=== PATIENT | male | born 1950 | race Caucasian/White ===

== ENCOUNTER 2022-01-03 12:30 | Outpatient (RCR) | payer MEDICARE, OTHER, SELFPAY ==
[2022-01-03 13:03] VITALS: BP 126/72; PULSE 108; RESP 20; TEMP 36.1; BMI 34.3
--- NOTE | 2022-01-03 14:25 | PCM.WC.HP ---
History of Present Illness Date of Service: 01/03/22 Chief Complaint: Ulcer left ischium and ulcer right lateral leg History of Wound: Patient is 71 year male who is a poor historian. He presents for evaluation of his left ischia ulcer that he obtained while hospital for a month this summer at [facility] in [place]. He was admitted on October 20, 2021 with a virus of unknown origin. He required dialysis for GURMEET due to the infection. He had his left ischial ulcer debrided at the bedside. It goes down to muscle with tunneling. He was recently readmitted for another week to [facility]. He has home health and is receiving PT at home. His has been packing it with saline moistened gauze daily. His right lateral leg ulcer is superficial. He has severe +4 pitting edema to bilateral lower legs and feet. He has not been wearing compression. He is a poor historian, but states he has a history of cardiac stents years ago, Left knee replacement 2010, right knee replacement 2017, appe 1969. Today he denies fever, chills, nausea, vomiting. He is very fatigued due to having PT this morning. Progress of Wound: Left ischial ulcer is beefy pink, into the muscle. There is undermining with a tunnel at 12 noon. Right lateral leg ulcer is superficial. Severe bilateral lower leg edema. [facility] Medical History (Reviewed 01/04/22 @ 09:23 by Ronel Cannon [employer], [employer]-C) Peripheral neuropathy Home Medications albuterol sulfate 90 mcg/actuation aerosol inhaler (Ventolin HFA) 2 puff inhalation Q4H PRN PRN Sob &/Or Wheezing 10/08/15 [History Last Taken Unknown] fluticasone 500 mcg-salmeterol 50 mcg/dose blistr powdr for inhalation (Advair Diskus) 1 puff inhalation BID 10/08/15 [History Last Taken 10/07/15 18:00] gabapentin 100 mg capsule 200 mg PO BIDCM 10/08/15 [History Last Taken 10/07/15 22:00] lansoprazole 30 mg capsule,delayed release (Prevacid) 30 mg PO BID 10/08/15 [History Last Taken 10/07/15 19:00] nystatin 100,000 unit/mL oral suspension 5 ml PO 4X/DAY 10/08/15 [History Last Taken 10/07/15 22:00] oxycodone-acetaminophen 5 mg-325 mg tablet 1 tab PO Q6H PRN PRN Pain 10/08/15 [History Last Taken Unknown] apixaban 5 mg tablet (Eliquis) 5 mg PO BID ##1 10/18/15 [Rx Last Taken Unknown] Allergy/AdvReac Type Severity Reaction Status Date / Time No Known Drug Allergies Allergy Other Verified 10/08/15 13:58 Family History (Reviewed 01/04/22 @ 09:23 by Ronel Cannon [employer], [employer]-C) Father CAD (coronary artery disease) Mother CAD (coronary artery disease) Surgical History (Reviewed 01/04/22 @ 09:23 by Ronel Cannon [employer], [employer]-C) History of appendectomy History of heart artery stent History of total left knee replacement History of total right knee replacement (TKR) Social History (Reviewed 01/04/22 @ 09:23 by Ronel Cannon [employer], [employer]-C) Smoking Status: Never smoker ROS Constitutional Constitutional: Reports fatigue; Denies chills or fever(s) Eyes Eyes: Reports none ENT HEENT: Reports none Cardiovascular Cardiovascular: Reports leg edema and leg ulcers; Denies chest pain or dyspnea Respiratory/Chest Respiratory/Chest: Denies cough or dyspnea Gastrointestinal Gastrointestinal: Denies abdominal pain, nausea or vomiting Musculoskeletal Musculoskeletal: Reports abnormal gait, difficulty walking and numbness Integumentary Integumentary: Reports skin ulcer and skin swelling Neurologic Neurologic: Reports burning sensations and numbness Psychiatric Psychiatric: Denies anxiety Endocrine Endocrinology: Reports none Vital Signs Vital Signs Vital Signs: 01/03/22 13:03 Temperature 97 F L Temperature Source Oral Pulse Rate 108 H Respiratory Rate 20 H Blood Pressure 126/72 H Blood Pressure Mean 90 Blood Pressure Source Monitor Blood Pressure Position Semi-Fowlers Blood Pressure Location Right Arm Oxygen Delivery Method Room Air Weight Weight: 226 lb Body Mass Index (BMI) 34.3 Physical Exam Const alert and oriented x3 General Appearance: cooperative HEENT normocephalic Resp normal respiratory effort, normal air movement and clear to auscultation bilaterally Effort and Inspection: able to speak in complete sentences Cardio regular rate and regular rhythm Peripheral Pulses: dorsalis pedis pulses present bilateral GI normal to inspection, nondistended, normoactive bowel sounds, soft to palpation and non-tender Extremity normal capillary refill Extremity Narrative: +4 pitting edema bilateral lower extremities. Bilateral pedal pulses palpable. Peripheral Pulses: Yes dorsalis pedis pulses present bilateral Skin Wound Narrative: Stage IV left ischial/buttock ulcer into the muscle. It is beefy pink in color. He has some non viable tissue around the opening of the ulcer. There is a tunnel present. Right lateral leg ulcer is beefy pink in color. Neuro oriented x3 Psych mental status grossly normal Appearance: grossly normal Debridement Note Debridement Note Wound debrided: Ischial/buttock ulcer Laterality: Left Wound Grade/Stage: Stage IV Type of Debridement: Excisional debridement Anesthesia Used: 4% Lidocaine Solution and 5% Lidocaine Gel Depth: Down to and including healthy tissue, in the subcutaneous layer and to muscle Percentage of wound debrided: 100 Instrument Used: 7mm curette Tissue Removed: Devitalized tissue and slough Severity: Fat Layer Exposed Amount of bleeding with debridement: Mild Bleeding Controlled with: Pressure, Compression and gauze and Silver Nitrate (along the edges of the ulcer) Patient tolerated procedure: Patient tolerated procedure well Post-Debridement Measurements and Additional Note: Post-Debridement Measurements/Treatment - Nurse 1 - General Ulcer Assessment Start: 01/03/22 13:03 Freq: Status: Active Protocol: JANET Activity Type Activity Date Activity User E-sign Co-sign Detail Recorded Client Recorded Date Recorded By Document 01/03/22 13:03 WY [id number] 01/03/22 13:29 W[place] 01/03/22 13:03 - Today's Visit Information Type of service Initial Visit Arrival Mode Wheelchair Accompanied by carol Patient Identification Verified (Name & Yes ) Height and Weight Height 5 ft 8 in Weight 226 lb Weight in Pounds 226.0 lbs Body Mass Index (BMI) 34.3 BMI Classification Obese BSA - Jaye 2.15 Vital Signs Temperature (97.8 F-99.1 F) 97 F L Temperature Source Oral Pulse Rate (60-100) 108 H Pulse Location Monitor Respiratory Rate (12-18) 20 H Oxygen Delivery Method Room Air Blood Pressure (90/60-120/80) 126/72 H Blood Pressure Mean 90 Source Monitor Position Semi-Fowlers Blood Pressure Location Right Arm History Since Last Visit- (Skip if this is Patient's initial visit) Left Footwear Regular Shoe Right Footwear Regular Shoe Pain Scale: 0-10 Numeric Is Patient Pain Free? Yes - Nurse 1 - General Ulcer Measurement Start: 01/03/22 13:03 Freq: Status: Active Protocol: Activity Type Activity Date Activity User E-sign Co-sign Detail Recorded Client Recorded Date Recorded By Document 01/03/22 13:03 WY [id number] 01/03/22 13:29 W[place] 01/03/22 13:03 Wound Center Nurse 1 #2 Right Lateral Leg -Current Size (cm) - Length 3.9 -Current Size (cm) - Width 2.0 -Current Size (cm) - Depth 0.1 -Total Square Cm 7.80 -Exudate Amt Medium -Exudate Type Serosanguineous -Wound Margin Flat & Intact -Granulation Amt Large (67-100%) -Granulation Quality Pale,[place] -Slough/Fibrin No -Texture (Merline-wound Skin Appearance) Assessed, Localized Edema -Moisture (Merline-wound Skin Appearance) Assessed -Color (Merline-wound Skin Appearance) Assessed -Temperature (Merline-wound Skin No Abnormality Appearance) (Pt Warm) -Tenderness on Palpation (Merline-wound No Skin Appearance) -Ulcer Cleansing Rinsed/ Irrigated with Saline -Foul Odor after Cleansing No -Anesthetic Used 4% Lidocaine Solution #1 L Buttock -Current Size (cm) - Length 6.0 -Current Size (cm) - Width 4.0 -Current Size (cm) - Depth 5.1 -Total Square Cm 24.00 -Undermining/Tunneling Yes -Undermining/Tunneling Starts (O'clock 10 ) -Undermining/Tunneling Ends (O'clock) 3 -Maximum Distance (cm) 4.4 -Exudate Amt Small -Exudate Type Serosanguineous -Wound Margin Thickened & Rolled Under -Granulation Amt Large (67-100%) -Granulation Quality Pale,[place] -Necrosis Amt Small (1-33%) -Necrotic Tissue Type Adherent Slough -Texture (Merline-wound Skin Appearance) Assessed -Moisture (Merline-wound Skin Appearance) Assessed -Color (Merline-wound Skin Appearance) Assessed -Temperature (Merline-wound Skin No Abnormality Appearance) (Pt Warm) -Tenderness on Palpation (Merline-wound No Skin Appearance) -Ulcer Cleansing Rinsed/ Irrigated with Saline -Anesthetic Used 4% Lidocaine Solution WC - Nurse 2 - General Ulcer CM Notes Start: 01/03/22 13:03 Freq: Status: Active Protocol: Activity Type Activity Date Activity User E-sign Co-sign Detail Recorded Client Recorded Date Recorded By Document 01/03/22 13:41 MW [id number] 01/03/22 13:52 MW Edit Result 01/03/22 13:41 MW (1) [id number] 01/03/22 13:58 MW (1) #2 Right Lateral Leg - Debridement - Subq, 1st 20sq cm No => Yes 01/03/22 13:41 Wound Center Nurse 2 #2 Right Lateral Leg -Time 13:42 -Correct Patient Yes -Correct Side, Site, Position Yes -Correct Procedure Yes -Procedure Performed Yes -Type of Procedure Debridement -Clinical Debridement Subcutaneous -Tissue Removed Subcutaneous -Post Debridement (cm) - Length 3.8 -Post Debridement (cm) - Width 2.2 -Post Debridement (cm) - Depth 0.2 -Total Square (Post) (cm) 8.36 -Area of Debridement (cm) - Length 3.8 -Area of Debridement (cm) - Width 2.2 -Total Square (Area) (cm) 8.36 -Tunneling No -Undermining/Tunneling No -Circular Undermining No -Wound/Ulcer Outcome Not Healed -Ulcer Cleansing Rinsed/ Irrigated with Saline -Foul Odor after Cleansing No -Bioengineered Tissue No -Bleeding Controlled with Pressure -Treatment Response Procedure Tolerated Well -Offloading No -Debridement - Subq, 1st 20sq cm Yes #1 L Buttock -Time 13:42 -Correct Patient Yes -Correct Side, Site, Position Yes -Correct Procedure Yes -Procedure Performed Yes -Type of Procedure Debridement -Clinical Debridement Muscle / Fascia -Tissue Removed Muscle,Fascia -Post Debridement (cm) - Length 5.8 -Post Debridement (cm) - Width 3.5 -Post Debridement (cm) - Depth 5.0 -Total Square (Post) (cm) 20.30 -Area of Debridement (cm) - Length 5.8 -Area of Debridement (cm) - Width 3.5 -Total Square (Area) (cm) 20.30 -Tunneling No -Undermining/Tunneling No -Circular Undermining No -Wound/Ulcer Outcome Not Healed -Ulcer Cleansing Rinsed/ Irrigated with Saline -Foul Odor after Cleansing No -Bioengineered Tissue No -Bleeding Controlled with Pressure -Treatment Response Procedure Tolerated Well -Offloading No -Debridement - Muscle / Fascia, 1st Yes 20sq cm -Debridement, Muscle/Fascia, ea addt'l 1 20sq cm or part thereof Pain Scale: 0-10 Numeric Is Patient Pain Free? Yes Additional Wound Wound debrided: Lateral leg ulcer Laterality: Right Type of Debridement: Excisional debridement Anesthesia Used: 5% Lidocaine Gel Depth: Down to and including healthy tissue and in the subcutaneous layer Percentage of wound debrided: 100 Instrument Used: 3mm curette Tissue Removed: Devitalized tissue and slough Severity: Fat Layer Exposed Bleeding Controlled with: Compression and gauze Patient tolerated procedure: Patient tolerated procedure well Charges/Coding Visit Charges Office Visits / Consults: [id number] OV L4 Est (25 modifier) Procedures Integumentary [id number]: [id number] Ashley subq tissue 20 sq cm/< Assessment/Plan Assessment/Plan (1) 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 A debridement was performed as documented. Patient has significant decrease in mobility and is receiving home physical therapy. He requires much assistance with standing, transferring and moving due to his weakness. Hopefully with continued PT and time, this will improve. Wound care - Left ischial/buttock ulcer will pack with Dakins 0.25% moistened gauze and top with super absorber daily. Will apply for a wound VAC. Once the VAC is approved by the insurance, home health will be able to apply the vac, packing black foam into the tunnels, and placing the vac at 150 mmHg. Wound VAC dressings will be 3 times per week. Ulcer and merline wound will be washed with soap and water at the time of the VAC changes. For right lateral leg ulcer place collagen hydrogel covered with gauze daily after washing with soap and water. Will place ANA wraps on bilateral lower extremities for compression and hopefully decrease edema. Will order MAVERICK to be done next week, so we will be able to determine the type of compression that is appropriate for him. Will order vascular studies to be done. Due to the difficulty he has ambulating and with him having home health, will have him return in 2 weeks. He is to call or come in sooner if he develops any concerns.
== END 2022-01-24 23:59 | disposition home or self-care (01) ==
LOC: WC 12:30
PROVIDERS: PCP Internal Medicine; Visit Provider Nurse Practitioner Family
DX: L89.324 Pressure ulcer of left buttock, stage 4 (principal); L97.912 Non-pressure chronic ulcer of unspecified part of right lower leg with fat layer exposed; G62.9 Polyneuropathy, unspecified; R60.0 Localized edema; R53.81 Other malaise; Z79.899 Other long term (current) drug therapy
CPT/HCPCS: 11042; 11043; 11046; 99203; G0463

== ENCOUNTER 2022-02-21 14:30 | Outpatient (RCR) | payer MEDICARE, OTHER, SELFPAY ==
[2022-01-25 00:08] VITALS: BP 126/72; PULSE 108; RESP 20; TEMP 36.1; BMI 34.3
[2022-01-25 15:22] VITALS: BP 104/49; PULSE 62; TEMP 35.9; BMI 34.3
--- NOTE | 2022-01-25 16:50 | PN.PCM_ITS ---
History of Present Illness Date of Service: 01/25/22 Chief Complaint: Ulcer left ischium and ulcer right lateral leg History of Wound: Patient is 71 year male who is a poor historian. He presents for evaluation of his left ischia ulcer that he obtained while hospital for a month this summer at [facility] in [place]. He was admitted on October 20, 2021 with a virus of unknown origin. He required dialysis for GURMEET due to the infection. He had his left ischial ulcer debrided at the bedside. It goes down to muscle with tunneling. He was recently readmitted twice, for a week each time, to [facility]. He has home health and is receiving PT at home. His has been packing it with saline moistened gauze daily. His right lateral leg ulcer is superficial. He has severe +4 pitting edema to bilateral lower legs and feet. He has not been wearing compression. He is a poor historian, but states he has a history of cardiac stents years ago, Left knee replacement 2010, right knee replacement 2017, appe 1969. Wound care - The left buttock ulcer is a wound VAC at 150 mmHg, to be change 3 times per week. Today he denies fever, chills, nausea, vomiting. He states his appetite is ok. Progress of Wound: Left buttock ulcer with tunnel at 7 o'clock with a small hole in the base of the tunnel where the entire cotton swab applicator can go into that area. He has not used the wound VAC for the past week due to his most recent hospitalization. His right lateral leg ulcer is healed but has very fragile tissue covering it. Objective Data Objective Data Vital Signs: Vital Signs Temp Pulse Resp BP 96.6 F L 62 20 H 104/49 L 01/25/22 15:22 01/25/22 15:22 01/25/22 00:08 01/25/22 15:22 Weight: 226 lb Body Mass Index (BMI) 34.3 Charges/Coding Procedures Integumentary 111xxx-113xx: [id number] Ashley musc/fascia 20 sq cm/< Physical Exam Const alert and oriented x3 General Appearance: cooperative HEENT normocephalic Resp normal respiratory effort and normal air movement Effort and Inspection: able to speak in complete sentences Cardio regular rate Peripheral Pulses: dorsalis pedis pulses present bilateral GI normal to inspection, nondistended, normoactive bowel sounds, soft to palpation and non-tender Extremity normal capillary refill Extremity Narrative: +3 edema bilateral lower extremities. Bilateral pedal pulses palpable. Peripheral Pulses: Yes dorsalis pedis pulses present bilateral Skin Wound Narrative: Left buttock ulcer with tunnel at 7 o'clock with a small hole in the base of the tunnel where the entire cotton swab applicator can go into that area. Over all this ulcer looks much better. His right lateral leg ulcer is healed but has very fragile tissue covering it. Neuro oriented x3 Psych mental status grossly normal Appearance: grossly normal Debridement Note Debridement Note Wound debrided: Ischial/buttock ulcer Laterality: Left Wound Grade/Stage: Stage IV Type of Debridement: Excisional debridement Anesthesia Used: 4% Lidocaine Solution and 5% Lidocaine Gel Depth: Down to and including healthy tissue, in the subcutaneous layer and to muscle Percentage of wound debrided: 100 Instrument Used: 7mm curette Tissue Removed: Devitalized tissue and slough Severity: Fat Layer Exposed Amount of bleeding with debridement: Mild Bleeding Controlled with: Pressure and Compression and gauze Patient tolerated procedure: Patient tolerated procedure well Post-Debridement Measurements and Additional Note: Post-Debridement Measurements/Treatment - Nurse 1 - General Ulcer Assessment Start: 01/25/22 15:22 Freq: Status: Active Protocol: VALENTÍN.J CARLOS Activity Type Activity Date Activity User E-sign Co-sign Detail Recorded Client Recorded Date Recorded By Document 01/25/22 15:22 YUMIKO [id number] 01/25/22 15:27 [place] 01/25/22 15:22 - Today's Visit Information Type of service Follow-up Visit (Physician/FINAL [employer]PENSE AGENT ) Arrival Mode Ambulatory, Walker Patient Identification Verified (Name & Yes ) Patient Requires Transmission-Based No Precautions Height and Weight Body Mass Index (BMI) 34.3 BMI Classification Obese Vital Signs Temperature (97.8 F-99.1 F) 96.6 F L Temperature Source Temporal Pulse Rate (60-100) 62 Pulse Location Monitor Blood Pressure (90/60-120/80) 104/49 L Blood Pressure Mean (mm Hg) 67 Source Monitor History Since Last Visit- (Skip if this is Patient's initial visit) Have you changed medications since your No last visit? Any new allergies or adverse reactions No Had a fall/change in ADL's that may No increase risk of falls Signs or symptoms of abuse and/or No neglect since last visit Have you been in the hospital since your No last visit? Has dressing in place as prescribed Yes Has compression in place as prescribed No Has offloadiing in place as prescribed N/A Experienced any changes in pain level or No management Left Footwear Regular Shoe Right Footwear Regular Shoe Pain Scale: 0-10 Numeric Is Patient Pain Free? Yes WC - Nurse 1 - General Ulcer Measurement Start: 01/25/22 15:22 Freq: Status: Active Protocol: Activity Type Activity Date Activity User E-sign Co-sign Detail Recorded Client Recorded Date Recorded By Document 01/25/22 15:22 [place] [id number] 01/25/22 15:27 [place] 01/25/22 15:22 Wound Center Nurse 1 #2 Right Lateral Leg -Combined with other wound No -Current Size (cm) - Length 3 -Current Size (cm) - Width 0.4 -Current Size (cm) - Depth 0.1 -Total Square Cm 1.2 -Photo Taken No -Tunneling No -Undermining/Tunneling No -Circular Undermining No -Change in Wound Grade/Stage No -Exudate Amt Medium -Exudate Type Serosanguineous -Wound Margin Distinct, Outline Attached -Granulation Amt Medium (34-66%) -Granulation Quality Trufant -Slough/Fibrin Yes -Necrosis Amt Small (1-33%) -Structure Exposed N/A -Texture (Merline-wound Skin Appearance) No Abnormality, Assessed -Moisture (Merline-wound Skin Appearance) No Abnormality, Assessed -Color (Merline-wound Skin Appearance) No Abnormality, Assessed -Temperature (Merline-wound Skin No Abnormality Appearance) (Pt Warm) -Tenderness on Palpation (Merline-wound No Skin Appearance) -Ulcer Cleansing Rinsed/ Irrigated with Saline -Foul Odor after Cleansing No -Anesthetic Used 5% Lidocaine Gel #1 L Buttock -Combined with other wound No -Current Size (cm) - Length 4.5 -Current Size (cm) - Width 4 -Current Size (cm) - Depth 3.7 -Total Square Cm 18.0 -Photo Taken No -Tunneling No -Tunneling Position (O'clock) 12 -Tunneling Distance (cm) 4.5 -Tunneling Position #2 (O'clock) 7 -Tunneling Distance #2 (cm) 5.3 -Undermining/Tunneling No -Circular Undermining No -Change in Wound Grade/Stage No -Exudate Amt Large -Exudate Type Serosanguineous -Wound Margin Distinct, Outline Attached -Granulation Amt Large (67-100%) -Granulation Quality Trufant,Red -Slough/Fibrin Yes -Necrosis Amt Medium (34-66%) -Necrotic Tissue Type Adherent Slough -Structure Exposed Muscle,Bone -Texture (Merline-wound Skin Appearance) No Abnormality, Assessed -Moisture (Merline-wound Skin Appearance) No Abnormality, Assessed -Color (Merline-wound Skin Appearance) No Abnormality, Assessed -Temperature (Merline-wound Skin No Abnormality Appearance) (Pt Warm) -Tenderness on Palpation (Merline-wound No Skin Appearance) -Ulcer Cleansing Soap and Water -Foul Odor after Cleansing No -Anesthetic Used 4% Lidocaine Solution -Wound Comment(s) 7oclock- 5.3 WC - Nurse 2 - General Ulcer CM Notes Start: 01/25/22 15:22 Freq: Status: Active Protocol: Activity Type Activity Date Activity User E-sign Co-sign Detail Recorded Client Recorded Date Recorded By Document 01/25/22 15:45 MW [id number] 01/25/22 15:58 MW Edit Result 01/25/22 15:45 MW (1) [id number] 01/25/22 16:00 MW (1) #1 L Buttock - Clinical Debridement Subcutaneous => Muscle / Fascia - Tissue Removed Subcutaneous => Muscle,Fascia - Debridement - Subq, 1st 20sq cm Yes => - Debridement - Muscle / Fascia, 1st => Yes 20sq cm 01/25/22 15:45 Wound Center Nurse 2 #2 Right Lateral Leg -Time 15:48 -Correct Patient Yes -Correct Side, Site, Position Yes -Correct Procedure Yes -Procedure Performed No -Post Debridement (cm) - Length 0.1 -Post Debridement (cm) - Width 0.1 -Post Debridement (cm) - Depth 0.1 -Total Square (Post) (cm) 0.01 -Wound/Ulcer Outcome Not Healed #1 L Buttock -Time 15:48 -Correct Patient Yes -Correct Side, Site, Position Yes -Correct Procedure Yes -Procedure Performed Yes -Type of Procedure Debridement -Clinical Debridement Muscle / Fascia -Tissue Removed Muscle,Fascia -Post Debridement (cm) - Length 5.2 -Post Debridement (cm) - Width 2.2 -Post Debridement (cm) - Depth 4.8 -Total Square (Post) (cm) 11.44 -Area of Debridement (cm) - Length 5.2 -Area of Debridement (cm) - Width 2.2 -Total Square (Area) (cm) 11.44 -Tunneling Yes -Tunneling Position (O'clock) 7 -Tunneling Distance (cm) 10.0 -Undermining/Tunneling Yes -Undermining/Tunneling Starts (O'clock 10 ) -Undermining/Tunneling Ends (O'clock) 12 -Maximum Distance (cm) 5.2 -Circular Undermining No -Wound/Ulcer Outcome Not Healed -Ulcer Cleansing Rinsed/ Irrigated with Saline -Foul Odor after Cleansing No -Bioengineered Tissue No -Bleeding Controlled with Pressure -Treatment Response Procedure Tolerated Well -Offloading No -Debridement - Muscle / Fascia, 1st Yes 20sq cm Pain Scale: 0-10 Numeric Is Patient Pain Free? Yes - Nurse 3 - General Ulcer D/C NN Start: 01/25/22 15:22 Freq: Status: Active Protocol: Activity Type Activity Date Activity User E-sign Co-sign Detail Recorded Client Recorded Date Recorded By Document 01/25/22 16:10 [facility] [id number] 01/25/22 16:11 [facility] 01/25/22 16:10 Wound Care Nurse 3 #2 Right Lateral Leg -Ulcer Cleansing Rinsed/ Irrigated with Saline -Foul Odor after Cleansing No -Primary Dressing Applied Mepilex Border -Other Dressing DRSG PER [place] RECEIVING TEAM MEMBER -Mepilex Border 1 #1 L Buttock -Ulcer Cleansing Rinsed/ Irrigated with Saline -Foul Odor after Cleansing No -Negative Pressure Wound Therapy Continue -Setting (mmHg) 150 -Negative Pressure is Continuous -Other Dressing VAC PER [place] RECEIVING TEAM MEMBER -NPWT Application Charge NPWT & Debridement (nc ) Treatment Response Procedure Tolerated Well Pain Scale: 0-10 Numeric Is Patient Pain Free? 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 A debridement was performed as documented. Patient has significant decrease in mobility and is receiving home physical therapy. He requires much assistance with standing, transferring and moving due to his weakness. Hopefully with continued PT and time, this will improve. Wound care - Left ischial/buttock is a wound VAC at 150 mmHg. Wound VAC dressings will be 3 times per week, he has home health to help with the VAC changes. Ulcer and merline wound will be washed with soap and water at the time of the VAC changes. For right lateral leg ulcer, it is healed but fragile. Place a foam border dressing over it and change 3 times a week. Will place ANA wraps on bilateral lower extremities for compression and hopefully decrease edema. Will order MAVERICK to be done next week, so we will be able to determine the type of compression that is appropriate for him. Will order vascular studies to be done. He is on home IV Vancomycin for a month. If the tunnel of the left buttock ulcer doesn't show improvement, will need to refer him to general surgery for a possible operative debridement. THere is a concern that the base of the tunnel has a hole in in and it is at least as long as a cotton tip applicator and stick. Follow up one week. He is to call or come in sooner if he develops any concerns.
[2022-01-31 15:12] VITALS: TEMP 35.5; BMI 34.3
--- NOTE | 2022-01-31 16:28 | PCM.WC.PN ---
History of Present Illness Date of Service: 01/31/22 Chief Complaint: Ulcer left ischium and ulcer right lateral leg History of Wound: Patient is 71 year male who is a poor historian. He presents for evaluation of his left ischia ulcer that he obtained while hospital for a month this summer at [facility] in [place]. He was admitted on October 20, 2021 with a virus of unknown origin. He required dialysis for GURMEET due to the infection. He had his left ischial ulcer debrided at the bedside. It goes down to muscle with tunneling. He was recently readmitted twice, for a week each time, to [facility]. He has home health and is receiving PT at home. His has been packing it with saline moistened gauze daily. His right lateral leg ulcer is superficial. He has severe +4 pitting edema to bilateral lower legs and feet. He has not been wearing compression. He is a poor historian, but states he has a history of cardiac stents years ago, Left knee replacement 2010, right knee replacement 2017, appe 1969. Wound care - The left buttock ulcer is a wound VAC at 150 mmHg, to be change 3 times per week. Today he denies fever, chills, nausea, vomiting. He states his appetite is ok. Progress of Wound: Left buttock ulcer with tunnel at 7 o'clock is smaller this week. Overall the ulcer has improved over the past week. Objective Data Objective Data Vital Signs: Vital Signs Temp Pulse Resp BP 95.9 F L 62 20 H 104/49 L 01/31/22 15:12 01/25/22 15:22 01/25/22 00:08 01/25/22 15:22 Weight: 226 lb Body Mass Index (BMI) 34.3 Charges/Coding Procedures Integumentary 111xxx-113xx: [id number] Ashley musc/fascia 20 sq cm/< Physical Exam Const alert and oriented x3 General Appearance: cooperative HEENT normocephalic Resp normal respiratory effort Effort and Inspection: able to speak in complete sentences Cardio regular rate Peripheral Pulses: dorsalis pedis pulses present bilateral GI normal to inspection, nondistended, normoactive bowel sounds, soft to palpation and non-tender Extremity normal capillary refill Extremity Narrative: Bilateral lower extremity edema. Bilateral pedal pulses palpable. Peripheral Pulses: Yes dorsalis pedis pulses present bilateral Skin Wound Narrative: Left buttock ulcer with tunnel at 7 o'clock and undermining around 12 o'clock which is improved. His right lateral leg ulcer remains healed. Neuro oriented x3 Psych mental status grossly normal Appearance: grossly normal Debridement Note Debridement Note Wound debrided: Ischial/buttock ulcer Laterality: Left Wound Grade/Stage: Stage IV Type of Debridement: Excisional debridement Anesthesia Used: 4% Lidocaine Solution and 5% Lidocaine Gel Depth: Down to and including healthy tissue, in the subcutaneous layer and to muscle Percentage of wound debrided: 100 Instrument Used: 7mm curette Tissue Removed: Devitalized tissue and slough Severity: Fat Layer Exposed Amount of bleeding with debridement: Mild Bleeding Controlled with: Pressure and Compression and gauze Patient tolerated procedure: Patient tolerated procedure well Post-Debridement Measurements and Additional Note: Post-Debridement Measurements/Treatment - Nurse 1 - General Ulcer Assessment Start: 01/25/22 15:22 Freq: Status: Active Protocol: VALENTÍN.J CARLOS Activity Type Activity Date Activity User E-sign Co-sign Detail Recorded Client Recorded Date Recorded By Document 01/25/22 15:22 PA [id number] 01/25/22 15:27 PA Document 01/31/22 15:12 PA [id number] 01/31/22 15:23 PA 01/25/22 01/31/22 15:22 15:12 - Today's Visit Information Type of service Follow-up Visit Follow-up Visit (Physician/AUTO MECHANIC APPRENTICE (Physician/AUTO MECHANIC APPRENTICE ) ) Arrival Mode Ambulatory, Ambulatory, Walker Walker Patient Identification Verified (Name & Yes Yes ) Patient Requires Transmission-Based No No Precautions Safety Precautions NA Height and Weight Body Mass Index (BMI) 34.3 34.3 BMI Classification Obese Obese Vital Signs Temperature (97.8 F-99.1 F) 96.6 F L 95.9 F L Temperature Source Temporal Temporal Pulse Rate (60-100) 62 Pulse Location Monitor Blood Pressure (90/60-120/80) 104/49 L Blood Pressure Mean (mm Hg) 67 Source Monitor History Since Last Visit- (Skip if this is Patient's initial visit) Have you changed medications since your No No last visit? Any new allergies or adverse reactions No No Had a fall/change in ADL's that may No No increase risk of falls Signs or symptoms of abuse and/or No No neglect since last visit Have you been in the hospital since your No No last visit? Has dressing in place as prescribed Yes Yes Has compression in place as prescribed No N/A Has offloadiing in place as prescribed N/A N/A Experienced any changes in pain level or No No management Left Footwear Regular Shoe Regular Shoe Right Footwear Regular Shoe Regular Shoe Pain Scale: 0-10 Numeric Is Patient Pain Free? Yes Yes WC - Nurse 1 - General Ulcer Measurement Start: 01/25/22 15:22 Freq: Status: Active Protocol: Activity Type Activity Date Activity User E-sign Co-sign Detail Recorded Client Recorded Date Recorded By Document 01/25/22 15:22 AK [id number] 01/25/22 15:27 AK Document 01/31/22 15:12 AK [id number] 01/31/22 15:23 AK 01/25/22 01/31/22 15:22 15:12 Wound Center Nurse 1 #2 Right Lateral Leg -Combined with other wound No No -Current Size (cm) - Length 3 0.1 -Current Size (cm) - Width 0.4 0.1 -Current Size (cm) - Depth 0.1 0.1 -Total Square Cm 1.2 0.01 -Photo Taken No No -Tunneling No No -Undermining/Tunneling No No -Circular Undermining No No -Change in Wound Grade/Stage No No -Exudate Amt Medium None Present -Exudate Type Serosanguineous -Wound Margin Distinct, Outline Attached -Granulation Amt Medium (34-66%) -Granulation Quality [place] -Slough/Fibrin Yes No -Necrosis Amt Small (1-33%) None Present (0 %) -Structure Exposed N/A N/A -Texture (Merline-wound Skin Appearance) No Abnormality, No Abnormality, Assessed Assessed -Moisture ([place]-wound Skin Appearance) No Abnormality, No Abnormality, Assessed Assessed -Color ([place]-wound Skin Appearance) No Abnormality, No Abnormality, Assessed Assessed -Temperature (Mer[place]-wound Skin No Abnormality No Abnormality Appearance) (Pt Warm) (Pt Warm) -Tenderness on Palpation (Merline-wound No No Skin Appearance) -Ulcer Cleansing Rinsed/ Rinsed/ Irrigated with Irrigated with Saline Saline -Foul Odor after Cleansing No No -Anesthetic Used 5% Lidocaine 5% Lidocaine Gel Gel #1 L Buttock -Combined with other wound No No -Current Size (cm) - Length 4.5 3.4 -Current Size (cm) - Width 4 3 -Current Size (cm) - Depth 3.7 0.5 -Total Square Cm 18.0 10.2 -Photo Taken No No -Tunneling No No -Tunneling Position (O'clock) 12 -Tunneling Distance (cm) 4.5 -Tunneling Position #2 (O'clock) 7 -Tunneling Distance #2 (cm) 5.3 -Undermining/Tunneling No No -Circular Undermining No No -Change in Wound Grade/Stage No No -Exudate Amt Large Large -Exudate Type Serosanguineous Serosanguineous -Wound Margin Distinct, Outline Attached -Granulation Amt Large (67-100%) Large (67-100%) -Granulation Quality [place],Red [place],Red -Slough/Fibrin Yes Yes -Necrosis Amt Medium (34-66%) Small (1-33%) -Necrotic Tissue Type Adherent Slough Adherent Slough -Structure Exposed Muscle,Bone -Texture ([place]-wound Skin Appearance) No Abnormality, No Abnormality, Assessed Assessed -Moisture ([place]-wound Skin Appearance) No Abnormality, No Abnormality, Assessed Assessed -Color ([place]-wound Skin Appearance) No Abnormality, No Abnormality, Assessed Assessed -Temperature ([place]-wound Skin No Abnormality No Abnormality Appearance) (Pt Warm) (Pt Warm) -Tenderness on Palpation (Merline-wound No No Skin Appearance) -Ulcer Cleansing Soap and Water Rinsed/ Irrigated with Saline -Foul Odor after Cleansing No No -Anesthetic Used 4% Lidocaine 5% Lidocaine Solution Gel -Wound Comment(s) 7oclock- 5.3 WC - Nurse 2 - General Ulcer CM Notes Start: 01/25/22 15:22 Freq: Status: Active Protocol: Activity Type Activity Date Activity User E-sign Co-sign Detail Recorded Client Recorded Date Recorded By Document 01/25/22 15:45 MW [id number] 01/25/22 15:58 MW Edit Result 01/25/22 15:45 MW (1) [id number] 01/25/22 16:00 MW Document 01/31/22 15:36 MW [id number] 01/31/22 15:44 MW (1) #1 L Buttock - Clinical Debridement Subcutaneous => Muscle / Fascia - Tissue Removed Subcutaneous => Muscle,Fascia - Debridement - Subq, 1st 20sq cm Yes => - Debridement - Muscle / Fascia, 1st => Yes 20sq cm 01/25/22 01/31/22 15:45 15:36 Wound Center Nurse 2 #2 Right Lateral Leg -Time 15:48 15:38 -Correct Patient Yes Yes -Correct Side, Site, Position Yes Yes -Correct Procedure Yes Yes -Procedure Performed No No -Post Debridement (cm) - Length 0.1 0 -Post Debridement (cm) - Width 0.1 0 -Post Debridement (cm) - Depth 0.1 0 -Total Square (Post) (cm) 0.01 0 -Wound/Ulcer Outcome Not Healed Healed- Epithelialized #1 L Buttock -Time 15:48 15:37 -Correct Patient Yes Yes -Correct Side, Site, Position Yes Yes -Correct Procedure Yes Yes -Procedure Performed Yes Yes -Type of Procedure Debridement Debridement -Clinical Debridement Muscle / Fascia Muscle / Fascia -Tissue Removed Muscle,Fascia Muscle,Fascia -Post Debridement (cm) - Length 5.2 3.4 -Post Debridement (cm) - Width 2.2 3.5 -Post Debridement (cm) - Depth 4.8 5.0 -Total Square (Post) (cm) 11.44 11.90 -Area of Debridement (cm) - Length 5.2 3.4 -Area of Debridement (cm) - Width 2.2 3.5 -Total Square (Area) (cm) 11.44 11.90 -Tunneling Yes Yes -Tunneling Position (O'clock) 7 7 -Tunneling Distance (cm) 10.0 10.5 -Undermining/Tunneling Yes Yes -Undermining/Tunneling Starts (O'clock 10 10 ) -Undermining/Tunneling Ends (O'clock) 12 12 -Maximum Distance (cm) 5.2 4.0 -Circular Undermining No No -Wound/Ulcer Outcome Not Healed Not Healed -Ulcer Cleansing Rinsed/ Rinsed/ Irrigated with Irrigated with Saline Saline -Foul Odor after Cleansing No No -Bioengineered Tissue No No -Bleeding Controlled with Pressure Pressure -Treatment Response Procedure Procedure Tolerated Well Tolerated Well -Offloading No No -Debridement - Muscle / Fascia, 1st Yes Yes 20sq cm Pain Scale: 0-10 Numeric Is Patient Pain Free? Yes Yes - Nurse 3 - General Ulcer D/C NN Start: 01/25/22 15:22 Freq: Status: Active Protocol: Activity Type Activity Date Activity User E-sign Co-sign Detail Recorded Client Recorded Date Recorded By Document 01/25/22 16:10 [facility] [id number] 01/25/22 16:11 [facility] Document 01/31/22 16:10 [id number] 01/31/22 16:11 RB 01/25/22 01/31/22 16:10 16:10 Wound Care Nurse 3 #2 Right Lateral Leg -Ulcer Cleansing Rinsed/ Irrigated with Saline -Foul Odor after Cleansing No -Primary Dressing Applied Mepilex Border -Other Dressing DRSG PER [employer] C[employer] -Mepilex Border 1 #1 L Buttock -Ulcer Cleansing Rinsed/ Rinsed/ Irrigated with Irrigated with Saline Saline -Foul Odor after Cleansing No -Negative Pressure Wound Therapy Continue Continue -Setting (mmHg) 150 150 -Negative Pressure is Continuous Continuous -Other Dressing VAC PER [employer] -NPWT Application Charge NPWT & NPWT & Debridement (nc Debridement (nc ) ) Treatment Response Procedure Procedure Tolerated Well Tolerated Well Pain Scale: 0-10 Numeric Is Patient Pain Free? 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 A debridement was performed as documented. Patient has significant decrease in mobility and is receiving home physical therapy. He requires much assistance with standing, transferring and moving due to his weakness. Hopefully with continued PT and time, this will improve. Wound care - Left ischial/buttock is a wound VAC at 150 mmHg. Wound VAC dressings will be 3 times per week, he has home health to help with the VAC changes. Ulcer and merline wound will be washed with soap and water at the time of the VAC changes. For right lateral leg ulcer is healed. Massage with lotion daily to help soften scarring. Vascular studies have been ordered. He is on home IV Vancomycin for a month. If the tunnel of the left buttock ulcer doesn't show improvement, will need to refer him to general surgery for a possible operative debridement. There is a concern that the base of the tunnel has a hole in in and it is at least as long as a cotton tip applicator and stick last week, but not able to find it this week. Ulcer has improved. Home health is helping with vac dressing changes. Follow up one week. He is to call or come in sooner if he develops any concerns.
[2022-02-21 14:12] VITALS: BP 117/64; PULSE 67; RESP 18; TEMP 36.9; BMI 34.3
--- NOTE | 2022-02-21 16:32 | PN.PCM_ITS ---
History of Present Illness Date of Service: 02/21/22 Chief Complaint: Ulcer left ischium and ulcer right lateral leg History of Wound: Patient is 71 year male who is a poor historian. He presents for evaluation of his left ischia ulcer that he obtained while hospital for a month this summer at [facility] in [place]. He was admitted on October 20, 2021 with a virus of unknown origin. He required dialysis for GURMEET due to the infection. He had his left ischial ulcer debrided at the bedside. It goes down to muscle with tunneling. He was recently readmitted twice, for a week each time, to [facility]. He has home health and is receiving PT at home. His has been packing it with saline moistened gauze daily. His right lateral leg ulcer is superficial. He has severe +4 pitting edema to bilateral lower legs and feet. He has not been wearing compression. He is a poor historian, but states he has a history of cardiac stents years ago, Left knee replacement 2010, right knee replacement 2017, appe 1969. Wound care - The left buttock ulcer is a wound VAC at 150 mmHg, to be change 3 times per week. Today he denies fever, chills, nausea, vomiting. He states his appetite is ok. Progress of Wound: Left buttock ulcer base is beefy pink. He continues to have a tunnel at 7 o'clock. He has been having issues with his wound VAC keeping its seal. Objective Data Objective Data Vital Signs: Vital Signs Temp Pulse Resp BP 98.5 F 67 18 117/64 02/21/22 14:12 02/21/22 14:12 02/21/22 14:12 02/21/22 14:12 Weight: 226 lb Body Mass Index (BMI) 34.3 Charges/Coding Procedures Integumentary 111xxx-113xx: 11432 Ashley musc/fascia 20 sq cm/< Physical Exam Const alert and oriented x3 General Appearance: cooperative HEENT normocephalic Resp normal respiratory effort Effort and Inspection: able to speak in complete sentences Cardio regular rate Peripheral Pulses: dorsalis pedis pulses present bilateral Extremity normal capillary refill Extremity Narrative: Bilateral lower extremity edema. Bilateral pedal pulses palpable. Peripheral Pulses: Yes dorsalis pedis pulses present bilateral Skin Wound Narrative: Left buttock ulcer with tunnel at 7 o'clock is beefy pink and has improved. His right lateral leg ulcer remains healed. Neuro oriented x3 Psych mental status grossly normal Appearance: grossly normal Debridement Note Debridement Note Wound debrided: Ischial/buttock ulcer Laterality: Left Wound Grade/Stage: Stage IV Type of Debridement: Excisional debridement Anesthesia Used: 4% Lidocaine Solution and 5% Lidocaine Gel Depth: Down to and including healthy tissue, in the subcutaneous layer and to muscle Percentage of wound debrided: 100 Instrument Used: 7mm curette Tissue Removed: Devitalized tissue and slough Severity: Fat Layer Exposed Amount of bleeding with debridement: Mild Bleeding Controlled with: Pressure and Compression and gauze Patient tolerated procedure: Patient tolerated procedure well Post-Debridement Measurements and Additional Note: Post-Debridement Measurements/Treatment - Nurse 1 - General Ulcer Assessment Start: 01/25/22 15:22 Freq: Status: Active Protocol: JANET Activity Type Activity Date Activity User E-sign Co-sign Detail Recorded Client Recorded Date Recorded By Document 01/25/22 15:22 AK [id number] 01/25/22 15:27 AK Document 01/31/22 15:12 AK [id number] 01/31/22 15:23 AK Document 02/21/22 14:12 DL [id number] 02/21/22 14:18 DL 01/25/22 01/31/22 02/21/22 15:22 15:12 14:12 - Today's Visit Information Type of service Follow-up Visit Follow-up Visit Follow-up Visit (Physician/BIOMETRIC SCREENER (Physician/BIOMETRIC SCREENER (Physician/BIOMETRIC SCREENER ) ) ) Arrival Mode Ambulatory, Ambulatory, Ambulatory Walker Walker Transfer Assistance None Patient Identification Verified (Name & Yes Yes Yes ) Patient Requires Transmission-Based No No No Precautions Safety Precautions NA Height and Weight Body Mass Index (BMI) 34.3 34.3 34.3 BMI Classification Obese Obese Obese Vital Signs Temperature (97.8 F-99.1 F) 96.6 F L 95.9 F L 98.5 F Temperature Source Temporal Temporal Temporal Pulse Rate (60-100) 62 67 Pulse Location Monitor Monitor Respiratory Rate (12-18) 18 Respiratory rate source Observation Blood Pressure (90/60-120/80) 104/49 L 117/64 Blood Pressure Mean (mm Hg) 67 81 Source Monitor Monitor History Since Last Visit- (Skip if this is Patient's initial visit) Have you changed medications since your No No No last visit? Any new allergies or adverse reactions No No No Had a fall/change in ADL's that may No No No increase risk of falls Signs or symptoms of abuse and/or No No No neglect since last visit Have you been in the hospital since your No No No last visit? Has dressing in place as prescribed Yes Yes Yes Has compression in place as prescribed No N/A N/A Has offloadiing in place as prescribed N/A N/A Yes Experienced any changes in pain level or No No No management Left Footwear Regular Shoe Regular Shoe Regular Shoe Right Footwear Regular Shoe Regular Shoe Regular Shoe Pain Scale: 0-10 Numeric Is Patient Pain Free? Yes Yes Yes WC - Nurse 1 - General Ulcer Measurement Start: 01/25/22 15:22 Freq: Status: Active Protocol: Activity Type Activity Date Activity User E-sign Co-sign Detail Recorded Client Recorded Date Recorded By Document 01/25/22 15:22 DE [id number] 01/25/22 15:27 AK Document 01/31/22 15:12 AK [id number] 01/31/22 15:23 AK Document 02/21/22 14:12 DL [id number] 02/21/22 14:18 DL 01/25/22 01/31/22 02/21/22 15:22 15:12 14:12 Wound Center Nurse 1 #2 Right Lateral Leg -Combined with other wound No No -Current Size (cm) - Length 3 0.1 -Current Size (cm) - Width 0.4 0.1 -Current Size (cm) - Depth 0.1 0.1 -Total Square Cm 1.2 0.01 -Photo Taken No No -Tunneling No No -Undermining/Tunneling No No -Circular Undermining No No -Change in Wound Grade/Stage No No -Exudate Amt Medium None Present -Exudate Type Serosanguineous -Wound Margin Distinct, Outline Attached -Granulation Amt Medium (34-66%) -Granulation Quality [place] -Slough/Fibrin Yes No -Necrosis Amt Small (1-33%) None Present (0 %) -Structure Exposed N/A N/A -Texture (Merline-wound Skin Appearance) No Abnormality, No Abnormality, Assessed Assessed -Moisture ([place]-wound Skin Appearance) No Abnormality, No Abnormality, Assessed Assessed -Color ([place]-wound Skin Appearance) No Abnormality, No Abnormality, Assessed Assessed -Temperature ([place]-wound Skin No Abnormality No Abnormality Appearance) (Pt Warm) (Pt Warm) -Tenderness on Palpation (Merline-wound No No Skin Appearance) -Ulcer Cleansing Rinsed/ Rinsed/ Irrigated with Irrigated with Saline Saline -Foul Odor after Cleansing No No -Anesthetic Used 5% Lidocaine 5% Lidocaine Gel Gel #1 L Buttock -Combined with other wound No No -Current Size (cm) - Length 4.5 3.4 4.3 -Current Size (cm) - Width 4 3 1.8 -Current Size (cm) - Depth 3.7 0.5 5.3 -Total Square Cm 18.0 10.2 7.74 -Photo Taken No No -Tunneling No No -Tunneling Position (O'clock) 12 7 -Tunneling Distance (cm) 4.5 5.5 -Tunneling Position #2 (O'clock) 7 -Tunneling Distance #2 (cm) 5.3 -Undermining/Tunneling No No -Undermining/Tunneling Starts (O'clock 10 ) -Undermining/Tunneling Ends (O'clock) 12 -Maximum Distance (cm) 4.7 -Circular Undermining No No -Change in Wound Grade/Stage No No -Exudate Amt Large Large Large -Exudate Type Serosanguineous Serosanguineous Yellow/Green -Wound Margin Distinct, Distinct, Outline Outline Attached Attached -Granulation Amt Large (67-100%) Large (67-100%) Medium (34-66%) -Granulation Quality [place],Red [place],Red Red -Slough/Fibrin Yes Yes -Necrosis Amt Medium (34-66%) Small (1-33%) Medium (34-66%) -Necrotic Tissue Type Adherent Slough Adherent Slough Adherent Slough -Structure Exposed Muscle,Bone -Texture ([place]-wound Skin Appearance) No Abnormality, No Abnormality, Assessed, Assessed Assessed Scarring -Moisture ([place]-wound Skin Appearance) No Abnormality, No Abnormality, No Abnormality, Assessed Assessed Assessed -Color (Merline-wound Skin Appearance) No Abnormality, No Abnormality, No Abnormality, Assessed Assessed Assessed -Temperature (Mer[place]-wound Skin No Abnormality No Abnormality No Abnormality Appearance) (Pt Warm) (Pt Warm) (Pt Warm) -Tenderness on Palpation (Merline-wound No No No Skin Appearance) -Ulcer Cleansing Soap and Water Rinsed/ Rinsed/ Irrigated with Irrigated with Saline Saline -Foul Odor after Cleansing No No No -Anesthetic Used 4% Lidocaine 5% Lidocaine 5% Lidocaine Solution Gel Gel -Wound Comment(s) 7oclock- 5.3 WC - Nurse 2 - General Ulcer CM Notes Start: 01/25/22 15:22 Freq: Status: Active Protocol: Activity Type Activity Date Activity User E-sign Co-sign Detail Recorded Client Recorded Date Recorded By Document 01/25/22 15:45 MW [id number] 01/25/22 15:58 MW Edit Result 01/25/22 15:45 MW (1) [id number] 01/25/22 16:00 MW Document 01/31/22 15:36 MW [id number] 01/31/22 15:44 MW Document 02/21/22 14:48 JF [id number] 02/21/22 14:55 JF Edit Result 02/21/22 14:48 JF (2) [id number] 02/21/22 14:57 JF (1) #1 L Buttock - Clinical Debridement Subcutaneous => Muscle / Fascia - Tissue Removed Subcutaneous => Muscle,Fascia - Debridement - Subq, 1st 20sq cm Yes => - Debridement - Muscle / Fascia, 1st => Yes 20sq cm (2) #1 L Buttock - Clinical Debridement Subcutaneous => Muscle / Fascia - Tissue Removed Subcutaneous => Subcutaneous, => Muscle,Fascia - Debridement - Subq, 1st 20sq cm Yes => No - Debridement - Muscle / Fascia, 1st => Yes 20sq cm 01/25/22 01/31/22 02/21/22 15:45 15:36 14:48 Wound Center Nurse 2 #2 Right Lateral Leg -Time 15:48 15:38 -Correct Patient Yes Yes -Correct Side, Site, Position Yes Yes -Correct Procedure Yes Yes -Procedure Performed No No -Post Debridement (cm) - Length 0.1 0 -Post Debridement (cm) - Width 0.1 0 -Post Debridement (cm) - Depth 0.1 0 -Total Square (Post) (cm) 0.01 0 -Wound/Ulcer Outcome Not Healed Healed- Epithelialized #1 L Buttock -Time 15:48 15:37 14:48 -Correct Patient Yes Yes Yes -Correct Side, Site, Position Yes Yes Yes -Correct Procedure Yes Yes Yes -Procedure Performed Yes Yes Yes -Type of Procedure Debridement Debridement Debridement -Clinical Debridement Muscle / Fascia Muscle / Fascia Muscle / Fascia -Tissue Removed Muscle,Fascia Muscle,Fascia Subcutaneous, Muscle,Fascia -Post Debridement (cm) - Length 5.2 3.4 4.6 -Post Debridement (cm) - Width 2.2 3.5 2.0 -Post Debridement (cm) - Depth 4.8 5.0 7.3 -Total Square (Post) (cm) 11.44 11.90 9.20 -Area of Debridement (cm) - Length 5.2 3.4 4.6 -Area of Debridement (cm) - Width 2.2 3.5 2.0 -Total Square (Area) (cm) 11.44 11.90 9.20 -Tunneling Yes Yes No -Tunneling Position (O'clock) 7 7 -Tunneling Distance (cm) 10.0 10.5 -Undermining/Tunneling Yes Yes No -Undermining/Tunneling Starts (O'clock 10 10 ) -Undermining/Tunneling Ends (O'clock) 12 12 -Maximum Distance (cm) 5.2 4.0 -Circular Undermining No No No -Wound/Ulcer Outcome Not Healed Not Healed Not Healed -Ulcer Cleansing Rinsed/ Rinsed/ Rinsed/ Irrigated with Irrigated with Irrigated with Saline Saline Saline -Foul Odor after Cleansing No No No -Bioengineered Tissue No No No -Bleeding Controlled with Pressure Pressure Pressure -Treatment Response Procedure Procedure Procedure Tolerated Well Tolerated Well Tolerated Well -Offloading No No No -Debridement - Subq, 1st 20sq cm No -Debridement - Muscle / Fascia, 1st Yes Yes Yes 20sq cm Pain Scale: 0-10 Numeric Is Patient Pain Free? Yes Yes Yes WC - Nurse 3 - General Ulcer D/C NN Start: 01/25/22 15:22 Freq: Status: Active Protocol: Activity Type Activity Date Activity User E-sign Co-sign Detail Recorded Client Recorded Date Recorded By Document 01/25/22 16:10 [facility] [id number] 01/25/22 16:11 BMF Document 01/31/22 16:10 RB [id number] 01/31/22 16:11 RB 01/25/22 01/31/22 16:10 16:10 Wound Care Nurse 3 #2 Right Lateral Leg -Ulcer Cleansing Rinsed/ Irrigated with Saline -Foul Odor after Cleansing No -Primary Dressing Applied Mepilex Border -Other Dressing DRSG PER [facility]/PRE VOCATIONAL COUNSELOR -Mepilex Border 1 #1 L Buttock -Ulcer Cleansing Rinsed/ Rinsed/ Irrigated with Irrigated with Saline Saline -Foul Odor after Cleansing No -Negative Pressure Wound Therapy Continue Continue -Setting (mmHg) 150 150 -Negative Pressure is Continuous Continuous -Other Dressing VAC PER [facility]/PRE VOCATIONAL COUNSELOR -NPWT Application Charge NPWT & NPWT & Debridement (nc Debridement (nc ) ) Treatment Response Procedure Procedure Tolerated Well Tolerated Well Pain Scale: 0-10 Numeric Is Patient Pain Free? 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 A debridement was performed as documented. Patient has significant decrease in mobility and is receiving home physical therapy. He requires much assistance with standing, transferring and moving due to his weakness. Hopefully with continued PT and time, this will improve. Wound care - Left ischial/buttock is a wound VAC at 150 mmHg. Wound VAC dressings will be 3 times per week, he has home health to help with the VAC changes. Ulcer and merline wound will be washed with soap and water at the time of the VAC changes. *Will take a VAC holiday this week and pack the ulcer daily with Dakin's moistened gauze covered with Super absorber/ABD. He is having a lot of issues with the VAC keeping it's seal and we will take a break this week and re- evaluate again next week. For right lateral leg ulcer is healed. Massage with lotion daily to help soften scarring. Vascular studies have been ordered. He is on home IV Vancomycin for a month. If the tunnel of the left buttock ulcer doesn't show improvement, will need to refer him to general surgery for a possible operative debridement. There is a concern that the base of the tunnel has a hole in in and it is at least as long as a cotton tip applicator and stick last week, but not able to find it this week. Follow up one week. He is to call or come in sooner if he develops any concerns.
== END 2022-02-23 23:59 | disposition home or self-care (01) ==
LOC: WC 14:30
PROVIDERS: PCP Internal Medicine; Visit Provider Nurse Practitioner Family
DX: L89.224 Pressure ulcer of left hip, stage 4 (principal); L89.324 Pressure ulcer of left buttock, stage 4; R53.81 Other malaise; G62.9 Polyneuropathy, unspecified; R60.0 Localized edema
CPT/HCPCS: 11042; 11043

== ENCOUNTER 2022-03-21 10:00 | Outpatient (RCR) | payer MEDICARE, OTHER, SELFPAY ==
[2022-02-24 00:35] VITALS: BP 117/64; PULSE 67; RESP 18; TEMP 36.9; BMI 34.3
[2022-02-28 13:11] VITALS: BP 123/63; PULSE 79; RESP 18; TEMP 37.1; BMI 34.3
--- NOTE | 2022-02-28 14:38 | PCM.WC.PN ---
History of Present Illness Date of Service: 02/28/22 Chief Complaint: Ulcer left ischium and ulcer right lateral leg History of Wound: Patient is 71 year male who is a poor historian. He presents for evaluation of his left ischia ulcer that he obtained while hospital for a month this summer at [facility] in [place]. He was admitted on October 20, 2021 with a virus of unknown origin. He required dialysis for GURMEET due to the infection. He had his left ischial ulcer debrided at the bedside. It goes down to muscle with tunneling. He was recently readmitted twice, for a week each time, to [facility]. He has home health and is receiving PT at home. His has been packing it with saline moistened gauze daily. His right lateral leg ulcer is superficial. He has severe +4 pitting edema to bilateral lower legs and feet. He has not been wearing compression. He is a poor historian, but states he has a history of cardiac stents years ago, Left knee replacement 2010, right knee replacement 2017, appe 1969. Wound care - The left buttock ulcer is a wound VAC at 150 mmHg, to be change 3 times per week. Today he denies fever, chills, nausea, vomiting. He states his appetite is ok. Progress of Wound: He is starting to have some finger like projections in his ulcer bed. Will restart the wound VAC this week to see how the seal stays. Objective Data Objective Data Vital Signs: Vital Signs Temp Pulse Resp BP O2 Del Method 98.7 F 79 18 123/63 H Room Air 02/28/22 13:11 02/28/22 13:11 02/28/22 13:11 02/28/22 13:11 02/28/22 13:11 Oxygen Delivery Method Room Air Weight: 226 lb Body Mass Index (BMI) 34.3 Charges/Coding Procedures Integumentary 111xxx-113xx: 87997 Ashley musc/fascia 20 sq cm/< Physical Exam Const alert and oriented x3 General Appearance: cooperative HEENT normocephalic Resp normal respiratory effort Effort and Inspection: able to speak in complete sentences Cardio regular rate Peripheral Pulses: dorsalis pedis pulses present bilateral Extremity normal capillary refill Extremity Narrative: Bilateral lower extremity edema. Bilateral pedal pulses palpable. Peripheral Pulses: Yes dorsalis pedis pulses present bilateral Skin Wound Narrative: Left buttock ulcer with tunnel at 7 o'clock has a pink wound bed. The wound bed is starting to have finger like projections in the base of the ulcer. Neuro oriented x3 Psych mental status grossly normal Appearance: grossly normal Debridement Note Debridement Note Wound debrided: Ischial/buttock ulcer Laterality: Left Wound Grade/Stage: Stage IV Type of Debridement: Excisional debridement Anesthesia Used: 4% Lidocaine Solution and 5% Lidocaine Gel Depth: Down to and including healthy tissue, in the subcutaneous layer and to muscle Percentage of wound debrided: 100 Instrument Used: 7mm curette Tissue Removed: Devitalized tissue and slough Severity: Fat Layer Exposed Amount of bleeding with debridement: Mild Bleeding Controlled with: Pressure and Compression and gauze Patient tolerated procedure: Patient tolerated procedure well Post-Debridement Measurements and Additional Note: Post-Debridement Measurements/Treatment - Nurse 1 - General Ulcer Assessment Start: 02/28/22 13:11 Freq: Status: Active Protocol: MILLICENTT Activity Type Activity Date Activity User E-sign Co-sign Detail Recorded Client Recorded Date Recorded By Document 02/28/22 13:11 [id number] 02/28/22 13:22 02/28/22 13:11 - Today's Visit Information Type of service Follow-up Visit (Physician/SCHOOL CUSTODIAN ) Arrival Mode Ambulatory, Walker Transfer Assistance None Accompanied by Patient Identification Verified (Name & Yes ) Patient Requires Transmission-Based No Precautions Height and Weight Body Mass Index (BMI) 34.3 BMI Classification Obese Vital Signs Temperature (97.8 F-99.1 F) 98.7 F Temperature Source Temporal Pulse Rate (60-100) 79 Pulse Location Monitor Respiratory Rate (12-18) 18 Respiratory rate source Observation Oxygen Delivery Method Room Air Blood Pressure (90/60-120/80) 123/63 H Blood Pressure Mean (mm Hg) 83 Source Monitor Position Sitting Blood Pressure Location Left Arm History Since Last Visit- (Skip if this is Patient's initial visit) Have you changed medications since your No last visit? Any new allergies or adverse reactions No Had a fall/change in ADL's that may No increase risk of falls Signs or symptoms of abuse and/or No neglect since last visit Have you been in the hospital since your No last visit? Has dressing in place as prescribed Yes Has compression in place as prescribed N/A Has offloadiing in place as prescribed N/A Experienced any changes in pain level or No management Left Footwear Regular Shoe Right Footwear Regular Shoe Pain Scale: 0-10 Numeric Is Patient Pain Free? Yes WC - Nurse 1 - General Ulcer Measurement Start: 02/28/22 13:11 Freq: Status: Active Protocol: Activity Type Activity Date Activity User E-sign Co-sign Detail Recorded Client Recorded Date Recorded By Document 02/28/22 13:11 [id number] 02/28/22 13:22 MW 02/28/22 13:11 Wound Center Nurse 1 #1 L Buttock -Combined with other wound No -Current Size (cm) - Length 3.8 -Current Size (cm) - Width 3.5 -Current Size (cm) - Depth 3.5 -Total Square Cm 13.30 -Date of Last Picture (Recall this 02/28/22 field) -Photo Taken Yes -Epithelialization Small 1-33% -Tunneling No -Undermining/Tunneling Yes -Undermining/Tunneling Starts (O'clock 8 ) -Undermining/Tunneling Ends (O'clock) 1 -Maximum Distance (cm) 5.0 -Circular Undermining No -Exudate Amt Large -Exudate Type Serosanguineous -Wound Margin Distinct, Outline Attached -Granulation Amt Large (67-100%) -Granulation Quality [place] -Slough/Fibrin Yes -Necrosis Amt Small (1-33%) -Necrotic Tissue Type Adherent Slough -Structure Exposed N/A -Texture (Merline-wound Skin Appearance) Assessed, Scarring -Moisture (Merline-wound Skin Appearance) No Abnormality, Assessed -Color (Merline-wound Skin Appearance) No Abnormality, Assessed -Temperature (Merline-wound Skin No Abnormality Appearance) (Pt Warm) -Tenderness on Palpation (Merline-wound No Skin Appearance) -Ulcer Cleansing Soap and Water -Foul Odor after Cleansing No -Anesthetic Used 5% Lidocaine Gel Lower Limb Edema Present No WC - Nurse 2 - General Ulcer CM Notes Start: 02/28/22 13:11 Freq: Status: Active Protocol: Activity Type Activity Date Activity User E-sign Co-sign Detail Recorded Client Recorded Date Recorded By Document 02/28/22 14:04 KARLEE [id number] 02/28/22 14:09 KARLEE Edit Result 02/28/22 14:04 JF (1) [id number] 02/28/22 14:12 JF (1) #1 L Buttock - Clinical Debridement Subcutaneous => Muscle / Fascia - Tissue Removed Subcutaneous => Muscle,Fascia - Debridement - Subq, 1st 20sq cm Yes => No - Debridement - Muscle / Fascia, 1st => Yes 20sq cm 02/28/22 14:04 Wound Center Nurse 2 #1 L Buttock -Time 14:04 -Correct Patient Yes -Correct Side, Site, Position Yes -Correct Procedure Yes -Procedure Performed Yes -Type of Procedure Debridement -Clinical Debridement Muscle / Fascia -Tissue Removed Muscle,Fascia -Post Debridement (cm) - Length 4.2 -Post Debridement (cm) - Width 3.5 -Post Debridement (cm) - Depth 3.5 -Total Square (Post) (cm) 14.70 -Area of Debridement (cm) - Length 4.2 -Area of Debridement (cm) - Width 3.5 -Total Square (Area) (cm) 14.70 -Tunneling No -Undermining/Tunneling Yes -Undermining/Tunneling Starts (O'clock 9 ) -Undermining/Tunneling Ends (O'clock) 2 -Maximum Distance (cm) 3.4 -Circular Undermining No -Wound/Ulcer Outcome Not Healed -Ulcer Cleansing Rinsed/ Irrigated with Saline -Foul Odor after Cleansing No -Bioengineered Tissue No -Bleeding Controlled with Pressure -Treatment Response Procedure Tolerated Well -Offloading No -Debridement - Subq, 1st 20sq cm No -Debridement - Muscle / Fascia, 1st Yes 20sq cm Pain Scale: 0-10 Numeric Is Patient Pain Free? Yes - Nurse 3 - General Ulcer D/C NN Start: 02/28/22 13:11 Freq: Status: Active Protocol: Activity Type Activity Date Activity User E-sign Co-sign Detail Recorded Client Recorded Date Recorded By Document 02/28/22 14:19 MIRZA [id number] 02/28/22 14:19 MIRZA 02/28/22 14:19 Wound Care Nurse 3 #1 L Buttock -Ulcer Cleansing Rinsed/ Irrigated with Saline -Negative Pressure Wound Therapy Continue -Setting (mmHg) 150 -Negative Pressure is Continuous -Regranex (If Applicable) Continue -NPWT Application Charge NPWT & Debridement (nc ) Pain Scale: 0-10 Numeric Is Patient Pain Free? 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 A debridement was performed as documented. His mobility is improving with his PT he has received. He is much more active. Wound care - Left ischial/buttock is a wound VAC at 150 mmHg. Wound VAC dressings will be 3 times per week, he has home health to help with the VAC changes. Ulcer and merline wound will be washed with soap and water at the time of the VAC changes. If he continues to have issues keeping a good seal on the wound VAC, we may consider discontinuing the wound VAC. If he continues to have the fingerlike projections in the wound bed that do not improve, he may need to have a consult for possible operative debridement. For right lateral leg ulcer is healed. Massage with lotion daily to help soften scarring. Vascular studies have been ordered. He is on home IV Vancomycin for a month. If the tunnel of the left buttock ulcer doesn't show improvement, will need to refer him to general surgery for a possible operative debridement. There is a concern that the base of the tunnel has a hole in in and it is at least as long as a cotton tip applicator and stick last week, but not able to find it this week. Follow up one week. He is to call or come in sooner if he develops any concerns.
[2022-03-07 09:39] VITALS: BP 109/52; PULSE 79; RESP 18; TEMP 36.1; BMI 34.3
--- NOTE | 2022-03-07 10:27 | PCM.WC.PN ---
History of Present Illness Date of Service: 03/07/22 Chief Complaint: Ulcer left ischium and ulcer right lateral leg History of Wound: Patient is 71 year male who is a poor historian. He presents for evaluation of his left ischia ulcer that he obtained while hospital for a month this summer at [facility] in [place]. He was admitted on October 20, 2021 with a virus of unknown origin. He required dialysis for GURMEET due to the infection. He had his left ischial ulcer debrided at the bedside. It goes down to muscle with tunneling. He was recently readmitted twice, for a week each time, to [facility]. He has home health and is receiving PT at home. His has been packing it with saline moistened gauze daily. His right lateral leg ulcer is superficial. He has severe +4 pitting edema to bilateral lower legs and feet. He has not been wearing compression. He is a poor historian, but states he has a history of cardiac stents years ago, Left knee replacement 2010, right knee replacement 2017, appe 1969. Wound care - Moistened Dakin's gauze/kerlix covered with ABD/super absorber daily and as needed. Today he denies fever, chills, nausea, vomiting. He states his appetite is ok. Progress of Wound: He is having issues with the wound VAC keeping a seal now that he is more active. He has some finger like projections in his ulcer bed. Wound bed is pink. Merline wound is stable. Objective Data Objective Data Vital Signs: Vital Signs Temp Pulse Resp BP O2 Del Method 97 F L 79 18 109/52 L Room Air 03/07/22 09:39 03/07/22 09:39 03/07/22 09:39 03/07/22 09:39 02/28/22 13:11 Oxygen Delivery Method Room Air Weight: 226 lb Body Mass Index (BMI) 34.3 Charges/Coding Procedures Integumentary 111xxx-113xx: 64649 Ashley subq tissue 20 sq cm/< Debridement Note Debridement Note Wound debrided: Ischial/buttock ulcer Laterality: Left Wound Grade/Stage: Stage IV Type of Debridement: Excisional debridement Anesthesia Used: 4% Lidocaine Solution and 5% Lidocaine Gel Depth: Down to and including healthy tissue, in the subcutaneous layer and to muscle Percentage of wound debrided: 100 Instrument Used: 7mm curette Tissue Removed: Devitalized tissue and slough Severity: Fat Layer Exposed Amount of bleeding with debridement: Mild Bleeding Controlled with: Pressure and Compression and gauze Patient tolerated procedure: Patient tolerated procedure well Post-Debridement Measurements and Additional Note: Post-Debridement Measurements/Treatment - Nurse 1 - General Ulcer Assessment Start: 02/28/22 13:11 Freq: Status: Active Protocol: JANET Activity Type Activity Date Activity User E-sign Co-sign Detail Recorded Client Recorded Date Recorded By Document 02/28/22 13:11 MW [id number] 02/28/22 13:22 MW Document 03/07/22 09:39 DL [id number] 03/07/22 09:43 DL 02/28/22 03/07/22 13:11 09:39 WC - Today's Visit Information Type of service Follow-up Visit Follow-up Visit (Physician/MINERAL TECHNOLOGIST (Physician/MINERAL TECHNOLOGIST ) ) Arrival Mode Ambulatory, Ambulatory Walker Transfer Assistance None None Accompanied by Patient Identification Verified (Name & Yes Yes ) Patient Requires Transmission-Based No No Precautions Height and Weight Body Mass Index (BMI) 34.3 34.3 BMI Classification Obese Obese Vital Signs Temperature (97.8 F-99.1 F) 98.7 F 97 F L Temperature Source Temporal Temporal Pulse Rate (60-100) 79 79 Pulse Location Monitor Monitor Respiratory Rate (12-18) 18 18 Respiratory rate source Observation Observation Oxygen Delivery Method Room Air Blood Pressure (90/60-120/80) 123/63 H 109/52 L Blood Pressure Mean (mm Hg) 83 71 Source Monitor Monitor Position Sitting Sitting Blood Pressure Location Left Arm Left Arm History Since Last Visit- (Skip if this is Patient's initial visit) Have you changed medications since your No No last visit? Any new allergies or adverse reactions No No Had a fall/change in ADL's that may No No increase risk of falls Signs or symptoms of abuse and/or No No neglect since last visit Have you been in the hospital since your No No last visit? Has dressing in place as prescribed Yes Yes Has compression in place as prescribed N/A No Has offloadiing in place as prescribed N/A No Experienced any changes in pain level or No No management Left Footwear Regular Shoe Right Footwear Regular Shoe Pain Scale: 0-10 Numeric Is Patient Pain Free? Yes Yes - Nurse 1 - General Ulcer Measurement Start: 02/28/22 13:11 Freq: Status: Active Protocol: Activity Type Activity Date Activity User E-sign Co-sign Detail Recorded Client Recorded Date Recorded By Document 02/28/22 13:11 MW [id number] 02/28/22 13:22 MW Document 03/07/22 09:39 DL [id number] 03/07/22 09:43 DL 02/28/22 03/07/22 13:11 09:39 Wound Center Nurse 1 #1 L Buttock -Combined with other wound No No -Current Size (cm) - Length 3.8 3.8 -Current Size (cm) - Width 3.5 3 -Current Size (cm) - Depth 3.5 4.4 -Total Square Cm 13.30 11.4 -Date of Last Picture (Recall this 02/28/22 field) -Photo Taken Yes Yes -Epithelialization Small 1-33% -Tunneling No No -Undermining/Tunneling Yes Yes -Undermining/Tunneling Starts (O'clock 8 12 ) -Undermining/Tunneling Ends (O'clock) 1 2 -Maximum Distance (cm) 5.0 4.5 -Circular Undermining No -Classification - Thickness Partial Thickness -Exudate Amt Large Large -Exudate Type Serosanguineous Serosanguineous -Wound Margin Distinct, Thickened & Outline Rolled Under Attached -Granulation Amt Large (67-100%) Medium (34-66%) -Granulation Quality [place] -Slough/Fibrin Yes Yes -Necrosis Amt Small (1-33%) Medium (34-66%) -Necrotic Tissue Type Adherent Slough Adherent Slough -Structure Exposed N/A N/A -Texture (Merline-wound Skin Appearance) Assessed, Assessed Scarring -Moisture (Merline-wound Skin Appearance) No Abnormality, Assessed Assessed -Color (Merline-wound Skin Appearance) No Abnormality, Assessed Assessed -Temperature (Merline-wound Skin No Abnormality No Abnormality Appearance) (Pt Warm) (Pt Warm) -Tenderness on Palpation (Merline-wound No No Skin Appearance) -Ulcer Cleansing Soap and Water Wound Cleanser -Foul Odor after Cleansing No No -Anesthetic Used 5% Lidocaine 4% Lidocaine Gel Solution Lower Limb Edema Present No WC - Nurse 2 - General Ulcer CM Notes Start: 02/28/22 13:11 Freq: Status: Active Protocol: Activity Type Activity Date Activity User E-sign Co-sign Detail Recorded Client Recorded Date Recorded By Document 02/28/22 14:04 [id number] 02/28/22 14:09 Edit Result 02/28/22 14:04 JF (1) [id number] 02/28/22 14:12 JF Document 03/07/22 10:05 [id number] 03/07/22 10:08 JF (1) #1 L Buttock - Clinical Debridement Subcutaneous => Muscle / Fascia - Tissue Removed Subcutaneous => Muscle,Fascia - Debridement - Subq, 1st 20sq cm Yes => No - Debridement - Muscle / Fascia, 1st => Yes 20sq cm 02/28/22 03/07/22 14:04 10:05 Wound Center Nurse 2 #1 L Buttock -Time 14:04 10:05 -Correct Patient Yes Yes -Correct Side, Site, Position Yes Yes -Correct Procedure Yes Yes -Procedure Performed Yes Yes -Type of Procedure Debridement Debridement -Clinical Debridement Muscle / Fascia Subcutaneous -Tissue Removed Muscle,Fascia Subcutaneous -Post Debridement (cm) - Length 4.2 4 -Post Debridement (cm) - Width 3.5 3 -Post Debridement (cm) - Depth 3.5 3.9 -Total Square (Post) (cm) 14.70 12 -Area of Debridement (cm) - Length 4.2 4.3 -Area of Debridement (cm) - Width 3.5 3.0 -Total Square (Area) (cm) 14.70 12.90 -Tunneling No No -Undermining/Tunneling Yes Yes -Undermining/Tunneling Starts (O'clock 9 11 ) -Undermining/Tunneling Ends (O'clock) 2 3 -Maximum Distance (cm) 3.4 4.6 -Circular Undermining No No -Wound/Ulcer Outcome Not Healed Not Healed -Ulcer Cleansing Rinsed/ Rinsed/ Irrigated with Irrigated with Saline Saline -Foul Odor after Cleansing No No -Bioengineered Tissue No No -Bleeding Controlled with Pressure Pressure -Treatment Response Procedure Procedure Tolerated Well Tolerated Well -Offloading No No -Debridement - Subq, 1st 20sq cm No Yes -Debridement - Muscle / Fascia, 1st Yes 20sq cm Pain Scale: 0-10 Numeric Is Patient Pain Free? Yes Yes - Nurse 3 - General Ulcer D/C NN Start: 02/28/22 13:11 Freq: Status: Active Protocol: Activity Type Activity Date Activity User E-sign Co-sign Detail Recorded Client Recorded Date Recorded By Document 02/28/22 14:19 KR [id number] 02/28/22 14:19 KR Document 03/07/22 10:15 JF [id number] 03/07/22 10:15 JF 02/28/22 03/07/22 14:19 10:15 Wound Care Nurse 3 #1 L Buttock -Ulcer Cleansing Rinsed/ Rinsed/ Irrigated with Irrigated with Saline Saline -Foul Odor after Cleansing No -Negative Pressure Wound Therapy Continue -Setting (mmHg) 150 -Negative Pressure is Continuous -Regranex (If Applicable) Continue -Other Dressing dakin gauze -Primary Dressing Covered/Secured with Dry Gauze, Secured with Tape -NPWT Application Charge NPWT & Debridement (nc ) Pain Scale: 0-10 Numeric Is Patient Pain Free? 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 A debridement was performed as documented. His mobility is improving with his PT he has received. He is much more active. Wound care - Wash ulcer with soap and water with dressing changes. Moistened Dakin's 0.25% gauze/kerlix packed into the wound/tunnel and cover with ABD/super absorber daily. If the fingerlike projections in the wound do not improve, he may need to have a surgical consult for possible operative debridement. The right lateral leg ulcer is healed. Massage with lotion daily to help soften scarring. Vascular studies have been ordered. He completed home IV Vancomycin. Follow up one week. He is to call or come in sooner if he develops any concerns.
[2022-03-21 10:22] VITALS: BP 91/46; PULSE 84; RESP 18; TEMP 36.1; BMI 34.3
--- NOTE | 2022-03-21 12:35 | PN.PCM_ITS ---
History of Present Illness Date of Service: 03/21/22 Chief Complaint: Ulcer left ischium and ulcer right lateral leg History of Wound: Patient is 71 year male who is a poor historian. He presents for evaluation of his left ischia ulcer that he obtained while hospital for a month this summer at [facility] in [place]. He was admitted on October 20, 2021 with a virus of unknown origin. He required dialysis for GURMEET due to the infection. He had his left ischial ulcer debrided at the bedside. It goes down to muscle with tunneling. He was recently readmitted twice, for a week each time, to [facility]. He has home health and is receiving PT at home. His has been packing it with saline moistened gauze daily. His right lateral leg ulcer is superficial. He has severe +4 pitting edema to bilateral lower legs and feet. He has not been wearing compression. He is a poor historian, but states he has a history of cardiac stents years ago, Left knee replacement 2010, right knee replacement 2017, appe 1969. Wound care - Moistened Dakin's gauze/kerlix covered with ABD/super absorber daily and as needed. Today he denies fever, chills, nausea, vomiting. He states his appetite is ok. Progress of Wound: His wound bed has improved with less hypergranulation and the finger like projections have smoothed out using the Dakin's moistened gauze. Objective Data Objective Data Vital Signs: Vital Signs Temp Pulse Resp BP O2 Del Method 97 F L 84 18 91/46 L Room Air 03/21/22 10:22 03/21/22 10:22 03/21/22 10:22 03/21/22 10:02/28/22 13:11 Oxygen Delivery Method Room Air Weight: 226 lb Body Mass Index (BMI) 34.3 Charges/Coding Procedures Integumentary 111xxx-113xx: 73414 Ashley musc/fascia 20 sq cm/< Debridement Note Debridement Note Wound debrided: Ischial/buttock ulcer Laterality: Left Wound Grade/Stage: Stage IV Type of Debridement: Excisional debridement Anesthesia Used: 4% Lidocaine Solution and 5% Lidocaine Gel Depth: Down to and including healthy tissue, in the subcutaneous layer and to muscle Percentage of wound debrided: 100 Instrument Used: 7mm curette Tissue Removed: Devitalized tissue and slough Severity: Fat Layer Exposed Amount of bleeding with debridement: Mild Bleeding Controlled with: Pressure and Compression and gauze Patient tolerated procedure: Patient tolerated procedure well Post-Debridement Measurements and Additional Note: Post-Debridement Measurements/Treatment WC - Nurse 1 - General Ulcer Assessment Start: 02/28/22 13:11 Freq: Status: Active Protocol: JANET Activity Type Activity Date Activity User E-sign Co-sign Detail Recorded Client Recorded Date Recorded By Document 02/28/22 13:11 MW [id number] 02/28/22 13:22 MW Document 03/07/22 09:39 DL [id number] 03/07/22 09:43 DL Document 03/21/22 10:22 RB [id number] 03/21/22 10:25 RB 02/28/22 03/07/22 03/21/22 13:11 09:39 10:22 - Today's Visit Information Type of service Follow-up Visit Follow-up Visit Follow-up Visit (Physician/NATUROPATHIC ONCOLOGY PROVIDER (Physician/NATUROPATHIC ONCOLOGY PROVIDER (Physician/NATUROPATHIC ONCOLOGY PROVIDER ) ) ) Arrival Mode Ambulatory, Ambulatory Ambulatory, Walker Walker Transfer Assistance None None None Accompanied by Patient Identification Verified (Name & Yes Yes Yes ) Patient Requires Transmission-Based No No Precautions Height and Weight Body Mass Index (BMI) 34.3 34.3 34.3 BMI Classification Obese Obese Obese Vital Signs Temperature (97.8 F-99.1 F) 98.7 F 97 F L 97 F L Temperature Source Temporal Temporal Temporal Pulse Rate (60-100) 79 79 84 Pulse Location Monitor Monitor Monitor Respiratory Rate (12-18) 18 18 18 Respiratory rate source Observation Observation Observation Oxygen Delivery Method Room Air Blood Pressure (90/60-120/80) 123/63 H 109/52 L 91/46 L Blood Pressure Mean (mm Hg) 83 71 61 Source Monitor Monitor Monitor Position Sitting Sitting Semi-Fowlers Blood Pressure Location Left Arm Left Arm Left Arm History Since Last Visit- (Skip if this is Patient's initial visit) Have you changed medications since your No No No last visit? Any new allergies or adverse reactions No No No Had a fall/change in ADL's that may No No No increase risk of falls Signs or symptoms of abuse and/or No No No neglect since last visit Have you been in the hospital since your No No No last visit? Has dressing in place as prescribed Yes Yes Yes Has compression in place as prescribed N/A No No Has offloadiing in place as prescribed N/A No No Experienced any changes in pain level or No No No management Left Footwear Regular Shoe Right Footwear Regular Shoe Pain Scale: 0-10 Numeric Is Patient Pain Free? Yes Yes Yes WC - Nurse 1 - General Ulcer Measurement Start: 02/28/22 13:11 Freq: Status: Active Protocol: Activity Type Activity Date Activity User E-sign Co-sign Detail Recorded Client Recorded Date Recorded By Document 02/28/22 13:11 MW [id number] 02/28/22 13:22 MW Document 03/07/22 09:39 DL [id number] 03/07/22 09:43 DL Document 03/21/22 10:22 RB [id number] 03/21/22 10:25 RB 02/28/22 03/07/22 03/21/22 13:11 09:39 10:22 Wound Center Nurse 1 #1 L Buttock -Combined with other wound No No No -Current Size (cm) - Length 3.8 3.8 3 -Current Size (cm) - Width 3.5 3 3.2 -Current Size (cm) - Depth 3.5 4.4 4.5 -Total Square Cm 13.30 11.4 9.6 -Date of Last Picture (Recall this 02/28/22 field) -Photo Taken Yes Yes Yes -Epithelialization Small 1-33% -Tunneling No No No -Undermining/Tunneling Yes Yes Yes -Undermining/Tunneling Starts (O'clock 8 12 12 ) -Undermining/Tunneling Ends (O'clock) 1 2 1 -Maximum Distance (cm) 5.0 4.5 4.5 -Circular Undermining No No -Classification - Thickness Partial Thickness -Exudate Amt Large Large Medium -Exudate Type Serosanguineous Serosanguineous Serosanguineous -Wound Margin Distinct, Thickened & Thickened & Outline Rolled Under Rolled Under Attached -Granulation Amt Large (67-100%) Medium (34-66%) Medium (34-66%) -Granulation Quality Angier Angier Angier -Slough/Fibrin Yes Yes Yes -Necrosis Amt Small (1-33%) Medium (34-66%) Medium (34-66%) -Necrotic Tissue Type Adherent Slough Adherent Slough Adherent Slough -Structure Exposed N/A N/A N/A -Texture (Merline-wound Skin Appearance) Assessed, Assessed Assessed, Scarring Scarring -Moisture (Merline-wound Skin Appearance) No Abnormality, Assessed Assessed Assessed -Color (Merline-wound Skin Appearance) No Abnormality, Assessed Assessed Assessed -Temperature (Merline-wound Skin No Abnormality No Abnormality No Abnormality Appearance) (Pt Warm) (Pt Warm) (Pt Warm) -Tenderness on Palpation (Merline-wound No No No Skin Appearance) -Ulcer Cleansing Soap and Water Wound Cleanser Wound Cleanser -Foul Odor after Cleansing No No No -Anesthetic Used 5% Lidocaine 4% Lidocaine 4% Lidocaine Gel Solution Solution Lower Limb Edema Present No WC - Nurse 2 - General Ulcer CM Notes Start: 02/28/22 13:11 Freq: Status: Active Protocol: Activity Type Activity Date Activity User E-sign Co-sign Detail Recorded Client Recorded Date Recorded By Document 02/28/22 14:04 [id number] 02/28/22 14:09 Edit Result 02/28/22 14:04 JF (1) [id number] 02/28/22 14:12 Document 03/07/22 10:05 [id number] 03/07/22 10:08 Document 03/21/22 10:34 Laptop 03/21/22 10:38 JF (1) #1 L Buttock - Clinical Debridement Subcutaneous => Muscle / Fascia - Tissue Removed Subcutaneous => Muscle,Fascia - Debridement - Subq, 1st 20sq cm Yes => No - Debridement - Muscle / Fascia, 1st => Yes 20sq cm 02/28/22 03/07/22 03/21/22 14:04 10:05 10:34 Wound Center Nurse 2 #1 L Buttock -Time 14:04 10:05 10:37 -Correct Patient Yes Yes Yes -Correct Side, Site, Position Yes Yes Yes -Correct Procedure Yes Yes Yes -Procedure Performed Yes Yes Yes -Type of Procedure Debridement Debridement Debridement -Clinical Debridement Muscle / Fascia Subcutaneous Subcutaneous -Tissue Removed Muscle,Fascia Subcutaneous Subcutaneous -Post Debridement (cm) - Length 4.2 4 4.0 -Post Debridement (cm) - Width 3.5 3 3.4 -Post Debridement (cm) - Depth 3.5 3.9 3.0 -Total Square (Post) (cm) 14.70 12 13.60 -Area of Debridement (cm) - Length 4.2 4.3 4.0 -Area of Debridement (cm) - Width 3.5 3.0 3.4 -Total Square (Area) (cm) 14.70 12.90 13.60 -Tunneling No No No -Undermining/Tunneling Yes Yes Yes -Undermining/Tunneling Starts (O'clock 9 11 11 ) -Undermining/Tunneling Ends (O'clock) 2 3 3 -Maximum Distance (cm) 3.4 4.6 3.5 -Circular Undermining No No No -Wound/Ulcer Outcome Not Healed Not Healed Not Healed -Ulcer Cleansing Rinsed/ Rinsed/ Rinsed/ Irrigated with Irrigated with Irrigated with Saline Saline Saline -Foul Odor after Cleansing No No No -Bioengineered Tissue No No No -Bleeding Controlled with Pressure Pressure Pressure -Treatment Response Procedure Procedure Procedure Tolerated Well Tolerated Well Tolerated Well -Offloading No No No -Debridement - Subq, 1st 20sq cm No Yes Yes -Debridement - Muscle / Fascia, 1st Yes 20sq cm Pain Scale: 0-10 Numeric Is Patient Pain Free? Yes Yes Yes - Nurse 3 - General Ulcer D/C NN Start: 02/28/22 13:11 Freq: Status: Active Protocol: Activity Type Activity Date Activity User E-sign Co-sign Detail Recorded Client Recorded Date Recorded By Document 02/28/22 14:19 KR [id number] 02/28/22 14:19 KR Document 03/07/22 10:15 [id number] 03/07/22 10:15 Document 03/21/22 10:47 MT [id number] 03/21/22 10:48 MT 02/28/22 03/07/22 03/21/22 14:19 10:15 10:47 Wound Care Nurse 3 #1 L Buttock -Ulcer Cleansing Rinsed/ Rinsed/ Irrigated with Irrigated with Saline Saline -Foul Odor after Cleansing No -Negative Pressure Wound Therapy Continue -Setting (mmHg) 150 -Negative Pressure is Continuous -Regranex (If Applicable) Continue -Primary Dressing Applied Mepilex Border -Other Dressing dakin gauze .25% dakins solution moistened gauze -Primary Dressing Covered/Secured with Dry Gauze, Secured with Tape -NPWT Application Charge NPWT & Debridement (nc ) -Mepilex Border 1 Treatment Response Procedure Tolerated Well Pain Scale: 0-10 Numeric Is Patient Pain Free? 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 A debridement was performed as documented. His mobility is improving with his PT he has received. He is much more active. Wound care - Wash ulcer with soap and water with dressing changes. Moistened Dakin's 0.25% gauze/kerlix packed into the wound/tunnel and cover with ABD/super absorber daily. If the fingerlike projections in the wound do not improve, he may need to have a surgical consult for possible operative debridement. The right lateral leg ulcer is healed. Massage with lotion daily to help soften scarring. Vascular studies have been ordered. He completed home IV Vancomycin. Follow up one week. He is to call or come in sooner if he develops any concerns.
== END 2022-03-26 23:59 | disposition home or self-care (01) ==
LOC: WC 10:00
PROVIDERS: PCP Internal Medicine; Visit Provider Nurse Practitioner Family
DX: L89.324 Pressure ulcer of left buttock, stage 4 (principal); G62.9 Polyneuropathy, unspecified; R53.81 Other malaise; R60.0 Localized edema
CPT/HCPCS: 11042; 11043

== ENCOUNTER 2022-05-15 13:00 | Outpatient (RCR) | payer MEDICARE, OTHER, SELFPAY ==
[2022-03-27 00:16] VITALS: BP 91/46; PULSE 84; RESP 18; TEMP 36.1; BMI 34.3
[2022-05-08 13:34] VITALS: BP 122/73; PULSE 63; TEMP 36.2; BMI 34.3
--- NOTE | 2022-05-08 16:08 | PCM.WC.PN ---
History of Present Illness Date of Service: 05/08/22 Chief Complaint: Ulcer left ischium and ulcer right lateral leg History of Wound: Patient is 71 year male who is a poor historian. He presents for evaluation of his left ischia ulcer that he obtained while hospital for a month this summer at [facility] in [place]. He was admitted on October 20, 2021 with a virus of unknown origin. He required dialysis for GURMEET due to the infection. He had his left ischial ulcer debrided at the bedside. It goes down to muscle with tunneling. He was recently readmitted twice, for a week each time, to [facility]. He has home health and is receiving PT at home. His has been packing it with saline moistened gauze daily. His right lateral leg ulcer is superficial. He has severe +4 pitting edema to bilateral lower legs and feet. He has not been wearing compression. He is a poor historian, but states he has a history of cardiac stents years ago, Left knee replacement 2010, right knee replacement 2017, appe 1969. Wound care - Moistened Dakin's gauze/kerlix covered with ABD/super absorber daily and as needed. Today he denies fever, chills, nausea, vomiting. He states his appetite is ok. Progress of Wound: Patient has been hospitalized and was placed at [facility] for rehab. He is now home. The wound bed of his left buttock ulcer is pink and the merline wound is stable. He has a new ulcer on his coccyx (formally labeled sacral) area that is a stage II with yellow wound bed. Objective Data Objective Data Vital Signs: Vital Signs Temp Pulse Resp BP 97.2 F L 63 18 122/73 H 05/08/22 13:34 05/08/22 13:34 03/27/22 00:16 05/08/22 13:34 Weight: 226 lb Body Mass Index (BMI) 34.3 Charges/Coding Procedures Integumentary 111xxx-113xx: 01843 Ashley subq tissue 20 sq cm/< Debridement Note Debridement Note Wound debrided: #1 Ischial/buttock ulcer Laterality: Left Wound Grade/Stage: Stage IV Type of Debridement: Excisional debridement Anesthesia Used: 4% Lidocaine Solution and 5% Lidocaine Gel Depth: Down to and including healthy tissue and in the subcutaneous layer Percentage of wound debrided: 100 Instrument Used: 7mm curette Tissue Removed: Devitalized tissue and slough Severity: Fat Layer Exposed Amount of bleeding with debridement: Mild Bleeding Controlled with: Pressure and Compression and gauze Patient tolerated procedure: Patient tolerated procedure well Post-Debridement Measurements and Additional Note: Post-Debridement Measurements/Treatment - Nurse 1 - General Ulcer Assessment Start: 05/08/22 13:34 Freq: Status: Active Protocol: JANET Activity Type Activity Date Activity User E-sign Co-sign Detail Recorded Client Recorded Date Recorded By Document 05/08/22 13:34 CO [id number] 05/08/22 13:38 CO 05/08/22 13:34 - Today's Visit Information Type of service Follow-up Visit (Physician/PHYSICAL CHEMISTRY TEACHER ) Arrival Mode Ambulatory Patient Identification Verified (Name & Yes ) Patient Requires Transmission-Based No Precautions Safety Precautions NA Height and Weight Body Mass Index (BMI) 34.3 BMI Classification Obese Vital Signs Temperature (97.8 F-99.1 F) 97.2 F L Temperature Source Temporal Pulse Rate (60-100) 63 Pulse Location Monitor Blood Pressure (90/60-120/80) 122/73 H Blood Pressure Mean (mm Hg) 89 Source Monitor History Since Last Visit- (Skip if this is Patient's initial visit) Have you changed medications since your No last visit? Any new allergies or adverse reactions No Had a fall/change in ADL's that may No increase risk of falls Signs or symptoms of abuse and/or No neglect since last visit Have you been in the hospital since your No last visit? Has dressing in place as prescribed Yes Has compression in place as prescribed N/A Has offloadiing in place as prescribed N/A Experienced any changes in pain level or No management Left Footwear Regular Shoe Right Footwear Regular Shoe Pain Scale: 0-10 Numeric Is Patient Pain Free? Yes - Nurse 1 - General Ulcer Measurement Start: 05/08/22 13:34 Freq: Status: Active Protocol: Activity Type Activity Date Activity User E-sign Co-sign Detail Recorded Client Recorded Date Recorded By Document 05/08/22 13:34 YUMIKO [id number] 05/08/22 13:38 CO 05/08/22 13:34 Wound Center Nurse 1 #3 coccyx (formerly sacral) -Combined with other wound No -Current Size (cm) - Length 2.2 -Current Size (cm) - Width 0.6 -Current Size (cm) - Depth 0.1 -Total Square Cm 1.32 -Date of Last Picture (Recall this 05/08/22 field) -Photo Taken Yes -Tunneling No -Undermining/Tunneling No -Circular Undermining No -Change in Wound Grade/Stage No -Exudate Amt Medium -Exudate Type Serosanguineous -Wound Margin Distinct, Outline Attached -Granulation Amt None Present (0 %) -Granulation Quality N/A -Slough/Fibrin Yes -Necrosis Amt Large (67-100%) -Necrotic Tissue Type Adherent Slough -Structure Exposed N/A -Texture (Merline-wound Skin Appearance) No Abnormality, Assessed -Moisture (Merline-wound Skin Appearance) No Abnormality, Assessed -Color (Merline-wound Skin Appearance) No Abnormality, Assessed -Temperature (Merline-wound Skin No Abnormality Appearance) (Pt Warm) -Tenderness on Palpation (Merline-wound No Skin Appearance) -Ulcer Cleansing Rinsed/ Irrigated with Saline -Foul Odor after Cleansing No -Anesthetic Used 5% Lidocaine Gel #1 L Buttock -Combined with other wound No -Current Size (cm) - Length 2 -Current Size (cm) - Width 1.5 -Current Size (cm) - Depth 1.6 -Total Square Cm 3.0 -Photo Taken Yes -Tunneling No -Undermining/Tunneling No -Circular Undermining No -Change in Wound Grade/Stage No -Exudate Amt Medium -Exudate Type Serosanguineous -Wound Margin Distinct, Outline Attached -Granulation Amt Large (67-100%) -Granulation Quality Cypress,Red -Slough/Fibrin No -Necrosis Amt None Present (0 %) -Structure Exposed N/A -Texture (Merline-wound Skin Appearance) No Abnormality, Assessed -Moisture (Merline-wound Skin Appearance) No Abnormality, Assessed -Color (Merline-wound Skin Appearance) No Abnormality, Assessed -Temperature (Merline-wound Skin No Abnormality Appearance) (Pt Warm) -Tenderness on Palpation (Merline-wound No Skin Appearance) -Ulcer Cleansing Soap and Water -Foul Odor after Cleansing No -Anesthetic Used 5% Lidocaine Gel WC - Nurse 2 - General Ulcer CM Notes Start: 05/08/22 13:34 Freq: Status: Active Protocol: Activity Type Activity Date Activity User E-sign Co-sign Detail Recorded Client Recorded Date Recorded By Document 05/08/22 14:33 KARLEE [id number] 05/08/22 14:40 KARLEE 05/08/22 14:33 Wound Center Nurse 2 #3 coccyx (formerly sacral) -Time 14:34 -Correct Patient Yes -Correct Side, Site, Position Yes -Correct Procedure Yes -Procedure Performed Yes -Type of Procedure Debridement -Clinical Debridement Subcutaneous -Tissue Removed Subcutaneous -Post Debridement (cm) - Length 2.5 -Post Debridement (cm) - Width 1 -Post Debridement (cm) - Depth 0.4 -Total Square (Post) (cm) 2.5 -Area of Debridement (cm) - Length 2.5 -Area of Debridement (cm) - Width 1.0 -Total Square (Area) (cm) 2.50 -Tunneling No -Undermining/Tunneling No -Circular Undermining No -Wound/Ulcer Outcome Not Healed -Ulcer Cleansing Rinsed/ Irrigated with Saline -Foul Odor after Cleansing No -Bioengineered Tissue No -Bleeding Controlled with Pressure -Treatment Response Procedure Tolerated Well -Offloading No -Debridement - Subq, 1st 20sq cm No #1 L Buttock -Time 14:34 -Correct Patient Yes -Correct Side, Site, Position Yes -Correct Procedure Yes -Procedure Performed Yes -Type of Procedure Debridement -Clinical Debridement Subcutaneous -Tissue Removed Subcutaneous -Post Debridement (cm) - Length 2.0 -Post Debridement (cm) - Width 1.8 -Post Debridement (cm) - Depth 1.1 -Total Square (Post) (cm) 3.60 -Area of Debridement (cm) - Length 2.0 -Area of Debridement (cm) - Width 1.8 -Total Square (Area) (cm) 3.60 -Tunneling Yes -Tunneling Position (O'clock) 1 -Tunneling Distance (cm) 2.4 -Undermining/Tunneling No -Circular Undermining No -Wound/Ulcer Outcome Not Healed -Ulcer Cleansing Rinsed/ Irrigated with Saline -Foul Odor after Cleansing No -Bioengineered Tissue No -Bleeding Controlled with Pressure -Treatment Response Procedure Tolerated Well -Offloading No -Assistive Device(s) Wheelchair -Debridement - Subq, 1st 20sq cm Yes Pain Scale: 0-10 Numeric Is Patient Pain Free? Yes WC - Nurse 3 - General Ulcer D/C NN Start: 05/08/22 13:34 Freq: Status: Active Protocol: Activity Type Activity Date Activity User E-sign Co-sign Detail Recorded Client Recorded Date Recorded By Document 05/08/22 14:57 [facility] [id number] 05/08/22 14:58 [facility] 05/08/22 14:57 Wound Care Nurse 3 #3 coccyx (formerly sacral) -Ulcer Cleansing Not Cleansed -Primary Dressing Applied Mepilex Border -Other Dressing HYDROGEL -Mepilex Border 1 #1 L Buttock -Ulcer Cleansing Rinsed/ Irrigated with Saline -Foul Odor after Cleansing No -Primary Dressing Applied Mepilex Border -Other Dressing DAKINS MOIST GAUZE -Mepilex Border 0 Treatment Response Procedure Tolerated Well Pain Scale: 0-10 Numeric Is Patient Pain Free? Yes WC - Visit Discharge Discharge Condition Stable Ambulatory Status Ambulatory, Walker Transportation Private Auto Accompanied by Additional Wound Wound debrided: #3 coccyx ulcer (formerly labeled sacral) Laterality: Not Applicable Wound Grade/Stage: Stage II Type of Debridement: Excisional debridement Anesthesia Used: 5% Lidocaine Gel Depth: Down to and including healthy tissue and in the subcutaneous layer Percentage of wound debrided: 100 Instrument Used: 3mm curette Tissue Removed: Devitalized tissue and slough Severity: Fat Layer Exposed Amount of bleeding with debridement: Mild Bleeding Controlled with: Compression and gauze Patient tolerated procedure: Patient tolerated procedure well Assessment/Plan Assessment/Plan (1) 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 He went into the hospital in March and was placed at [facility] for rehab. He is now home. While he was at the [facility], he developed a new ulcer in his coccyx which his has been covering with gauze. Wound care - Wash ulcers with soap and water with dressing changes. To left buttock ulcer place moistened Dakin's 0.25% gauze/kerlix packed into the wound/tunnel and cover with ABD/super absorber daily. To the new ulcer on coccyx (formerly labeled sacral ) place Santyl nickel thickness He completed home IV Vancomycin. Follow up one week. He is to call or come in sooner if he develops any concerns.
[2022-05-15 13:08] VITALS: BP 148/78; PULSE 68; TEMP 36.2; BMI 34.3
--- NOTE | 2022-05-15 17:18 | PN.PCM_ITS ---
History of Present Illness Date of Service: 05/15/22 Chief Complaint: Ulcer left ischium and ulcer right lateral leg History of Wound: Patient is 71 year male who is a poor historian. He presents for evaluation of his left ischia ulcer that he obtained while hospital for a month this summer at [facility] in [place]. He was admitted on October 20, 2021 with a virus of unknown origin. He required dialysis for GURMEET due to the infection. He had his left ischial ulcer debrided at the bedside. It goes down to muscle with tunneling. He was recently readmitted twice, for a week each time, to [facility]. He has home health and is receiving PT at home. His has been packing it with saline moistened gauze daily. His right lateral leg ulcer is superficial. He has severe +4 pitting edema to bilateral lower legs and feet. He has not been wearing compression. He is a poor historian, but states he has a history of cardiac stents years ago, Left knee replacement 2010, right knee replacement 2017, appe 1969. Wound care - Moistened Dakin's gauze/kerlix covered with ABD/super absorber daily and as needed. Today he denies fever, chills, nausea, vomiting. He states his appetite is ok. Progress of Wound: Patient has been hospitalized and was placed at the [facility] for rehab. He is now home. The wound bed of his left buttock ulcer is pink and the merline wound is stable. The new ulcer on his coccyx (formally labeled sacral) area that is a stage II with yellow wound bed. They did not start the Santyl as prescribed. He states he is doing much better this week. Objective Data Objective Data Vital Signs: Vital Signs Temp Pulse Resp BP 97.2 F L 68 18 148/78 H 05/15/22 13:08 05/15/22 13:08 03/27/22 00:16 05/15/22 13:08 Weight: 226 lb Body Mass Index (BMI) 34.3 Charges/Coding Procedures Integumentary 111xxx-113xx: 02168 Ashley subq tissue 20 sq cm/< Debridement Note Debridement Note Wound debrided: #1 Ischial/buttock ulcer Laterality: Left Wound Grade/Stage: Stage IV Type of Debridement: Excisional debridement Anesthesia Used: 4% Lidocaine Solution and 5% Lidocaine Gel Depth: Down to and including healthy tissue and in the subcutaneous layer Percentage of wound debrided: 100 Instrument Used: 7mm curette Tissue Removed: Devitalized tissue and slough Severity: Fat Layer Exposed Amount of bleeding with debridement: Mild Bleeding Controlled with: Pressure and Compression and gauze Patient tolerated procedure: Patient tolerated procedure well Post-Debridement Measurements and Additional Note: Post-Debridement Measurements/Treatment VALENTÍN - Nurse 1 - General Ulcer Assessment Start: 05/08/22 13:34 Freq: Status: Active Protocol: JANET Activity Type Activity Date Activity User E-sign Co-sign Detail Recorded Client Recorded Date Recorded By Document 05/08/22 13:34 PA [id number] 05/08/22 13:38 AK Document 05/15/22 13:08 PA [id number] 05/15/22 13:18 AK 05/08/22 05/15/22 13:34 13:08 VALENTÍN - Today's Visit Information Type of service Follow-up Visit Follow-up Visit (Physician/ASSISTANT PROFESSOR OF MUSIC (Physician/ASSISTANT PROFESSOR OF MUSIC ) ) Arrival Mode Ambulatory Ambulatory Patient Identification Verified (Name & Yes Yes ) Patient Requires Transmission-Based No No Precautions Safety Precautions NA NA Height and Weight Body Mass Index (BMI) 34.3 34.3 BMI Classification Obese Obese Vital Signs Temperature (97.8 F-99.1 F) 97.2 F L 97.2 F L Temperature Source Temporal Temporal Pulse Rate (60-100) 63 68 Pulse Location Monitor Monitor Blood Pressure (90/60-120/80) 122/73 H 148/78 H Blood Pressure Mean (mm Hg) 89 101 Source Monitor Monitor History Since Last Visit- (Skip if this is Patient's initial visit) Have you changed medications since your No No last visit? Any new allergies or adverse reactions No No Had a fall/change in ADL's that may No No increase risk of falls Signs or symptoms of abuse and/or No No neglect since last visit Have you been in the hospital since your No No last visit? Has dressing in place as prescribed Yes Yes Has compression in place as prescribed N/A No Has offloadiing in place as prescribed N/A N/A Experienced any changes in pain level or No No management Left Footwear Regular Shoe Regular Shoe Right Footwear Regular Shoe Regular Shoe Pain Scale: 0-10 Numeric Is Patient Pain Free? Yes Yes - Nurse 1 - General Ulcer Measurement Start: 05/08/22 13:34 Freq: Status: Active Protocol: Activity Type Activity Date Activity User E-sign Co-sign Detail Recorded Client Recorded Date Recorded By Document 05/08/22 13:34 PA [id number] 05/08/22 13:38 AK Document 05/15/22 13:08 PA [id number] 05/15/22 13:18 AK 05/08/22 05/15/22 13:34 13:08 Wound Center Nurse 1 #3 coccyx -Combined with other wound No No -Current Size (cm) - Length 2.2 2.5 -Current Size (cm) - Width 0.6 0.5 -Current Size (cm) - Depth 0.1 0.1 -Total Square Cm 1.32 1.25 -Date of Last Picture (Recall this 05/08/22 05/15/22 field) -Photo Taken Yes Yes -Tunneling No No -Undermining/Tunneling No No -Circular Undermining No No -Change in Wound Grade/Stage No No -Exudate Amt Medium Medium -Exudate Type Serosanguineous Serosanguineous -Wound Margin Distinct, Distinct, Outline Outline Attached Attached -Granulation Amt None Present (0 Large (67-100%) %) -Granulation Quality N/A [place] -Slough/Fibrin Yes Yes -Necrosis Amt Large (67-100%) Small (1-33%) -Necrotic Tissue Type Adherent Slough Adherent Slough -Structure Exposed N/A N/A -Texture (Merline-wound Skin Appearance) No Abnormality, No Abnormality, Assessed Assessed -Moisture (Merline-wound Skin Appearance) No Abnormality, No Abnormality, Assessed Assessed -Color (Merline-wound Skin Appearance) No Abnormality, No Abnormality, Assessed Assessed,Not Assessed -Temperature ([place]-wound Skin No Abnormality No Abnormality Appearance) (Pt Warm) (Pt Warm) -Tenderness on Palpation (Merline-wound No No Skin Appearance) -Ulcer Cleansing Rinsed/ Rinsed/ Irrigated with Irrigated with Saline Saline -Foul Odor after Cleansing No No -Anesthetic Used 5% Lidocaine 5% Lidocaine Gel Gel #1 L Buttock -Combined with other wound No No -Current Size (cm) - Length 2 1.8 -Current Size (cm) - Width 1.5 1.9 -Current Size (cm) - Depth 1.6 1.7 -Total Square Cm 3.0 3.42 -Date of Last Picture (Recall this 05/15/22 field) -Photo Taken Yes Yes -Epithelialization Small 1-33% -Tunneling No No -Undermining/Tunneling No Yes -Undermining/Tunneling Starts (O'clock 12 ) -Undermining/Tunneling Ends (O'clock) 11 -Maximum Distance (cm) 2.1 -Circular Undermining No Yes -Change in Wound Grade/Stage No No -Exudate Amt Medium Medium -Exudate Type Serosanguineous Serosanguineous -Wound Margin Distinct, Distinct, Outline Outline Attached Attached -Granulation Amt Large (67-100%) Large (67-100%) -Granulation Quality [place],Red N/A,[place] -Slough/Fibrin No Yes -Necrosis Amt None Present (0 Small (1-33%) %) -Necrotic Tissue Type Adherent Slough -Structure Exposed N/A N/A -Texture ([place]-wound Skin Appearance) No Abnormality, No Abnormality, Assessed Assessed -Moisture ([place]-wound Skin Appearance) No Abnormality, No Abnormality, Assessed Assessed -Color (Merline-wound Skin Appearance) No Abnormality, No Abnormality, Assessed Assessed -Temperature (Merline-wound Skin No Abnormality No Abnormality Appearance) (Pt Warm) (Pt Warm) -Tenderness on Palpation (Merline-wound No No Skin Appearance) -Ulcer Cleansing Soap and Water Rinsed/ Irrigated with Saline -Foul Odor after Cleansing No No -Anesthetic Used 5% Lidocaine 5% Lidocaine Gel Gel WC - Nurse 2 - General Ulcer CM Notes Start: 05/08/22 13:34 Freq: Status: Active Protocol: Activity Type Activity Date Activity User E-sign Co-sign Detail Recorded Client Recorded Date Recorded By Document 05/08/22 14:33 [id number] 05/08/22 14:40 Document 05/15/22 13:39 [id number] 05/15/22 13:42 05/08/22 05/15/22 14:33 13:39 Wound Center Nurse 2 #3 coccyx (formally labeled sacral) -Time 14:34 13:40 -Correct Patient Yes Yes -Correct Side, Site, Position Yes Yes -Correct Procedure Yes Yes -Procedure Performed Yes Yes -Type of Procedure Debridement Debridement -Clinical Debridement Subcutaneous Subcutaneous -Tissue Removed Subcutaneous Subcutaneous -Post Debridement (cm) - Length 2.5 2.3 -Post Debridement (cm) - Width 1 1.0 -Post Debridement (cm) - Depth 0.4 0.4 -Total Square (Post) (cm) 2.5 2.30 -Area of Debridement (cm) - Length 2.5 2.3 -Area of Debridement (cm) - Width 1.0 1.0 -Total Square (Area) (cm) 2.50 2.30 -Tunneling No No -Undermining/Tunneling No No -Circular Undermining No No -Wound/Ulcer Outcome Not Healed Not Healed -Ulcer Cleansing Rinsed/ Rinsed/ Irrigated with Irrigated with Saline Saline -Foul Odor after Cleansing No No -Bioengineered Tissue No No -Bleeding Controlled with Pressure Pressure -Treatment Response Procedure Procedure Tolerated Well Tolerated Well -Offloading No No -Debridement - Subq, 1st 20sq cm No No #1 L Buttock -Time 14:34 13:40 -Correct Patient Yes Yes -Correct Side, Site, Position Yes Yes -Correct Procedure Yes Yes -Procedure Performed Yes Yes -Type of Procedure Debridement Debridement -Clinical Debridement Subcutaneous Subcutaneous -Tissue Removed Subcutaneous Subcutaneous -Post Debridement (cm) - Length 2.0 2.0 -Post Debridement (cm) - Width 1.8 1.9 -Post Debridement (cm) - Depth 1.1 1.5 -Total Square (Post) (cm) 3.60 3.80 -Area of Debridement (cm) - Length 2.0 2.0 -Area of Debridement (cm) - Width 1.8 1.9 -Total Square (Area) (cm) 3.60 3.80 -Tunneling Yes Yes -Tunneling Position (O'clock) 1 1 -Tunneling Distance (cm) 2.4 2.5 -Undermining/Tunneling No No -Circular Undermining No No -Wound/Ulcer Outcome Not Healed Not Healed -Ulcer Cleansing Rinsed/ Rinsed/ Irrigated with Irrigated with Saline Saline -Foul Odor after Cleansing No No -Bioengineered Tissue No No -Bleeding Controlled with Pressure Pressure -Treatment Response Procedure Procedure Tolerated Well Tolerated Well -Offloading No No -Assistive Device(s) Wheelchair -Debridement - Subq, 1st 20sq cm Yes Yes Pain Scale: 0-10 Numeric Is Patient Pain Free? Yes Yes - Nurse 3 - General Ulcer D/C NN Start: 05/08/22 13:34 Freq: Status: Active Protocol: Activity Type Activity Date Activity User E-sign Co-sign Detail Recorded Client Recorded Date Recorded By Document 05/08/22 14:57 [facility] [id number] 05/08/22 14:58 [facility] 05/08/22 14:57 Wound Care Nurse 3 #3 coccyx -Ulcer Cleansing Not Cleansed -Primary Dressing Applied Mepilex Border -Other Dressing HYDROGEL -Mepilex Border 1 #1 L Buttock -Ulcer Cleansing Rinsed/ Irrigated with Saline -Foul Odor after Cleansing No -Primary Dressing Applied Mepilex Border -Other Dressing DAKINS MOIST GAUZE -Mepilex Border 0 Treatment Response Procedure Tolerated Well Pain Scale: 0-10 Numeric Is Patient Pain Free? Yes WC - Visit Discharge Discharge Condition Stable Ambulatory Status Ambulatory, Walker Transportation Private Auto Accompanied by Additional Wound Wound debrided: #3 coccyx ulcer (formerly labeled sacral) Laterality: Not Applicable Wound Grade/Stage: Stage II Type of Debridement: Excisional debridement Anesthesia Used: 5% Lidocaine Gel Depth: Down to and including healthy tissue and in the subcutaneous layer Percentage of wound debrided: 100 Instrument Used: 3mm curette Tissue Removed: Devitalized tissue and slough Severity: Fat Layer Exposed Amount of bleeding with debridement: Mild Bleeding Controlled with: Compression and gauze Patient tolerated procedure: Patient tolerated procedure well Assessment/Plan Assessment/Plan (1) 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 He went into the hospital in March and was placed at [facility] for rehab. He is now home and states he is doing well. While he was at the [facility], he developed a new ulcer in his coccyx which his has been covering with gauze. Wound care - Wash ulcers with soap and water with dressing changes. To left buttock ulcer place moistened Dakin's 0.25% gauze/kerlix packed into the wound/tunnel and cover with ABD/super absorber or Mepilex dressing daily. To the new ulcer on coccyx (formerly labeled sacral ) place Santyl nickel thickness and cover with gauze daily. He completed home IV Vancomycin. Follow up two weeks. He is to call or come in sooner if he develops any concerns.
== END 2022-05-26 23:59 | disposition home or self-care (01) ==
LOC: WC 13:00
PROVIDERS: PCP Internal Medicine; Visit Provider Nurse Practitioner Family
DX: L89.324 Pressure ulcer of left buttock, stage 4 (principal); L89.152 Pressure ulcer of sacral region, stage 2; R53.81 Other malaise; G62.9 Polyneuropathy, unspecified; R60.0 Localized edema
CPT/HCPCS: 11042

== ENCOUNTER 2022-06-12 13:00 | Outpatient (RCR) | payer MEDICARE, OTHER, SELFPAY ==
[2022-05-27 00:06] VITALS: BP 148/78; PULSE 68; RESP 18; TEMP 36.2; BMI 34.3
[2022-05-29 14:25] VITALS: BP 151/76; PULSE 74; RESP 16; TEMP 36.2; BMI 34.3
--- NOTE | 2022-05-29 15:00 | PCM.WC.PN ---
History of Present Illness Date of Service: 05/29/22 Chief Complaint: Ulcer left ischium and coccyx ulcer History of Wound: Patient is 71 year male who is a poor historian. He presents for evaluation of his left ischia ulcer that he obtained while hospital for a month this summer at [facility] in [place]. He was admitted on October 20, 2021 with a virus of unknown origin. He required dialysis for GURMEET due to the infection. He had his left ischial ulcer debrided at the bedside. It goes down to muscle with tunneling. He was recently readmitted twice, for a week each time, to [facility]. He has home health and is receiving PT at home. His has been packing it with saline moistened gauze daily. His right lateral leg ulcer is superficial. He has severe +4 pitting edema to bilateral lower legs and feet. He has not been wearing compression. He is a poor historian, but states he has a history of cardiac stents years ago, Left knee replacement 2010, right knee replacement 2017, appe 1969. Wound care - Moistened Dakin's gauze/kerlix covered with ABD/super absorber daily and as needed to left ischial ulcer and Santyl to coccyx ulcer. Today he denies fever, chills, nausea, vomiting. He states his appetite is ok. Progress of Wound: Patient is doing much better now that he is home from the [facility]. The wound bed of his left buttock ulcer is pink and the merline wound is stable. The ulcer on his coccyx (formally labeled sacral) area that is a stage II and the Santyl is starting to improve this ulcer and the there is pink visible in the wound bed. Objective Data Objective Data Vital Signs: Vital Signs Temp Pulse Resp BP O2 Del Method 97.2 F L 74 16 151/76 H Room Air 05/29/22 14:25 05/29/22 14:25 05/29/22 14:25 05/29/22 14:25 05/29/22 14:25 Oxygen Delivery Method Room Air Weight: 226 lb Body Mass Index (BMI) 34.3 Charges/Coding Procedures Integumentary 111xxx-113xx: 17284 Ashley subq tissue 20 sq cm/< Debridement Note Debridement Note Wound debrided: #1 Ischial/buttock ulcer Laterality: Left Wound Grade/Stage: Stage IV Type of Debridement: Excisional debridement Anesthesia Used: 4% Lidocaine Solution and 5% Lidocaine Gel Depth: Down to and including healthy tissue and in the subcutaneous layer Percentage of wound debrided: 100 Instrument Used: 7mm curette Tissue Removed: Devitalized tissue and slough Severity: Fat Layer Exposed Amount of bleeding with debridement: Mild Bleeding Controlled with: Pressure and Compression and gauze Patient tolerated procedure: Patient tolerated procedure well Post-Debridement Measurements and Additional Note: Post-Debridement Measurements/Treatment - Nurse 1 - General Ulcer Assessment Start: 05/29/22 14:25 Freq: Status: Active Protocol: JANET Activity Type Activity Date Activity User E-sign Co-sign Detail Recorded Client Recorded Date Recorded By Document 05/29/22 14:25 [facility] [id number] 05/29/22 14:30 [facility] 05/29/22 14:25 WC - Today's Visit Information Type of service Follow-up Visit (Physician/ANIMAL SCIENCE INSTRUCTOR ) Arrival Mode Ambulatory Transfer Assistance None Accompanied by Patient Identification Verified (Name & Yes ) Patient Requires Transmission-Based No Precautions Height and Weight Body Mass Index (BMI) 34.3 BMI Classification Obese Vital Signs Temperature (97.8 F-99.1 F) 97.2 F L Temperature Source Temporal Pulse Rate (60-100) 74 Pulse Location Monitor Respiratory Rate (12-18) 16 Respiratory rate source Observation Oxygen Delivery Method Room Air Blood Pressure (90/60-120/80) 151/76 H Blood Pressure Mean (mm Hg) 101 Source Monitor Position Sitting Blood Pressure Location Left Arm History Since Last Visit- (Skip if this is Patient's initial visit) Have you changed medications since your No last visit? Any new allergies or adverse reactions No Had a fall/change in ADL's that may No increase risk of falls Signs or symptoms of abuse and/or No neglect since last visit Have you been in the hospital since your No last visit? Has dressing in place as prescribed Yes Has compression in place as prescribed N/A Has offloadiing in place as prescribed N/A Experienced any changes in pain level or No management Left Footwear Regular Shoe Right Footwear Regular Shoe Pain Scale: 0-10 Numeric Is Patient Pain Free? Yes - Nurse 1 - General Ulcer Measurement Start: 05/29/22 14:25 Freq: Status: Active Protocol: Activity Type Activity Date Activity User E-sign Co-sign Detail Recorded Client Recorded Date Recorded By Document 05/29/22 14:25 [facility] [id number] 05/29/22 14:30 [facility] 05/29/22 14:25 Wound Center Nurse 1 #3 coccyx -Combined with other wound No -Current Size (cm) - Length 2 -Current Size (cm) - Width 0.5 -Current Size (cm) - Depth 0.2 -Total Square Cm 1.0 -Date of Last Picture (Recall this 05/29/22 field) -Photo Taken Yes -Epithelialization None Present -Tunneling No -Undermining/Tunneling No -Circular Undermining No -Exudate Amt Small -Exudate Type Serosanguineous -Wound Margin Distinct, Outline Attached -Granulation Amt None Present (0 %) -Slough/Fibrin Yes -Necrosis Amt Large (67-100%) -Necrotic Tissue Type Adherent Slough -Texture (Merline-wound Skin Appearance) Assessed, Scarring -Moisture (Merline-wound Skin Appearance) Assessed -Color ([place]-wound Skin Appearance) Assessed -Temperature (Merline-wound Skin No Abnormality Appearance) (Pt Warm) -Tenderness on Palpation (Merline-wound No Skin Appearance) -Ulcer Cleansing Rinsed/ Irrigated with Saline -Foul Odor after Cleansing No -Anesthetic Used 5% Lidocaine Gel #1 L Buttock -Combined with other wound No -Current Size (cm) - Length 1.8 -Current Size (cm) - Width 1.6 -Current Size (cm) - Depth 1.5 -Total Square Cm 2.88 -Date of Last Picture (Recall this 05/29/22 field) -Photo Taken Yes -Epithelialization None Present -Tunneling Yes -Tunneling Position (O'clock) 12 -Tunneling Distance (cm) 2.8 -Undermining/Tunneling No -Circular Undermining No -Exudate Amt Large -Exudate Type Serosanguineous -Wound Margin Distinct, Outline Attached -Granulation Amt Large (67-100%) -Granulation Quality [place] -Slough/Fibrin No -Necrosis Amt None Present (0 %) -Texture (Merline-wound Skin Appearance) Assessed, Scarring -Moisture (Merline-wound Skin Appearance) Assessed -Color (Merline-wound Skin Appearance) Assessed -Temperature (Merline-wound Skin No Abnormality Appearance) (Pt Warm) -Tenderness on Palpation (Merline-wound No Skin Appearance) -Ulcer Cleansing Rinsed/ Irrigated with Saline -Foul Odor after Cleansing No -Anesthetic Used 5% Lidocaine Gel WC - Nurse 2 - General Ulcer CM Notes Start: 05/29/22 14:25 Freq: Status: Active Protocol: Activity Type Activity Date Activity User E-sign Co-sign Detail Recorded Client Recorded Date Recorded By Document 05/29/22 14:42 [id number] 05/29/22 14:47 KARLE[facility] 05/29/22 14:42 Wound Center Nurse 2 #3 coccyx -Time 14:42 -Correct Patient Yes -Correct Side, Site, Position Yes -Correct Procedure Yes -Procedure Performed Yes -Type of Procedure Debridement -Clinical Debridement Subcutaneous -Tissue Removed Subcutaneous -Post Debridement (cm) - Length 2.3 -Post Debridement (cm) - Width 0.6 -Post Debridement (cm) - Depth 0.3 -Total Square (Post) (cm) 1.38 -Area of Debridement (cm) - Length 2.3 -Area of Debridement (cm) - Width 0.6 -Total Square (Area) (cm) 1.38 -Tunneling No -Undermining/Tunneling No -Circular Undermining No -Wound/Ulcer Outcome Not Healed -Ulcer Cleansing Rinsed/ Irrigated with Saline -Foul Odor after Cleansing No -Bioengineered Tissue No -Bleeding Controlled with Pressure -Treatment Response Procedure Tolerated Well -Offloading No -Debridement - Subq, 1st 20sq cm No #1 L Buttock -Time 14:44 -Correct Patient Yes -Correct Side, Site, Position Yes -Correct Procedure Yes -Procedure Performed Yes -Type of Procedure Debridement -Clinical Debridement Subcutaneous -Tissue Removed Subcutaneous -Post Debridement (cm) - Length 1.8 -Post Debridement (cm) - Width 1.8 -Post Debridement (cm) - Depth 1.7 -Total Square (Post) (cm) 3.24 -Area of Debridement (cm) - Length 1.8 -Area of Debridement (cm) - Width 1.8 -Total Square (Area) (cm) 3.24 -Tunneling Yes -Tunneling Position (O'clock) 1 -Tunneling Distance (cm) 2.5 -Undermining/Tunneling No -Circular Undermining No -Wound/Ulcer Outcome Not Healed -Ulcer Cleansing Rinsed/ Irrigated with Saline -Foul Odor after Cleansing No -Bioengineered Tissue No -Bleeding Controlled with Pressure -Treatment Response Procedure Tolerated Well -Offloading No -Debridement - Subq, 1st 20sq cm Yes Pain Scale: 0-10 Numeric Is Patient Pain Free? Yes - Nurse 3 - General Ulcer D/C NN Start: 05/29/22 14:25 Freq: Status: Active Protocol: Activity Type Activity Date Activity User E-sign Co-sign Detail Recorded Client Recorded Date Recorded By Document 05/29/22 14:56 [facility] [id number] 05/29/22 14:58 [facility] 05/29/22 14:56 Wound Care Nurse 3 #3 coccyx -Ulcer Cleansing Rinsed/ Irrigated with Saline -Foul Odor after Cleansing No -Primary Dressing Applied Mepilex Border -Other Dressing santyl -Other Covering drsg per ak news reel cameraman -Mepilex Border 1 #1 L Buttock -Ulcer Cleansing Rinsed/ Irrigated with Saline -Foul Odor after Cleansing No -Primary Dressing Applied Mepilex Border -Other Dressing dakins moist gauze -Other Covering per ak news reel cameraman -Mepilex Border 0 Treatment Response Procedure Tolerated Well Pain Scale: 0-10 Numeric Is Patient Pain Free? Yes WC - Visit Discharge Discharge Condition Stable Ambulatory Status Ambulatory,Cane Transportation Private Auto Accompanied by Additional Wound Wound debrided: #3 coccyx ulcer (formerly labeled sacral) Laterality: Not Applicable Wound Grade/Stage: Stage II Type of Debridement: Excisional debridement Anesthesia Used: 5% Lidocaine Gel Depth: Down to and including healthy tissue and in the subcutaneous layer Percentage of wound debrided: 100 Instrument Used: 3mm curette Tissue Removed: Devitalized tissue and slough Severity: Fat Layer Exposed Amount of bleeding with debridement: Mild Bleeding Controlled with: Compression and gauze Patient tolerated procedure: Patient tolerated procedure well Assessment/Plan Assessment/Plan (1) 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 He went into the hospital in March and was placed at [facility] for rehab. He is now home and states he is doing well. While he was at the [facility], he developed a new ulcer in his coccyx which his has been covering with gauze. Wound care - Wash ulcers with soap and water with dressing changes. To left ishial/buttock ulcer place moistened Dakin's 0.25% gauze/kerlix packed into the wound/tunnel and cover with ABD/super absorber or Mepilex dressing daily. To the new ulcer on coccyx (formerly labeled sacral ) place Santyl nickel thickness and cover with gauze daily. He completed home IV Vancomycin. Follow up two weeks. He is to call or come in sooner if he develops any concerns.
[2022-06-12 13:03] VITALS: BP 150/71; PULSE 68; RESP 16; TEMP 35.7; BMI 34.3
--- NOTE | 2022-06-12 16:31 | PCM.WC.PN ---
History of Present Illness Date of Service: 06/12/22 Chief Complaint: Ulcer left ischium and coccyx ulcer History of Wound: Patient is 71 year male who is a poor historian. He presents for evaluation of his left ischia ulcer that he obtained while hospital for a month this summer at [facility] in [place]. He was admitted on October 20, 2021 with a virus of unknown origin. He required dialysis for GURMEET due to the infection. He had his left ischial ulcer debrided at the bedside. It goes down to muscle with tunneling. He was recently readmitted twice, for a week each time, to [facility]. He has home health and is receiving PT at home. His has been packing it with saline moistened gauze daily. His right lateral leg ulcer is superficial. He has severe +4 pitting edema to bilateral lower legs and feet. He has not been wearing compression. He is a poor historian, but states he has a history of cardiac stents years ago, Left knee replacement 2010, right knee replacement 2017, appe 1969. Wound care - Moistened Dakin's gauze/kerlix covered with ABD/super absorber daily and as needed to left ischial ulcer and Santyl to coccyx ulcer. Today he denies fever, chills, nausea, vomiting. He states his appetite is ok. Progress of Wound: The wound bed of his left buttock ulcer is pink and the merline wound is stable. The ulcer on his coccyx (formally labeled sacral) area that is a stage II and the Santyl is starting to improve this ulcer, there is less slough and the there is pink visible in the wound bed. Objective Data Objective Data Vital Signs: Vital Signs Temp Pulse Resp BP O2 Del Method 96.2 F L 68 16 150/71 H Room Air 06/12/22 13:03 06/12/22 13:03 06/12/22 13:03 06/12/22 13:03 06/12/22 13:03 Oxygen Delivery Method Room Air Weight: 226 lb Body Mass Index (BMI) 34.3 Charges/Coding Procedures Integumentary 111xxx-113xx: 02865 Ashley subq tissue 20 sq cm/< Debridement Note Debridement Note Wound debrided: #1 Ischial/buttock ulcer Laterality: Left Wound Grade/Stage: Stage IV Type of Debridement: Excisional debridement Anesthesia Used: 4% Lidocaine Solution and 5% Lidocaine Gel Depth: Down to and including healthy tissue and in the subcutaneous layer Percentage of wound debrided: 100 Instrument Used: 7mm curette Tissue Removed: Devitalized tissue and slough Severity: Fat Layer Exposed Amount of bleeding with debridement: Mild Bleeding Controlled with: Pressure and Compression and gauze Patient tolerated procedure: Patient tolerated procedure well Post-Debridement Measurements and Additional Note: Post-Debridement Measurements/Treatment - Nurse 1 - General Ulcer Assessment Start: 05/29/22 14:25 Freq: Status: Active Protocol: JANET Activity Type Activity Date Activity User E-sign Co-sign Detail Recorded Client Recorded Date Recorded By Document 05/29/22 14:25 [facility] [id number] 05/29/22 14:30 BM Document 06/12/22 13:03 [facility] [id number] 06/12/22 13:07 BM 05/29/22 06/12/22 14:25 13:03 - Today's Visit Information Type of service Follow-up Visit Follow-up Visit (Physician/CARPET WINDER (Physician/CARPET WINDER ) ) Arrival Mode Ambulatory Ambulatory Transfer Assistance None None Accompanied by Patient Identification Verified (Name & Yes Yes ) Patient Requires Transmission-Based No No Precautions Height and Weight Body Mass Index (BMI) 34.3 34.3 BMI Classification Obese Obese Vital Signs Temperature (97.8 F-99.1 F) 97.2 F L 96.2 F L Temperature Source Temporal Temporal Pulse Rate (60-100) 74 68 Pulse Location Monitor Monitor Respiratory Rate (12-18) 16 16 Respiratory rate source Observation Observation Oxygen Delivery Method Room Air Room Air Blood Pressure (90/60-120/80) 151/76 H 150/71 H Blood Pressure Mean (mm Hg) 101 97 Source Monitor Monitor Position Sitting Sitting Blood Pressure Location Left Arm Right Arm History Since Last Visit- (Skip if this is Patient's initial visit) Have you changed medications since your No No last visit? Any new allergies or adverse reactions No No Had a fall/change in ADL's that may No No increase risk of falls Signs or symptoms of abuse and/or No No neglect since last visit Have you been in the hospital since your No No last visit? Has dressing in place as prescribed Yes Yes Has compression in place as prescribed N/A N/A Has offloadiing in place as prescribed N/A N/A Experienced any changes in pain level or No No management Left Footwear Regular Shoe Regular Shoe Right Footwear Regular Shoe Regular Shoe Pain Scale: 0-10 Numeric Is Patient Pain Free? Yes Yes WC - Nurse 1 - General Ulcer Measurement Start: 05/29/22 14:25 Freq: Status: Active Protocol: Activity Type Activity Date Activity User E-sign Co-sign Detail Recorded Client Recorded Date Recorded By Document 05/29/22 14:25 [facility] [id number] 05/29/22 14:30 BMF Document 06/12/22 13:03 [facility] [id number] 06/12/22 13:07 BMF 05/29/22 06/12/22 14:25 13:03 Wound Center Nurse 1 #3 coccyx -Combined with other wound No No -Current Size (cm) - Length 2 1.1 -Current Size (cm) - Width 0.5 0.2 -Current Size (cm) - Depth 0.2 0.1 -Total Square Cm 1.0 0.22 -Date of Last Picture (Recall this 05/29/22 06/12/22 field) -Photo Taken Yes Yes -Epithelialization None Present Small 1-33% -Tunneling No No -Undermining/Tunneling No No -Circular Undermining No No -Exudate Amt Small Small -Exudate Type Serosanguineous Serous -Wound Margin Distinct, Distinct, Outline Outline Attached Attached -Granulation Amt None Present (0 None Present (0 %) %) -Slough/Fibrin Yes Yes -Necrosis Amt Large (67-100%) Large (67-100%) -Necrotic Tissue Type Adherent Slough Adherent Slough -Texture (Merline-wound Skin Appearance) Assessed, Assessed Scarring -Moisture (Merline-wound Skin Appearance) Assessed Assessed -Color ([place]line-wound Skin Appearance) Assessed Assessed -Temperature ([place]-wound Skin No Abnormality No Abnormality Appearance) (Pt Warm) (Pt Warm) -Tenderness on Palpation (Merline-wound No No Skin Appearance) -Ulcer Cleansing Rinsed/ Rinsed/ Irrigated with Irrigated with Saline Saline -Foul Odor after Cleansing No No -Anesthetic Used 5% Lidocaine 4% Lidocaine Gel Solution #1 L Buttock -Combined with other wound No No -Current Size (cm) - Length 1.8 1.6 -Current Size (cm) - Width 1.6 1.1 -Current Size (cm) - Depth 1.5 1.7 -Total Square Cm 2.88 1.76 -Date of Last Picture (Recall this 05/29/22 06/12/22 field) -Photo Taken Yes Yes -Epithelialization None Present None Present -Tunneling Yes No -Tunneling Position (O'clock) 12 -Tunneling Distance (cm) 2.8 -Undermining/Tunneling No Yes -Undermining/Tunneling Starts (O'clock 12 ) -Undermining/Tunneling Ends (O'clock) 1 -Maximum Distance (cm) 2.9 -Circular Undermining No No -Exudate Amt Large Medium -Exudate Type Serosanguineous Serosanguineous -Wound Margin Distinct, Distinct, Outline Outline Attached Attached -Granulation Amt Large (67-100%) Large (67-100%) -Granulation Quality [place] -Slough/Fibrin No Yes -Necrosis Amt None Present (0 Small (1-33%) %) -Necrotic Tissue Type Adherent Slough -Structure Exposed Bone -Texture ([place]line-wound Skin Appearance) Assessed, Assessed, Scarring Scarring -Moisture (Merline-wound Skin Appearance) Assessed Assessed -Color (Merline-wound Skin Appearance) Assessed Assessed -Temperature (Merline-wound Skin No Abnormality No Abnormality Appearance) (Pt Warm) (Pt Warm) -Tenderness on Palpation (Merline-wound No No Skin Appearance) -Ulcer Cleansing Rinsed/ Rinsed/ Irrigated with Irrigated with Saline Saline -Foul Odor after Cleansing No No -Anesthetic Used 5% Lidocaine 4% Lidocaine Gel Solution WC - Nurse 2 - General Ulcer CM Notes Start: 05/29/22 14:25 Freq: Status: Active Protocol: Activity Type Activity Date Activity User E-sign Co-sign Detail Recorded Client Recorded Date Recorded By Document 05/29/22 14:42 [id number] 05/29/22 14:47 Document 06/12/22 13:31 [id number] 06/12/22 13:34 05/29/22 06/12/22 14:42 13:31 Wound Center Nurse 2 #3 coccyx -Time 14:42 13:31 -Correct Patient Yes Yes -Correct Side, Site, Position Yes Yes -Correct Procedure Yes Yes -Procedure Performed Yes Yes -Type of Procedure Debridement Debridement -Clinical Debridement Subcutaneous Subcutaneous -Tissue Removed Subcutaneous Subcutaneous -Post Debridement (cm) - Length 2.3 1.8 -Post Debridement (cm) - Width 0.6 0.3 -Post Debridement (cm) - Depth 0.3 0.1 -Total Square (Post) (cm) 1.38 0.54 -Area of Debridement (cm) - Length 2.3 1.8 -Area of Debridement (cm) - Width 0.6 0.3 -Total Square (Area) (cm) 1.38 0.54 -Tunneling No No -Undermining/Tunneling No No -Circular Undermining No No -Wound/Ulcer Outcome Not Healed Not Healed -Ulcer Cleansing Rinsed/ Rinsed/ Irrigated with Irrigated with Saline Saline -Foul Odor after Cleansing No No -Bioengineered Tissue No No -Bleeding Controlled with Pressure Pressure -Treatment Response Procedure Procedure Tolerated Well Tolerated Well -Offloading No No -Debridement - Subq, 1st 20sq cm No Yes #1 L Buttock -Time 14:44 13:32 -Correct Patient Yes Yes -Correct Side, Site, Position Yes Yes -Correct Procedure Yes Yes -Procedure Performed Yes Yes -Type of Procedure Debridement Debridement -Clinical Debridement Subcutaneous Subcutaneous -Tissue Removed Subcutaneous Subcutaneous -Post Debridement (cm) - Length 1.8 1.9 -Post Debridement (cm) - Width 1.8 2.0 -Post Debridement (cm) - Depth 1.7 1.5 -Total Square (Post) (cm) 3.24 3.80 -Area of Debridement (cm) - Length 1.8 1.9 -Area of Debridement (cm) - Width 1.8 2.0 -Total Square (Area) (cm) 3.24 3.80 -Tunneling Yes Yes -Tunneling Position (O'clock) 1 1 -Tunneling Distance (cm) 2.5 2.5 -Undermining/Tunneling No No -Circular Undermining No No -Wound/Ulcer Outcome Not Healed Not Healed -Ulcer Cleansing Rinsed/ Rinsed/ Irrigated with Irrigated with Saline Saline -Foul Odor after Cleansing No No -Bioengineered Tissue No No -Bleeding Controlled with Pressure Pressure -Treatment Response Procedure Procedure Tolerated Well Tolerated Well -Offloading No No -Debridement - Subq, 1st 20sq cm Yes No Pain Scale: 0-10 Numeric Is Patient Pain Free? Yes Yes WC - Nurse 3 - General Ulcer D/C NN Start: 05/29/22 14:25 Freq: Status: Active Protocol: Activity Type Activity Date Activity User E-sign Co-sign Detail Recorded Client Recorded Date Recorded By Document 05/29/22 14:56 [facility] [id number] 05/29/22 14:58 [facility] Document 06/12/22 13:39 PA [id number] 06/12/22 13:41 PA 05/29/22 06/12/22 14:56 13:39 Wound Care Nurse 3 #3 coccyx -Ulcer Cleansing Rinsed/ Rinsed/ Irrigated with Irrigated with Saline Saline -Foul Odor after Cleansing No No -Negative Pressure Wound Therapy N/A -Primary Dressing Applied Mepilex Border Optilok 8x12 -Other Dressing santyl dakins -Other Covering drsg per ma director industrial -Mepilex Border 1 -Optilok 8x12 1 #1 L Buttock -Ulcer Cleansing Rinsed/ Rinsed/ Irrigated with Irrigated with Saline Saline -Foul Odor after Cleansing No -Primary Dressing Applied Mepilex Border -Other Dressing dakins moist dakins gauze -Other Covering per ma director industrial -Mepilex Border 0 Treatment Response Procedure Tolerated Well Pain Scale: 0-10 Numeric Is Patient Pain Free? Yes Yes - Visit Discharge Discharge Condition Stable Stable Ambulatory Status Ambulatory,Cane Transportation Private Auto Private Auto Accompanied by Medication Reconcilliation completed & Yes provided to patient/care provider Clinical Summary of Care Provided Yes Additional Wound Wound debrided: #3 coccyx ulcer (formerly labeled sacral) Laterality: Not Applicable Wound Grade/Stage: Stage II Type of Debridement: Excisional debridement Anesthesia Used: 5% Lidocaine Gel Depth: Down to and including healthy tissue and in the subcutaneous layer Percentage of wound debrided: 100 Instrument Used: 3mm curette Tissue Removed: Devitalized tissue and slough Severity: Fat Layer Exposed Amount of bleeding with debridement: Mild Bleeding Controlled with: Compression and gauze Patient tolerated procedure: Patient tolerated procedure well Assessment/Plan Assessment/Plan (1) 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 He went into the hospital in March and was placed at [facility] for rehab. He is now home and states he is doing well. While he was at the [facility], he developed a new ulcer in his coccyx. Wound care - Wash ulcers with soap and water with dressing changes. To left ishial/buttock ulcer place moistened Dakin's 0.25% gauze/kerlix packed into the wound/tunnel and cover with ABD/super absorber or Mepilex dressing daily. To the new ulcer on coccyx (formerly labeled sacral ) place Santyl nickel thickness and cover with gauze daily. He completed home IV Vancomycin. Follow up two weeks. He is to call or come in sooner if he develops any concerns.
== END 2022-06-26 23:59 | disposition home or self-care (01) ==
LOC: WC 13:00
PROVIDERS: PCP Internal Medicine; Visit Provider Nurse Practitioner Family
DX: L89.324 Pressure ulcer of left buttock, stage 4 (principal); L89.152 Pressure ulcer of sacral region, stage 2; R53.81 Other malaise; G62.9 Polyneuropathy, unspecified; R60.0 Localized edema
CPT/HCPCS: 11042

== ENCOUNTER 2022-07-11 09:45 | Outpatient (RCR) | payer MEDICARE, OTHER, SELFPAY ==
[2022-06-27 00:18] VITALS: BP 150/71; PULSE 68; RESP 16; TEMP 35.7; BMI 34.3
[2022-06-27 09:00] VITALS: BP 159/83; PULSE 73; RESP 20; TEMP 36.2; BMI 34.3
--- NOTE | 2022-06-27 13:38 | PCM.WC.PN ---
History of Present Illness Date of Service: 06/27/22 Chief Complaint: Ulcer left ischium and coccyx ulcer History of Wound: Patient is 71 year male who is a poor historian. He presents for evaluation of his left ischia ulcer that he obtained while hospital for a month this summer at [facility] in [place]. He was admitted on October 20, 2021 with a virus of unknown origin. He required dialysis for GURMEET due to the infection. He had his left ischial ulcer debrided at the bedside. It goes down to muscle with tunneling. He was recently readmitted twice, for a week each time, to [facility]. He has home health and is receiving PT at home. His has been packing it with saline moistened gauze daily. His right lateral leg ulcer is superficial. He has severe +4 pitting edema to bilateral lower legs and feet. He has not been wearing compression. He is a poor historian, but states he has a history of cardiac stents years ago, Left knee replacement 2010, right knee replacement 2017, appe 1969. Wound care - Moistened Dakin's gauze/kerlix covered with ABD/super absorber daily and as needed to left ischial ulcer and Santyl to coccyx ulcer. Today he denies fever, chills, nausea, vomiting. He states his appetite is ok. Progress of Wound: The wound bed of his left buttock ulcer is pink and the merline wound is stable. The ulcer on his coccyx (formally labeled sacral) area that is a stage II appears healed today. Objective Data Objective Data Vital Signs: Vital Signs Temp Pulse Resp BP 97.1 F L 73 20 H 159/83 H 06/27/22 09:00 06/27/22 09:00 06/27/22 09:00 06/27/22 09:00 Weight: 226 lb Body Mass Index (BMI) 34.3 Charges/Coding Procedures Integumentary 111xxx-113xx: 67114 Ashley subq tissue 20 sq cm/< Debridement Note Debridement Note Wound debrided: #1 Ischial/buttock ulcer Laterality: Left Wound Grade/Stage: Stage IV Type of Debridement: Excisional debridement Anesthesia Used: 4% Lidocaine Solution and 5% Lidocaine Gel Depth: Down to and including healthy tissue and in the subcutaneous layer Percentage of wound debrided: 100 Instrument Used: 7mm curette Tissue Removed: Devitalized tissue and slough Severity: Fat Layer Exposed Amount of bleeding with debridement: Mild Bleeding Controlled with: Pressure and Compression and gauze Patient tolerated procedure: Patient tolerated procedure well Post-Debridement Measurements and Additional Note: Post-Debridement Measurements/Treatment VALENTÍN - Nurse 1 - General Ulcer Assessment Start: 06/27/22 09:00 Freq: Status: Active Protocol: JANET Activity Type Activity Date Activity User E-sign Co-sign Detail Recorded Client Recorded Date Recorded By Document 06/27/22 09:00 SUE [id number] 06/27/22 09:06 DL 06/27/22 09:00 WC - Today's Visit Information Type of service Follow-up Visit (Physician/USED CAR MANAGER ) Arrival Mode Ambulatory Transfer Assistance None Patient Identification Verified (Name & Yes ) Patient Requires Transmission-Based No Precautions Height and Weight Body Mass Index (BMI) 34.3 BMI Classification Obese Vital Signs Temperature (97.8 F-99.1 F) 97.1 F L Temperature Source Temporal Pulse Rate (60-100) 73 Pulse Location Monitor Respiratory Rate (12-18) 20 H Respiratory rate source Observation Blood Pressure (90/60-120/80) 159/83 H Blood Pressure Mean (mm Hg) 108 Source Monitor History Since Last Visit- (Skip if this is Patient's initial visit) Have you changed medications since your No last visit? Any new allergies or adverse reactions No Had a fall/change in ADL's that may No increase risk of falls Signs or symptoms of abuse and/or No neglect since last visit Have you been in the hospital since your No last visit? Has dressing in place as prescribed Yes Has compression in place as prescribed No Has offloadiing in place as prescribed Yes Experienced any changes in pain level or No management Pain Scale: 0-10 Numeric Is Patient Pain Free? Yes VALENTÍN - Nurse 1 - General Ulcer Measurement Start: 06/27/22 09:00 Freq: Status: Active Protocol: Activity Type Activity Date Activity User E-sign Co-sign Detail Recorded Client Recorded Date Recorded By Document 06/27/22 09:00 SUE [id number] 06/27/22 09:06 DL 06/27/22 09:00 Wound Center Nurse 1 #3 coccyx -Current Size (cm) - Length 0.1 -Current Size (cm) - Width 0.1 -Current Size (cm) - Depth 0.1 -Total Square Cm 0.01 -Photo Taken Yes -Exudate Amt None Present -Wound Margin Indistinct, Non -Visible -Granulation Amt Large (67-100%) -Granulation Quality [place] -Necrosis Amt None Present (0 %) -Structure Exposed N/A -Texture (Merline-wound Skin Appearance) No Abnormality -Moisture (Merline-wound Skin Appearance) No Abnormality -Color (Merline-wound Skin Appearance) No Abnormality -Temperature (Merline-wound Skin No Abnormality Appearance) (Pt Warm) -Tenderness on Palpation (Merline-wound No Skin Appearance) -Ulcer Cleansing Soap and Water -Foul Odor after Cleansing No -Anesthetic Used 5% Lidocaine Gel #1 L Buttock -Current Size (cm) - Length 1.7 -Current Size (cm) - Width 1.4 -Current Size (cm) - Depth 1.8 -Total Square Cm 2.38 -Photo Taken Yes -Exudate Amt Medium -Exudate Type Serosanguineous -Wound Margin Thickened & Rolled Under -Granulation Amt Large (67-100%) -Granulation Quality [place] -Necrosis Amt Small (1-33%) -Necrotic Tissue Type Adherent Slough -Structure Exposed N/A -Texture (Merline-wound Skin Appearance) Scarring -Moisture (Merline-wound Skin Appearance) No Abnormality -Color (Merline-wound Skin Appearance) No Abnormality -Temperature (Merline-wound Skin No Abnormality Appearance) (Pt Warm) -Tenderness on Palpation (Merline-wound No Skin Appearance) -Ulcer Cleansing Soap and Water -Foul Odor after Cleansing No -Anesthetic Used 5% Lidocaine Gel WC - Nurse 2 - General Ulcer CM Notes Start: 06/27/22 09:00 Freq: Status: Active Protocol: Activity Type Activity Date Activity User E-sign Co-sign Detail Recorded Client Recorded Date Recorded By Document 06/27/22 09:36 [id number] 06/27/22 09:41 KARLEE 06/27/22 09:36 Wound Center Nurse 2 #3 coccyx -Correct Patient No -Correct Side, Site, Position No -Correct Procedure No -Procedure Performed No -Post Debridement (cm) - Length 0 -Post Debridement (cm) - Width 0 -Post Debridement (cm) - Depth 0 -Total Square (Post) (cm) 0 -Area of Debridement (cm) - Length 0 -Area of Debridement (cm) - Width 0 -Total Square (Area) (cm) 0 -Wound/Ulcer Outcome Healed- Epithelialized #1 L Buttock -Time 09:39 -Correct Patient Yes -Correct Side, Site, Position Yes -Correct Procedure Yes -Procedure Performed Yes -Type of Procedure Debridement -Clinical Debridement Subcutaneous -Tissue Removed Subcutaneous -Post Debridement (cm) - Length 2.0 -Post Debridement (cm) - Width 1.5 -Post Debridement (cm) - Depth 1.3 -Total Square (Post) (cm) 3.00 -Area of Debridement (cm) - Length 2.0 -Area of Debridement (cm) - Width 1.5 -Total Square (Area) (cm) 3.00 -Tunneling Yes -Tunneling Position (O'clock) 1 -Tunneling Distance (cm) 2.5 -Undermining/Tunneling No -Circular Undermining No -Wound/Ulcer Outcome Not Healed -Ulcer Cleansing Rinsed/ Irrigated with Saline -Foul Odor after Cleansing No -Type of Bioengineered Tissue Apligraf -Bleeding Controlled with Pressure -Treatment Response Procedure Tolerated Well -Offloading No -Debridement - Subq, 1st 20sq cm Yes Pain Scale: 0-10 Numeric Is Patient Pain Free? Yes - Nurse 3 - General Ulcer D/C NN Start: 06/27/22 09:00 Freq: Status: Active Protocol: Activity Type Activity Date Activity User E-sign Co-sign Detail Recorded Client Recorded Date Recorded By Document 06/27/22 09:44 KARLEE [id number] 06/27/22 09:45 KARLEE 06/27/22 09:44 Wound Care Center Nurse 3 #1 L Buttock -Ulcer Cleansing Rinsed/ Irrigated with Saline -Foul Odor after Cleansing No -Other Dressing dakins gauze -Primary Dressing Covered/Secured with Dry Gauze, Secured with Tape Pain Scale: 0-10 Numeric Is Patient Pain Free? 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 He went into the hospital in March and was placed at [facility] for rehab. He is now home and states he is doing well. While he was at the [facility], he developed a new ulcer in his coccyx, it appears healed today. Wound care - Wash ulcer with soap and water with dressing changes. To left ishial/buttock ulcer place moistened Dakin's 0.25% gauze/kerlix packed into the wound/tunnel and cover with ABD/super absorber or Mepilex dressing daily. The coccyx (formerly labeled sacral) appears healed. Place dry gauze to prevent the area from becoming macerated and reopening. He completed home IV Vancomycin. Follow up two weeks. He is to call or come in sooner if he develops any concerns.
[2022-07-11 08:58] VITALS: BP 161/80; PULSE 73; RESP 22; TEMP 36.7; BMI 34.3
--- NOTE | 2022-07-11 12:44 | PCM.WC.PN ---
History of Present Illness Date of Service: 07/11/22 Chief Complaint: Ulcer left ischium and coccyx ulcer History of Wound: Patient is 71 year male who is a poor historian. He presents for evaluation of his left ischia ulcer that he obtained while hospital for a month this summer at [facility] in [place]. He was admitted on October 20, 2021 with a virus of unknown origin. He required dialysis for GUMREET due to the infection. He had his left ischial ulcer debrided at the bedside. It goes down to muscle with tunneling. He was recently readmitted twice, for a week each time, to [facility]. He has home health and is receiving PT at home. His has been packing it with saline moistened gauze daily. His right lateral leg ulcer is superficial. He has severe +4 pitting edema to bilateral lower legs and feet. He has not been wearing compression. He is a poor historian, but states he has a history of cardiac stents years ago, Left knee replacement 2010, right knee replacement 2017, appe 1969. Wound care - Moistened Dakin's gauze/kerlix covered with ABD/super absorber daily and as needed to left ischial ulcer and Santyl to coccyx ulcer. Today he denies fever, chills, nausea, vomiting. He states his appetite is ok. Progress of Wound: The wound bed of his left buttock ulcer is pink. He has a skin tear on the merline wound from using a dressing with adhesive, Objective Data Objective Data Vital Signs: Vital Signs Temp Pulse Resp BP 98.1 F 73 22 H 161/80 H 07/11/22 08:58 07/11/22 08:58 07/11/22 08:58 07/11/22 08:58 Weight: 226 lb Body Mass Index (BMI) 34.3 Charges/Coding Procedures Integumentary 111xxx-113xx: 03619 Ashley musc/fascia 20 sq cm/< Debridement Note Debridement Note Wound debrided: #1 Ischial/buttock ulcer Laterality: Left Wound Grade/Stage: Stage IV Type of Debridement: Excisional debridement Anesthesia Used: 4% Lidocaine Solution and 5% Lidocaine Gel Depth: Down to and including healthy tissue, in the subcutaneous layer and to muscle Percentage of wound debrided: 100 Instrument Used: 5mm curette Tissue Removed: Devitalized tissue and slough into the muscle. Severity: Fat Layer Exposed Amount of bleeding with debridement: Mild Bleeding Controlled with: Pressure and Compression and gauze Patient tolerated procedure: Patient tolerated procedure well Post-Debridement Measurements and Additional Note: Post-Debridement Measurements/Treatment WC - Nurse 1 - General Ulcer Assessment Start: 06/27/22 09:00 Freq: Status: Active Protocol: JANET Activity Type Activity Date Activity User E-sign Co-sign Detail Recorded Client Recorded Date Recorded By Document 06/27/22 09:00 DL [id number] 06/27/22 09:06 DL Document 07/11/22 08:58 DL [id number] 07/11/22 09:07 DL 06/27/22 07/11/22 09:00 08:58 WC - Today's Visit Information Type of service Follow-up Visit Follow-up Visit (Physician/SHOP REPAIRER (Physician/SHOP REPAIRER ) ) Arrival Mode Ambulatory Ambulatory Transfer Assistance None None Patient Identification Verified (Name & Yes Yes ) Patient Requires Transmission-Based No No Precautions Height and Weight Body Mass Index (BMI) 34.3 34.3 BMI Classification Obese Obese Vital Signs Temperature (97.8 F-99.1 F) 97.1 F L 98.1 F Temperature Source Temporal Temporal Pulse Rate (60-100) 73 73 Pulse Location Monitor Monitor Respiratory Rate (12-18) 20 H 22 H Respiratory rate source Observation Observation Blood Pressure (90/60-120/80) 159/83 H 161/80 H Blood Pressure Mean (mm Hg) 108 107 Source Monitor Monitor Position Sitting Blood Pressure Location Left Arm History Since Last Visit- (Skip if this is Patient's initial visit) Have you changed medications since your No No last visit? Any new allergies or adverse reactions No No Had a fall/change in ADL's that may No No increase risk of falls Signs or symptoms of abuse and/or No No neglect since last visit Have you been in the hospital since your No No last visit? Has dressing in place as prescribed Yes Yes Has compression in place as prescribed No No Has offloadiing in place as prescribed Yes No Experienced any changes in pain level or No No management Pain Scale: 0-10 Numeric Is Patient Pain Free? Yes Yes VALENTÍN Luis Nurse 1 - General Ulcer Measurement Start: 06/27/22 09:00 Freq: Status: Active Protocol: Activity Type Activity Date Activity User E-sign Co-sign Detail Recorded Client Recorded Date Recorded By Document 06/27/22 09:00 [id number] 06/27/22 09:06 DL Document 07/11/22 08:58 [id number] 07/11/22 09:07 DL 06/27/22 07/11/22 09:00 08:58 Wound Center Nurse 1 #3 coccyx -Current Size (cm) - Length 0.1 -Current Size (cm) - Width 0.1 -Current Size (cm) - Depth 0.1 -Total Square Cm 0.01 -Photo Taken Yes -Exudate Amt None Present -Wound Margin Indistinct, Non -Visible -Granulation Amt Large (67-100%) -Granulation Quality [place] -Necrosis Amt None Present (0 %) -Structure Exposed N/A -Texture (Merline-wound Skin Appearance) No Abnormality -Moisture (Merline-wound Skin Appearance) No Abnormality -Color (Merline-wound Skin Appearance) No Abnormality -Temperature (Merline-wound Skin No Abnormality Appearance) (Pt Warm) -Tenderness on Palpation (Merline-wound No Skin Appearance) -Ulcer Cleansing Soap and Water -Foul Odor after Cleansing No -Anesthetic Used 5% Lidocaine Gel #1 L Buttock -Combined with other wound No -Current Size (cm) - Length 1.7 1.7 -Current Size (cm) - Width 1.4 1.5 -Current Size (cm) - Depth 1.8 2.2 -Total Square Cm 2.38 2.55 -Photo Taken Yes Yes -Tunneling No -Undermining/Tunneling No -Circular Undermining No -Exudate Amt Medium Medium -Exudate Type Serosanguineous Serosanguineous -Wound Margin Thickened & Thickened & Rolled Under Rolled Under -Granulation Amt Large (67-100%) Large (67-100%) -Granulation Quality [place] -Slough/Fibrin Yes -Necrosis Amt Small (1-33%) Small (1-33%) -Necrotic Tissue Type Adherent Slough Adherent Slough -Structure Exposed N/A N/A -Texture (Merline-wound Skin Appearance) Scarring Assessed -Moisture (Merline-wound Skin Appearance) No Abnormality Assessed -Color (Merline-wound Skin Appearance) No Abnormality Assessed -Temperature (Merline-wound Skin No Abnormality No Abnormality Appearance) (Pt Warm) (Pt Warm) -Tenderness on Palpation (Merline-wound No Skin Appearance) -Ulcer Cleansing Soap and Water Wound Cleanser -Foul Odor after Cleansing No No -Anesthetic Used 5% Lidocaine 5% Lidocaine Gel Gel WC - Nurse 2 - General Ulcer CM Notes Start: 06/27/22 09:00 Freq: Status: Active Protocol: Activity Type Activity Date Activity User E-sign Co-sign Detail Recorded Client Recorded Date Recorded By Document 06/27/22 09:36 [id number] 06/27/22 09:41 Document 07/11/22 09:38 [id number] 07/11/22 09:42 06/27/22 07/11/22 09:36 09:38 Wound Center Nurse 2 #3 coccyx -Correct Patient No -Correct Side, Site, Position No -Correct Procedure No -Procedure Performed No -Post Debridement (cm) - Length 0 -Post Debridement (cm) - Width 0 -Post Debridement (cm) - Depth 0 -Total Square (Post) (cm) 0 -Area of Debridement (cm) - Length 0 -Area of Debridement (cm) - Width 0 -Total Square (Area) (cm) 0 -Wound/Ulcer Outcome Healed- Epithelialized #1 L Buttock -Time 09:39 09:39 -Correct Patient Yes Yes -Correct Side, Site, Position Yes Yes -Correct Procedure Yes Yes -Procedure Performed Yes Yes -Type of Procedure Debridement Debridement -Clinical Debridement Subcutaneous Muscle / Fascia -Tissue Removed Subcutaneous Muscle -Post Debridement (cm) - Length 2.0 2.0 -Post Debridement (cm) - Width 1.5 1.6 -Post Debridement (cm) - Depth 1.3 1.6 -Total Square (Post) (cm) 3.00 3.20 -Area of Debridement (cm) - Length 2.0 2.0 -Area of Debridement (cm) - Width 1.5 1.6 -Total Square (Area) (cm) 3.00 3.20 -Tunneling Yes Yes -Tunneling Position (O'clock) 1 12 -Tunneling Distance (cm) 2.5 2.1 -Undermining/Tunneling No No -Circular Undermining No No -Wound/Ulcer Outcome Not Healed Not Healed -Ulcer Cleansing Rinsed/ Rinsed/ Irrigated with Irrigated with Saline Saline -Foul Odor after Cleansing No No -Bioengineered Tissue No -Type of Bioengineered Tissue Apligraf -Bleeding Controlled with Pressure Pressure -Treatment Response Procedure Procedure Tolerated Well Tolerated Well -Offloading No No -Debridement - Subq, 1st 20sq cm Yes -Debridement - Muscle / Fascia, 1st Yes 20sq cm Pain Scale: 0-10 Numeric Is Patient Pain Free? Yes Yes - Nurse 3 - General Ulcer D/C NN Start: 06/27/22 09:00 Freq: Status: Active Protocol: Activity Type Activity Date Activity User E-sign Co-sign Detail Recorded Client Recorded Date Recorded By Document 06/27/22 09:44 [id number] 06/27/22 09:45 JF Document 07/11/22 10:17 RB [id number] 07/11/22 10:18 RB 06/27/22 07/11/22 09:44 10:17 Wound Care Center Nurse 3 #1 L Buttock -Ulcer Cleansing Rinsed/ Rinsed/ Irrigated with Irrigated with Saline Saline -Foul Odor after Cleansing No -Primary Dressing Applied Fibracol Plus 4x4,Mepilex Border -Other Dressing dakins gauze -Primary Dressing Covered/Secured with Dry Gauze, Dry Gauze Secured with Tape -Fibracol Plus 4x4 1 -Mepilex Border 1 Treatment Response Procedure Tolerated Well Pain Scale: 0-10 Numeric Is Patient Pain Free? 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 Wound care - Wash ulcer with soap and water with dressing changes. To left ishial/buttock ulcer stop moistened Dakin's 0.25% and start Fibracol + packed int the base of the tunnel, topped with fluffed gauze and covered with Mepilex dressing daily. The mepilex should help with the skin tear area since it's border is silicone. The coccyx (formerly labeled sacral) remains healed. Massage lotion daily into this area to help soften scarring. He completed home IV Vancomycin. Follow up two weeks. He is to call or come in sooner if he develops any concerns.
== END 2022-07-24 23:59 | disposition home or self-care (01) ==
LOC: WC 09:45
PROVIDERS: PCP Internal Medicine; Visit Provider Nurse Practitioner Family
DX: L89.324 Pressure ulcer of left buttock, stage 4 (principal); L89.152 Pressure ulcer of sacral region, stage 2; R60.0 Localized edema; G62.9 Polyneuropathy, unspecified
CPT/HCPCS: 11042; 11043

== ENCOUNTER 2022-08-08 09:45 | Outpatient (RCR) | payer MEDICARE, OTHER, SELFPAY ==
[2022-07-25 00:14] VITALS: BP 161/80; PULSE 73; RESP 22; TEMP 36.7; BMI 34.3
[2022-07-25 09:08] VITALS: BP 155/78; PULSE 73; RESP 18; TEMP 36.2; BMI 34.3
--- NOTE | 2022-07-25 10:15 | PCM.WC.PN ---
History of Present Illness Date of Service: 07/25/22 Chief Complaint: Ulcer left ischium and coccyx ulcer History of Wound: Patient is 71 year male who is a poor historian. He presents for evaluation of his left ischia ulcer that he obtained while hospital for a month this summer at [facility] in [place]. He was admitted on October 20, 2021 with a virus of unknown origin. He required dialysis for GURMEET due to the infection. He had his left ischial ulcer debrided at the bedside. It goes down to muscle with tunneling. He was recently readmitted twice, for a week each time, to [facility]. He has home health and is receiving PT at home. His has been packing it with saline moistened gauze daily. His right lateral leg ulcer is superficial. He has severe +4 pitting edema to bilateral lower legs and feet. He has not been wearing compression. He is a poor historian, but states he has a history of cardiac stents years ago, Left knee replacement 2010, right knee replacement 2017, appe 1969. Wound care - Fibracol + reinforced with gauze topped with [place] SAP daily. Today he denies fever, chills, nausea, vomiting. He states his appetite is ok. Progress of Wound: The wound bed of his left buttock ulcer is pink. The tunnel/undermining at 12 o'clock is smaller. Merline wound is clear. Objective Data Objective Data Vital Signs: Vital Signs Temp Pulse Resp BP 97.1 F L 73 18 155/78 H 07/25/22 09:08 07/25/22 09:08 07/25/22 09:08 07/25/22 09:08 Weight: 226 lb Body Mass Index (BMI) 34.3 Charges/Coding Procedures Integumentary 111xxx-113xx: 24359 Ashley musc/fascia 20 sq cm/< Debridement Note Debridement Note Wound debrided: #1 Ischial/buttock ulcer Laterality: Left Wound Grade/Stage: Stage IV Type of Debridement: Excisional debridement Anesthesia Used: 4% Lidocaine Solution and 5% Lidocaine Gel Depth: Down to and including healthy tissue, in the subcutaneous layer and to muscle Percentage of wound debrided: 100 Instrument Used: 5mm curette Tissue Removed: Devitalized tissue and slough into the muscle. Severity: Fat Layer Exposed Amount of bleeding with debridement: Mild Bleeding Controlled with: Pressure and Compression and gauze Patient tolerated procedure: Patient tolerated procedure well Post-Debridement Measurements and Additional Note: Post-Debridement Measurements/Treatment - Nurse 1 - General Ulcer Assessment Start: 07/25/22 09:08 Freq: Status: Active Protocol: JANET Activity Type Activity Date Activity User E-sign Co-sign Detail Recorded Client Recorded Date Recorded By Document 07/25/22 09:08 JIMI [id number] 07/25/22 09:11 RB 07/25/22 09:08 WC - Today's Visit Information Type of service Follow-up Visit (Physician/RADIO DISPATCHER ) Arrival Mode Ambulatory Transfer Assistance None Patient Identification Verified (Name & Yes ) Patient Requires Transmission-Based No Precautions Height and Weight Body Mass Index (BMI) 34.3 BMI Classification Obese Vital Signs Temperature (97.8 F-99.1 F) 97.1 F L Temperature Source Temporal Pulse Rate (60-100) 73 Pulse Location Apical Respiratory Rate (12-18) 18 Respiratory rate source Observation Blood Pressure (90/60-120/80) 155/78 H Blood Pressure Mean (mm Hg) 103 Source Monitor Position Semi-Fowlers Blood Pressure Location Left Arm History Since Last Visit- (Skip if this is Patient's initial visit) Have you changed medications since your No last visit? Any new allergies or adverse reactions No Had a fall/change in ADL's that may No increase risk of falls Signs or symptoms of abuse and/or No neglect since last visit Have you been in the hospital since your No last visit? Has dressing in place as prescribed Yes Has compression in place as prescribed No Has offloadiing in place as prescribed No Experienced any changes in pain level or No management Pain Scale: 0-10 Numeric Is Patient Pain Free? Yes - Nurse 1 - General Ulcer Measurement Start: 07/25/22 09:08 Freq: Status: Active Protocol: Activity Type Activity Date Activity User E-sign Co-sign Detail Recorded Client Recorded Date Recorded By Document 07/25/22 09:08 JIMI [id number] 07/25/22 09:11 RB 07/25/22 09:08 Wound Center Nurse 1 #1 L Buttock -Combined with other wound No -Current Size (cm) - Length 1.3 -Current Size (cm) - Width 1.3 -Current Size (cm) - Depth 1.5 -Total Square Cm 1.69 -Epithelialization Small 1-33% -Tunneling No -Undermining/Tunneling Yes -Undermining/Tunneling Starts (O'clock 11 ) -Undermining/Tunneling Ends (O'clock) 12 -Maximum Distance (cm) 1.9 -Circular Undermining No -Exudate Amt Large -Exudate Type Serosanguineous -Wound Margin Thickened & Rolled Under -Granulation Amt Medium (34-66%) -Granulation Quality [place] -Slough/Fibrin Yes -Necrosis Amt Medium (34-66%) -Necrotic Tissue Type Adherent Slough -Structure Exposed N/A -Texture (Merline-wound Skin Appearance) Assessed, Scarring -Moisture (Merline-wound Skin Appearance) Assessed -Color (Merline-wound Skin Appearance) Assessed -Temperature (Merline-wound Skin No Abnormality Appearance) (Pt Warm) -Tenderness on Palpation (Merline-wound No Skin Appearance) -Ulcer Cleansing Wound Cleanser -Foul Odor after Cleansing No -Anesthetic Used 5% Lidocaine Gel WC - Nurse 2 - General Ulcer CM Notes Start: 07/25/22 09:08 Freq: Status: Active Protocol: Activity Type Activity Date Activity User E-sign Co-sign Detail Recorded Client Recorded Date Recorded By Document 07/25/22 09:59 [id number] 07/25/22 10:03 07/25/22 09:59 Wound Center Nurse 2 -Time 10:00 -Correct Patient Yes -Correct Side, Site, Position Yes -Correct Procedure Yes -Procedure Performed Yes -Type of Procedure Debridement -Clinical Debridement Muscle / Fascia -Tissue Removed Muscle,Fascia -Post Debridement (cm) - Length 2 -Post Debridement (cm) - Width 1.5 -Post Debridement (cm) - Depth 1.7 -Total Square (Post) (cm) 3.0 -Area of Debridement (cm) - Length 2.0 -Area of Debridement (cm) - Width 1.5 -Total Square (Area) (cm) 3.00 -Tunneling Yes -Tunneling Position (O'clock) 12 -Tunneling Distance (cm) 1.4 -Undermining/Tunneling No -Circular Undermining No -Wound/Ulcer Outcome Not Healed -Ulcer Cleansing Rinsed/ Irrigated with Saline -Bioengineered Tissue No -Bleeding Controlled with Pressure -Treatment Response Procedure Not Tolerated Well -Offloading No -Debridement - Muscle / Fascia, 1st Yes 20sq cm Pain Scale: 0-10 Numeric Is Patient Pain Free? Yes - Nurse 3 - General Ulcer D/C NN Start: 07/25/22 09:08 Freq: Status: Active Protocol: Activity Type Activity Date Activity User E-sign Co-sign Detail Recorded Client Recorded Date Recorded By Document 07/25/22 10:09 KARLEE [id number] 07/25/22 10:10 KARLEE 07/25/22 10:09 Wound Care Center Nurse 3 #1 L Buttock -Ulcer Cleansing Rinsed/ Irrigated with Saline -Foul Odor after Cleansing No -Primary Dressing Applied Fibracol Plus 4x4,Mepilex Border -Primary Dressing Covered/Secured with Dry Gauze -Fibracol Plus 4x4 1 -Mepilex Border 1 Pain Scale: 0-10 Numeric Is Patient Pain Free? 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 Wound care - Wash ulcer with soap and water with dressing changes. To left ishial/buttock ulcer Fibracol + packed int the base of the tunnel, topped with fluffed gauze and covered with Mepilex dressing daily. Encouraged to not sit/lay directly on this area. As he has built up more strength, he has become more active and is now driving independently. Follow up two weeks. He is to call or come in sooner if he develops any concerns.
[2022-08-08 09:37] VITALS: BP 148/70; PULSE 73; RESP 20; TEMP 36.1; BMI 34.3
--- NOTE | 2022-08-08 10:20 | PN.PCM_ITS ---
History of Present Illness Date of Service: 08/08/22 Chief Complaint: Ulcer left ischium and coccyx ulcer History of Wound: Patient is 71 year male who is a poor historian. He presents for evaluation of his left ischia ulcer that he obtained while hospital for a month this summer at [facility] in [place]. He was admitted on October 20, 2021 with a virus of unknown origin. He required dialysis for GURMEET due to the infection. He had his left ischial ulcer debrided at the bedside. It goes down to muscle with tunneling. He was recently readmitted twice, for a week each time, to [facility]. He has home health and is receiving PT at home. His has been packing it with saline moistened gauze daily. His right lateral leg ulcer is superficial. He has severe +4 pitting edema to bilateral lower legs and feet. He has not been wearing compression. He is a poor historian, but states he has a history of cardiac stents years ago, Left knee replacement 2010, right knee replacement 2017, appe 1969. Wound care - Fibracol + reinforced with gauze topped with [place] SAP daily. Today he denies fever, chills, nausea, vomiting. He states his appetite is ok. Progress of Wound: The wound bed of his left buttock ulcer is pink. The tunnel/undermining at 12 o'clock is smaller. Merline wound is clear. His edges are really starting to curve in. Objective Data Objective Data Vital Signs: Vital Signs Temp Pulse Resp BP 97 F L 73 20 H 148/70 H 08/08/22 09:37 08/08/22 09:37 08/08/22 09:37 08/08/22 09:37 Weight: 226 lb Body Mass Index (BMI) 34.3 Charges/Coding Procedures Integumentary 111xxx-113xx: 25392 Ashley musc/fascia 20 sq cm/< Debridement Note Debridement Note Wound debrided: #1 Ischial/buttock ulcer Laterality: Left Wound Grade/Stage: Stage IV Type of Debridement: Excisional debridement Anesthesia Used: 4% Lidocaine Solution and 5% Lidocaine Gel Depth: Down to and including healthy tissue, in the subcutaneous layer and to muscle Percentage of wound debrided: 100 Instrument Used: 5mm curette Tissue Removed: Devitalized tissue and slough into the muscle. Severity: Fat Layer Exposed Amount of bleeding with debridement: Mild Bleeding Controlled with: Pressure and Compression and gauze Patient tolerated procedure: Patient tolerated procedure well Debridement Free Text: Edges starting to curve in, roughened up around the edges to prevent slower wound healing. Post-Debridement Measurements and Additional Note: Post-Debridement Measurements/Treatment - Nurse 1 - General Ulcer Assessment Start: 07/25/22 09:08 Freq: Status: Active Protocol: JANET Activity Type Activity Date Activity User E-sign Co-sign Detail Recorded Client Recorded Date Recorded By Document 07/25/22 09:08 RB [id number] 07/25/22 09:11 RB Document 08/08/22 09:37 RB [id number] 08/08/22 09:39 RB 07/25/22 08/08/22 09:08 09:37 WC - Today's Visit Information Type of service Follow-up Visit Follow-up Visit (Physician/LEATHER SKINNER (Physician/LEATHER SKINNER ) ) Arrival Mode Ambulatory Cane Transfer Assistance None None Patient Identification Verified (Name & Yes Yes ) Patient Requires Transmission-Based No No Precautions Height and Weight Body Mass Index (BMI) 34.3 34.3 BMI Classification Obese Obese Vital Signs Temperature (97.8 F-99.1 F) 97.1 F L 97 F L Temperature Source Temporal Temporal Pulse Rate (60-100) 73 73 Pulse Location Apical Monitor Respiratory Rate (12-18) 18 20 H Respiratory rate source Observation Blood Pressure (90/60-120/80) 155/78 H 148/70 H Blood Pressure Mean (mm Hg) 103 96 Source Monitor Monitor Position Semi-Fowlers Blood Pressure Location Left Arm History Since Last Visit- (Skip if this is Patient's initial visit) Have you changed medications since your No No last visit? Any new allergies or adverse reactions No No Had a fall/change in ADL's that may No No increase risk of falls Signs or symptoms of abuse and/or No No neglect since last visit Have you been in the hospital since your No No last visit? Has dressing in place as prescribed Yes Yes Has compression in place as prescribed No N/A Has offloadiing in place as prescribed No Yes Experienced any changes in pain level or No No management Pain Scale: 0-10 Numeric Is Patient Pain Free? Yes Yes - Nurse 1 - General Ulcer Measurement Start: 07/25/22 09:08 Freq: Status: Active Protocol: Activity Type Activity Date Activity User E-sign Co-sign Detail Recorded Client Recorded Date Recorded By Document 07/25/22 09:08 RB [id number] 07/25/22 09:11 RB Document 08/08/22 09:37 RB [id number] 08/08/22 09:39 RB 07/25/22 08/08/22 09:08 09:37 Wound Center Nurse 1 #1 L Buttock -Combined with other wound No -Current Size (cm) - Length 1.3 1.5 -Current Size (cm) - Width 1.3 0.8 -Current Size (cm) - Depth 1.5 1.7 -Total Square Cm 1.69 1.20 -Photo Taken Yes -Epithelialization Small 1-33% -Tunneling No -Tunneling Position (O'clock) 12 -Tunneling Distance (cm) 1.4 -Undermining/Tunneling Yes -Undermining/Tunneling Starts (O'clock 11 ) -Undermining/Tunneling Ends (O'clock) 12 -Maximum Distance (cm) 1.9 -Circular Undermining No -Exudate Amt Large Medium -Exudate Type Serosanguineous Serosanguineous -Wound Margin Thickened & Thickened & Rolled Under Rolled Under -Granulation Amt Medium (34-66%) Medium (34-66%) -Granulation Quality [place],Red -Slough/Fibrin Yes -Necrosis Amt Medium (34-66%) Medium (34-66%) -Necrotic Tissue Type Adherent Slough Adherent Slough -Structure Exposed N/A N/A -Texture ([place]-wound Skin Appearance) Assessed, Scarring Scarring -Moisture ([place]-wound Skin Appearance) Assessed No Abnormality -Color ([place]-wound Skin Appearance) Assessed No Abnormality -Temperature ([place]-wound Skin No Abnormality No Abnormality Appearance) (Pt Warm) (Pt Warm) -Tenderness on Palpation (Merline-wound No No Skin Appearance) -Ulcer Cleansing Wound Cleanser Soap and Water -Foul Odor after Cleansing No No -Anesthetic Used 5% Lidocaine 5% Lidocaine Gel Gel WC - Nurse 2 - General Ulcer CM Notes Start: 07/25/22 09:08 Freq: Status: Active Protocol: Activity Type Activity Date Activity User E-sign Co-sign Detail Recorded Client Recorded Date Recorded By Document 07/25/22 09:59 [id number] 07/25/22 10:03 Document 08/08/22 10:10 [id number] 08/08/22 10:13 07/25/22 08/08/22 09:59 10:10 Wound Center Nurse 2 #1 L Buttock -Time 10:00 10:11 -Correct Patient Yes Yes -Correct Side, Site, Position Yes Yes -Correct Procedure Yes Yes -Procedure Performed Yes Yes -Type of Procedure Debridement Debridement -Clinical Debridement Muscle / Fascia Muscle / Fascia -Tissue Removed Muscle,Fascia Muscle,Fascia -Post Debridement (cm) - Length 2 2.0 -Post Debridement (cm) - Width 1.5 1.0 -Post Debridement (cm) - Depth 1.7 1.2 -Total Square (Post) (cm) 3.0 2.00 -Area of Debridement (cm) - Length 2.0 2.0 -Area of Debridement (cm) - Width 1.5 1.0 -Total Square (Area) (cm) 3.00 2.00 -Tunneling Yes Yes -Tunneling Position (O'clock) 12 12 -Tunneling Distance (cm) 1.4 1.0 -Undermining/Tunneling No No -Circular Undermining No No -Wound/Ulcer Outcome Not Healed Not Healed -Ulcer Cleansing Rinsed/ Rinsed/ Irrigated with Irrigated with Saline Saline -Foul Odor after Cleansing No -Bioengineered Tissue No No -Bleeding Controlled with Pressure Pressure -Treatment Response Procedure Not Procedure Tolerated Well Tolerated Well -Offloading No No -Debridement - Muscle / Fascia, 1st Yes Yes 20sq cm Pain Scale: 0-10 Numeric Is Patient Pain Free? Yes Yes - Nurse 3 - General Ulcer D/C NN Start: 07/25/22 09:08 Freq: Status: Active Protocol: Activity Type Activity Date Activity User E-sign Co-sign Detail Recorded Client Recorded Date Recorded By Document 07/25/22 10:09 [id number] 07/25/22 10:10 07/25/22 10:09 Wound Care Center Nurse 3 #1 L Buttock -Ulcer Cleansing Rinsed/ Irrigated with Saline -Foul Odor after Cleansing No -Primary Dressing Applied Fibracol Plus 4x4,Mepilex Border -Primary Dressing Covered/Secured with Dry Gauze -Fibracol Plus 4x4 1 -Mepilex Border 1 Pain Scale: 0-10 Numeric Is Patient Pain Free? 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 Wound care - Wash ulcer with soap and water with dressing changes. To left ishial/buttock ulcer Fibracol + packed int the base of the tunnel, topped with fluffed gauze and covered with Mepilex dressing daily. Encouraged to not sit/lay directly on this area. As he has built up more strength, he has become more active and is now driving independently. Follow up three weeks. He is to call or come in sooner if he develops any concerns.
== END 2022-08-24 23:59 | disposition home or self-care (01) ==
LOC: WC 09:45
PROVIDERS: PCP Internal Medicine; Visit Provider Nurse Practitioner Family
DX: L89.324 Pressure ulcer of left buttock, stage 4 (principal); L89.152 Pressure ulcer of sacral region, stage 2; R60.0 Localized edema; G62.9 Polyneuropathy, unspecified
CPT/HCPCS: 11043

== ENCOUNTER 2022-09-12 09:45 | Outpatient (RCR) | payer MEDICARE, OTHER, SELFPAY ==
[2022-08-25 01:15] VITALS: BP 148/70; PULSE 73; RESP 20; TEMP 36.1; BMI 34.3
[2022-08-29 09:22] VITALS: TEMP 35.8; BMI 34.3
--- NOTE | 2022-08-29 11:16 | PCM.WC.PN ---
History of Present Illness Date of Service: 08/29/22 Chief Complaint: Ulcer left ischium and coccyx ulcer History of Wound: Patient is 71 year male who is a poor historian. He presents for evaluation of his left ischia ulcer that he obtained while hospital for a month this summer at [facility] in [place]. He was admitted on October 20, 2021 with a virus of unknown origin. He required dialysis for GURMEET due to the infection. He had his left ischial ulcer debrided at the bedside. It goes down to muscle with tunneling. He was recently readmitted twice, for a week each time, to [facility]. He has home health and is receiving PT at home. His has been packing it with saline moistened gauze daily. His right lateral leg ulcer is superficial. He has severe +4 pitting edema to bilateral lower legs and feet. He has not been wearing compression. He is a poor historian, but states he has a history of cardiac stents years ago, Left knee replacement 2010, right knee replacement 2017, appe 1969. Wound care - Fibracol + reinforced with gauze topped with [place] SAP daily. Today he denies fever, chills, nausea, vomiting. He states his appetite is ok. Progress of Wound: The ulcer had an odor this week. A wound culture was obtained. He is denying any other symptoms of infection. The wound bed of his left buttock ulcer is pink. The tunnel/undermining at 12 o'clock is smaller. [place] wound is clear. His edges are really starting to curve in. Objective Data Objective Data Vital Signs: Vital Signs Temp Pulse Resp BP 96.4 F L 73 20 H 148/70 H 08/29/22 09:22 08/25/22 01:15 08/25/22 01:15 08/25/22 01:15 Weight: 226 lb Body Mass Index (BMI) 34.3 Charges/Coding Procedures Integumentary 111xxx-113xx: 15632 Ashley subq tissue 20 sq cm/< Debridement Note Debridement Note Wound debrided: #1 Ischial/buttock ulcer Laterality: Left Wound Grade/Stage: Stage IV Type of Debridement: Excisional debridement Anesthesia Used: 4% Lidocaine Solution and 5% Lidocaine Gel Depth: Down to and including healthy tissue and in the subcutaneous layer Percentage of wound debrided: 100 Instrument Used: 5mm curette Tissue Removed: Devitalized tissue and slough into the muscle. Severity: Fat Layer Exposed Amount of bleeding with debridement: Mild Bleeding Controlled with: Pressure and Compression and gauze Patient tolerated procedure: Patient tolerated procedure well Debridement Free Text: Edges starting to curve in, roughened up around the edges to prevent slower wound healing. Good bleeding obtained with the debridement. Post-Debridement Measurements and Additional Note: Post-Debridement Measurements/Treatment - Nurse 1 - General Ulcer Assessment Start: 08/29/22 09:22 Freq: Status: Active Protocol: JANET Activity Type Activity Date Activity User E-sign Co-sign Detail Recorded Client Recorded Date Recorded By Document 08/29/22 09:22 KARLEE [id number] 08/29/22 09:26 08/29/22 09:22 - Today's Visit Information Type of service Follow-up Visit (Physician/[employer] ) Arrival Mode Ambulatory Patient Identification Verified (Name & Yes ) Patient Requires Transmission-Based No Precautions Height and Weight Body Mass Index (BMI) 34.3 BMI Classification Obese Vital Signs Temperature (97.8 F-99.1 F) 96.4 F L Temperature Source Temporal History Since Last Visit- (Skip if this is Patient's initial visit) Have you changed medications since your No last visit? Any new allergies or adverse reactions No Had a fall/change in ADL's that may No increase risk of falls Signs or symptoms of abuse and/or No neglect since last visit Have you been in the hospital since your No last visit? Has dressing in place as prescribed Yes Has compression in place as prescribed N/A Has offloadiing in place as prescribed N/A Experienced any changes in pain level or No management Left Footwear Regular Shoe Right Footwear Regular Shoe Pain Scale: 0-10 Numeric Is Patient Pain Free? Yes - Nurse 1 - General Ulcer Measurement Start: 08/29/22 09:22 Freq: Status: Active Protocol: Activity Type Activity Date Activity User E-sign Co-sign Detail Recorded Client Recorded Date Recorded By Document 08/29/22 09:22 JF [id number] 08/29/22 09:26 08/29/22 09:22 Wound Center Nurse 1 #1 L Buttock -Combined with other wound No -Current Size (cm) - Length 1.3 -Current Size (cm) - Width 0.9 -Current Size (cm) - Depth 1.0 -Total Square Cm 1.17 -Photo Taken Yes -Epithelialization Large 67-100% -Tunneling No -Undermining/Tunneling No -Circular Undermining No -Exudate Amt Small -Exudate Type Serosanguineous -Wound Margin Flat & Intact -Granulation Amt Large (67-100%) -Granulation Quality Red -Slough/Fibrin Yes -Necrosis Amt Small (1-33%) -Necrotic Tissue Type Adherent Slough -Structure Exposed N/A -Texture ([place]-wound Skin Appearance) Not Assessed -Moisture ([place]-wound Skin Appearance) Assessed,Dry/ Scaly -Color ([place]-wound Skin Appearance) No Abnormality -Temperature ([place]-wound Skin No Abnormality Appearance) (Pt Warm) -Tenderness on Palpation ([place]-wound No Skin Appearance) -Ulcer Cleansing Rinsed/ Irrigated with Saline -Foul Odor after Cleansing No Lower Limb Edema Present NA VALENTÍN - Nurse 2 - General Ulcer CM Notes Start: 08/29/22 09:22 Freq: Status: Active Protocol: Activity Type Activity Date Activity User E-sign Co-sign Detail Recorded Client Recorded Date Recorded By Document 08/29/22 09:29 [id number] 08/29/22 09:37 KARLEE 08/29/22 09:29 Wound Center Nurse 2 #1 L Buttock -Time 09:30 -Correct Patient Yes -Correct Side, Site, Position Yes -Correct Procedure Yes -Procedure Performed Yes -Type of Procedure Debridement -Clinical Debridement Subcutaneous -Tissue Removed Subcutaneous -Post Debridement (cm) - Length 1.8 -Post Debridement (cm) - Width 1.4 -Post Debridement (cm) - Depth 1.8 -Total Square (Post) (cm) 2.52 -Area of Debridement (cm) - Length 1.8 -Area of Debridement (cm) - Width 1.4 -Total Square (Area) (cm) 2.52 -Tunneling No -Undermining/Tunneling No -Circular Undermining No -Wound/Ulcer Outcome Not Healed -Ulcer Cleansing Rinsed/ Irrigated with Saline -Foul Odor after Cleansing No -Bioengineered Tissue No -Bleeding Controlled with Pressure -Treatment Response Procedure Tolerated Well -Offloading No -Debridement - Subq, 1st 20sq cm Yes -Apply Skin Sub - 1st 25 sq cm - Legs 1 Pain Scale: 0-10 Numeric Is Patient Pain Free? Yes VALENTÍN - Nurse 3 - General Ulcer D/C NN Start: 08/29/22 09:22 Freq: Status: Active Protocol: Activity Type Activity Date Activity User E-sign Co-sign Detail Recorded Client Recorded Date Recorded By Document 08/29/22 09:42 DL [id number] 08/29/22 09:45 DL 08/29/22 09:42 Wound Care Center Nurse 3 #1 L Buttock -Ulcer Cleansing Rinsed/ Irrigated with Saline -Foul Odor after Cleansing No -Primary Dressing Applied Mepilex Border -Other Dressing dakins -Mepilex Border 1 Treatment Response Procedure Tolerated Well Pain Scale: 0-10 Numeric Is Patient Pain Free? 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 Wound care - Wash ulcer with soap and water with dressing changes. To left ishial/buttock ulcer hold Fibracol + at this time and start using Dakins 0.25% packed int the base of the ulcer, topped with fluffed gauze and covered with Mepilex dressing daily. A wound culture was obtained today.? A positive culture will necessitate antibiotic therapy. Encouraged to not sit/lay directly on this area. Follow up two weeks. He is to call or come in sooner if he develops any concerns.
--- NOTE | 2022-08-31 09:57 | WC ---
Received a message that Ronel reviewed patient's wound culture and ordered Augmentin and a probiotic called into [facility]. Called and left a voicemail message with patient regarding this and asked for him to call back letting us know he received the message.
[2022-09-12 09:32] VITALS: BP 155/71; PULSE 70; RESP 20; TEMP 36.5; BMI 34.3
--- NOTE | 2022-09-12 11:33 | PCM.WC.PN ---
History of Present Illness Date of Service: 09/12/22 Chief Complaint: Ulcer left ischium and coccyx ulcer History of Wound: Patient is 71 year male who is a poor historian. He presents for evaluation of his left ischia ulcer that he obtained while hospital for a month this summer at [facility] in [place]. He was admitted on October 20, 2021 with a virus of unknown origin. He required dialysis for GURMEET due to the infection. He had his left ischial ulcer debrided at the bedside. It goes down to muscle with tunneling. He was recently readmitted twice, for a week each time, to [facility]. He has home health and is receiving PT at home. His has been packing it with saline moistened gauze daily. His right lateral leg ulcer is superficial. He has severe +4 pitting edema to bilateral lower legs and feet. He has not been wearing compression. He is a poor historian, but states he has a history of cardiac stents years ago, Left knee replacement 2010, right knee replacement 2017, appe 1969. Wound culture 08/29/22 positive for Acinetobacter baumannii and Corynebacterium striatum. Treated with Augmentin. Wound care - Dakins moistened gauze topped with [place] SAP daily. Today he denies fever, chills, nausea, vomiting. He states his appetite is ok. Progress of Wound: The ulcer is pink, the edges are curling in. The overall size is much smaller. There is no odor or drainage now that he is on antibiotics. Objective Data Objective Data Vital Signs: Vital Signs Temp Pulse Resp BP 97.7 F L 70 20 H 155/71 H 09/12/22 09:32 09/12/22 09:32 09/12/22 09:32 09/12/22 09:32 Weight: 226 lb Body Mass Index (BMI) 34.3 Lab / Micro Data Micro: Microbiology 08/29/22 09:30 Wound Abcess - Buttock Gram Stain - Final 08/29/22 09:30 Wound Abcess - Buttock Wound Culture - Final Acinetobacter baumannii Corynebacterium striatum 08/29/22 09:30 Wound Abcess - Buttock Anaerobic Culture - Final No anaerobic bacteria isolated. Charges/Coding Procedures Integumentary 111xxx-113xx: [id number] Ashley subq tissue 20 sq cm/< Debridement Note Debridement Note Wound debrided: #1 Ischial/buttock ulcer Laterality: Left Wound Grade/Stage: Stage IV Type of Debridement: Excisional debridement Anesthesia Used: 4% Lidocaine Solution and 5% Lidocaine Gel Depth: Down to and including healthy tissue and in the subcutaneous layer Percentage of wound debrided: 100 Instrument Used: 3mm curette Tissue Removed: Devitalized tissue and slough. Severity: Fat Layer Exposed Amount of bleeding with debridement: Mild Bleeding Controlled with: Pressure and Compression and gauze Patient tolerated procedure: Patient tolerated procedure well Debridement Free Text: Edges starting to curve in, roughened up around the edges to prevent slower wound healing. Good bleeding obtained with the debridement. Post-Debridement Measurements and Additional Note: Post-Debridement Measurements/Treatment - Nurse 1 - General Ulcer Assessment Start: 08/29/22 09:22 Freq: Status: Active Protocol: JANET Activity Type Activity Date Activity User E-sign Co-sign Detail Recorded Client Recorded Date Recorded By Document 08/29/22 09:22 [id number] 08/29/22 09:26 Document 09/12/22 09:32 DL [id number] 09/12/22 09:37 DL 08/29/22 09/12/22 09:22 09:32 - Today's Visit Information Type of service Follow-up Visit Follow-up Visit (Physician/FAST BRIM POUNCER (Physician/FAST BRIM POUNCER ) ) Arrival Mode Ambulatory Ambulatory Transfer Assistance None Patient Identification Verified (Name & Yes Yes ) Patient Requires Transmission-Based No No Precautions Height and Weight Body Mass Index (BMI) 34.3 34.3 BMI Classification Obese Obese Vital Signs Temperature (97.8 F-99.1 F) 96.4 F L 97.7 F L Temperature Source Temporal Temporal Pulse Rate (60-100) 70 Pulse Location Monitor Respiratory Rate (12-18) 20 H Respiratory rate source Observation Blood Pressure (90/60-120/80) 155/71 H Blood Pressure Mean (mm Hg) 99 Source Monitor History Since Last Visit- (Skip if this is Patient's initial visit) Have you changed medications since your No No last visit? Any new allergies or adverse reactions No No Had a fall/change in ADL's that may No No increase risk of falls Signs or symptoms of abuse and/or No No neglect since last visit Have you been in the hospital since your No No last visit? Has dressing in place as prescribed Yes Yes Has compression in place as prescribed N/A N/A Has offloadiing in place as prescribed N/A Yes Experienced any changes in pain level or No No management Left Footwear Regular Shoe Right Footwear Regular Shoe Pain Scale: 0-10 Numeric Is Patient Pain Free? Yes Yes - Nurse 1 - General Ulcer Measurement Start: 08/29/22 09:22 Freq: Status: Active Protocol: Activity Type Activity Date Activity User E-sign Co-sign Detail Recorded Client Recorded Date Recorded By Document 08/29/22 09:22 [id number] 08/29/22 09:26 JF Document 09/12/22 09:32 DL [id number] 09/12/22 09:37 DL 08/29/22 09/12/22 09:22 09:32 Wound Center Nurse 1 #1 L Buttock -Combined with other wound No -Current Size (cm) - Length 1.3 1.4 -Current Size (cm) - Width 0.9 0.6 -Current Size (cm) - Depth 1.0 1.5 -Total Square Cm 1.17 0.84 -Photo Taken Yes No -Epithelialization Large 67-100% -Tunneling No -Undermining/Tunneling No -Circular Undermining No -Exudate Amt Small Medium -Exudate Type Serosanguineous Serosanguineous -Wound Margin Flat & Intact Thickened & Rolled Under -Granulation Amt Large (67-100%) Medium (34-66%) -Granulation Quality Red Pale -Slough/Fibrin Yes -Necrosis Amt Small (1-33%) Medium (34-66%) -Necrotic Tissue Type Adherent Slough Adherent Slough -Structure Exposed N/A N/A -Texture ([place]-wound Skin Appearance) Not Assessed Scarring -Moisture ([place]-wound Skin Appearance) Assessed,Dry/ No Abnormality Scaly -Color ([place]-wound Skin Appearance) No Abnormality No Abnormality -Temperature ([place]-wound Skin No Abnormality No Abnormality Appearance) (Pt Warm) (Pt Warm) -Tenderness on Palpation ([place]-wound No No Skin Appearance) -Ulcer Cleansing Rinsed/ Soap and Water Irrigated with Saline -Foul Odor after Cleansing No No -Anesthetic Used 5% Lidocaine Gel Lower Limb Edema Present NA WC - Nurse 2 - General Ulcer CM Notes Start: 08/29/22 09:22 Freq: Status: Active Protocol: Activity Type Activity Date Activity User E-sign Co-sign Detail Recorded Client Recorded Date Recorded By Document 08/29/22 09:29 JF [id number] 08/29/22 09:37 JF Edit Result 08/29/22 09:29 JF (1) [id number] 08/30/22 06:57 PL Document 09/12/22 10:18 [id number] 09/12/22 10:20 JF (1) #1 L Buttock - Apply Skin Sub - 1st 25 sq cm - Legs 1 => 08/29/22 09/12/22 09:29 10:18 Wound Center Nurse 2 #1 L Buttock -Time 09:30 10:19 -Correct Patient Yes Yes -Correct Side, Site, Position Yes Yes -Correct Procedure Yes Yes -Procedure Performed Yes Yes -Type of Procedure Debridement Debridement -Clinical Debridement Subcutaneous Subcutaneous -Tissue Removed Subcutaneous Subcutaneous -Post Debridement (cm) - Length 1.8 1.6 -Post Debridement (cm) - Width 1.4 0.7 -Post Debridement (cm) - Depth 1.8 1.3 -Total Square (Post) (cm) 2.52 1.12 -Area of Debridement (cm) - Length 1.8 1.6 -Area of Debridement (cm) - Width 1.4 0.7 -Total Square (Area) (cm) 2.52 1.12 -Tunneling No No -Undermining/Tunneling No No -Circular Undermining No No -Wound/Ulcer Outcome Not Healed Not Healed -Ulcer Cleansing Rinsed/ Rinsed/ Irrigated with Irrigated with Saline Saline -Foul Odor after Cleansing No No -Bioengineered Tissue No No -Bleeding Controlled with Pressure Pressure -Treatment Response Procedure Procedure Tolerated Well Tolerated Well -Offloading No No -Debridement - Subq, 1st 20sq cm Yes Yes Pain Scale: 0-10 Numeric Is Patient Pain Free? Yes Yes - Nurse 3 - General Ulcer D/C NN Start: 08/29/22 09:22 Freq: Status: Active Protocol: Activity Type Activity Date Activity User E-sign Co-sign Detail Recorded Client Recorded Date Recorded By Document 08/29/22 09:42 DL [id number] 08/29/22 09:45 DL Document 09/12/22 10:20 [id number] 09/12/22 10:21 08/29/22 09/12/22 09:42 10:20 Wound Care Center Nurse 3 #1 L Buttock -Ulcer Cleansing Rinsed/ Rinsed/ Irrigated with Irrigated with Saline Saline -Foul Odor after Cleansing No No -Primary Dressing Applied Mepilex Border -Other Dressing dakins dakin -Primary Dressing Covered/Secured with Dry Gauze, Secured with Tape -Mepilex Border 1 1 Treatment Response Procedure Tolerated Well Pain Scale: 0-10 Numeric Is Patient Pain Free? 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 Wound care - Wash ulcer with soap and water with dressing changes. To left ishial/buttock ulcer Dakins 0.25% packed int the base of the ulcer, topped with fluffed gauze and covered with Mepilex dressing daily. A wound culture from 08/29/22 was positive for Acinetobacter baumannii and Corynebacterium striatum and he is being treated with Augmentin. Encouraged to not sit/lay directly on this area. Follow up two weeks. He is to call or come in sooner if he develops any concerns.
== END 2022-09-23 23:59 | disposition home or self-care (01) ==
LOC: WC 09:45
PROVIDERS: PCP Internal Medicine; Visit Provider Nurse Practitioner Family
DX: L89.324 Pressure ulcer of left buttock, stage 4 (principal); L89.152 Pressure ulcer of sacral region, stage 2; R60.0 Localized edema; G62.9 Polyneuropathy, unspecified
CPT/HCPCS: 11042; 15271; 87070; 87075; 87077; 87186; 87205

== ENCOUNTER 2022-10-24 09:15 | Outpatient (RCR) | payer MEDICARE, OTHER, SELFPAY ==
[2022-09-24 00:25] VITALS: BP 155/71; PULSE 70; RESP 20; TEMP 36.5; BMI 34.3
[2022-09-26 08:50] VITALS: BP 163/66; PULSE 76; RESP 20; TEMP 36.3; BMI 34.3
--- NOTE | 2022-09-26 11:01 | PN.PCM_ITS ---
History of Present Illness Date of Service: 09/26/22 Chief Complaint: Ulcer left ischium and coccyx ulcer History of Wound: Patient is 71 year male who is a poor historian. He presents for evaluation of his left ischia ulcer that he obtained while hospital for a month this summer at [facility] in [place]. He was admitted on October 20, 2021 with a virus of unknown origin. He required dialysis for GURMEET due to the infection. He had his left ischial ulcer debrided at the bedside. It goes down to muscle with tunneling. He was recently readmitted twice, for a week each time, to [facility]. He has home health and is receiving PT at home. His has been packing it with saline moistened gauze daily. His right lateral leg ulcer is superficial. He has severe +4 pitting edema to bilateral lower legs and feet. He has not been wearing compression. He is a poor historian, but states he has a history of cardiac stents years ago, Left knee replacement 2010, right knee replacement 2017, appe 1969. Wound culture 08/29/22 positive for Acinetobacter baumannii and Corynebacterium striatum. Treated with Augmentin. Wound care - Fibracol + gauze topped with [place] SAP daily. Today he denies fever, chills, nausea, vomiting. He states his appetite is ok. Progress of Wound: The ulcer is pink, the edges are curling in. The overall size is much smaller. Objective Data Objective Data Vital Signs: Vital Signs Temp Pulse Resp BP 97.3 F L 76 20 H 163/66 H 09/26/22 08:50 09/26/22 08:50 09/26/22 08:50 09/26/22 08:50 Weight: 226 lb Body Mass Index (BMI) 34.3 Charges/Coding Procedures Integumentary 111xxx-113xx: [id number] Ashley subq tissue 20 sq cm/< Debridement Note Debridement Note Wound debrided: #1 Ischial/buttock ulcer Laterality: Left Wound Grade/Stage: Stage IV Type of Debridement: Excisional debridement Anesthesia Used: 4% Lidocaine Solution and 5% Lidocaine Gel Depth: Down to and including healthy tissue and in the subcutaneous layer Percentage of wound debrided: 100 Instrument Used: 5mm curette Tissue Removed: Devitalized tissue and slough. Severity: Fat Layer Exposed Amount of bleeding with debridement: Mild Bleeding Controlled with: Pressure and Compression and gauze Patient tolerated procedure: Patient tolerated procedure well Debridement Free Text: Edges starting to curl in, roughened up around the edges to prevent slower wound healing. Good bleeding obtained with the debridement. Post-Debridement Measurements and Additional Note: Post-Debridement Measurements/Treatment - Nurse 1 - General Ulcer Assessment Start: 09/26/22 08:49 Freq: Status: Active Protocol: JANET Activity Type Activity Date Activity User E-sign Co-sign Detail Recorded Client Recorded Date Recorded By Document 09/26/22 08:50 DL [id number] 09/26/22 08:55 DL 09/26/22 08:50 WC - Today's Visit Information Type of service Follow-up Visit (Physician/DIRECT SUPPORT PROFESSIONAL CAREGIVER ) Arrival Mode Ambulatory Transfer Assistance None Patient Identification Verified (Name & Yes ) Patient Requires Transmission-Based No Precautions Height and Weight Body Mass Index (BMI) 34.3 BMI Classification Obese Vital Signs Temperature (97.8 F-99.1 F) 97.3 F L Temperature Source Temporal Pulse Rate (60-100) 76 Pulse Location Monitor Respiratory Rate (12-18) 20 H Respiratory rate source Observation Blood Pressure (90/60-120/80) 163/66 H Blood Pressure Mean (mm Hg) 98 Source Monitor History Since Last Visit- (Skip if this is Patient's initial visit) Have you changed medications since your No last visit? Any new allergies or adverse reactions No Had a fall/change in ADL's that may No increase risk of falls Signs or symptoms of abuse and/or No neglect since last visit Have you been in the hospital since your No last visit? Has dressing in place as prescribed Yes Has compression in place as prescribed N/A Has offloadiing in place as prescribed Yes Experienced any changes in pain level or No management Pain Scale: 0-10 Numeric Is Patient Pain Free? Yes - Nurse 1 - General Ulcer Measurement Start: 09/26/22 08:49 Freq: Status: Active Protocol: Activity Type Activity Date Activity User E-sign Co-sign Detail Recorded Client Recorded Date Recorded By Document 09/26/22 08:50 DL [id number] 09/26/22 08:55 DL 09/26/22 08:50 Wound Center Nurse 1 #1 L Buttock -Current Size (cm) - Length 1 -Current Size (cm) - Width 0.8 -Current Size (cm) - Depth 1.3 -Total Square Cm 0.8 -Photo Taken No -Exudate Amt Medium -Exudate Type Yellow/Green -Wound Margin Thickened & Rolled Under -Granulation Amt Medium (34-66%) -Granulation Quality [place],Red -Necrosis Amt Medium (34-66%) -Necrotic Tissue Type Adherent Slough -Structure Exposed N/A -Texture ([place]-wound Skin Appearance) Scarring -Moisture ([place]-wound Skin Appearance) No Abnormality -Color ([place]-wound Skin Appearance) No Abnormality -Temperature ([place]-wound Skin No Abnormality Appearance) (Pt Warm) -Tenderness on Palpation ([place]-wound No Skin Appearance) -Ulcer Cleansing Soap and Water -Foul Odor after Cleansing No -Anesthetic Used 5% Lidocaine Gel WC - Nurse 2 - General Ulcer CM Notes Start: 09/26/22 08:49 Freq: Status: Active Protocol: Activity Type Activity Date Activity User E-sign Co-sign Detail Recorded Client Recorded Date Recorded By Document 09/26/22 09:18 KARLEE [id number] 09/26/22 09:21 KARLEE 09/26/22 09:18 Wound Center Nurse 2 -Time 09:19 -Correct Patient Yes -Correct Side, Site, Position Yes -Correct Procedure Yes -Procedure Performed Yes -Type of Procedure Debridement -Clinical Debridement Subcutaneous -Tissue Removed Subcutaneous -Post Debridement (cm) - Length 2.0 -Post Debridement (cm) - Width 1.0 -Post Debridement (cm) - Depth 1.0 -Total Square (Post) (cm) 2.00 -Area of Debridement (cm) - Length 2.0 -Area of Debridement (cm) - Width 1.0 -Total Square (Area) (cm) 2.00 -Tunneling No -Undermining/Tunneling No -Circular Undermining No -Wound/Ulcer Outcome Not Healed -Ulcer Cleansing Rinsed/ Irrigated with Saline -Foul Odor after Cleansing No -Bioengineered Tissue No -Bleeding Controlled with Pressure -Treatment Response Procedure Tolerated Well -Offloading No -Debridement - Subq, 1st 20sq cm Yes Pain Scale: 0-10 Numeric Is Patient Pain Free? Yes WC - Nurse 3 - General Ulcer D/C NN Start: 09/26/22 08:49 Freq: Status: Active Protocol: Activity Type Activity Date Activity User E-sign Co-sign Detail Recorded Client Recorded Date Recorded By Document 09/26/22 09:22 KARLEE [id number] 09/26/22 09:22 KARLEE 09/26/22 09:22 Wound Care Center Nurse 3 #1 L Buttock -Ulcer Cleansing Rinsed/ Irrigated with Saline -Foul Odor after Cleansing No -Primary Dressing Covered/Secured with Dry Gauze, Secured with Tape Pain Scale: 0-10 Numeric Is Patient Pain Free? 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 Wound care - Wash ulcer with soap and water with dressing changes. To left ischial/buttock ulcer Fibracol+ packed int the base of the ulcer and covered with Mepilex dressing daily. A wound culture from 08/29/22 was positive for Acinetobacter baumannii and Corynebacterium striatum and he is being treated with Augmentin. Encouraged to not sit/lay directly on this area. Follow up two weeks. He is to call or come in sooner if he develops any concerns.
[2022-10-10 08:53] VITALS: BP 158/86; PULSE 68; TEMP 36.1; BMI 34.3
--- NOTE | 2022-10-10 11:02 | PN.PCM_ITS ---
History of Present Illness Date of Service: 10/10/22 Chief Complaint: Ulcer left ischium and coccyx ulcer History of Wound: Patient is 71 year male who is a poor historian. He presents for evaluation of his left ischia ulcer that he obtained while hospital for a month this summer at [facility] in [place]. He was admitted on October 20, 2021 with a virus of unknown origin. He required dialysis for GURMEET due to the infection. He had his left ischial ulcer debrided at the bedside. It goes down to muscle with tunneling. He was recently readmitted twice, for a week each time, to [facility]. He has home health and is receiving PT at home. His has been packing it with saline moistened gauze daily. His right lateral leg ulcer is superficial. He has severe +4 pitting edema to bilateral lower legs and feet. He has not been wearing compression. He is a poor historian, but states he has a history of cardiac stents years ago, Left knee replacement 2010, right knee replacement 2017, appe 1969. Wound culture 08/29/22 positive for Acinetobacter baumannii and Corynebacterium striatum. Treated with Augmentin. Wound care - Fibracol + gauze topped with [place] SAP daily. Today he denies fever, chills, nausea, vomiting. He states his appetite is ok. Progress of Wound: The ulcer is beefy pink, the edges are curling in. The overall size is much smaller. Objective Data Objective Data Vital Signs: Vital Signs Temp Pulse Resp BP 96.9 F L 68 20 H 158/86 H 10/10/22 08:53 10/10/22 08:53 09/26/22 08:50 10/10/22 08:53 Weight: 226 lb Body Mass Index (BMI) 34.3 Charges/Coding Procedures Integumentary 111xxx-113xx: 47187 Ashley subq tissue 20 sq cm/< Debridement Note Debridement Note Wound debrided: #1 Ischial/buttock ulcer Laterality: Left Wound Grade/Stage: Stage IV Type of Debridement: Excisional debridement Anesthesia Used: 4% Lidocaine Solution and 5% Lidocaine Gel Depth: Down to and including healthy tissue and in the subcutaneous layer Percentage of wound debrided: 100 Instrument Used: 5mm curette Tissue Removed: Devitalized tissue and slough. Severity: Fat Layer Exposed Amount of bleeding with debridement: Mild Bleeding Controlled with: Pressure and Compression and gauze Patient tolerated procedure: Patient tolerated procedure well Debridement Free Text: Edges starting to curl in, roughened up around the edges to prevent slower wound healing. Good bleeding obtained with the debridement. Post-Debridement Measurements and Additional Note: Post-Debridement Measurements/Treatment WC - Nurse 1 - General Ulcer Assessment Start: 09/26/22 08:49 Freq: Status: Active Protocol: JANET Activity Type Activity Date Activity User E-sign Co-sign Detail Recorded Client Recorded Date Recorded By Document 09/26/22 08:50 DL [id number] 09/26/22 08:55 DL Document 10/10/22 08:53 AK [id number] 10/10/22 08:55 AK 09/26/22 10/10/22 08:50 08:53 WC - Today's Visit Information Type of service Follow-up Visit Follow-up Visit (Physician/QUALITY ASSURANCE LEAD (Physician/QUALITY ASSURANCE LEAD ) ) Arrival Mode Ambulatory Ambulatory Transfer Assistance None Patient Identification Verified (Name & Yes Yes ) Patient Requires Transmission-Based No No Precautions Safety Precautions NA Height and Weight Body Mass Index (BMI) 34.3 34.3 BMI Classification Obese Obese Vital Signs Temperature (97.8 F-99.1 F) 97.3 F L 96.9 F L Temperature Source Temporal Temporal Pulse Rate (60-100) 76 68 Pulse Location Monitor Monitor Respiratory Rate (12-18) 20 H Respiratory rate source Observation Blood Pressure (90/60-120/80) 163/66 H 158/86 H Blood Pressure Mean (mm Hg) 98 110 Source Monitor Monitor History Since Last Visit- (Skip if this is Patient's initial visit) Have you changed medications since your No No last visit? Any new allergies or adverse reactions No No Had a fall/change in ADL's that may No No increase risk of falls Signs or symptoms of abuse and/or No No neglect since last visit Have you been in the hospital since your No No last visit? Has dressing in place as prescribed Yes Yes Has compression in place as prescribed N/A N/A Has offloadiing in place as prescribed Yes N/A Experienced any changes in pain level or No No management Left Footwear Regular Shoe Right Footwear Regular Shoe Pain Scale: 0-10 Numeric Is Patient Pain Free? Yes No VALENTÍN - Nurse 1 - General Ulcer Measurement Start: 09/26/22 08:49 Freq: Status: Active Protocol: Activity Type Activity Date Activity User E-sign Co-sign Detail Recorded Client Recorded Date Recorded By Document 09/26/22 08:50 DL [id number] 09/26/22 08:55 DL Document 10/10/22 08:53 AK [id number] 10/10/22 08:55 AK 09/26/22 10/10/22 08:50 08:53 Wound Center Nurse 1 #1 L Buttock -Combined with other wound No -Current Size (cm) - Length 1 1.6 -Current Size (cm) - Width 0.8 1 -Current Size (cm) - Depth 1.3 1.5 -Total Square Cm 0.8 1.6 -Photo Taken No Yes -Tunneling No -Undermining/Tunneling No -Circular Undermining No -Change in Wound Grade/Stage No -Exudate Amt Medium Medium -Exudate Type Yellow/Green Serosanguineous -Wound Margin Thickened & Distinct, Rolled Under Outline Attached -Granulation Amt Medium (34-66%) None Present (0 %) -Granulation Quality Taylor,Red Taylor -Slough/Fibrin Yes -Necrosis Amt Medium (34-66%) Large (67-100%) -Necrotic Tissue Type Adherent Slough Adherent Slough -Structure Exposed N/A N/A -Texture (Merline-wound Skin Appearance) Scarring No Abnormality, Assessed -Moisture (Merline-wound Skin Appearance) No Abnormality No Abnormality, Assessed -Color (Merline-wound Skin Appearance) No Abnormality No Abnormality, Assessed -Temperature (Merline-wound Skin No Abnormality No Abnormality Appearance) (Pt Warm) (Pt Warm) -Tenderness on Palpation (Merline-wound No No Skin Appearance) -Ulcer Cleansing Soap and Water Soap and Water -Foul Odor after Cleansing No No -Anesthetic Used 5% Lidocaine 4% Lidocaine Gel Solution,5% Lidocaine Gel WC - Nurse 2 - General Ulcer CM Notes Start: 09/26/22 08:49 Freq: Status: Active Protocol: Activity Type Activity Date Activity User E-sign Co-sign Detail Recorded Client Recorded Date Recorded By Document 09/26/22 09:18 [id number] 09/26/22 09:21 JF Document 10/10/22 09:35 [id number] 10/10/22 09:36 09/26/22 10/10/22 09:18 09:35 Wound Center Nurse 2 #1 L Buttock -Time 09:19 09:35 -Correct Patient Yes Yes -Correct Side, Site, Position Yes Yes -Correct Procedure Yes Yes -Procedure Performed Yes Yes -Type of Procedure Debridement Debridement -Clinical Debridement Subcutaneous Subcutaneous -Tissue Removed Subcutaneous Subcutaneous -Post Debridement (cm) - Length 2.0 2.0 -Post Debridement (cm) - Width 1.0 1.0 -Post Debridement (cm) - Depth 1.0 1.0 -Total Square (Post) (cm) 2.00 2.00 -Area of Debridement (cm) - Length 2.0 2.0 -Area of Debridement (cm) - Width 1.0 1.0 -Total Square (Area) (cm) 2.00 2.00 -Tunneling No No -Undermining/Tunneling No No -Circular Undermining No No -Wound/Ulcer Outcome Not Healed Not Healed -Ulcer Cleansing Rinsed/ Rinsed/ Irrigated with Irrigated with Saline Saline -Foul Odor after Cleansing No No -Bioengineered Tissue No No -Bleeding Controlled with Pressure Pressure -Treatment Response Procedure Procedure Tolerated Well Tolerated Well -Offloading No No -Debridement - Subq, 1st 20sq cm Yes Yes Pain Scale: 0-10 Numeric Is Patient Pain Free? Yes Yes - Nurse 3 - General Ulcer D/C NN Start: 09/26/22 08:49 Freq: Status: Active Protocol: Activity Type Activity Date Activity User E-sign Co-sign Detail Recorded Client Recorded Date Recorded By Document 09/26/22 09:22 [id number] 09/26/22 09:22 Document 10/10/22 09:36 [id number] 10/10/22 09:36 09/26/22 10/10/22 09:22 09:36 Wound Care Center Nurse 3 #1 L Buttock -Ulcer Cleansing Rinsed/ Rinsed/ Irrigated with Irrigated with Saline Saline -Foul Odor after Cleansing No No -Primary Dressing Applied Fibracol Plus 4x4,Mepilex Border -Primary Dressing Covered/Secured with Dry Gauze, Secured with Tape -Fibracol Plus 4x4 1 -Mepilex Border 1 Pain Scale: 0-10 Numeric Is Patient Pain Free? 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 Wound care - Wash ulcer with soap and water with dressing changes. To left ischial/buttock ulcer Fibracol+ packed int the base of the ulcer and covered with [place] SAP dressing daily. A wound culture from 08/29/22 was positive for Acinetobacter baumannii and Corynebacterium striatum and he is being treated with Augmentin. Encouraged to not sit/lay directly on this area. Follow up two weeks. He is to call or come in sooner if he develops any concerns.
[2022-10-24 08:56] VITALS: BP 140/82; PULSE 67; TEMP 36.3; BMI 34.3
--- NOTE | 2022-10-24 10:26 | PCM.WC.PN ---
History of Present Illness Date of Service: 10/24/22 Chief Complaint: Ulcer left ischium and coccyx ulcer History of Wound: Patient is 71 year male who is a poor historian. He presents for evaluation of his left ischia ulcer that he obtained while hospital for a month this summer at [facility] in [place]. He was admitted on October 20, 2021 with a virus of unknown origin. He required dialysis for GURMEET due to the infection. He had his left ischial ulcer debrided at the bedside. It goes down to muscle with tunneling. He was recently readmitted twice, for a week each time, to [facility]. He has home health and is receiving PT at home. His has been packing it with saline moistened gauze daily. His right lateral leg ulcer is superficial. He has severe +4 pitting edema to bilateral lower legs and feet. He has not been wearing compression. He is a poor historian, but states he has a history of cardiac stents years ago, Left knee replacement 2010, right knee replacement 2017, appe 1969. Wound culture 08/29/22 positive for Acinetobacter baumannii and Corynebacterium striatum. Treated with Augmentin. Wound care - Fibracol + gauze topped with [place] SAP daily. Today he denies fever, chills, nausea, vomiting. He states his appetite is ok. Progress of Wound: The ulcer is beefy pink, the edges are curling in. The overall size is smaller but the edges are really starting to curl in. Objective Data Objective Data Vital Signs: Vital Signs Temp Pulse Resp BP 97.3 F L 67 20 H 140/82 H 10/24/22 08:56 10/24/22 08:56 09/26/22 08:50 10/24/22 08:56 Weight: 226 lb Body Mass Index (BMI) 34.3 Charges/Coding Procedures Integumentary 111xxx-113xx: 36894 Ashley subq tissue 20 sq cm/< Debridement Note Debridement Note Wound debrided: #1 Ischial/buttock ulcer Laterality: Left Wound Grade/Stage: Stage IV Type of Debridement: Excisional debridement Anesthesia Used: 4% Lidocaine Solution and 5% Lidocaine Gel Depth: Down to and including healthy tissue and in the subcutaneous layer Percentage of wound debrided: 100 Instrument Used: 5mm curette Tissue Removed: Devitalized tissue and slough. Severity: Fat Layer Exposed Amount of bleeding with debridement: Mild Bleeding Controlled with: Pressure and Compression and gauze Patient tolerated procedure: Patient tolerated procedure well Debridement Free Text: Edges starting to curl in, roughened up around the edges to prevent slower wound healing. Good bleeding obtained with the debridement. Post-Debridement Measurements and Additional Note: Post-Debridement Measurements/Treatment WC - Nurse 1 - General Ulcer Assessment Start: 09/26/22 08:49 Freq: Status: Active Protocol: JANET Activity Type Activity Date Activity User E-sign Co-sign Detail Recorded Client Recorded Date Recorded By Document 09/26/22 08:50 DL [id number] 09/26/22 08:55 DL Document 10/10/22 08:53 AK [id number] 10/10/22 08:55 AK Document 10/24/22 08:56 AK [id number] 10/24/22 08:58 AK 09/26/22 10/10/22 10/24/22 08:50 08:53 08:56 - Today's Visit Information Type of service Follow-up Visit Follow-up Visit Follow-up Visit (Physician/CUSTOMER PROFESSIONAL (Physician/CUSTOMER PROFESSIONAL (Physician/CUSTOMER PROFESSIONAL ) ) ) Arrival Mode Ambulatory Ambulatory Ambulatory Transfer Assistance None Patient Identification Verified (Name & Yes Yes Yes ) Patient Requires Transmission-Based No No No Precautions Safety Precautions NA NA Height and Weight Body Mass Index (BMI) 34.3 34.3 34.3 BMI Classification Obese Obese Obese Vital Signs Temperature (97.8 F-99.1 F) 97.3 F L 96.9 F L 97.3 F L Temperature Source Temporal Temporal Temporal Pulse Rate (60-100) 76 68 67 Pulse Location Monitor Monitor Monitor Respiratory Rate (12-18) 20 H Respiratory rate source Observation Blood Pressure (90/60-120/80) 163/66 H 158/86 H 140/82 H Blood Pressure Mean (mm Hg) 98 110 101 Source Monitor Monitor Monitor History Since Last Visit- (Skip if this is Patient's initial visit) Have you changed medications since your No No No last visit? Any new allergies or adverse reactions No No No Had a fall/change in ADL's that may No No No increase risk of falls Signs or symptoms of abuse and/or No No No neglect since last visit Have you been in the hospital since your No No No last visit? Has dressing in place as prescribed Yes Yes Yes Has compression in place as prescribed N/A N/A N/A Has offloadiing in place as prescribed Yes N/A N/A Experienced any changes in pain level or No No No management Left Footwear Regular Shoe Regular Shoe Right Footwear Regular Shoe Regular Shoe Pain Scale: 0-10 Numeric Is Patient Pain Free? Yes No Yes WC - Nurse 1 - General Ulcer Measurement Start: 09/26/22 08:49 Freq: Status: Active Protocol: Activity Type Activity Date Activity User E-sign Co-sign Detail Recorded Client Recorded Date Recorded By Document 09/26/22 08:50 DL [id number] 09/26/22 08:55 DL Document 10/10/22 08:53 AK [id number] 10/10/22 08:55 AK Document 10/24/22 08:56 AK [id number] 10/24/22 08:58 AK 09/26/22 10/10/22 10/24/22 08:50 08:53 08:56 Wound Center Nurse 1 #1 L Buttock -Combined with other wound No No -Current Size (cm) - Length 1 1.6 1.3 -Current Size (cm) - Width 0.8 1 1 -Current Size (cm) - Depth 1.3 1.5 1.5 -Total Square Cm 0.8 1.6 1.3 -Date of Last Picture (Recall this 10/24/22 field) -Photo Taken No Yes Yes -Tunneling No No -Undermining/Tunneling No No -Circular Undermining No No -Change in Wound Grade/Stage No No -Exudate Amt Medium Medium Medium -Exudate Type Yellow/Green Serosanguineous Serosanguineous -Wound Margin Thickened & Distinct, Distinct, Rolled Under Outline Outline Attached Attached -Granulation Amt Medium (34-66%) None Present (0 Medium (34-66%) %) -Granulation Quality Ixl,Red Ixl Ixl -Slough/Fibrin Yes Yes -Necrosis Amt Medium (34-66%) Large (67-100%) Medium (34-66%) -Necrotic Tissue Type Adherent Slough Adherent Slough Adherent Slough -Structure Exposed N/A N/A N/A -Texture (Merline-wound Skin Appearance) Scarring No Abnormality, Assessed, Assessed Scarring -Moisture (Merline-wound Skin Appearance) No Abnormality No Abnormality, No Abnormality, Assessed Assessed -Color (Merline-wound Skin Appearance) No Abnormality No Abnormality, No Abnormality, Assessed Assessed -Temperature (Merline-wound Skin No Abnormality No Abnormality No Abnormality Appearance) (Pt Warm) (Pt Warm) (Pt Warm) -Tenderness on Palpation (Merline-wound No No No Skin Appearance) -Ulcer Cleansing Soap and Water Soap and Water Soap and Water -Foul Odor after Cleansing No No No -Anesthetic Used 5% Lidocaine 4% Lidocaine 5% Lidocaine Gel Solution,5% Gel Lidocaine Gel WC - Nurse 2 - General Ulcer CM Notes Start: 09/26/22 08:49 Freq: Status: Active Protocol: Activity Type Activity Date Activity User E-sign Co-sign Detail Recorded Client Recorded Date Recorded By Document 09/26/22 09:18 [id number] 09/26/22 09:21 Document 10/10/22 09:35 [id number] 10/10/22 09:36 Document 10/24/22 09:18 [id number] 10/24/22 09:19 09/26/22 10/10/22 10/24/22 09:18 09:35 09:18 Wound Center Nurse 2 #1 L Buttock -Time 09:19 09:35 09:19 -Correct Patient Yes Yes Yes -Correct Side, Site, Position Yes Yes Yes -Correct Procedure Yes Yes Yes -Procedure Performed Yes Yes Yes -Type of Procedure Debridement Debridement Debridement -Clinical Debridement Subcutaneous Subcutaneous Subcutaneous -Tissue Removed Subcutaneous Subcutaneous Subcutaneous -Post Debridement (cm) - Length 2.0 2.0 1.5 -Post Debridement (cm) - Width 1.0 1.0 1.0 -Post Debridement (cm) - Depth 1.0 1.0 0.7 -Total Square (Post) (cm) 2.00 2.00 1.50 -Area of Debridement (cm) - Length 2.0 2.0 1.5 -Area of Debridement (cm) - Width 1.0 1.0 1.0 -Total Square (Area) (cm) 2.00 2.00 1.50 -Tunneling No No No -Undermining/Tunneling No No No -Circular Undermining No No No -Wound/Ulcer Outcome Not Healed Not Healed Not Healed -Ulcer Cleansing Rinsed/ Rinsed/ Rinsed/ Irrigated with Irrigated with Irrigated with Saline Saline Saline -Foul Odor after Cleansing No No No -Bioengineered Tissue No No No -Bleeding Controlled with Pressure Pressure Pressure -Treatment Response Procedure Procedure Procedure Tolerated Well Tolerated Well Tolerated Well -Offloading No No No -Debridement - Subq, 1st 20sq cm Yes Yes Yes Pain Scale: 0-10 Numeric Is Patient Pain Free? Yes Yes Yes - Nurse 3 - General Ulcer D/C NN Start: 09/26/22 08:49 Freq: Status: Active Protocol: Activity Type Activity Date Activity User E-sign Co-sign Detail Recorded Client Recorded Date Recorded By Document 09/26/22 09:22 [id number] 09/26/22 09:22 Document 10/10/22 09:36 [id number] 10/10/22 09:36 Document 10/24/22 09:42 [id number] 10/24/22 09:43 AK 09/26/22 10/10/22 10/24/22 09:22 09:36 09:42 Wound Care Center Nurse 3 #1 L Buttock -Ulcer Cleansing Rinsed/ Rinsed/ Rinsed/ Irrigated with Irrigated with Irrigated with Saline Saline Saline -Foul Odor after Cleansing No No No -Negative Pressure Wound Therapy N/A -Primary Dressing Applied Fibracol Plus Mepilex Border, 4x4,Mepilex Promogran Border Sierra Matter -Primary Dressing Covered/Secured with Dry Gauze, Secured with Tape -Fibracol Plus 4x4 1 -Mepilex Border 1 1 -Promogran Sierra Matter 1 Pain Scale: 0-10 Numeric Is Patient Pain Free? 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 Wound care - Wash ulcer with soap and water with dressing changes. To left ischial/buttock ulcer Fibracol+ packed int the base of the ulcer and covered with [place] SAP dressing daily. A wound culture from 08/29/22 was positive for Acinetobacter baumannii and Corynebacterium striatum and he is being treated with Augmentin. Encouraged to not sit/lay directly on this area. He typically likes to follow up every other week, but with the amount of his ulcer edges curling in, he would benefit from weekly debridement. Discussed with patient if we don't start seeing a better improvement, he may need to referred to Dr. Jasso, plastic surgeon for further evaluation of his treatment options. Patient really does not want to have any more surgeries. Follow up one week. He is to call or come in sooner if he develops any concerns.
== END 2022-10-24 23:59 | disposition home or self-care (01) ==
LOC: WC 09:15
PROVIDERS: PCP Internal Medicine; Visit Provider Nurse Practitioner Family
DX: L89.324 Pressure ulcer of left buttock, stage 4 (principal); L89.152 Pressure ulcer of sacral region, stage 2; L97.911 Non-pressure chronic ulcer of unspecified part of right lower leg limited to breakdown of skin; R60.0 Localized edema; G62.9 Polyneuropathy, unspecified
CPT/HCPCS: 11042

== ENCOUNTER 2022-11-21 09:15 | Outpatient (RCR) | payer MEDICARE, OTHER, SELFPAY ==
[2022-10-25 00:23] VITALS: BP 140/82; PULSE 67; RESP 20; TEMP 36.3; BMI 34.3
[2022-10-31 08:58] VITALS: BP 169/78; PULSE 64; RESP 18; TEMP 36.1; BMI 34.3
--- NOTE | 2022-10-31 12:18 | PN.PCM_ITS ---
History of Present Illness Date of Service: 10/31/22 Chief Complaint: Ulcer left ischium and coccyx ulcer History of Wound: Patient is 71 year male who is a poor historian. He presents for evaluation of his left ischia ulcer that he obtained while hospital for a month this summer at [facility] in [place]. He was admitted on October 20, 2021 with a virus of unknown origin. He required dialysis for GURMEET due to the infection. He had his left ischial ulcer debrided at the bedside. It goes down to muscle with tunneling. He was recently readmitted twice, for a week each time, to [facility]. He has home health and is receiving PT at home. His has been packing it with saline moistened gauze daily. His right lateral leg ulcer is superficial. He has severe +4 pitting edema to bilateral lower legs and feet. He has not been wearing compression. He is a poor historian, but states he has a history of cardiac stents years ago, Left knee replacement 2010, right knee replacement 2017, appe 1969. Wound culture 08/29/22 positive for Acinetobacter baumannii and Corynebacterium striatum. Treated with Augmentin. Wound care - Fibracol + gauze topped with Freeman SAP daily. Today he denies fever, chills, nausea, vomiting. He states his appetite is ok. Progress of Wound: The ulcer base is beefy pink and bleeds well with debridement. His edges are curling in, even with aggressive debridement. The overall size is smaller. Objective Data Objective Data Vital Signs: Vital Signs Temp Pulse Resp BP 97 F L 64 18 169/78 H 10/31/22 08:58 10/31/22 08:58 10/31/22 08:58 10/31/22 08:58 Weight: 226 lb Body Mass Index (BMI) 34.3 Charges/Coding Procedures Integumentary 111xxx-113xx: 47508 Ashley subq tissue 20 sq cm/< Debridement Note Debridement Note Wound debrided: #1 Ischial/buttock ulcer Laterality: Left Wound Grade/Stage: Stage IV Type of Debridement: Excisional debridement Anesthesia Used: 4% Lidocaine Solution and 5% Lidocaine Gel Depth: Down to and including healthy tissue and in the subcutaneous layer Percentage of wound debrided: 100 Instrument Used: 5mm curette Tissue Removed: Devitalized tissue and slough. Severity: Fat Layer Exposed Amount of bleeding with debridement: Mild Bleeding Controlled with: Pressure and Compression and gauze Patient tolerated procedure: Patient tolerated procedure well Debridement Free Text: Edges starting to curl in, roughened up around the edges to prevent slower wound healing. Good bleeding obtained with the debridement. Post-Debridement Measurements and Additional Note: Post-Debridement Measurements/Treatment - Nurse 1 - General Ulcer Assessment Start: 10/31/22 08:58 Freq: Status: Active Protocol: JANET Activity Type Activity Date Activity User E-sign Co-sign Detail Recorded Client Recorded Date Recorded By Document 10/31/22 08:58 RB [id number] 10/31/22 09:00 RB 10/31/22 08:58 WC - Today's Visit Information Type of service Follow-up Visit (Physician/WAFER [employer]OUNTER ) Arrival Mode Ambulatory Transfer Assistance None Patient Identification Verified (Name & Yes ) Patient Requires Transmission-Based No Precautions Height and Weight Body Mass Index (BMI) 34.3 BMI Classification Obese Vital Signs Temperature (97.8 F-99.1 F) 97 F L Temperature Source Temporal Pulse Rate (60-100) 64 Pulse Location Monitor Respiratory Rate (12-18) 18 Respiratory rate source Observation Blood Pressure (90/60-120/80) 169/78 H Blood Pressure Mean (mm Hg) 108 Source Monitor Position Semi-Fowlers Blood Pressure Location Left Arm History Since Last Visit- (Skip if this is Patient's initial visit) Have you changed medications since your No last visit? Any new allergies or adverse reactions No Had a fall/change in ADL's that may No increase risk of falls Signs or symptoms of abuse and/or No neglect since last visit Have you been in the hospital since your No last visit? Has dressing in place as prescribed Yes Has compression in place as prescribed No Has offloadiing in place as prescribed No Experienced any changes in pain level or No management Pain Scale: 0-10 Numeric Is Patient Pain Free? Yes - Nurse 1 - General Ulcer Measurement Start: 10/31/22 08:58 Freq: Status: Active Protocol: Activity Type Activity Date Activity User E-sign Co-sign Detail Recorded Client Recorded Date Recorded By Document 10/31/22 08:58 RB [id number] 10/31/22 09:00 RB 10/31/22 08:58 Wound Center Nurse 1 #1 L Buttock -Combined with other wound No -Current Size (cm) - Length 1 -Current Size (cm) - Width 0.4 -Current Size (cm) - Depth 0.5 -Total Square Cm 0.4 -Photo Taken Yes -Tunneling No -Undermining/Tunneling No -Circular Undermining No -Exudate Amt Medium -Exudate Type Serosanguineous -Wound Margin Distinct, Outline Attached -Granulation Amt Medium (34-66%) -Granulation Quality [place] -Slough/Fibrin Yes -Necrosis Amt Medium (34-66%) -Necrotic Tissue Type Adherent Slough -Structure Exposed N/A -Texture ([place]-wound Skin Appearance) Assessed -Moisture ([place]-wound Skin Appearance) Assessed -Color ([place]-wound Skin Appearance) Assessed -Temperature ([place]-wound Skin No Abnormality Appearance) (Pt Warm) -Tenderness on Palpation ([place]-wound No Skin Appearance) -Ulcer Cleansing Wound Cleanser -Foul Odor after Cleansing No -Anesthetic Used 5% Lidocaine Gel WC - Nurse 2 - General Ulcer CM Notes Start: 10/31/22 08:58 Freq: Status: Active Protocol: Activity Type Activity Date Activity User E-sign Co-sign Detail Recorded Client Recorded Date Recorded By Document 10/31/22 09:40 [id number] 10/31/22 09:43 [email or web address] 10/31/22 09:40 Wound Center Nurse 2 -Time 09:41 -Correct Patient Yes -Correct Side, Site, Position Yes -Correct Procedure Yes -Procedure Performed Yes -Type of Procedure Debridement -Clinical Debridement Subcutaneous -Tissue Removed Subcutaneous -Post Debridement (cm) - Length 1.8 -Post Debridement (cm) - Width 1.2 -Post Debridement (cm) - Depth 1.0 -Total Square (Post) (cm) 2.16 -Area of Debridement (cm) - Length 1.8 -Area of Debridement (cm) - Width 1.2 -Total Square (Area) (cm) 2.16 -Tunneling No -Undermining/Tunneling No -Circular Undermining No -Wound/Ulcer Outcome Not Healed -Ulcer Cleansing Rinsed/ Irrigated with Saline -Foul Odor after Cleansing No -Bioengineered Tissue No -Bleeding Controlled with Pressure -Treatment Response Procedure Tolerated Well -Offloading No -Debridement - Subq, 1st 20sq cm Yes Pain Scale: 0-10 Numeric Is Patient Pain Free? Yes - Nurse 3 - General Ulcer D/C NN Start: 10/31/22 08:58 Freq: Status: Active Protocol: Activity Type Activity Date Activity User E-sign Co-sign Detail Recorded Client Recorded Date Recorded By Document 10/31/22 10:00 JIMI [id number] 10/31/22 10:01 JIMI 10/31/22 10:00 Wound Care Center Nurse 3 #1 L Buttock -Primary Dressing Applied Mepilex Border -Other Dressing dakins moistened gauze -Mepilex Border 1 Treatment Response Procedure Tolerated Well Pain Scale: 0-10 Numeric Is Patient Pain Free? 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 Wound care - Wash ulcer with soap and water with dressing changes. To left ischial/buttock ulcer Fibracol+ packed int the base of the ulcer and covered with Freeman SAP dressing daily. A wound culture from 08/29/22 was positive for Acinetobacter baumannii and Corynebacterium striatum and he completed Augmentin. Encouraged to not sit/lay directly on this area. He typically likes to follow up every other week, but with the amount of his ulcer edges curling in, he would benefit from weekly debridement. Discussed with patient if we don't start seeing a better improvement, he may need to referred to Dr. Jasso, plastic surgeon for further evaluation of his treatment options. Patient really does not want to have any more surgeries. Follow up one week. He is to call or come in sooner if he develops any concerns.
--- NOTE | 2022-11-07 12:34 | PCM.WC.PN ---
History of Present Illness Date of Service: 11/07/22 Chief Complaint: Left ischium ulcer History of Wound: Patient is 71 year male who is a poor historian. He presents for evaluation of his left ischia ulcer that he obtained while hospital for a month this summer at [facility] in [place]. He was admitted on October 20, 2021 with a virus of unknown origin. He required dialysis for GURMEET due to the infection. He had his left ischial ulcer debrided at the bedside. It goes down to muscle with tunneling. He was recently readmitted twice, for a week each time, to [facility]. He has home health and is receiving PT at home. His has been packing it with saline moistened gauze daily. His right lateral leg ulcer is superficial. He has severe +4 pitting edema to bilateral lower legs and feet. He has not been wearing compression. He is a poor historian, but states he has a history of cardiac stents years ago, Left knee replacement 2010, right knee replacement 2017, appe 1969. Wound culture 08/29/22 positive for Acinetobacter baumannii and Corynebacterium striatum. Treated with Augmentin. Wound care - Fibracol + gauze topped with [place] SAP daily. Today he denies fever, chills, nausea, vomiting. He states his appetite is ok. Progress of Wound: The ulcer base is beefy pink and bleeds well with debridement. His edges are curling in, even with debridement. The overall size is smaller, compared to last week. Objective Data Objective Data Vital Signs: Vital Signs Temp Pulse Resp BP 97 F L 64 18 169/78 H 10/31/22 08:58 10/31/22 08:58 10/31/22 08:58 10/31/22 08:58 Weight: 226 lb Body Mass Index (BMI) 34.3 Charges/Coding Procedures Integumentary 111xxx-113xx: 59276 Ashley subq tissue 20 sq cm/< Debridement Note Debridement Note Wound debrided: #1 Ischial/buttock ulcer Laterality: Left Wound Grade/Stage: Stage IV Type of Debridement: Excisional debridement Anesthesia Used: 4% Lidocaine Solution and 5% Lidocaine Gel Depth: Down to and including healthy tissue and in the subcutaneous layer Percentage of wound debrided: 100 Instrument Used: 5mm curette Tissue Removed: Devitalized tissue and slough. Severity: Fat Layer Exposed Amount of bleeding with debridement: Mild Bleeding Controlled with: Pressure and Compression and gauze Patient tolerated procedure: Patient tolerated procedure well Debridement Free Text: Edges are curling in, roughened up around the edges to prevent slower wound healing. Good bleeding obtained with debridement. Post-Debridement Measurements and Additional Note: Post-Debridement Measurements/Treatment - Nurse 1 - General Ulcer Assessment Start: 10/31/22 08:58 Freq: Status: Active Protocol: JANET Activity Type Activity Date Activity User E-sign Co-sign Detail Recorded Client Recorded Date Recorded By Document 10/31/22 08:58 RB [id number] 10/31/22 09:00 RB 10/31/22 08:58 WC - Today's Visit Information Type of service Follow-up Visit (Physician/STRAP BUCKLER MACHINE ) Arrival Mode Ambulatory Transfer Assistance None Patient Identification Verified (Name & Yes ) Patient Requires Transmission-Based No Precautions Height and Weight Body Mass Index (BMI) 34.3 BMI Classification Obese Vital Signs Temperature (97.8 F-99.1 F) 97 F L Temperature Source Temporal Pulse Rate (60-100) 64 Pulse Location Monitor Respiratory Rate (12-18) 18 Respiratory rate source Observation Blood Pressure (90/60-120/80) 169/78 H Blood Pressure Mean (mm Hg) 108 Source Monitor Position Semi-Fowlers Blood Pressure Location Left Arm History Since Last Visit- (Skip if this is Patient's initial visit) Have you changed medications since your No last visit? Any new allergies or adverse reactions No Had a fall/change in ADL's that may No increase risk of falls Signs or symptoms of abuse and/or No neglect since last visit Have you been in the hospital since your No last visit? Has dressing in place as prescribed Yes Has compression in place as prescribed No Has offloadiing in place as prescribed No Experienced any changes in pain level or No management Pain Scale: 0-10 Numeric Is Patient Pain Free? Yes - Nurse 1 - General Ulcer Measurement Start: 10/31/22 08:58 Freq: Status: Active Protocol: Activity Type Activity Date Activity User E-sign Co-sign Detail Recorded Client Recorded Date Recorded By Document 10/31/22 08:58 RB [id number] 10/31/22 09:00 RB 10/31/22 08:58 Wound Center Nurse 1 #1 L Buttock -Combined with other wound No -Current Size (cm) - Length 1 -Current Size (cm) - Width 0.4 -Current Size (cm) - Depth 0.5 -Total Square Cm 0.4 -Photo Taken Yes -Tunneling No -Undermining/Tunneling No -Circular Undermining No -Exudate Amt Medium -Exudate Type Serosanguineous -Wound Margin Distinct, Outline Attached -Granulation Amt Medium (34-66%) -Granulation Quality [place] -Slough/Fibrin Yes -Necrosis Amt Medium (34-66%) -Necrotic Tissue Type Adherent Slough -Structure Exposed N/A -Texture (Merline-wound Skin Appearance) Assessed -Moisture ([place]-wound Skin Appearance) Assessed -Color ([place]-wound Skin Appearance) Assessed -Temperature ([place]-wound Skin No Abnormality Appearance) (Pt Warm) -Tenderness on Palpation (Merline-wound No Skin Appearance) -Ulcer Cleansing Wound Cleanser -Foul Odor after Cleansing No -Anesthetic Used 5% Lidocaine Gel WC - Nurse 2 - General Ulcer CM Notes Start: 10/31/22 08:58 Freq: Status: Active Protocol: Activity Type Activity Date Activity User E-sign Co-sign Detail Recorded Client Recorded Date Recorded By Document 10/31/22 09:40 [id number] 10/31/22 09:43 Document 11/07/22 09:22 [id number] 11/07/22 09:25 10/31/22 11/07/22 09:40 09:22 Wound Center Nurse 2 #1 L Buttock -Time 09:41 09:22 -Correct Patient Yes Yes -Correct Side, Site, Position Yes Yes -Correct Procedure Yes Yes -Procedure Performed Yes Yes -Type of Procedure Debridement Debridement -Clinical Debridement Subcutaneous -Tissue Removed Subcutaneous Epidermis, Subcutaneous -Post Debridement (cm) - Length 1.8 1.5 -Post Debridement (cm) - Width 1.2 1.0 -Post Debridement (cm) - Depth 1.0 1.3 -Total Square (Post) (cm) 2.16 1.50 -Area of Debridement (cm) - Length 1.8 1.5 -Area of Debridement (cm) - Width 1.2 1.0 -Total Square (Area) (cm) 2.16 1.50 -Tunneling No No -Undermining/Tunneling No No -Circular Undermining No No -Wound/Ulcer Outcome Not Healed Not Healed -Ulcer Cleansing Rinsed/ Rinsed/ Irrigated with Irrigated with Saline Saline -Foul Odor after Cleansing No No -Bioengineered Tissue No No -Bleeding Controlled with Pressure Pressure -Treatment Response Procedure Procedure Tolerated Well Tolerated Well -Offloading No No -Debridement - Subq, 1st 20sq cm Yes Yes Pain Scale: 0-10 Numeric Is Patient Pain Free? Yes Yes - Nurse 3 - General Ulcer D/C NN Start: 10/31/22 08:58 Freq: Status: Active Protocol: Activity Type Activity Date Activity User E-sign Co-sign Detail Recorded Client Recorded Date Recorded By Document 10/31/22 10:00 RB [id number] 10/31/22 10:01 RB 10/31/22 10:00 Wound Care Center Nurse 3 #1 L Buttock -Primary Dressing Applied Mepilex Border -Other Dressing dakins moistened gauze -Mepilex Border 1 Treatment Response Procedure Tolerated Well Pain Scale: 0-10 Numeric Is Patient Pain Free? 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 Wound care - Wash ulcer with soap and water with dressing changes. Left ischial/buttock ulcer Fibracol+ and gauze packed int the base of the ulcer and covered with [place] SAP dressing daily. A wound culture from 08/29/22 was positive for Acinetobacter baumannii and Corynebacterium striatum and he completed Augmentin. Encouraged to not sit/lay directly on this area. Discussed with patient if we don't start seeing a better improvement, he may need to referred to Dr. Jasso, plastic surgeon for further evaluation of his treatment options. Patient really does not want to have any more surgeries. Follow up two weeks. He is to call or come in sooner if he develops any concerns.
[2022-11-07 13:08] VITALS: BP 169/81; PULSE 77; TEMP 35.9; BMI 34.3
[2022-11-21 09:03] VITALS: BP 177/83; PULSE 66; RESP 18; TEMP 36.1; BMI 34.3
--- NOTE | 2022-11-21 09:36 | PCM.WC.PN ---
History of Present Illness Date of Service: 11/21/22 Chief Complaint: Left ischium ulcer History of Wound: Patient is 71 year male who is a poor historian. He presents for evaluation of his left ischia ulcer that he obtained while hospital for a month this summer at [facility] in [place]. He was admitted on October 20, 2021 with a virus of unknown origin. He required dialysis for GURMEET due to the infection. He had his left ischial ulcer debrided at the bedside. It goes down to muscle with tunneling. He was recently readmitted twice, for a week each time, to [facility]. He has home health and is receiving PT at home. His has been packing it with saline moistened gauze daily. His right lateral leg ulcer is superficial. He has severe +4 pitting edema to bilateral lower legs and feet. He has not been wearing compression. He is a poor historian, but states he has a history of cardiac stents years ago, Left knee replacement 2010, right knee replacement 2017, appe 1969. Wound culture 08/29/22 positive for Acinetobacter baumannii and Corynebacterium striatum. Treated with Augmentin. Wound care - Fibracol + gauze topped with Paguate SAP daily. Today he denies fever, chills, nausea, vomiting. He states his appetite is ok. Progress of Wound: The ulcer base is beefy pink and bleeds well with debridement. His edges are curling in, even with debridement. The overall size is smaller, compared to last visit. Objective Data Objective Data Vital Signs: Vital Signs Temp Pulse Resp BP 97 F L 66 18 177/83 H 11/21/22 09:03 11/21/22 09:03 11/21/22 09:03 11/21/22 09:03 Weight: 226 lb Body Mass Index (BMI) 34.3 Charges/Coding Procedures Integumentary 111xxx-113xx: 51844 Ashley subq tissue 20 sq cm/< Debridement Note Debridement Note Wound debrided: #1 Ischial/buttock ulcer Laterality: Left Wound Grade/Stage: Stage IV Type of Debridement: Excisional debridement Anesthesia Used: 4% Lidocaine Solution and 5% Lidocaine Gel Depth: Down to and including healthy tissue and in the subcutaneous layer Percentage of wound debrided: 100 Instrument Used: 3mm curette Tissue Removed: Devitalized tissue and slough. Severity: Fat Layer Exposed Amount of bleeding with debridement: Mild Bleeding Controlled with: Pressure and Compression and gauze Patient tolerated procedure: Patient tolerated procedure well Debridement Free Text: Edges are curling in, roughened up around the edges to prevent slower wound healing. Good bleeding obtained with debridement. Post-Debridement Measurements and Additional Note: Post-Debridement Measurements/Treatment WC - Nurse 1 - General Ulcer Assessment Start: 10/31/22 08:58 Freq: Status: Active Protocol: JANET Activity Type Activity Date Activity User E-sign Co-sign Detail Recorded Client Recorded Date Recorded By Document 10/31/22 08:58 RB [id number] 10/31/22 09:00 RB Document 11/07/22 13:08 AK [id number] 11/07/22 13:10 AK Document 11/21/22 09:03 RB [id number] 11/21/22 09:04 RB 10/31/22 11/07/22 11/21/22 08:58 13:08 09:03 - Today's Visit Information Type of service Follow-up Visit Follow-up Visit Follow-up Visit (Physician/RUBBER TURNER (Physician/RUBBER TURNER (Physician/RUBBER TURNER ) ) ) Arrival Mode Ambulatory Ambulatory Ambulatory Transfer Assistance None None Patient Identification Verified (Name & Yes Yes Yes ) Patient Requires Transmission-Based No No No Precautions Safety Precautions NA Height and Weight Body Mass Index (BMI) 34.3 34.3 34.3 BMI Classification Obese Obese Obese Vital Signs Temperature (97.8 F-99.1 F) 97 F L 96.7 F L 97 F L Temperature Source Temporal Temporal Temporal Pulse Rate (60-100) 64 77 66 Pulse Location Monitor Monitor Monitor Respiratory Rate (12-18) 18 18 Respiratory rate source Observation Observation Blood Pressure (90/60-120/80) 169/78 H 169/81 H 177/83 H Blood Pressure Mean (mm Hg) 108 110 114 Source Monitor Monitor Monitor Position Semi-Fowlers Semi-Fowlers Blood Pressure Location Left Arm Left Arm History Since Last Visit- (Skip if this is Patient's initial visit) Have you changed medications since your No No No last visit? Any new allergies or adverse reactions No No No Had a fall/change in ADL's that may No No No increase risk of falls Signs or symptoms of abuse and/or No No No neglect since last visit Have you been in the hospital since your No No No last visit? Has dressing in place as prescribed Yes Yes Yes Has compression in place as prescribed No N/A No Has offloadiing in place as prescribed No N/A No Experienced any changes in pain level or No No No management Left Footwear Regular Shoe Right Footwear Regular Shoe Pain Scale: 0-10 Numeric Is Patient Pain Free? Yes Yes Yes - Nurse 1 - General Ulcer Measurement Start: 10/31/22 08:58 Freq: Status: Active Protocol: Activity Type Activity Date Activity User E-sign Co-sign Detail Recorded Client Recorded Date Recorded By Document 10/31/22 08:58 RB [id number] 10/31/22 09:00 RB Document 11/21/22 09:03 RB [id number] 11/21/22 09:04 RB 10/31/22 11/21/22 08:58 09:03 Wound Center Nurse 1 #1 L Buttock -Combined with other wound No No -Current Size (cm) - Length 1 1.2 -Current Size (cm) - Width 0.4 0.6 -Current Size (cm) - Depth 0.5 1.5 -Total Square Cm 0.4 0.72 -Photo Taken Yes Yes -Tunneling No No -Undermining/Tunneling No No -Circular Undermining No No -Exudate Amt Medium Medium -Exudate Type Serosanguineous Serosanguineous -Wound Margin Distinct, Thickened & Outline Rolled Under Attached -Granulation Amt Medium (34-66%) Medium (34-66%) -Granulation Quality [place]lico -Slough/Fibrin Yes Yes -Necrosis Amt Medium (34-66%) Medium (34-66%) -Necrotic Tissue Type Adherent Slough Adherent Slough -Structure Exposed N/A N/A -Texture (Merline-wound Skin Appearance) Assessed Assessed, Scarring -Moisture (Merline-wound Skin Appearance) Assessed Assessed -Color (Merline-wound Skin Appearance) Assessed Assessed -Temperature (Merline-wound Skin No Abnormality No Abnormality Appearance) (Pt Warm) (Pt Warm) -Tenderness on Palpation (Merline-wound No No Skin Appearance) -Ulcer Cleansing Wound Cleanser Wound Cleanser -Foul Odor after Cleansing No No -Anesthetic Used 5% Lidocaine 5% Lidocaine Gel Gel WC - Nurse 2 - General Ulcer CM Notes Start: 10/31/22 08:58 Freq: Status: Active Protocol: Activity Type Activity Date Activity User E-sign Co-sign Detail Recorded Client Recorded Date Recorded By Document 10/31/22 09:40 [id number] 10/31/22 09:43 Document 11/07/22 09:22 [id number] 11/07/22 09:25 Document 11/21/22 09:15 [id number] 11/21/22 09:17 10/31/22 11/07/22 11/21/22 09:40 09:22 09:15 Wound Center Nurse 2 #1 L Buttock -Time 09:41 09:22 09:15 -Correct Patient Yes Yes Yes -Correct Side, Site, Position Yes Yes Yes -Correct Procedure Yes Yes Yes -Procedure Performed Yes Yes Yes -Type of Procedure Debridement Debridement Debridement -Clinical Debridement Subcutaneous Subcutaneous -Tissue Removed Subcutaneous Epidermis, Subcutaneous Subcutaneous -Post Debridement (cm) - Length 1.8 1.5 1.2 -Post Debridement (cm) - Width 1.2 1.0 1.0 -Post Debridement (cm) - Depth 1.0 1.3 1.3 -Total Square (Post) (cm) 2.16 1.50 1.20 -Area of Debridement (cm) - Length 1.8 1.5 1.2 -Area of Debridement (cm) - Width 1.2 1.0 1.0 -Total Square (Area) (cm) 2.16 1.50 1.20 -Tunneling No No No -Undermining/Tunneling No No No -Circular Undermining No No No -Wound/Ulcer Outcome Not Healed Not Healed Not Healed -Ulcer Cleansing Rinsed/ Rinsed/ Rinsed/ Irrigated with Irrigated with Irrigated with Saline Saline Saline -Foul Odor after Cleansing No No No -Bioengineered Tissue No No No -Bleeding Controlled with Pressure Pressure Pressure -Treatment Response Procedure Procedure Procedure Tolerated Well Tolerated Well Tolerated Well -Offloading No No No -Debridement - Subq, 1st 20sq cm Yes Yes Yes Pain Scale: 0-10 Numeric Is Patient Pain Free? Yes Yes Yes WC - Nurse 3 - General Ulcer D/C NN Start: 10/31/22 08:58 Freq: Status: Active Protocol: Activity Type Activity Date Activity User E-sign Co-sign Detail Recorded Client Recorded Date Recorded By Document 10/31/22 10:00 RB [id number] 10/31/22 10:01 RB Document 11/07/22 13:08 AK [id number] 11/07/22 13:10 AK Document 11/21/22 09:25 RB [id number] 11/21/22 09:26 RB 10/31/22 11/07/22 11/21/22 10:00 13:08 09:25 Wound Care Center Nurse 3 #1 L Buttock -Ulcer Cleansing Rinsed/ Rinsed/ Irrigated with Irrigated with Saline Saline -Foul Odor after Cleansing No -Negative Pressure Wound Therapy N/A -Primary Dressing Applied Mepilex Border Aquacel AG 4x4 Mepilex Border -Other Dressing dakins ABD dakins moistene moistened gauze gauze -Primary Dressing Covered/Secured with Secured with Tape -Aquacel AG 4x4 1 -Mepilex Border 1 1 Treatment Response Procedure Procedure Tolerated Well Tolerated Well Vital Signs Temperature (97.8 F-99.1 F) 96.7 F L Temperature Source Temporal Pulse Rate (60-100) 77 Pulse Location Monitor Blood Pressure (90/60-120/80) 169/81 H Blood Pressure Mean (mm Hg) 110 Source Monitor Pain Scale: 0-10 Numeric Is Patient Pain Free? 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 Wound care - Wash ulcer with soap and water with dressing changes. Left ischial/buttock ulcer Fibracol+ and gauze packed int the base of the ulcer and covered with Paguate SAP dressing daily. A wound culture from 4/5/23 was positive for Acinetobacter baumannii and Corynebacterium striatum and he completed Augmentin. Encouraged to not sit/lay directly on this area. Discussed with patient if we don't start seeing a better improvement, he may need to referred to Dr. Jasso, plastic surgeon for further evaluation of his treatment options. Patient really does not want to have any more surgeries. Follow up two weeks. He is to call or come in sooner if he develops any concerns.
== END 2022-11-23 23:59 | disposition home or self-care (01) ==
LOC: WC 09:15
PROVIDERS: PCP Internal Medicine; Visit Provider Nurse Practitioner Family
DX: L89.224 Pressure ulcer of left hip, stage 4 (principal); L89.152 Pressure ulcer of sacral region, stage 2; L97.911 Non-pressure chronic ulcer of unspecified part of right lower leg limited to breakdown of skin; N15.9 Renal tubulo-interstitial disease, unspecified; R60.0 Localized edema; G62.9 Polyneuropathy, unspecified
CPT/HCPCS: 11042

== ENCOUNTER 2022-12-10 08:38 | Outpatient (RCR) | payer MEDICARE, OTHER, SELFPAY ==
[2022-11-24 00:54] VITALS: BP 177/83; PULSE 66; RESP 18; TEMP 36.1; BMI 34.3
[2022-12-10 08:41] VITALS: BP 172/76; PULSE 63; RESP 16; TEMP 36.4; BMI 34.3
--- NOTE | 2022-12-10 09:30 | PCM.WC.PN ---
History of Present Illness Date of Service: 12/10/22 Chief Complaint: Left ischium ulcer History of Wound: Patient is 72 year male who presents for evaluation of his left ischia ulcer that he obtained while hospital for a month during the summer 2021 at [facility] in [place]. He was admitted on October 20, 2021 with a virus of unknown origin. He required dialysis for GURMEET due to the infection. He had his left ischial ulcer debrided at the bedside. It goes down to muscle with tunneling. He was readmitted twice, for a week each time, to [facility]. He has home health and is received PT at home. His has been packing it with saline moistened gauze daily. He had a right lateral leg ulcer that is healed He had severe +4 pitting edema to bilateral lower legs and feet, which is resolved. He has not been wearing compression. He is a poor historian, but states he has a history of cardiac stents years ago, Left knee replacement 2010, right knee replacement 2017, appe 1969. Wound culture 08/29/22 positive for Acinetobacter baumannii and Corynebacterium striatum. Treated with Augmentin. He has been doing really well. Back to his normal activity, feeling much better, no longer having issues with edema. 12/10/22- he recently was in the ED for right sided pain. He states they found something suspicious on his pancreas. Unsure what it is. He is in the process of having it worked up. Wound care - Fibracol + gauze topped with [place] SAP daily after rinsing with Dakin's solution. Today he denies fever, chills, nausea, vomiting. He states his appetite is ok. Progress of Wound: The ulcer base is beefy pink and bleeds well with debridement. His edges are curling in, even with debridement. The ulcer is improving. Objective Data Objective Data Vital Signs: Vital Signs Temp Pulse Resp BP O2 Del Method 97.6 F L 63 16 172/76 H Room Air 12/10/22 08:41 12/10/22 08:41 12/10/22 08:41 12/10/22 08:41 12/10/22 08:41 Oxygen Delivery Method Room Air Weight: 226 lb Body Mass Index (BMI) 34.3 Charges/Coding Procedures Integumentary 111xxx-113xx: 03654 Ashley subq tissue 20 sq cm/< Debridement Note Debridement Note Wound debrided: #1 Ischial/buttock ulcer Laterality: Left Wound Grade/Stage: Stage IV Type of Debridement: Excisional debridement Anesthesia Used: 5% Lidocaine Gel Depth: Down to and including healthy tissue and in the subcutaneous layer Percentage of wound debrided: 100 Instrument Used: 3mm curette Tissue Removed: Devitalized tissue and slough. Severity: Fat Layer Exposed Amount of bleeding with debridement: Mild Bleeding Controlled with: Pressure and Compression and gauze Patient tolerated procedure: Patient tolerated procedure well Debridement Free Text: Edges are curling in, roughened up around the edges to prevent slower wound healing. Good bleeding obtained with debridement. Post-Debridement Measurements and Additional Note: Post-Debridement Measurements/Treatment WC - Nurse 1 - General Ulcer Assessment Start: 12/10/22 08:41 Freq: Status: Active Protocol: VALENTÍN.J CARLOS Activity Type Activity Date Activity User E-sign Co-sign Detail Recorded Client Recorded Date Recorded By Document 12/10/22 08:41 KW [id number] 12/10/22 08:46 KW 12/10/22 08:41 - Today's Visit Information Type of service Follow-up Visit (Physician/NURSE COLLEGE ) Arrival Mode Ambulatory Patient Identification Verified (Name & Yes ) Patient Requires Transmission-Based No Precautions Height and Weight Body Mass Index (BMI) 34.3 BMI Classification Obese Vital Signs Temperature (97.8 F-99.1 F) 97.6 F L Temperature Source Temporal Pulse Rate (60-100) 63 Pulse Location Monitor Respiratory Rate (12-18) 16 Respiratory rate source Observation Oxygen Delivery Method Room Air Blood Pressure (90/60-120/80) 172/76 H Blood Pressure Mean (mm Hg) 108 Source Monitor Position Sitting Blood Pressure Location Left Arm History Since Last Visit- (Skip if this is Patient's initial visit) Have you changed medications since your No last visit? Any new allergies or adverse reactions No Had a fall/change in ADL's that may No increase risk of falls Signs or symptoms of abuse and/or No neglect since last visit Have you been in the hospital since your Yes last visit? Has dressing in place as prescribed Yes Has compression in place as prescribed N/A Has offloadiing in place as prescribed N/A Experienced any changes in pain level or No management Left Footwear Regular Shoe Right Footwear Regular Shoe Pain Scale: 0-10 Numeric Is Patient Pain Free? Yes - Nurse 1 - General Ulcer Measurement Start: 12/10/22 08:41 Freq: Status: Active Protocol: Activity Type Activity Date Activity User E-sign Co-sign Detail Recorded Client Recorded Date Recorded By Document 12/10/22 08:41 JANNETH [id number] 12/10/22 08:46 KW 12/10/22 08:41 Wound Center Nurse 1 #1 L Buttock -Current Size (cm) - Length 1.0 -Current Size (cm) - Width 0.5 -Current Size (cm) - Depth 0.5 -Total Square Cm 0.50 -Exudate Amt Small -Exudate Type Serosanguineous -Wound Margin Distinct, Outline Attached -Granulation Amt Large (67-100%) -Granulation Quality Red -Necrosis Amt Small (1-33%) -Necrotic Tissue Type Adherent Slough -Texture (Merline-wound Skin Appearance) Assessed -Moisture (Merline-wound Skin Appearance) Assessed -Color (Merline-wound Skin Appearance) Assessed -Temperature (Merline-wound Skin No Abnormality Appearance) (Pt Warm) -Tenderness on Palpation (Merline-wound No Skin Appearance) -Ulcer Cleansing Rinsed/ Irrigated with Saline -Foul Odor after Cleansing No -Anesthetic Used 5% Lidocaine Gel Lower Limb Edema Present NA - Nurse 2 - General Ulcer CM Notes Start: 12/10/22 08:41 Freq: Status: Active Protocol: Activity Type Activity Date Activity User E-sign Co-sign Detail Recorded Client Recorded Date Recorded By Document 12/10/22 09:15 [id number] 12/10/22 09:17 KARLEE 12/10/22 09:15 Wound Center Nurse 2 #1 L Buttock -Time 09:16 -Correct Patient Yes -Correct Side, Site, Position Yes -Correct Procedure Yes -Procedure Performed Yes -Type of Procedure Debridement -Clinical Debridement Subcutaneous -Tissue Removed Subcutaneous -Post Debridement (cm) - Length 1.3 -Post Debridement (cm) - Width 1.0 -Post Debridement (cm) - Depth 1.0 -Total Square (Post) (cm) 1.30 -Area of Debridement (cm) - Length 1.3 -Area of Debridement (cm) - Width 1.0 -Total Square (Area) (cm) 1.30 -Tunneling No -Undermining/Tunneling No -Circular Undermining No -Wound/Ulcer Outcome Not Healed -Ulcer Cleansing Rinsed/ Irrigated with Saline -Foul Odor after Cleansing No -Bioengineered Tissue No -Bleeding Controlled with Pressure -Treatment Response Procedure Tolerated Well -Offloading No -Debridement - Subq, 1st 20sq cm Yes Pain Scale: 0-10 Numeric Is Patient Pain Free? Yes - Nurse 3 - General Ulcer D/C NN Start: 12/10/22 08:41 Freq: Status: Active Protocol: Activity Type Activity Date Activity User E-sign Co-sign Detail Recorded Client Recorded Date Recorded By Document 12/10/22 09:22 [id number] 12/10/22 09:23 KW 12/10/22 09:22 Wound Care Center Nurse 3 #1 L Buttock -Ulcer Cleansing Rinsed/ Irrigated with Saline -Foul Odor after Cleansing No -Primary Dressing Applied Fibracol Plus 4x4,Mepilex Border -Fibracol Plus 4x4 1 -Mepilex Border 1 Pain Scale: 0-10 Numeric Is Patient Pain Free? 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 Wound care - Wash ulcer with soap and water then rinse with Dakins 0.25% solution with dressing changes. Left ischial/buttock ulcer Fibracol+ and gauze packed int the base of the ulcer and covered with either gauze or [place] SAP dressing daily. A wound culture from 08/29/22 was positive for Acinetobacter baumannii and Corynebacterium striatum and he completed Augmentin. Encouraged to not sit/lay directly on this area. Discussed with patient if we don't start seeing a better improvement, he may need to referred to Dr. Jasso, plastic surgeon for further evaluation of his treatment options. Patient really does not want to have any more surgeries. Follow up two weeks. He is to call or come in sooner if he develops any concerns.
== END 2022-12-24 23:59 | disposition home or self-care (01) ==
LOC: WC 08:38
PROVIDERS: PCP Internal Medicine; Visit Provider Nurse Practitioner Family
DX: L89.224 Pressure ulcer of left hip, stage 4 (principal); L89.152 Pressure ulcer of sacral region, stage 2; G62.9 Polyneuropathy, unspecified; R93.5 Abnormal findings on diagnostic imaging of other abdominal regions, including retroperitoneum
CPT/HCPCS: 11042

== ENCOUNTER 2023-01-23 09:15 | Outpatient (RCR) | payer MEDICARE, OTHER, SELFPAY ==
[2022-12-25 00:15] VITALS: BP 172/76; PULSE 63; RESP 16; TEMP 36.4; BMI 34.3
[2022-12-26 08:34] VITALS: BP 141/66; PULSE 68; RESP 16; BMI 34.3
--- NOTE | 2022-12-26 09:40 | PCM.WC.PN ---
History of Present Illness Date of Service: 12/26/22 Chief Complaint: Left ischium ulcer History of Wound: Patient is 72 year male who presents for evaluation of his left ischia ulcer that he obtained while hospital for a month during the summer 2021 at [facility] in [place]. He was admitted on October 20, 2021 with a virus of unknown origin. He required dialysis for GURMEET due to the infection. He had his left ischial ulcer debrided at the bedside. It goes down to muscle with tunneling. He was readmitted twice, for a week each time, to [facility]. He has home health and is received PT at home. His has been packing it with saline moistened gauze daily. He had a right lateral leg ulcer that is healed He had severe +4 pitting edema to bilateral lower legs and feet, which is resolved. He has not been wearing compression. He is a poor historian, but states he has a history of cardiac stents years ago, Left knee replacement 2010, right knee replacement 2017, appe 1969. Wound culture 08/29/22 positive for Acinetobacter baumannii and Corynebacterium striatum. Treated with Augmentin. He has been doing really well. Back to his normal activity, feeling much better, no longer having issues with edema. 12/10/22- he recently was in the ED for right sided pain. He states they found something suspicious on his pancreas. Unsure what it is. He is in the process of having it worked up. Wound care - Fibracol + gauze topped with [place] SAP daily after rinsing with Dakin's solution. Today he denies fever, chills, nausea, vomiting. He states his appetite is ok. Progress of Wound: His ulcer is smaller in size. They are having difficulty keeping the packing in the ulcer. The ulcer base is beefy pink and bleeds well with debridement. Objective Data Objective Data Vital Signs: Vital Signs Temp Pulse Resp BP O2 Del Method 97.6 F L 68 16 141/66 H Room Air 12/25/22 00:15 12/26/22 08:34 12/26/22 08:34 12/26/22 08:34 12/26/22 08:34 Oxygen Delivery Method Room Air Weight: 226 lb Body Mass Index (BMI) 34.3 Charges/Coding Procedures Integumentary 111xxx-113xx: 63722 Ashley musc/fascia 20 sq cm/< Debridement Note Debridement Note Wound debrided: #1 Ischial/buttock ulcer Laterality: Left Wound Grade/Stage: Stage IV Type of Debridement: Excisional debridement Anesthesia Used: 5% Lidocaine Gel Depth: Down to and including healthy tissue and in the subcutaneous layer Percentage of wound debrided: 100 Instrument Used: 3mm curette Tissue Removed: Devitalized tissue and slough. Severity: Fat Layer Exposed Amount of bleeding with debridement: Mild Bleeding Controlled with: Pressure and Compression and gauze Patient tolerated procedure: Patient tolerated procedure well Debridement Free Text: Edges are curling in, roughened up around the edges to prevent slower wound healing. Good bleeding obtained with debridement. Post-Debridement Measurements and Additional Note: Post-Debridement Measurements/Treatment - Nurse 1 - General Ulcer Assessment Start: 12/26/22 08:34 Freq: Status: Active Protocol: VALENTÍN.J CARLOS Activity Type Activity Date Activity User E-sign Co-sign Detail Recorded Client Recorded Date Recorded By Document 12/26/22 08:34 [facility] [id number] 12/26/22 08:39 [facility] 12/26/22 08:34 - Today's Visit Information Type of service Follow-up Visit (Physician/CHRONIC DISEASE MANAGER ) Arrival Mode Ambulatory Transfer Assistance None Patient Identification Verified (Name & Yes ) Patient Requires Transmission-Based No Precautions Height and Weight Body Mass Index (BMI) 34.3 BMI Classification Obese Vital Signs Pulse Rate (60-100) 68 Pulse Location Monitor Respiratory Rate (12-18) 16 Respiratory rate source Observation Oxygen Delivery Method Room Air Blood Pressure (90/60-120/80) 141/66 H Blood Pressure Mean (mm Hg) 91 Source Monitor Position Sitting Blood Pressure Location Left Arm History Since Last Visit- (Skip if this is Patient's initial visit) Have you changed medications since your No last visit? Any new allergies or adverse reactions No Had a fall/change in ADL's that may No increase risk of falls Signs or symptoms of abuse and/or No neglect since last visit Have you been in the hospital since your No last visit? Has dressing in place as prescribed Yes Has compression in place as prescribed N/A Has offloadiing in place as prescribed N/A Experienced any changes in pain level or No management Left Footwear Regular Shoe Right Footwear Regular Shoe Pain Scale: 0-10 Numeric Is Patient Pain Free? Yes - Nurse 1 - General Ulcer Measurement Start: 12/26/22 08:34 Freq: Status: Active Protocol: Activity Type Activity Date Activity User E-sign Co-sign Detail Recorded Client Recorded Date Recorded By Document 12/26/22 08:34 [facility] [id number] 12/26/22 08:39 [facility] 12/26/22 08:34 Wound Center Nurse 1 #1 L Buttock -Combined with other wound No -Current Size (cm) - Length 1 -Current Size (cm) - Width 0.3 -Current Size (cm) - Depth 1.3 -Total Square Cm 0.3 -Date of Last Picture (Recall this 12/26/22 field) -Photo Taken Yes -Epithelialization None Present -Tunneling No -Undermining/Tunneling No -Circular Undermining No -Exudate Amt Medium -Exudate Type Serosanguineous -Wound Margin Thickened -Granulation Amt Large (67-100%) -Granulation Quality Red -Slough/Fibrin Yes -Necrosis Amt Small (1-33%) -Necrotic Tissue Type Adherent Slough -Texture (Merline-wound Skin Appearance) Assessed, Scarring -Moisture (Merline-wound Skin Appearance) Assessed -Color (Merline-wound Skin Appearance) Assessed -Temperature (Merline-wound Skin No Abnormality Appearance) (Pt Warm) -Tenderness on Palpation (Merline-wound No Skin Appearance) -Ulcer Cleansing Rinsed/ Irrigated with Saline -Foul Odor after Cleansing Yes, Due to Product Use -Anesthetic Used 5% Lidocaine Gel - Nurse 3 - General Ulcer D/C NN Start: 12/26/22 08:34 Freq: Status: Active Protocol: Activity Type Activity Date Activity User E-sign Co-sign Detail Recorded Client Recorded Date Recorded By Document 12/26/22 09:18 [id number] 12/26/22 09:18 DL 12/26/22 09:18 Wound Care Center Nurse 3 -Primary Dressing Applied Mepilex Border, Promogran -Other Dressing dakins rinse -Mepilex Border 1 -Promogran 1 Treatment Response Procedure Tolerated Well Pain Scale: 0-10 Numeric Is Patient Pain Free? 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 Wound care - Wash ulcer with soap and water then rinse with Dakins 0.25% solution with dressing changes. Left ischial/buttock ulcer Fibracol+ and gauze packed int the base of the ulcer and covered with either gauze or [place] SAP dressing daily. A wound culture from 08/29/22 was positive for Acinetobacter baumannii and Corynebacterium striatum and he completed Augmentin. Encouraged to not sit/lay directly on this area. Discussed with patient if we don't start seeing a better improvement, he may need to referred to Dr. Jasso, plastic surgeon for further evaluation of his treatment options. Patient really does not want to have any more surgeries. Follow up two weeks. He is to call or come in sooner if he develops any concerns.
[2023-01-09 08:40] VITALS: BP 162/79; PULSE 62; RESP 18; TEMP 36.9; BMI 34.3
--- NOTE | 2023-01-09 14:49 | PN.PCM_ITS ---
History of Present Illness Date of Service: 01/09/23 Chief Complaint: Left ischium ulcer History of Wound: Patient is 72 year male who presents for evaluation of his left ischia ulcer that he obtained while hospital for a month during the summer 2021 at [facility] in [place]. He was admitted on October 20, 2021 with a virus of unknown origin. He required dialysis for GURMEET due to the infection. He had his left ischial ulcer debrided at the bedside. It goes down to muscle with tunneling. He was readmitted twice, for a week each time, to [facility]. He has home health and is received PT at home. His has been packing it with saline moistened gauze daily. He had a right lateral leg ulcer that is healed He had severe +4 pitting edema to bilateral lower legs and feet, which is resolved. He has not been wearing compression. He is a poor historian, but states he has a history of cardiac stents years ago, Left knee replacement 2010, right knee replacement 2017, appe 1969. Wound culture 08/29/22 positive for Acinetobacter baumannii and Corynebacterium striatum. Treated with Augmentin. He has been doing really well. Back to his normal activity, feeling much better, no longer having issues with edema. 12/10/22- he recently was in the ED for right sided pain. He states they found something suspicious on his pancreas. Unsure what it is. He is in the process of having it worked up. Wound care - Fibracol + gauze topped with gauze/[place] SAP daily after rinsing with Dakin's solution. Today he denies fever, chills, nausea, vomiting. He states his appetite is ok. Progress of Wound: His ulcer is smaller in size. The ulcer base is beefy pink and bleeds well with debridement. Objective Data Objective Data Vital Signs: Vital Signs Temp Pulse Resp BP O2 Del Method 98.5 F 62 18 162/79 H Room Air 01/09/23 08:40 01/09/23 08:40 01/09/23 08:40 01/09/23 08:40 12/26/22 08:34 Oxygen Delivery Method Room Air Weight: 226 lb Body Mass Index (BMI) 34.3 Charges/Coding Procedures Integumentary 111xxx-113xx: 18623 Ashley subq tissue 20 sq cm/< Debridement Note Debridement Note Wound debrided: #1 Ischial/buttock ulcer Laterality: Left Wound Grade/Stage: Stage IV Type of Debridement: Excisional debridement Anesthesia Used: 5% Lidocaine Gel Depth: Down to and including healthy tissue and in the subcutaneous layer Percentage of wound debrided: 100 Instrument Used: 3mm curette Tissue Removed: Devitalized tissue and slough. Severity: Fat Layer Exposed Amount of bleeding with debridement: Mild Bleeding Controlled with: Pressure and Compression and gauze Patient tolerated procedure: Patient tolerated procedure well Debridement Free Text: Edges are curling in, roughened up around the edges to prevent slower wound healing. Good bleeding obtained with debridement. Post-Debridement Measurements and Additional Note: Post-Debridement Measurements/Treatment - Nurse 1 - General Ulcer Assessment Start: 12/26/22 08:34 Freq: Status: Active Protocol: JANET Activity Type Activity Date Activity User E-sign Co-sign Detail Recorded Client Recorded Date Recorded By Document 12/26/22 08:34 [facility] [id number] 12/26/22 08:39 [facility] Document 01/09/23 08:40 PL [id number] 01/09/23 08:46 PL 12/26/22 01/09/23 08:34 08:40 - Today's Visit Information Type of service Follow-up Visit Follow-up Visit (Physician/SOFTWARE DEVELOPMENT ADVISOR (Physician/SOFTWARE DEVELOPMENT ADVISOR ) ) Arrival Mode Ambulatory Ambulatory Transfer Assistance None None Patient Identification Verified (Name & Yes Yes ) Patient Requires Transmission-Based No No Precautions Height and Weight Body Mass Index (BMI) 34.3 34.3 BMI Classification Obese Obese Vital Signs Temperature (97.8 F-99.1 F) 98.5 F Temperature Source Temporal Pulse Rate (60-100) 68 62 Pulse Location Monitor Respiratory Rate (12-18) 16 18 Respiratory rate source Observation Oxygen Delivery Method Room Air Blood Pressure (90/60-120/80) 141/66 H 162/79 H Blood Pressure Mean (mm Hg) 91 106 Source Monitor Position Sitting Blood Pressure Location Left Arm History Since Last Visit- (Skip if this is Patient's initial visit) Have you changed medications since your No No last visit? Any new allergies or adverse reactions No No Had a fall/change in ADL's that may No No increase risk of falls Signs or symptoms of abuse and/or No No neglect since last visit Have you been in the hospital since your No No last visit? Has dressing in place as prescribed Yes Yes Has compression in place as prescribed N/A N/A Has offloadiing in place as prescribed N/A N/A Experienced any changes in pain level or No No management Left Footwear Regular Shoe Right Footwear Regular Shoe Pain Scale: 0-10 Numeric Is Patient Pain Free? Yes Yes VALENTÍN - Nurse 1 - General Ulcer Measurement Start: 12/26/22 08:34 Freq: Status: Active Protocol: Activity Type Activity Date Activity User E-sign Co-sign Detail Recorded Client Recorded Date Recorded By Document 12/26/22 08:34 [facility] [id number] 12/26/22 08:39 [facility] 12/26/22 08:34 Wound Center Nurse 1 #1 L Buttock -Combined with other wound No -Current Size (cm) - Length 1 -Current Size (cm) - Width 0.3 -Current Size (cm) - Depth 1.3 -Total Square Cm 0.3 -Date of Last Picture (Recall this 12/26/22 field) -Photo Taken Yes -Epithelialization None Present -Tunneling No -Undermining/Tunneling No -Circular Undermining No -Exudate Amt Medium -Exudate Type Serosanguineous -Wound Margin Thickened -Granulation Amt Large (67-100%) -Granulation Quality Red -Slough/Fibrin Yes -Necrosis Amt Small (1-33%) -Necrotic Tissue Type Adherent Slough -Texture (Merline-wound Skin Appearance) Assessed, Scarring -Moisture (Merline-wound Skin Appearance) Assessed -Color (Merline-wound Skin Appearance) Assessed -Temperature (Merline-wound Skin No Abnormality Appearance) (Pt Warm) -Tenderness on Palpation (Merline-wound No Skin Appearance) -Ulcer Cleansing Rinsed/ Irrigated with Saline -Foul Odor after Cleansing Yes, Due to Product Use -Anesthetic Used 5% Lidocaine Gel VALENTÍN - Nurse 2 - General Ulcer CM Notes Start: 12/26/22 08:34 Freq: Status: Active Protocol: Activity Type Activity Date Activity User E-sign Co-sign Detail Recorded Client Recorded Date Recorded By Document 12/26/22 10:28 PL [id number] 12/26/22 10:30 PL Document 01/09/23 09:36 [id number] 01/09/23 09:38 JF 12/26/22 01/09/23 10:28 09:36 Wound Center Nurse 2 #1 L Buttock -Time 09:06 09:36 -Correct Patient Yes Yes -Correct Side, Site, Position Yes Yes -Correct Procedure Yes Yes -Procedure Performed Yes Yes -Type of Procedure Debridement Debridement -Clinical Debridement Muscle / Fascia Subcutaneous -Tissue Removed Muscle Subcutaneous -Post Debridement (cm) - Length 1.5 1.2 -Post Debridement (cm) - Width 0.7 0.5 -Post Debridement (cm) - Depth 0.7 0.9 -Total Square (Post) (cm) 1.05 0.60 -Area of Debridement (cm) - Length 1.5 1.2 -Area of Debridement (cm) - Width 0.7 0.5 -Total Square (Area) (cm) 1.05 0.60 -Tunneling No No -Undermining/Tunneling No No -Circular Undermining No No -Wound/Ulcer Outcome Not Healed Not Healed -Ulcer Cleansing Rinsed/ Rinsed/ Irrigated with Irrigated with Saline Saline -Foul Odor after Cleansing No No -Bioengineered Tissue No No -Bleeding Controlled with Pressure Pressure -Treatment Response Procedure Procedure Tolerated Well Tolerated Well -Offloading No -Debridement - Subq, 1st 20sq cm Yes -Debridement - Muscle / Fascia, 1st Yes 20sq cm Pain Scale: 0-10 Numeric Is Patient Pain Free? Yes Yes - Nurse 3 - General Ulcer D/C NN Start: 12/26/22 08:34 Freq: Status: Active Protocol: Activity Type Activity Date Activity User E-sign Co-sign Detail Recorded Client Recorded Date Recorded By Document 12/26/22 09:18 DL [id number] 12/26/22 09:18 DL Document 01/09/23 09:47 PL [id number] 01/09/23 09:49 PL 12/26/22 01/09/23 09:18 09:47 Wound Care Center Nurse 3 #1 L Buttock -Ulcer Cleansing Rinsed/ Irrigated with Saline -Foul Odor after Cleansing No -Primary Dressing Applied Mepilex Border, Mepilex Border, Promogran Promogran -Other Dressing dakins rinse -Mepilex Border 1 1 -Promogran 1 1 Treatment Response Procedure Tolerated Well Pain Scale: 0-10 Numeric Is Patient Pain Free? 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 Wound care - Wash ulcer with soap and water then rinse with Dakins 0.25% solution with dressing changes. Left ischial/buttock ulcer Fibracol+ and gauze packed int the base of the ulcer and covered with either gauze or [place] SAP dressing daily. A wound culture from 08/29/22 was positive for Acinetobacter baumannii and Corynebacterium striatum and he completed Augmentin. Encouraged to not sit/lay directly on this area. Discussed with patient if we don't start seeing a better improvement, he may need to referred to Dr. Jasso, plastic surgeon for further evaluation of his treatment options. Patient really does not want to have any more surgeries. Follow up two weeks. He is to call or come in sooner if he develops any concerns.
[2023-01-23 08:34] VITALS: BP 178/82; PULSE 62; RESP 18; TEMP 36.5; BMI 34.3
--- NOTE | 2023-01-23 10:27 | PCM.WC.PN ---
History of Present Illness Date of Service: 01/23/23 Chief Complaint: Left ischium ulcer History of Wound: Patient is 72 year male who presents for evaluation of his left ischia ulcer that he obtained while hospital for a month during the summer 2021 at [facility] in [place]. He was admitted on October 20, 2021 with a virus of unknown origin. He required dialysis for GURMEET due to the infection. He had his left ischial ulcer debrided at the bedside. It goes down to muscle with tunneling. He was readmitted twice, for a week each time, to [facility]. He has home health and is received PT at home. His has been packing it with saline moistened gauze daily. He had a right lateral leg ulcer that is healed He had severe +4 pitting edema to bilateral lower legs and feet, which is resolved. He has not been wearing compression. He is a poor historian, but states he has a history of cardiac stents years ago, Left knee replacement 2010, right knee replacement 2017, appe 1969. Wound culture 08/29/22 positive for Acinetobacter baumannii and Corynebacterium striatum. Treated with Augmentin. He has been doing really well. Back to his normal activity, feeling much better, no longer having issues with edema. 12/10/22- he was in the ED for right sided pain. He states they found something suspicious on his pancreas. Unsure what it is. He is in the process of having it worked up. Wound care - Fibracol + gauze topped with gauze/[place] SAP daily after rinsing with Dakin's solution. Today he denies fever, chills, nausea, vomiting. He states his appetite is ok. Progress of Wound: His ulcer is smaller in size. There continues to be depth to the ulcer due to how it is healing, it is pulling the good tissue into a dimple. [place] wound is slightly excoriated which he states started yesterday and his is placing a cream on it. The ulcer base is beefy pink and bleeds well with debridement. Objective Data Objective Data Vital Signs: Vital Signs Temp Pulse Resp BP O2 Del Method 97.7 F L 62 18 178/82 H Room Air 01/23/23 08:34 01/23/23 08:34 01/23/23 08:34 01/23/23 08:34 12/26/22 08:34 Oxygen Delivery Method Room Air Weight: 226 lb Body Mass Index (BMI) 34.3 Charges/Coding Procedures Integumentary 111xxx-113xx: 66171 Ashley subq tissue 20 sq cm/< Debridement Note Debridement Note Wound debrided: #1 Ischial/buttock ulcer Laterality: Left Wound Grade/Stage: Stage IV Type of Debridement: Excisional debridement Anesthesia Used: 5% Lidocaine Gel Depth: Down to and including healthy tissue and in the subcutaneous layer Percentage of wound debrided: 100 Instrument Used: 3mm curette Tissue Removed: Devitalized tissue and slough. Severity: Fat Layer Exposed Amount of bleeding with debridement: Mild Bleeding Controlled with: Pressure and Compression and gauze Patient tolerated procedure: Patient tolerated procedure well Debridement Free Text: Edges are curling in, roughened up around the edges to prevent slower wound healing. Good bleeding obtained with debridement. Post-Debridement Measurements and Additional Note: Post-Debridement Measurements/Treatment - Nurse 1 - General Ulcer Assessment Start: 12/26/22 08:34 Freq: Status: Active Protocol: JANET Activity Type Activity Date Activity User E-sign Co-sign Detail Recorded Client Recorded Date Recorded By Document 12/26/22 08:34 BM [id number] 12/26/22 08:39 BMF Document 01/09/23 08:40 PL [id number] 01/09/23 08:46 PL Document 01/23/23 08:34 DL [id number] 01/23/23 08:40 DL 12/26/22 01/09/23 01/23/23 08:34 08:40 08:34 - Today's Visit Information Type of service Follow-up Visit Follow-up Visit Follow-up Visit (Physician/INSIDE OUTSIDE SALES REPRESENTATIVE (Physician/INSIDE OUTSIDE SALES REPRESENTATIVE (Physician/INSIDE OUTSIDE SALES REPRESENTATIVE ) ) ) Arrival Mode Ambulatory Ambulatory Ambulatory Transfer Assistance None None None Patient Identification Verified (Name & Yes Yes Yes ) Patient Requires Transmission-Based No No No Precautions Height and Weight Body Mass Index (BMI) 34.3 34.3 34.3 BMI Classification Obese Obese Obese Vital Signs Temperature (97.8 F-99.1 F) 98.5 F 97.7 F L Temperature Source Temporal Temporal Pulse Rate (60-100) 68 62 62 Pulse Location Monitor Monitor Respiratory Rate (12-18) 16 18 18 Respiratory rate source Observation Observation Oxygen Delivery Method Room Air Blood Pressure (90/60-120/80) 141/66 H 162/79 H 178/82 H Blood Pressure Mean (mm Hg) 91 106 114 Source Monitor Monitor Position Sitting Blood Pressure Location Left Arm History Since Last Visit- (Skip if this is Patient's initial visit) Have you changed medications since your No No No last visit? Any new allergies or adverse reactions No No No Had a fall/change in ADL's that may No No No increase risk of falls Signs or symptoms of abuse and/or No No No neglect since last visit Have you been in the hospital since your No No No last visit? Has dressing in place as prescribed Yes Yes Yes Has compression in place as prescribed N/A N/A N/A Has offloadiing in place as prescribed N/A N/A Yes Experienced any changes in pain level or No No No management Left Footwear Regular Shoe Right Footwear Regular Shoe Pain Scale: 0-10 Numeric Is Patient Pain Free? Yes Yes Yes WC - Nurse 1 - General Ulcer Measurement Start: 12/26/22 08:34 Freq: Status: Active Protocol: Activity Type Activity Date Activity User E-sign Co-sign Detail Recorded Client Recorded Date Recorded By Document 12/26/22 08:34 [facility] [id number] 12/26/22 08:39 [facility] Document 01/23/23 08:34 DL [id number] 01/23/23 08:40 DL 12/26/22 01/23/23 08:34 08:34 Wound Center Nurse 1 #1 L Buttock -Combined with other wound No -Current Size (cm) - Length 1 1.4 -Current Size (cm) - Width 0.3 0.5 -Current Size (cm) - Depth 1.3 1.3 -Total Square Cm 0.3 0.70 -Date of Last Picture (Recall this 12/26/22 field) -Photo Taken Yes Yes -Epithelialization None Present -Tunneling No -Undermining/Tunneling No -Circular Undermining No -Exudate Amt Medium Medium -Exudate Type Serosanguineous Serosanguineous -Wound Margin Thickened Thickened & Rolled Under -Granulation Amt Large (67-100%) Large (67-100%) -Granulation Quality [place] -Slough/Fibrin Yes -Necrosis Amt Small (1-33%) Small (1-33%) -Necrotic Tissue Type Adherent Slough Adherent Slough -Structure Exposed N/A -Texture ([place]-wound Skin Appearance) Assessed, Scarring Scarring -Moisture ([place]-wound Skin Appearance) Assessed Maceration -Color ([place]-wound Skin Appearance) Assessed No Abnormality -Temperature ([place]-wound Skin No Abnormality No Abnormality Appearance) (Pt Warm) (Pt Warm) -Tenderness on Palpation ([place]-wound No Skin Appearance) -Ulcer Cleansing Rinsed/ Not Cleansed Irrigated with Saline -Foul Odor after Cleansing Yes, Due to No Product Use -Anesthetic Used 5% Lidocaine 5% Lidocaine Gel Gel WC - Nurse 2 - General Ulcer CM Notes Start: 12/26/22 08:34 Freq: Status: Active Protocol: Activity Type Activity Date Activity User E-sign Co-sign Detail Recorded Client Recorded Date Recorded By Document 12/26/22 10:28 PL [id number] 12/26/22 10:30 PL Document 01/09/23 09:36 [id number] 01/09/23 09:38 Document 01/23/23 09:19 [id number] 01/23/23 09:21 12/26/22 01/09/23 01/23/23 10:28 09:36 09:19 Wound Center Nurse 2 #1 L Buttock -Time 09:06 09:36 09:19 -Correct Patient Yes Yes Yes -Correct Side, Site, Position Yes Yes Yes -Correct Procedure Yes Yes Yes -Procedure Performed Yes Yes Yes -Type of Procedure Debridement Debridement Debridement -Clinical Debridement Muscle / Fascia Subcutaneous Subcutaneous -Tissue Removed Muscle Subcutaneous Subcutaneous -Post Debridement (cm) - Length 1.5 1.2 0.5 -Post Debridement (cm) - Width 0.7 0.5 0.8 -Post Debridement (cm) - Depth 0.7 0.9 0.9 -Total Square (Post) (cm) 1.05 0.60 0.40 -Area of Debridement (cm) - Length 1.5 1.2 0.5 -Area of Debridement (cm) - Width 0.7 0.5 0.8 -Total Square (Area) (cm) 1.05 0.60 0.40 -Tunneling No No No -Undermining/Tunneling No No No -Circular Undermining No No No -Wound/Ulcer Outcome Not Healed Not Healed Not Healed -Ulcer Cleansing Rinsed/ Rinsed/ Rinsed/ Irrigated with Irrigated with Irrigated with Saline Saline Saline -Foul Odor after Cleansing No No No -Bioengineered Tissue No No No -Bleeding Controlled with Pressure Pressure Pressure -Treatment Response Procedure Procedure Procedure Tolerated Well Tolerated Well Tolerated Well -Offloading No No -Debridement - Subq, 1st 20sq cm Yes Yes -Debridement - Muscle / Fascia, 1st Yes 20sq cm Pain Scale: 0-10 Numeric Is Patient Pain Free? Yes Yes Yes - Nurse 3 - General Ulcer D/C NN Start: 12/26/22 08:34 Freq: Status: Active Protocol: Activity Type Activity Date Activity User E-sign Co-sign Detail Recorded Client Recorded Date Recorded By Document 12/26/22 09:18 DL [id number] 12/26/22 09:18 DL Document 01/09/23 09:47 PL [id number] 01/09/23 09:49 PL Document 01/23/23 09:23 [id number] 01/23/23 09:24 JF 12/26/22 01/09/23 01/23/23 09:18 09:47 09:23 Wound Care Center Nurse 3 #1 L Buttock -Ulcer Cleansing Rinsed/ Rinsed/ Irrigated with Irrigated with Saline Saline -Foul Odor after Cleansing No No -Primary Dressing Applied Mepilex Border, Mepilex Border, Mepilex Border, Promogran Promogran Promogran [place] Matter -Other Dressing dakins rinse -Mepilex Border 1 1 1 -Promogran 1 1 -Promogran [place] Matter 1 Treatment Response Procedure Tolerated Well Pain Scale: 0-10 Numeric Is Patient Pain Free? 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 Wound care - Wash ulcer with soap and water then rinse with Dakins 0.25% solution with dressing changes. Left ischial/buttock ulcer Fibracol+ and gauze packed int the base of the ulcer and covered with either gauze or [place] SAP dressing daily. A wound culture from 08/29/22 was positive for Acinetobacter baumannii and Corynebacterium striatum and he completed Augmentin. Follow up two weeks. He is to call or come in sooner if he develops any concerns.
== END 2023-01-24 23:59 | disposition home or self-care (01) ==
LOC: WC 09:15
PROVIDERS: PCP Internal Medicine; Referring Provider Internal Medicine; Visit Provider Nurse Practitioner Family
DX: L89.224 Pressure ulcer of left hip, stage 4 (principal); L89.152 Pressure ulcer of sacral region, stage 2
CPT/HCPCS: 11042; 11043

== ENCOUNTER 2023-03-18 09:15 | Outpatient (RCR) | payer MEDICARE, OTHER, SELFPAY ==
[2023-03-06 08:33] VITALS: BP 138/73; PULSE 93; RESP 18; TEMP 36
--- NOTE | 2023-03-06 09:23 | PCM.WC.PN ---
History of Present Illness Date of Service: 03/06/23 Chief Complaint: Left ischium ulcer History of Wound: Patient is 72 year male who presents for evaluation of his left ischia ulcer that he obtained while hospital for a month during the summer 2021 at [facility] in [place]. He was admitted on October 20, 2021 with a virus of unknown origin. He required dialysis for GURMEET due to the infection. He had his left ischial ulcer debrided at the bedside. It goes down to muscle with tunneling. He was readmitted twice, for a week each time, to [facility]. He has home health and is received PT at home. His has been packing it with saline moistened gauze daily. He had a right lateral leg ulcer that is healed He had severe +4 pitting edema to bilateral lower legs and feet, which is resolved. He has not been wearing compression. He is a poor historian, but states he has a history of cardiac stents years ago, Left knee replacement 2010, right knee replacement 2017, appe 1969. Wound culture 08/29/22 positive for Acinetobacter baumannii and Corynebacterium striatum. Treated with Augmentin. He has been doing really well. Back to his normal activity, feeling much better, no longer having issues with edema. 12/10/22- he recently was in the ED for right sided pain. He states they found something suspicious on his pancreas. Unsure what it is. He is in the process of having it worked up. Wound care - Fibracol + gauze topped with gauze/[place] SAP daily after rinsing with Dakin's solution. Today he denies fever, chills, nausea, vomiting. He states his appetite is ok. Progress of Wound: His ulcer appears smaller. There continues to be depth to the ulcer due to how it is healing, it is pulling the good tissue into a dimple. [place] wound is stable. The ulcer base is beefy pink and bleeds well with debridement. Objective Data Objective Data Vital Signs: Vital Signs Temp Pulse Resp BP O2 Del Method 96.8 F L 93 18 138/73 H Room Air 03/06/23 08:33 03/06/23 08:33 03/06/23 08:33 03/06/23 08:33 03/06/23 08:33 Oxygen Delivery Method Room Air Charges/Coding Procedures Integumentary 111xxx-113xx: 66634 Ashley subq tissue 20 sq cm/< Debridement Note Debridement Note Wound debrided: #1 Ischial/buttock ulcer Laterality: Left Wound Grade/Stage: Stage IV Type of Debridement: Excisional debridement Anesthesia Used: 5% Lidocaine Gel Depth: Down to and including healthy tissue and in the subcutaneous layer Percentage of wound debrided: 100 Instrument Used: 3mm curette Tissue Removed: Devitalized tissue and slough. Severity: Fat Layer Exposed Amount of bleeding with debridement: Mild Bleeding Controlled with: Pressure and Compression and gauze Patient tolerated procedure: Patient tolerated procedure well Debridement Free Text: Edges are curling in, roughened up around the edges to prevent slower wound healing. Good bleeding obtained with debridement. Post-Debridement Measurements and Additional Note: Post-Debridement Measurements/Treatment - Nurse 1 - General Ulcer Assessment Start: 03/06/23 08:33 Freq: Status: Active Protocol: VALENTÍN.J CARLOS Activity Type Activity Date Activity User E-sign Co-sign Detail Recorded Client Recorded Date Recorded By Document 03/06/23 08:33 KW Desktop 03/06/23 08:41 KW 03/06/23 08:33 - Today's Visit Information Type of service Initial Visit Arrival Mode Ambulatory Vital Signs Temperature (97.8 F-99.1 F) 96.8 F L Temperature Source Temporal Pulse Rate (60-100) 93 Pulse Location Monitor Respiratory Rate (12-18) 18 Respiratory rate source Ausculation Oxygen Delivery Method Room Air Blood Pressure (90/60-120/80) 138/73 H Blood Pressure Mean (mm Hg) 94 Source Monitor Position Sitting Blood Pressure Location Left Arm History Since Last Visit- (Skip if this is Patient's initial visit) Have you changed medications since your No last visit? Any new allergies or adverse reactions No Had a fall/change in ADL's that may No increase risk of falls Signs or symptoms of abuse and/or No neglect since last visit Have you been in the hospital since your No last visit? Has dressing in place as prescribed Yes Has compression in place as prescribed N/A Has offloadiing in place as prescribed N/A Experienced any changes in pain level or No management Left Footwear Regular Shoe Right Footwear Regular Shoe Pain Scale: 0-10 Numeric Is Patient Pain Free? Yes - Nurse 1 - General Ulcer Measurement Start: 03/06/23 08:33 Freq: Status: Active Protocol: Activity Type Activity Date Activity User E-sign Co-sign Detail Recorded Client Recorded Date Recorded By Document 03/06/23 08:33 KW Desktop 03/06/23 08:41 KW 03/06/23 08:33 Wound Center Nurse 1 #1 L Buttock -Current Size (cm) - Length 0.9 -Current Size (cm) - Width 0.5 -Current Size (cm) - Depth 1.0 -Total Square Cm 0.45 -Wound Margin Thickened & Rolled Under -Granulation Amt Small (1-33%) -Granulation Quality [place] -Necrosis Amt Small (1-33%) -Necrotic Tissue Type Adherent Slough -Texture ([place]-wound Skin Appearance) Assessed -Moisture ([place]-wound Skin Appearance) Assessed -Color ([place]-wound Skin Appearance) Assessed -Temperature ([place]-wound Skin No Abnormality Appearance) (Pt Warm) -Ulcer Cleansing Rinsed/ Irrigated with Saline -Foul Odor after Cleansing No -Anesthetic Used 5% Lidocaine Gel WC - Nurse 2 - General Ulcer CM Notes Start: 03/06/23 08:33 Freq: Status: Active Protocol: Activity Type Activity Date Activity User E-sign Co-sign Detail Recorded Client Recorded Date Recorded By Document 03/06/23 09:05 Laptop 03/06/23 09:09 03/06/23 09:05 Wound Center Nurse 2 -Time 09:06 -Correct Patient Yes -Correct Side, Site, Position Yes -Correct Procedure Yes -Procedure Performed Yes -Type of Procedure Debridement -Clinical Debridement Subcutaneous -Tissue Removed Subcutaneous -Post Debridement (cm) - Length 1.0 -Post Debridement (cm) - Width 0.6 -Post Debridement (cm) - Depth 0.9 -Total Square (Post) (cm) 0.60 -Area of Debridement (cm) - Length 1.0 -Area of Debridement (cm) - Width 0.6 -Total Square (Area) (cm) 0.60 -Tunneling No -Undermining/Tunneling No -Circular Undermining No -Wound/Ulcer Outcome Not Healed -Ulcer Cleansing Rinsed/ Irrigated with Saline -Foul Odor after Cleansing No -Bioengineered Tissue No -Bleeding Controlled with Pressure -Treatment Response Procedure Tolerated Well -Offloading No -Debridement - Subq, 1st 20sq cm Yes Pain Scale: 0-10 Numeric Is Patient Pain Free? Yes - Nurse 3 - General Ulcer D/C NN Start: 03/06/23 08:33 Freq: Status: Active Protocol: Activity Type Activity Date Activity User E-sign Co-sign Detail Recorded Client Recorded Date Recorded By Document 03/06/23 09:09 Laptop 03/06/23 09:10 03/06/23 09:09 Wound Care Center Nurse 3 #1 L Buttock -Ulcer Cleansing Rinsed/ Irrigated with Saline -Negative Pressure Wound Therapy Discontinue -Primary Dressing Applied Mepilex Border, Promogran -Mepilex Border 1 -Promogran 1 Pain Scale: 0-10 Numeric Is Patient Pain Free? 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 Wound care - Wash ulcer with soap and water with dressing changes. Left ischial/buttock ulcer Promogram and gauze packed int the base of the ulcer and covered with either gauze or [place] SAP dressing daily. A wound culture from 08/29/22 was positive for Acinetobacter baumannii and Corynebacterium striatum and he completed Augmentin. 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 Instructed to ask for a low air loss mattress to prevent further breakdown. Follow up two weeks. He is to call or come in sooner if he develops any concerns.
[2023-03-18 09:09] VITALS: BP 135/64; PULSE 81; RESP 20; TEMP 36.1
--- NOTE | 2023-03-18 11:08 | PCM.WC.PN ---
History of Present Illness Date of Service: 03/18/23 Chief Complaint: Left ischium ulcer History of Wound: Patient is 72 year male who presents for evaluation of his left ischia ulcer that he obtained while hospital for a month during the summer 2021 at [facility] in [place]. He was admitted on October 20, 2021 with a virus of unknown origin. He required dialysis for GURMEET due to the infection. He had his left ischial ulcer debrided at the bedside. It goes down to muscle with tunneling. He was readmitted twice, for a week each time, to [facility]. He has home health and is received PT at home. His has been packing it with saline moistened gauze daily. He had a right lateral leg ulcer that is healed He had severe +4 pitting edema to bilateral lower legs and feet, which is resolved. He has not been wearing compression. He is a poor historian, but states he has a history of cardiac stents years ago, Left knee replacement 2010, right knee replacement 2017, appe 1969. Wound culture 08/29/22 positive for Acinetobacter baumannii and Corynebacterium striatum. Treated with Augmentin. He has been doing really well. Back to his normal activity, feeling much better, no longer having issues with edema. 12/10/22- he recently was in the ED for right sided pain. He states they found something suspicious on his pancreas. Unsure what it is. He is in the process of having it worked up. Wound care - Fibracol + gauze topped with gauze/[place] SAP daily after rinsing with Dakin's solution. Today he denies fever, chills, nausea, vomiting. He states his appetite is ok. Progress of Wound: His ulcer appears smaller. There continues to be depth to the ulcer due to how it is healing, it is pulling the good tissue into a dimple. [place] wound is stable. The ulcer base is beefy pink and bleeds well with debridement. Objective Data Objective Data Vital Signs: Vital Signs Temp Pulse Resp BP O2 Del Method 97 F L 81 20 H 135/64 H Room Air 03/18/23 09:09 03/18/23 09:09 03/18/23 09:09 03/18/23 09:09 03/06/23 08:33 Oxygen Delivery Method Room Air Charges/Coding Procedures Integumentary 111xxx-113xx: 31504 [place] subq tissue 20 sq cm/< Debridement Note Debridement Note Wound debrided: #1 Ischial/buttock ulcer Laterality: Left Wound Grade/Stage: Stage IV Type of Debridement: Excisional debridement Anesthesia Used: 5% Lidocaine Gel Depth: Down to and including healthy tissue and in the subcutaneous layer Percentage of wound debrided: 100 Instrument Used: 3mm curette Tissue Removed: Devitalized tissue and slough. Severity: Fat Layer Exposed Amount of bleeding with debridement: Mild Bleeding Controlled with: Pressure and Compression and gauze Patient tolerated procedure: Patient tolerated procedure well Debridement Free Text: Edges are curling in, roughened up around the edges to prevent slower wound healing. Good bleeding obtained with debridement. Post-Debridement Measurements and Additional Note: Post-Debridement Measurements/Treatment WC - Nurse 1 - General Ulcer Assessment Start: 03/06/23 08:33 Freq: Status: Active Protocol: WC.LOWISMAT Activity Type Activity Date Activity User E-sign Co-sign Detail Recorded Client Recorded Date Recorded By Document 03/06/23 08:33 KW Desktop 03/06/23 08:41 KW Document 03/18/23 09:09 DL Desktop 03/18/23 09:14 DL 03/06/23 03/18/23 08:33 09:09 WC - Today's Visit Information Type of service Initial Visit Follow-up Visit (Physician/ASSET PROTECTION LEAD ) Arrival Mode Ambulatory Ambulatory Transfer Assistance None Patient Identification Verified (Name & Yes ) Patient Requires Transmission-Based No Precautions Vital Signs Temperature (97.8 F-99.1 F) 96.8 F L 97 F L Temperature Source Temporal Temporal Pulse Rate (60-100) 93 81 Pulse Location Monitor Monitor Respiratory Rate (12-18) 18 20 H Respiratory rate source Ausculation Observation Oxygen Delivery Method Room Air Blood Pressure (90/60-120/80) 138/73 H 135/64 H Blood Pressure Mean (mm Hg) 94 87 Source Monitor Monitor Position Sitting Blood Pressure Location Left Arm History Since Last Visit- (Skip if this is Patient's initial visit) Have you changed medications since your No No last visit? Any new allergies or adverse reactions No No Had a fall/change in ADL's that may No No increase risk of falls Signs or symptoms of abuse and/or No No neglect since last visit Have you been in the hospital since your No No last visit? Has dressing in place as prescribed Yes Yes Has compression in place as prescribed N/A N/A Has offloadiing in place as prescribed N/A Yes Experienced any changes in pain level or No No management Left Footwear Regular Shoe Right Footwear Regular Shoe Pain Scale: 0-10 Numeric Is Patient Pain Free? Yes Yes WC - Nurse 1 - General Ulcer Measurement Start: 03/06/23 08:33 Freq: Status: Active Protocol: Activity Type Activity Date Activity User E-sign Co-sign Detail Recorded Client Recorded Date Recorded By Document 03/06/23 08:33 KW Desktop 03/06/23 08:41 KW Document 03/18/23 09:09 DL Desktop 03/18/23 09:14 DL 03/06/23 03/18/23 08:33 09:09 Wound Center Nurse 1 #1 L Buttock -Current Size (cm) - Length 0.9 0.8 -Current Size (cm) - Width 0.5 0.5 -Current Size (cm) - Depth 1.0 0.9 -Total Square Cm 0.45 0.40 -Exudate Amt Medium -Exudate Type Yellow/Green -Wound Margin Thickened & Thickened Rolled Under -Granulation Amt Small (1-33%) Large (67-100%) -Granulation Quality [place] -Necrosis Amt Small (1-33%) Small (1-33%) -Necrotic Tissue Type Adherent Slough Adherent Slough -Structure Exposed N/A -Texture ([place]-wound Skin Appearance) Assessed Scarring -Moisture ([place]-wound Skin Appearance) Assessed No Abnormality -Color ([place]-wound Skin Appearance) Assessed No Abnormality -Temperature ([place]-wound Skin No Abnormality No Abnormality Appearance) (Pt Warm) (Pt Warm) -Tenderness on Palpation (Mer[place]-wound No Skin Appearance) -Ulcer Cleansing Rinsed/ Soap and Water Irrigated with Saline -Foul Odor after Cleansing No No -Anesthetic Used 5% Lidocaine 5% Lidocaine Gel Gel WC - Nurse 2 - General Ulcer CM Notes Start: 03/06/23 08:33 Freq: Status: Active Protocol: Activity Type Activity Date Activity User E-sign Co-sign Detail Recorded Client Recorded Date Recorded By Document 03/06/23 09:05 JF Laptop 03/06/23 09:09 JF Document 03/18/23 09:53 JF Desktop 03/18/23 09:54 03/06/23 03/18/23 09:05 09:53 Wound Center Nurse 2 #1 L Buttock -Time 09:06 09:53 -Correct Patient Yes Yes -Correct Side, Site, Position Yes Yes -Correct Procedure Yes Yes -Procedure Performed Yes Yes -Type of Procedure Debridement Debridement -Clinical Debridement Subcutaneous Subcutaneous -Tissue Removed Subcutaneous Subcutaneous -Post Debridement (cm) - Length 1.0 1.0 -Post Debridement (cm) - Width 0.6 0.8 -Post Debridement (cm) - Depth 0.9 0.9 -Total Square (Post) (cm) 0.60 0.80 -Area of Debridement (cm) - Length 1.0 1.0 -Area of Debridement (cm) - Width 0.6 0.8 -Total Square (Area) (cm) 0.60 0.80 -Tunneling No No -Undermining/Tunneling No No -Circular Undermining No No -Wound/Ulcer Outcome Not Healed Not Healed -Ulcer Cleansing Rinsed/ Rinsed/ Irrigated with Irrigated with Saline Saline -Foul Odor after Cleansing No No -Bioengineered Tissue No No -Bleeding Controlled with Pressure Pressure -Treatment Response Procedure Procedure Tolerated Well Tolerated Well -Offloading No No -Debridement - Subq, 1st 20sq cm Yes Yes Pain Scale: 0-10 Numeric Is Patient Pain Free? Yes Yes - Nurse 3 - General Ulcer D/C NN Start: 03/06/23 08:33 Freq: Status: Active Protocol: Activity Type Activity Date Activity User E-sign Co-sign Detail Recorded Client Recorded Date Recorded By Document 03/06/23 09:09 Laptop 03/06/23 09:10 Document 03/18/23 09:53 Desktop 03/18/23 09:54 03/06/23 03/18/23 09:09 09:53 Wound Care Center Nurse 3 #1 L Buttock -Ulcer Cleansing Rinsed/ Rinsed/ Irrigated with Irrigated with Saline Saline -Foul Odor after Cleansing No -Negative Pressure Wound Therapy Discontinue -Primary Dressing Applied Mepilex Border, Mepilex Border, Promogran Promogran -Primary Dressing Covered/Secured with Dry Gauze -Mepilex Border 1 1 -Promogran 1 1 Pain Scale: 0-10 Numeric Is Patient Pain Free? 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 Wound care - Wash ulcer with soap and water with dressing changes. Left ischial/buttock ulcer Promogram and gauze packed int the base of the ulcer and covered with either gauze or [place] SAP dressing daily. A wound culture from 08/29/22 was positive for Acinetobacter baumannii and Corynebacterium striatum and he completed Augmentin. 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 Instructed to ask for a low air loss mattress to prevent further breakdown. Follow up three weeks. He is to call or come in sooner if he develops any concerns.
== END 2023-03-26 23:59 | disposition home or self-care (01) ==
LOC: WC 09:15
PROVIDERS: PCP Internal Medicine; Visit Provider Nurse Practitioner Family
DX: L89.224 Pressure ulcer of left hip, stage 4 (principal); L89.152 Pressure ulcer of sacral region, stage 2; G62.9 Polyneuropathy, unspecified
CPT/HCPCS: 11042

== ENCOUNTER 2023-04-08 08:31 | Outpatient (RCR) | payer MEDICARE, OTHER, SELFPAY ==
[2023-03-27 00:09] VITALS: BP 135/64; PULSE 81; RESP 20; TEMP 36.1
[2023-04-08 08:39] VITALS: BP 102/45; PULSE 99; TEMP 36.7
--- NOTE | 2023-04-08 11:55 | PCM.WC.PN ---
History of Present Illness Date of Service: 04/08/23 Chief Complaint: Left ischium ulcer History of Wound: Patient is 72 year male who presents for evaluation of his left ischia ulcer that he obtained while hospital for a month during the summer 2021 at [facility] in [place]. He was admitted on October 20, 2021 with a virus of unknown origin. He required dialysis for GURMEET due to the infection. He had his left ischial ulcer debrided at the bedside. It goes down to muscle with tunneling. He was readmitted twice, for a week each time, to [facility]. He has home health and is received PT at home. His has been packing it with saline moistened gauze daily. He had a right lateral leg ulcer that is healed He had severe +4 pitting edema to bilateral lower legs and feet, which is resolved. He has not been wearing compression. He is a poor historian, but states he has a history of cardiac stents years ago , Left knee replacement 2010, right knee replacement 2017, appe 1969. Wound culture 08/29/22 positive for Acinetobacter baumannii and Corynebacterium striatum. Treated with Augmentin. He has been doing really well. Back to his normal activity, feeling much better, no longer having issues with edema. 12/10/22- he recently was in the ED for right sided pain. He states they found something suspicious on his pancreas. Unsure what it is. He is in the process of having it worked up. Wound care - Fibracol + gauze topped with gauze/[place] SAP daily after rinsing with Dakin's solution. Today he denies fever, chills, nausea, vomiting. He states his appetite is ok. Progress of Wound: His ulcer appears smaller. There continues to be depth to the ulcer due to how it is healing, it is pulling the good tissue into a dimple. [place] wound is stable. The ulcer base is beefy pink and bleeds well with debridement. He recently had surgery for a mass on his pancreas. 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 They are still waiting on the pathology results. He states he is doing ok . He is weak and requiring to walk with a walker. Objective Data Objective Data Vital Signs: Vital Signs Temp Pulse Resp BP O2 Del Method 98.1 F 99 20 H 102/45 L Room Air 04/08/23 08:39 04/08/23 08:39 03/27/23 00:09 04/08/23 08:39 04/08/23 08:39 Oxygen Delivery Method Room Air Charges/Coding Procedures Integumentary 111xxx-113xx: 66212 [place] subq tissue 20 sq cm/< Debridement Note Debridement Note Wound debrided: #1 Ischial/buttock ulcer Laterality: Left Wound Grade/Stage: Stage IV Type of Debridement: Excisional debridement Anesthesia Used: 5% Lidocaine Gel Depth: Down to and including healthy tissue and in the subcutaneous layer Percentage of wound debrided: 100 Instrument Used: 3mm curette Tissue Removed: Devitalized tissue and slough. Severity: Fat Layer Exposed Amount of bleeding with debridement: Mild Bleeding Controlled with: Pressure and Compression and gauze Patient tolerated procedure: Patient tolerated procedure well Debridement Free Text: Edges are curling in, roughened up around the edges to prevent slower wound healing. Good bleeding obtained with debridement. Post-Debridement Measurements and Additional Note: Post-Debridement Measurements/Treatment - Nurse 1 - General Ulcer Assessment Start: 04/08/23 08:39 Freq: Status: Active Protocol: WC.LOWISMAT Activity Type Activity Date Activity User E-sign Co-sign Detail Recorded Client Recorded Date Recorded By Document 04/08/23 08:39 Desktop 04/08/23 08:51 04/08/23 08:39 - Today's Visit Information Type of service Follow-up Visit (Physician/BODY COMPONENT ENGINEER ) Arrival Mode Wheelchair Transfer Assistance None Patient Identification Verified (Name & Yes ) Patient Requires Transmission-Based No Precautions Safety Precautions Fall Prevention Vital Signs Temperature (97.8 F-99.1 F) 98.1 F Temperature Source Temporal Pulse Rate (60-100) 99 Pulse Location Monitor Oxygen Delivery Method Room Air Blood Pressure (90/60-120/80) 102/45 L Blood Pressure Mean (mm Hg) 64 Source Monitor Position Sitting Blood Pressure Location Left Arm History Since Last Visit- (Skip if this is Patient's initial visit) Have you changed medications since your Yes last visit? Any new allergies or adverse reactions No Had a fall/change in ADL's that may No increase risk of falls Signs or symptoms of abuse and/or No neglect since last visit Have you been in the hospital since your Yes last visit? Has dressing in place as prescribed Yes Has compression in place as prescribed N/A Has offloadiing in place as prescribed N/A Experienced any changes in pain level or No management Pain Scale: 0-10 Numeric Is Patient Pain Free? Yes - Nurse 1 - General Ulcer Measurement Start: 04/08/23 08:39 Freq: Status: Active Protocol: Activity Type Activity Date Activity User E-sign Co-sign Detail Recorded Client Recorded Date Recorded By Document 04/08/23 08:39 Desktop 04/08/23 08:51 04/08/23 08:39 Wound Center Nurse 1 #1 L Buttock -Combined with other wound No -Current Size (cm) - Length 1.0 -Current Size (cm) - Width 0.5 -Current Size (cm) - Depth 1.0 -Total Square Cm 0.50 -Photo Taken No -Epithelialization Small 1-33% -Tunneling No -Undermining/Tunneling No -Circular Undermining No -Exudate Amt None Present -Wound Margin Distinct, Outline Attached -Granulation Amt None Present (0 %) -Slough/Fibrin No -Texture ([place]-wound Skin Appearance) Scarring -Moisture ([place]-wound Skin Appearance) Assessed -Color ([place]-wound Skin Appearance) Assessed -Temperature ([place]-wound Skin No Abnormality Appearance) (Pt Warm) -Tenderness on Palpation (Mer[place]-wound No Skin Appearance) -Ulcer Cleansing Soap and Water -Foul Odor after Cleansing No -Anesthetic Used 5% Lidocaine Gel - Nurse 2 - General Ulcer CM Notes Start: 04/08/23 08:39 Freq: Status: Active Protocol: Activity Type Activity Date Activity User E-sign Co-sign Detail Recorded Client Recorded Date Recorded By Document 04/08/23 09:08 Laptop 04/08/23 09:11 04/08/23 09:08 Wound Center Nurse 2 -Time 09:08 -Correct Patient Yes -Correct Side, Site, Position Yes -Correct Procedure Yes -Procedure Performed Yes -Type of Procedure Debridement -Clinical Debridement Subcutaneous -Tissue Removed Subcutaneous -Post Debridement (cm) - Length 1.0 -Post Debridement (cm) - Width 0.6 -Post Debridement (cm) - Depth 1.1 -Total Square (Post) (cm) 0.60 -Area of Debridement (cm) - Length 1.0 -Area of Debridement (cm) - Width 0.6 -Total Square (Area) (cm) 0.60 -Tunneling No -Undermining/Tunneling No -Circular Undermining No -Wound/Ulcer Outcome Not Healed -Ulcer Cleansing Rinsed/ Irrigated with Saline -Foul Odor after Cleansing No -Bioengineered Tissue No -Bleeding Controlled with Pressure -Treatment Response Procedure Tolerated Well -Offloading No -Pressure Reduction Wheelchair cushion -Debridement - Subq, 1st 20sq cm Yes Pain Scale: 0-10 Numeric Is Patient Pain Free? Yes - Nurse 3 - General Ulcer D/C NN Start: 04/08/23 08:39 Freq: Status: Active Protocol: Activity Type Activity Date Activity User E-sign Co-sign Detail Recorded Client Recorded Date Recorded By Document 04/08/23 09:11 Laptop 04/08/23 09:12 04/08/23 09:11 Wound Care Center Nurse 3 #1 L Buttock -Ulcer Cleansing Rinsed/ Irrigated with Saline -Foul Odor after Cleansing No -Primary Dressing Applied Mepilex Border, Promogran -Mepilex Border 1 -Promogran 1 Pain Scale: 0-10 Numeric Is Patient Pain Free? 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 Wound care - Wash ulcer with soap and water with dressing changes. Left ischial/buttock ulcer Promogram and gauze packed int the base of the ulcer, fluffed gauze, then cover with either gauze or [place] SAP dressing daily. A wound culture from 08/29/22 was positive for Acinetobacter baumannii and Corynebacterium striatum and he completed Augmentin. Follow up three weeks. He is to call or come in sooner if he develops any concerns.
== END 2023-04-25 23:59 | disposition home or self-care (01) ==
LOC: WC 08:31
PROVIDERS: PCP Internal Medicine; Visit Provider Nurse Practitioner Family
DX: L89.224 Pressure ulcer of left hip, stage 4 (principal); L89.152 Pressure ulcer of sacral region, stage 2; G62.9 Polyneuropathy, unspecified
CPT/HCPCS: 11042

== ENCOUNTER 2023-05-06 09:19 | Outpatient (RCR) | payer MEDICARE, OTHER, SELFPAY ==
[2023-04-26 00:32] VITALS: BP 102/45; PULSE 99; RESP 20; TEMP 36.7
[2023-05-06 09:25] VITALS: BP 116/60; PULSE 71; RESP 18; TEMP 35.6
--- NOTE | 2023-05-06 12:19 | PN.PCM_ITS ---
History of Present Illness Date of Service: 05/06/23 Chief Complaint: Left ischium ulcer History of Wound: Patient is 72 year male who presents for evaluation of his left ischia ulcer that he obtained while hospital for a month during the summer 2021 at [facility]. He was admitted on October 20, 2021 with a virus of unknown origin. He required dialysis for GURMEET due to the infection. He had his left ischial ulcer debrided at the bedside. It goes down to muscle with tunneling. He was readmitted twice, for a week each time, to [facility] [place]. He has home health and is received PT at home. His has been packing it with saline moistened gauze daily. He had a right lateral leg ulcer that is healed He had severe +4 pitting edema to bilateral lower legs and feet, which is resolved. He has not been wearing compression. He is a poor historian, but states he has a history of cardiac stents years ago , Left knee replacement 2010, right knee replacement 2017, appe 1969. Wound culture 08/29/22 positive for Acinetobacter baumannii and Corynebacterium striatum. Treated with Augmentin. He has been doing really well. Back to his normal activity, feeling much better, no longer having issues with edema. 12/10/22- he recently was in the ED for right sided pain. He states they found something suspicious on his pancreas. Unsure what it is. He is in the process of having it worked up. Wound care - Fibracol + gauze topped with gauze/[place] SAP daily after rinsing with Dakin's solution. Today he denies fever, chills, nausea, vomiting. He states his appetite is ok. Progress of Wound: His ulcer appears smaller. There continues to be depth to the ulcer due to how it is healing, it is pulling the good tissue into a dimple. [place] wound is clear. The ulcer base is beefy pink and bleeds well with debridement. He recently had surgery for a mass on his pancreas. 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 He states he was diagnosed with cancer but he is not able to have treatments because his ulcer is not healed. His oncologist is Dr. Irina Garcia at in [place]. Objective Data Objective Data Vital Signs: Vital Signs Temp Pulse Resp BP 96.1 F L 71 18 116/60 05/06/23 09:25 12 09:25 05/06/23 09:25 05/06/23 09:25 Charges/Coding Procedures Integumentary [id number]: 95136 Ashley subq tissue 20 sq cm/< Debridement Note Debridement Note Wound debrided: #1 Ischial/buttock ulcer Laterality: Left Wound Grade/Stage: Stage IV Type of Debridement: Excisional debridement Anesthesia Used: 5% Lidocaine Gel Depth: Down to and including healthy tissue and in the subcutaneous layer Percentage of wound debrided: 100 Instrument Used: 3mm curette Tissue Removed: Devitalized tissue and slough. Severity: Fat Layer Exposed Amount of bleeding with debridement: Mild Bleeding Controlled with: Pressure and Compression and gauze Patient tolerated procedure: Patient tolerated procedure well Debridement Free Text: Edges are curling in, roughened up around the edges to prevent slower wound healing. Good bleeding obtained with debridement. Base of ulcer is a nice beefy pink color. 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 Any new allergies or adverse reactions No Had a fall/change in ADL's that may No increase risk of falls Signs or symptoms of abuse and/or No neglect since last visit Have you been in the hospital since your No last visit? Has dressing in place as prescribed Yes Has compression in place as prescribed N/A Has offloadiing in place as prescribed Yes Experienced any changes in pain level or No management Pain Scale: 0-10 Numeric Is Patient Pain Free? Yes WC - Nurse 1 - General Ulcer Measurement Start: 05/06/23 09:25 Freq: Status: Active Protocol: Activity Type Activity Date Activity User E-sign Co-sign Detail Recorded Client Recorded Date Recorded By Document 05/06/23 09:25 DL Desktop 05/06/23 09:33 DL 05/06/23 09:25 Wound Center Nurse 1 #1 L Buttock -Current Size (cm) - Length 0.6 -Current Size (cm) - Width 0.2 -Current Size (cm) - Depth 0.6 -Total Square Cm 0.12 -Photo Taken Yes -Exudate Amt Small -Exudate Type Serosanguineous -Wound Margin Distinct, Outline Attached -Granulation Amt Small (1-33%) -Granulation Quality Red -Necrosis Amt None Present (0 %) -Structure Exposed N/A -Texture ([place]-wound Skin Appearance) Scarring -Moisture ([place]-wound Skin Appearance) No Abnormality -Color ([place]-wound Skin Appearance) No Abnormality -Temperature ([place]-wound Skin No Abnormality Appearance) (Pt Warm) -Tenderness on Palpation ([place]-wound No Skin Appearance) -Ulcer Cleansing Soap and Water -Foul Odor after Cleansing No -Anesthetic Used 5% Lidocaine Gel VALENTÍN - Nurse 2 - General Ulcer CM Notes Start: 05/06/23 09:25 Freq: Status: Active Protocol: Activity Type Activity Date Activity User E-sign Co-sign Detail Recorded Client Recorded Date Recorded By Document 05/06/23 09:59 Laptop 05/06/23 10:00 05/06/23 09:59 Wound Center Nurse 2 -Time 09:59 -Correct Patient Yes -Correct Side, Site, Position Yes -Correct Procedure Yes -Procedure Performed Yes -Type of Procedure Debridement -Clinical Debridement Subcutaneous -Tissue Removed Subcutaneous -Post Debridement (cm) - Length 0.7 -Post Debridement (cm) - Width 0.5 -Post Debridement (cm) - Depth 0.8 -Total Square (Post) (cm) 0.35 -Area of Debridement (cm) - Length 0.7 -Area of Debridement (cm) - Width 0.5 -Total Square (Area) (cm) 0.35 -Tunneling No -Undermining/Tunneling No -Circular Undermining No -Wound/Ulcer Outcome Not Healed -Ulcer Cleansing Rinsed/ Irrigated with Saline -Foul Odor after Cleansing No -Bioengineered Tissue No -Bleeding Controlled with Pressure -Treatment Response Procedure Tolerated Well -Offloading No -Debridement - Subq, 1st 20sq cm Yes Pain Scale: 0-10 Numeric Is Patient Pain Free? Yes - Nurse 3 - General Ulcer D/C NN Start: 05/06/23 09:25 Freq: Status: Active Protocol: Activity Type Activity Date Activity User E-sign Co-sign Detail Recorded Client Recorded Date Recorded By Document 05/06/23 10:03 Laptop 05/06/23 10:03 05/06/23 10:03 Wound Care Center Nurse 3 #1 L Buttock -Ulcer Cleansing Rinsed/ Irrigated with Saline -Foul Odor after Cleansing No -Primary Dressing Applied Mepilex Border, Promogran -Mepilex Border 1 -Promogran 1 Pain Scale: 0-10 Numeric Is Patient Pain Free? 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 Wound care - Wash ulcer with soap and water with dressing changes. Left ischial/buttock ulcer Promogram and gauze packed int the base of the ulcer, fluffed gauze, then cover with either gauze or [place] SAP dressing daily. A wound culture from 08/29/22 was positive for Acinetobacter baumannii and Corynebacterium striatum and he completed Augmentin. He was recently diagnosed with Pancreatic cancer and is states he is not able to have treatments due to his left ischial/buttock ulcer. I have concerns about this because he has been seen here at the wound healing center since 12/2021 and has made significant improvements in his ulcer, but it still has not healed. I called the oncology practice in at [place] and spoke with Juliet ECHEVARRIA and voiced my concerns that it is more important for him to receive his treatments for his cancer than it is to wait until his ulcer is healed. I would rather deal with watching him closer for potential infections and deal with slower wound healing than for him have to wait until this ulcer is healed before starting chemo treatments. The information that I received about this was from the patient and his , therefore I am unsure exactly what was told to them. When I spoke with Juliet ECHEVARRIA, she states she had not heard that he would need to be healed before starting his cancer treatments. If it is absolutely mandatory for him to have his ulcer healed before starting treatments, then he would need to be evaluated by a plastic surgeon through (or other tertiary center) for options to close this ulcer. Follow up 4 weeks due to the holidays falling on Mondays. He is to call or come in sooner if he develops any concerns.
== END 2023-05-26 23:59 | disposition home or self-care (01) ==
LOC: WC 09:19
PROVIDERS: PCP Internal Medicine; Visit Provider Nurse Practitioner Family
DX: L89.224 Pressure ulcer of left hip, stage 4 (principal); L89.152 Pressure ulcer of sacral region, stage 2; G62.9 Polyneuropathy, unspecified
CPT/HCPCS: 11042

== ENCOUNTER 2023-06-24 09:15 | Outpatient (RCR) | payer MEDICARE, OTHER, SELFPAY ==
[2023-05-27 00:40] VITALS: BP 116/60; PULSE 71; RESP 18; TEMP 35.6
[2023-06-03 08:48] VITALS: BP 146/68; PULSE 76; RESP 20; TEMP 36.6
--- NOTE | 2023-06-03 11:58 | PCM.WC.PN ---
History of Present Illness Date of Service: 06/03/23 Chief Complaint: Left ischium ulcer History of Wound: Patient is 72 year male who presents for evaluation of his left ischia ulcer that he obtained while hospital for a month during the summer 2021 at [facility] in [place]. He was admitted on October 20, 2021 with a virus of unknown origin. He required dialysis for GURMEET due to the infection. He had his left ischial ulcer debrided at the bedside. It goes down to muscle with tunneling. He was readmitted twice, for a week each time, to [facility]. He has home health and is received PT at home. His has been packing it with saline moistened gauze daily. He had a right lateral leg ulcer that is healed He had severe +4 pitting edema to bilateral lower legs and feet, which is resolved. He has not been wearing compression. He is a poor historian, but states he has a history of cardiac stents years ago , Left knee replacement 2010, right knee replacement 2017, appe 1969. Wound culture 08/29/22 positive for Acinetobacter baumannii and Corynebacterium striatum. Treated with Augmentin. He has been doing really well. Back to his normal activity, feeling much better, no longer having issues with edema. 12/10/22- he recently was in the ED for right sided pain. He states they found something suspicious on his pancreas. Unsure what it is. He is in the process of having it worked up. Wound care - Fibracol + gauze topped with gauze/[place] SAP daily after rinsing with Dakin's solution. Today he denies fever, chills, nausea, vomiting. He states his appetite is ok. Progress of Wound: His ulcer appears smaller. There continues to be depth to the ulcer due to how it is healing, it is pulling the good tissue into a dimple. [place] wound is clear. The ulcer base is beefy pink and bleeds well with debridement. He recently had surgery for a mass on his pancreas. 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 He has now been told it was caught early and they believe that were able to remove all the cancer, he will have have some sort of treatment but he is not sure when that will be starting. Objective Data Objective Data Vital Signs: Vital Signs Temp Pulse Resp BP 97.8 F 76 20 H 146/68 H 06/03/23 08:48 06/03/23 08:48 06/03/23 08:48 06/03/23 08:48 Charges/Coding Procedures Integumentary 111xxx-113xx: 10542 Ashley subq tissue 20 sq cm/< Debridement Note Debridement Note Wound debrided: #1 Ischial/buttock ulcer Laterality: Left Wound Grade/Stage: Stage IV Type of Debridement: Excisional debridement Anesthesia Used: 5% Lidocaine Gel Depth: Down to and including healthy tissue and in the subcutaneous layer Percentage of wound debrided: 100 Instrument Used: 3mm curette Tissue Removed: Devitalized tissue and slough. Severity: Fat Layer Exposed Amount of bleeding with debridement: Mild Bleeding Controlled with: Pressure and Compression and gauze Patient tolerated procedure: Patient tolerated procedure well Debridement Free Text: Edges are curling in, roughened up around the edges to prevent slower wound healing. Good bleeding obtained with debridement. Base of ulcer is a nice beefy pink color. 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 Any new allergies or adverse reactions No Had a fall/change in ADL's that may No increase risk of falls Signs or symptoms of abuse and/or No neglect since last visit Have you been in the hospital since your No last visit? Has dressing in place as prescribed Yes Has compression in place as prescribed N/A Has offloadiing in place as prescribed Yes Experienced any changes in pain level or No management Pain Scale: 0-10 Numeric Is Patient Pain Free? Yes WC - Nurse 1 - General Ulcer Measurement Start: 06/03/23 08:48 Freq: Status: Active Protocol: Activity Type Activity Date Activity User E-sign Co-sign Detail Recorded Client Recorded Date Recorded By Document 06/03/23 08:48 DL Desktop 06/03/23 08:52 DL 06/03/23 08:48 Wound Center Nurse 1 #1 L Buttock -Current Size (cm) - Length 1.2 -Current Size (cm) - Width 0.1 -Current Size (cm) - Depth 0.8 -Total Square Cm 0.12 -Photo Taken Yes -Exudate Amt Medium -Exudate Type Serosanguineous -Wound Margin Distinct, Outline Attached -Granulation Amt Small (1-33%) -Granulation Quality [place] -Necrosis Amt Small (1-33%) -Necrotic Tissue Type Adherent Slough -Structure Exposed N/A -Texture ([place]-wound Skin Appearance) Scarring -Moisture ([place]-wound Skin Appearance) No Abnormality -Color ([place]-wound Skin Appearance) No Abnormality -Temperature ([place]-wound Skin No Abnormality Appearance) (Pt Warm) -Tenderness on Palpation ([place]-wound No Skin Appearance) -Ulcer Cleansing Soap and Water -Foul Odor after Cleansing No -Anesthetic Used 5% Lidocaine Gel VALENTÍN - Nurse 2 - General Ulcer CM Notes Start: 06/03/23 08:48 Freq: Status: Active Protocol: Activity Type Activity Date Activity User E-sign Co-sign Detail Recorded Client Recorded Date Recorded By Document 06/03/23 09:06 Laptop 06/03/23 09:07 JF 06/03/23 09:06 Wound Center Nurse 2 -Time 09:06 -Correct Patient Yes -Correct Side, Site, Position Yes -Correct Procedure Yes -Procedure Performed Yes -Type of Procedure Debridement -Clinical Debridement Subcutaneous -Tissue Removed Subcutaneous -Post Debridement (cm) - Length 1.0 -Post Debridement (cm) - Width 0.4 -Post Debridement (cm) - Depth 0.4 -Total Square (Post) (cm) 0.40 -Area of Debridement (cm) - Length 1.0 -Area of Debridement (cm) - Width 0.4 -Total Square (Area) (cm) 0.40 -Tunneling No -Undermining/Tunneling No -Circular Undermining No -Wound/Ulcer Outcome Not Healed -Ulcer Cleansing Rinsed/ Irrigated with Saline -Foul Odor after Cleansing No -Bioengineered Tissue No -Bleeding Controlled with Pressure -Treatment Response Procedure Tolerated Well -Offloading No -Debridement - Subq, 1st 20sq cm Yes Pain Scale: 0-10 Numeric Is Patient Pain Free? Yes - Nurse 3 - General Ulcer D/C NN Start: 06/03/23 08:48 Freq: Status: Active Protocol: Activity Type Activity Date Activity User E-sign Co-sign Detail Recorded Client Recorded Date Recorded By Document 06/03/23 09:13 DL Desktop 06/03/23 09:17 DL 06/03/23 09:13 Wound Care Center Nurse 3 #1 L Buttock -Ulcer Cleansing Rinsed/ Irrigated with Saline -Foul Odor after Cleansing No -Primary Dressing Applied Mepilex Border, Promogran -Mepilex Border 1 -Promogran 1 Treatment Response Procedure Tolerated Well Pain Scale: 0-10 Numeric Is Patient Pain Free? 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 Wound care - Wash ulcer with soap and water with dressing changes. Left ischial/buttock ulcer Promogram and gauze packed into the base of the ulcer, fluffed gauze, then cover with either gauze or [place] SAP dressing daily. A wound culture from 08/29/22 was positive for Acinetobacter baumannii and Corynebacterium striatum and he completed Augmentin. He was recently diagnosed with Pancreatic cancer and is states that they believe they were able to get it all. They will still plan on doing some sort of treatments for this. Encouraged increase protein intake to help with wound healing. Follow up 2weeks. He is to call or come in sooner if he develops any concerns.
[2023-06-24 08:33] VITALS: BP 135/63; PULSE 82; RESP 16; TEMP 35.7
--- NOTE | 2023-06-24 09:12 | PCM.WC.PN ---
History of Present Illness Date of Service: 06/24/23 Chief Complaint: Left ischium ulcer History of Wound: Patient is 72 year male who presents for evaluation of his left ischia ulcer that he obtained while hospital for a month during the summer 2021 at [facility] in [place]. He was admitted on October 20, 2021 with a virus of unknown origin. He required dialysis for GURMEET due to the infection. He had his left ischial ulcer debrided at the bedside. It goes down to muscle with tunneling. He was readmitted twice, for a week each time, to [facility]. He has home health and is received PT at home. His has been packing it with saline moistened gauze daily. He had a right lateral leg ulcer that is healed He had severe +4 pitting edema to bilateral lower legs and feet, which is resolved. He has not been wearing compression. He is a poor historian, but states he has a history of cardiac stents years ago , Left knee replacement 2010, right knee replacement 2017, appe 1969. Wound culture 08/29/22 positive for Acinetobacter baumannii and Corynebacterium striatum. Treated with Augmentin. He has been doing really well. Back to his normal activity, feeling much better, no longer having issues with edema. 12/10/22- he recently was in the ED for right sided pain. He states they found something suspicious on his pancreas. Unsure what it is. He is in the process of having it worked up. Wound care - Fibracol + gauze topped with gauze/Crownpoint SAP daily after rinsing with Dakin's solution. Today he denies fever, chills, nausea, vomiting. He states his appetite is ok. Progress of Wound: His ulcer appears smaller. There continues to be depth to the ulcer due to how it is healing, it is pulling the good tissue into a dimple. Merline wound is clear. The ulcer base is beefy pink and bleeds well with debridement. He recently had his port placed for chemotherapy, which he has not started yet. Objective Data Objective Data Vital Signs: Vital Signs Temp Pulse Resp BP O2 Del Method 96.3 F L 82 16 135/63 H Room Air 06/24/23 08:33 06/24/23 08:33 06/24/23 08:33 06/24/23 08:33 06/24/23 08:33 Oxygen Delivery Method Room Air Charges/Coding Procedures Integumentary 111xxx-113xx: [id number] Ashley subq tissue 20 sq cm/< Debridement Note Debridement Note Wound debrided: #1 Ischial/buttock ulcer Laterality: Left Wound Grade/Stage: Stage IV Type of Debridement: Excisional debridement Anesthesia Used: 5% Lidocaine Gel Depth: Down to and including healthy tissue and in the subcutaneous layer Percentage of wound debrided: 100 Instrument Used: 3mm curette Tissue Removed: Devitalized tissue and slough. Severity: Fat Layer Exposed Amount of bleeding with debridement: Mild Bleeding Controlled with: Pressure and Compression and gauze Patient tolerated procedure: Patient tolerated procedure well Post-Debridement Measurements and Additional Note: Post-Debridement Measurements/Treatment - Nurse 1 - General Ulcer Assessment Start: 06/03/23 08:48 Freq: Status: Active Protocol: JANET Activity Type Activity Date Activity User E-sign Co-sign Detail Recorded Client Recorded Date Recorded By Document 06/03/23 08:48 DL Desktop 06/03/23 08:52 DL Document 06/24/23 08:33 BM Desktop 06/24/23 08:38 BMF 06/03/23 06/24/23 08:48 08:33 - Today's Visit Information Type of service Follow-up Visit Follow-up Visit (Physician/LICENSED LOAN 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 ASSISTANT (Physician/LICENSED LOAN 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 ASSISTANT ) ) Arrival Mode Ambulatory Ambulatory Transfer Assistance None None Patient Identification Verified (Name & Yes Yes ) Patient Requires Transmission-Based No No Precautions Vital Signs Temperature (97.8 F-99.1 F) 97.8 F 96.3 F L Temperature Source Temporal Temporal Pulse Rate (60-100) 76 82 Pulse Location Monitor Monitor Respiratory Rate (12-18) 20 H 16 Respiratory rate source Observation Observation Oxygen Delivery Method Room Air Blood Pressure (90/60-120/80) 146/68 H 135/63 H Blood Pressure Mean (mm Hg) 94 87 Source Monitor Monitor Position Sitting Blood Pressure Location Left Arm History Since Last Visit- (Skip if this is Patient's initial visit) Have you changed medications since your No No last visit? Any new allergies or adverse reactions No No Had a fall/change in ADL's that may No No increase risk of falls Signs or symptoms of abuse and/or No No neglect since last visit Have you been in the hospital since your No No last visit? Has dressing in place as prescribed Yes Yes Has compression in place as prescribed N/A N/A Has offloadiing in place as prescribed Yes N/A Experienced any changes in pain level or No No management Left Footwear Regular Shoe Right Footwear Regular Shoe Pain Scale: 0-10 Numeric Is Patient Pain Free? Yes Yes WC - Nurse 1 - General Ulcer Measurement Start: 06/03/23 08:48 Freq: Status: Active Protocol: Activity Type Activity Date Activity User E-sign Co-sign Detail Recorded Client Recorded Date Recorded By Document 06/03/23 08:48 DL Desktop 06/03/23 08:52 DL Document 06/24/23 08:33 BMF Desktop 06/24/23 08:38 BMF 06/03/23 06/24/23 08:48 08:33 Wound Center Nurse 1 #1 L Buttock -Combined with other wound No -Current Size (cm) - Length 1.2 0.7 -Current Size (cm) - Width 0.1 0.2 -Current Size (cm) - Depth 0.8 0.4 -Total Square Cm 0.12 0.14 -Date of Last Picture (Recall this 06/24/23 field) -Photo Taken Yes Yes -Tunneling No -Undermining/Tunneling No -Circular Undermining No -Exudate Amt Medium Medium -Exudate Type Serosanguineous Serosanguineous -Wound Margin Distinct, Thickened Outline Attached -Granulation Amt Small (1-33%) Medium (34-66%) -Granulation Quality [place] -Slough/Fibrin Yes -Necrosis Amt Small (1-33%) Medium (34-66%) -Necrotic Tissue Type Adherent Slough Adherent Slough -Structure Exposed N/A -Texture (Merline-wound Skin Appearance) Scarring Assessed, Scarring -Moisture ([place]-wound Skin Appearance) No Abnormality Assessed -Color ([place]-wound Skin Appearance) No Abnormality Assessed -Temperature ([place]-wound Skin No Abnormality No Abnormality Appearance) (Pt Warm) (Pt Warm) -Tenderness on Palpation (Mer[place]-wound No No Skin Appearance) -Ulcer Cleansing Soap and Water Rinsed/ Irrigated with Saline -Foul Odor after Cleansing No No -Anesthetic Used 5% Lidocaine 5% Lidocaine Gel Gel WC - Nurse 2 - General Ulcer CM Notes Start: 06/03/23 08:48 Freq: Status: Active Protocol: Activity Type Activity Date Activity User E-sign Co-sign Detail Recorded Client Recorded Date Recorded By Document 06/03/23 09:06 JF Laptop 06/03/23 09:07 JF Document 06/24/23 08:59 JF Laptop 06/24/23 09:00 JF 06/03/23 06/24/23 09:06 08:59 Wound Center Nurse 2 #1 L Buttock -Time 09:06 08:59 -Correct Patient Yes Yes -Correct Side, Site, Position Yes Yes -Correct Procedure Yes Yes -Procedure Performed Yes Yes -Type of Procedure Debridement Debridement -Clinical Debridement Subcutaneous Subcutaneous -Tissue Removed Subcutaneous Subcutaneous -Post Debridement (cm) - Length 1.0 1.0 -Post Debridement (cm) - Width 0.4 0.3 -Post Debridement (cm) - Depth 0.4 0.5 -Total Square (Post) (cm) 0.40 0.30 -Area of Debridement (cm) - Length 1.0 1.0 -Area of Debridement (cm) - Width 0.4 0.3 -Total Square (Area) (cm) 0.40 0.30 -Tunneling No No -Undermining/Tunneling No No -Circular Undermining No No -Wound/Ulcer Outcome Not Healed Not Healed -Ulcer Cleansing Rinsed/ Rinsed/ Irrigated with Irrigated with Saline Saline -Foul Odor after Cleansing No No -Bioengineered Tissue No No -Bleeding Controlled with Pressure Pressure -Treatment Response Procedure Procedure Tolerated Well Tolerated Well -Offloading No No -Debridement - Subq, 1st 20sq cm Yes Yes Pain Scale: 0-10 Numeric Is Patient Pain Free? Yes Yes WC - Nurse 3 - General Ulcer D/C NN Start: 06/03/23 08:48 Freq: Status: Active Protocol: Activity Type Activity Date Activity User E-sign Co-sign Detail Recorded Client Recorded Date Recorded By Document 06/03/23 09:13 DL Desktop 06/03/23 09:17 DL Document 06/24/23 09:07 KW Desktop 06/24/23 09:07 KW 06/03/23 06/24/23 09:13 09:07 Wound Care Center Nurse 3 #1 L Buttock -Ulcer Cleansing Rinsed/ Rinsed/ Irrigated with Irrigated with Saline Saline -Foul Odor after Cleansing No -Primary Dressing Applied Mepilex Border, Mepilex Border, Promogran Promogran [place] Matter -Primary Dressing Covered/Secured with Dry Gauze -Mepilex Border 1 1 -Promogran 1 -Promogran [place] Matter 1 Treatment Response Procedure Tolerated Well Pain Scale: 0-10 Numeric Is Patient Pain Free? 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 Wound care - Wash ulcer with soap and water with dressing changes. Left ischial/buttock ulcer stop Promogram and start Sierra covered with fluffed gauze, then top with either gauze or Crownpoint SAP dressing daily. Decided to change to a product with silver in it to help prevent bacteria from growing since he will be starting chemo soon. A wound culture from 08/29/22 was positive for Acinetobacter baumannii and Corynebacterium striatum and he completed Augmentin. He was recently diagnosed with Pancreatic cancer and is states that they believe they were able to get it all. He has had his IV port placed and is waiting to start chemo. Encouraged increase protein intake to help with wound healing. Follow up 2 weeks. He is to call or come in sooner if he develops any concerns.
== END 2023-06-26 23:59 | disposition home or self-care (01) ==
LOC: WC 09:15
PROVIDERS: PCP Internal Medicine; Visit Provider Nurse Practitioner Family
DX: L89.224 Pressure ulcer of left hip, stage 4 (principal); L89.152 Pressure ulcer of sacral region, stage 2; G62.9 Polyneuropathy, unspecified
CPT/HCPCS: 11042

== ENCOUNTER 2023-07-09 14:37 | Outpatient (RCR) | payer MEDICARE, OTHER, SELFPAY ==
[2023-06-27 00:25] VITALS: BP 135/63; PULSE 82; RESP 16; TEMP 35.7
[2023-07-09 14:52] VITALS: BP 154/86; PULSE 70; RESP 16; TEMP 36.1
--- NOTE | 2023-07-09 15:25 | PCM.WC.PN ---
History of Present Illness Date of Service: 07/09/23 Chief Complaint: Left ischium ulcer History of Wound: Patient is 72 year male who presents for evaluation of his left ischia ulcer that he obtained while hospital for a month during the summer 2021 at [facility] in [place]. He was admitted on October 20, 2021 with a virus of unknown origin. He required dialysis for GURMEET due to the infection. He had his left ischial ulcer debrided at the bedside. It goes down to muscle with tunneling. He was readmitted twice, for a week each time, to [facility]. He has home health and is received PT at home. His has been packing it with saline moistened gauze daily. He had a right lateral leg ulcer that is healed He had severe +4 pitting edema to bilateral lower legs and feet, which is resolved. He has not been wearing compression. He is a poor historian, but states he has a history of cardiac stents years ago, Left knee replacement 2010, right knee replacement 2017, appe 1969. Wound culture 08/29/22 positive for Acinetobacter baumannii and Corynebacterium striatum. Treated with Augmentin. He has been doing really well. Back to his normal activity, feeling much better, no longer having issues with edema. He was recently diagnosed with pancreatic cancer in February,. He underwent surgery and chemotherapy. Wound care - Sierra. Today he denies fever, chills, nausea, vomiting. He states his appetite is ok. Progress of Wound: Slightly improved. Objective Data Objective Data Vital Signs: Vital Signs Temp Pulse Resp BP O2 Del Method 96.9 F L 70 16 154/86 H Room Air 07/09/23 14:52 07/09/23 14:52 07/09/23 14:52 07/09/23 14:52 07/09/23 14:52 Oxygen Delivery Method Room Air Lab / Micro Data Attestation: I reviewed the patient's lab results. Charges/Coding Procedures Integumentary 111xxx-113xx: [id number] Ashley musc/fascia 20 sq cm/< (ICD-10 - L89.324, G62.9) Debridement Note Debridement Note Wound debrided: #1 Left ischial area. Laterality: Left Wound Grade/Stage: Stage IV Type of Debridement: Excisional debridement Anesthesia Used: 5% Lidocaine Gel Depth: Down to and including healthy tissue, in the subcutaneous layer, to muscle and - (bone is palpable and not exposed.) Percentage of wound debrided: 100 Instrument Used: 3mm curette Tissue Removed: Subcutaneous tissue and muscle, devitalized tissue and slough. Severity: Fat Layer Exposed (muscle is exposed. bone is palpable and not exposed.) Amount of bleeding with debridement: Mild Bleeding Controlled with: Pressure and Compression and gauze Patient tolerated procedure: Patient tolerated procedure well Post-Debridement Measurements and Additional Note: Post-Debridement Measurements/Treatment - Nurse 1 - General Ulcer Assessment Start: 07/09/23 14:44 Freq: Status: Active Protocol: JANET Activity Type Activity Date Activity User E-sign Co-sign Detail Recorded Client Recorded Date Recorded By Document 07/09/23 14:52 KW Desktop 07/09/23 14:57 KW 07/09/23 14:52 WC - Today's Visit Information Type of service Follow-up Visit (Physician/TEAM AUTOMOBILE ASSEMBLER ) Arrival Mode Ambulatory Patient Identification Verified (Name & Yes ) Vital Signs Temperature (97.8 F-99.1 F) 96.9 F L Temperature Source Temporal Pulse Rate (60-100) 70 Pulse Location Monitor Respiratory Rate (12-18) 16 Respiratory rate source Observation Oxygen Delivery Method Room Air Blood Pressure (90/60-120/80) 154/86 H Blood Pressure Mean (mm Hg) 108 Source Monitor Position Sitting Blood Pressure Location Right Forearm History Since Last Visit- (Skip if this is Patient's initial visit) Have you changed medications since your No last visit? Any new allergies or adverse reactions No Had a fall/change in ADL's that may No increase risk of falls Signs or symptoms of abuse and/or No neglect since last visit Have you been in the hospital since your No last visit? Has dressing in place as prescribed Yes Has compression in place as prescribed N/A Has offloadiing in place as prescribed N/A Experienced any changes in pain level or No management Left Footwear Regular Shoe Right Footwear Regular Shoe Pain Scale: 0-10 Numeric Is Patient Pain Free? Yes - Nurse 1 - General Ulcer Measurement Start: 07/09/23 14:44 Freq: Status: Active Protocol: Activity Type Activity Date Activity User E-sign Co-sign Detail Recorded Client Recorded Date Recorded By Document 07/09/23 14:52 KW Desktop 07/09/23 14:57 KW 07/09/23 14:52 Wound Center Nurse 1 #1 L Buttock -Current Size (cm) - Length 1.2 -Current Size (cm) - Width 0.3 -Current Size (cm) - Depth 2 -Total Square Cm 0.36 -Exudate Amt None Present -Exudate Type Serosanguineous -Wound Margin Thickened & Rolled Under -Granulation Amt Large (67-100%) -Granulation Quality [place] -Texture ([place]-wound Skin Appearance) Assessed -Moisture ([place]-wound Skin Appearance) Assessed -Color ([place]-wound Skin Appearance) Assessed -Temperature ([place]-wound Skin No Abnormality Appearance) (Pt Warm) -Ulcer Cleansing Rinsed/ Irrigated with Saline -Anesthetic Used 5% Lidocaine Gel VALENTÍN - Nurse 2 - General Ulcer CM Notes Start: 07/09/23 14:44 Freq: Status: Active Protocol: Activity Type Activity Date Activity User E-sign Co-sign Detail Recorded Client Recorded Date Recorded By Document 07/09/23 15:06 Laptop 07/09/23 15:08 07/09/23 15:06 Wound Center Nurse 2 -Time 15:07 -Correct Patient Yes -Correct Side, Site, Position Yes -Correct Procedure Yes -Procedure Performed Yes -Type of Procedure Debridement -Clinical Debridement Muscle / Fascia -Tissue Removed Muscle -Post Debridement (cm) - Length 0.6 -Post Debridement (cm) - Width 0.3 -Post Debridement (cm) - Depth 1.4 -Total Square (Post) (cm) 0.18 -Area of Debridement (cm) - Length 0.6 -Area of Debridement (cm) - Width 0.3 -Total Square (Area) (cm) 0.18 -Tunneling No -Undermining/Tunneling No -Circular Undermining No -Wound/Ulcer Outcome Not Healed -Ulcer Cleansing Rinsed/ Irrigated with Saline -Foul Odor after Cleansing No -Bioengineered Tissue No -Bleeding Controlled with Silver Nitrate -Treatment Response Procedure Tolerated Well -Offloading No -Debridement - Muscle / Fascia, 1st Yes 20sq cm Pain Scale: 0-10 Numeric Is Patient Pain Free? Yes VALENTÍN - Nurse 3 - General Ulcer D/C NN Start: 07/09/23 14:44 Freq: Status: Active Protocol: Activity Type Activity Date Activity User E-sign Co-sign Detail Recorded Client Recorded Date Recorded By Document 07/09/23 15:10 JF Laptop 07/09/23 15:10 JF 07/09/23 15:10 Wound Care Center Nurse 3 #1 L Buttock -Ulcer Cleansing Rinsed/ Irrigated with Saline -Foul Odor after Cleansing No -Primary Dressing Applied Mepilex Border, Promogran [place] Matter -Mepilex Border 1 -Promogran [place] Matter 1 Pain Scale: 0-10 Numeric Is Patient Pain Free? 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 We changed to a product with silver in it to help prevent bacteria from growing since he will be starting chemo soon. A wound culture from 08/29/22 was positive for Acinetobacter baumannii and Corynebacterium striatum and he completed Augmentin. He was recently diagnosed with Pancreatic cancer. He had surgery and is starting chemotherapy soon. Encouraged increase protein intake to help with wound healing. Follow up 2 weeks.
== END 2023-07-25 23:59 | disposition home or self-care (01) ==
LOC: WC 14:37
PROVIDERS: PCP Internal Medicine; Visit Provider Nurse Practitioner Family
DX: L89.224 Pressure ulcer of left hip, stage 4 (principal); C25.9 Malignant neoplasm of pancreas, unspecified; Z92.21 Personal history of antineoplastic chemotherapy; G62.9 Polyneuropathy, unspecified
CPT/HCPCS: 11043

== ENCOUNTER 2023-09-16 09:49 | Outpatient (RCR) | payer MEDICARE, OTHER, SELFPAY ==
[2023-07-26 00:27] VITALS: BP 154/86; PULSE 70; RESP 16; TEMP 36.1
[2023-09-16 09:49] VITALS: BP 109/50; PULSE 113; RESP 20; TEMP 36.3
--- NOTE | 2023-09-16 11:39 | PCM.WC.PN ---
History of Present Illness Date of Service: 09/16/23 Chief Complaint: Left ischium ulcer History of Wound: Patient is 72 year male who presents for evaluation of his left ischia ulcer that he obtained while hospital for a month during the summer 2021 at [facility] in [place]. He was admitted on October 20, 2021 with a virus of unknown origin. He required dialysis for GURMEET due to the infection. He had his left ischial ulcer debrided at the bedside. It goes down to muscle with tunneling. He was readmitted twice, for a week each time, to [facility]. He has home health and is received PT at home. His has been packing it with saline moistened gauze daily. He had a right lateral leg ulcer that is healed He had severe +4 pitting edema to bilateral lower legs and feet, which is resolved. He has not been wearing compression. He is a poor historian, but states he has a history of cardiac stents years ago, Left knee replacement 2010, right knee replacement 2017, appe 1969. Wound culture 08/29/22 positive for Acinetobacter baumannii and Corynebacterium striatum. Treated with Augmentin. He has been doing really well. Back to his normal activity, feeling much better, no longer having issues with edema. He was recently diagnosed with pancreatic cancer in February,. He underwent surgery and chemotherapy. Wound care - [facility]. Today he denies fever, chills, nausea, vomiting. He states his appetite is ok. Progress of Wound: Patient has had a lot of health issues recently with multiple hospitalizations. He is now insulin dependent diabetic. He has not had any chemotherapy yet for his pancreatic cancer. Ulcer is much smaller, still has depth. Objective Data Objective Data Vital Signs: Vital Signs Temp Pulse Resp BP 97.4 F L 113 H 20 H 109/50 L 09/16/23 09:49 09/16/23 09:49 09/16/23 09:49 09/16/23 09:49 Charges/Coding Procedures Integumentary 111xxx-113xx: 06138 Ashley musc/fascia 20 sq cm/< (ICD-10 - L89.324, G62.9) Debridement Note Debridement Note Wound debrided: #1 Left ischial area. Laterality: Left Wound Grade/Stage: Stage IV Type of Debridement: Excisional debridement Anesthesia Used: 5% Lidocaine Gel Depth: Down to and including healthy tissue, in the subcutaneous layer, to muscle and - (bone is palpable and not exposed.) Percentage of wound debrided: 100 Instrument Used: 3mm curette Tissue Removed: Subcutaneous tissue and muscle, devitalized tissue and slough. Severity: Fat Layer Exposed (muscle is exposed. bone is palpable and not exposed.) Amount of bleeding with debridement: Mild Bleeding Controlled with: Pressure and Compression and gauze Patient tolerated procedure: Patient tolerated procedure well Post-Debridement Measurements and Additional Note: Post-Debridement Measurements/Treatment WC - Nurse 1 - General Ulcer Assessment Start: 09/16/23 09:49 Freq: Status: Active Protocol: JANET Activity Type Activity Date Activity User E-sign Co-sign Detail Recorded Client Recorded Date Recorded By Document 09/16/23 09:49 DL [employer] 09/16/23 09:54 DL 09/16/23 09:49 WC - Today's Visit Information Type of service Follow-up Visit (Physician/[employer] ) Arrival Mode Ambulatory,Cane Transfer Assistance None Patient Identification Verified (Name & Yes ) Patient Requires Transmission-Based No Precautions Vital Signs Temperature (97.8 F-99.1 F) 97.4 F L Temperature Source Temporal Pulse Rate (60-100) 113 H Pulse Location Monitor Respiratory Rate (12-18) 20 H Respiratory rate source Observation Blood Pressure (90/60-120/80) 109/50 L Blood Pressure Mean (mm Hg) 69 Source Monitor History Since Last Visit- (Skip if this is Patient's initial visit) Have you changed medications since your No last visit? Any new allergies or adverse reactions No Had a fall/change in ADL's that may No increase risk of falls Signs or symptoms of abuse and/or No neglect since last visit Have you been in the hospital since your No last visit? Has dressing in place as prescribed Yes Has compression in place as prescribed N/A Has offloadiing in place as prescribed Yes Experienced any changes in pain level or No management Pain Scale: 0-10 Numeric Is Patient Pain Free? Yes - Nurse 1 - General Ulcer Measurement Start: 09/16/23 09:49 Freq: Status: Active Protocol: Activity Type Activity Date Activity User E-sign Co-sign Detail Recorded Client Recorded Date Recorded By Document 09/16/23 09:49 DL [employer] 09/16/23 09:54 DL 09/16/23 09:49 Wound Center Nurse 1 #1 L Buttock -Current Size (cm) - Length 0.6 -Current Size (cm) - Width 0.2 -Current Size (cm) - Depth 0.6 -Total Square Cm 0.12 -Photo Taken Yes -Exudate Amt Medium -Exudate Type Serosanguineous -Wound Margin Thickened -Granulation Amt None Present (0 %) -Necrosis Amt None Present (0 %) -Structure Exposed N/A -Texture ([place]line-wound Skin Appearance) Scarring -Moisture ([place]line-wound Skin Appearance) Maceration -Color ([place]line-wound Skin Appearance) No Abnormality -Temperature ([place]-wound Skin No Abnormality Appearance) (Pt Warm) -Tenderness on Palpation ([place]line-wound No Skin Appearance) -Ulcer Cleansing Rinsed/ Irrigated with Saline -Foul Odor after Cleansing No -Anesthetic Used 5% Lidocaine Gel WC - Nurse 2 - General Ulcer CM Notes Start: 09/16/23 09:49 Freq: Status: Active Protocol: Activity Type Activity Date Activity User E-sign Co-sign Detail Recorded Client Recorded Date Recorded By Document 09/16/23 10:08 Laptop 09/16/23 10:10 09/16/23 10:08 Wound Center Nurse 2 -Time 10:08 -Correct Patient Yes -Correct Side, Site, Position Yes -Correct Procedure Yes -Procedure Performed Yes -Type of Procedure Debridement -Clinical Debridement Muscle / Fascia -Tissue Removed Muscle,Fascia -Post Debridement (cm) - Length 0.6 -Post Debridement (cm) - Width 0.5 -Post Debridement (cm) - Depth 0.5 -Total Square (Post) (cm) 0.30 -Area of Debridement (cm) - Length 0.6 -Area of Debridement (cm) - Width 0.5 -Total Square (Area) (cm) 0.30 -Tunneling No -Undermining/Tunneling No -Circular Undermining No -Wound/Ulcer Outcome Not Healed -Ulcer Cleansing Rinsed/ Irrigated with Saline -Foul Odor after Cleansing No -Bioengineered Tissue No -Bleeding Controlled with Pressure -Treatment Response Procedure Tolerated Well -Offloading No -Debridement - Subq, 1st 20sq cm No -Debridement - Muscle / Fascia, 1st Yes 20sq cm Pain Scale: 0-10 Numeric Is Patient Pain Free? Yes WC - Nurse 3 - General Ulcer D/C NN Start: 09/16/23 09:49 Freq: Status: Active Protocol: Activity Type Activity Date Activity User E-sign Co-sign Detail Recorded Client Recorded Date Recorded By Document 09/16/23 10:18 Laptop 09/16/23 10:19 09/16/23 10:18 Wound Care Center Nurse 3 #1 L Buttock -Ulcer Cleansing Rinsed/ Irrigated with Saline -Foul Odor after Cleansing No -Primary Dressing Applied Mepilex Border, Promogran [place] Matter -Mepilex Border 1 -Promogran [place] Matter 1 Treatment Response Procedure Tolerated Well Pain Scale: 0-10 Numeric Is Patient Pain Free? 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 We changed to a product with silver in it to help prevent bacteria growth. A wound culture from 08/29/22 was positive for Acinetobacter baumannii and Corynebacterium striatum and he completed Augmentin. He was recently diagnosed with Pancreatic cancer. He had surgery and is starting chemotherapy soon. Encouraged increase protein intake to help with wound healing. Follow up 2 weeks.
== END 2023-09-24 23:59 | disposition home or self-care (01) ==
LOC: WC 09:49
PROVIDERS: PCP Internal Medicine; Visit Provider Nurse Practitioner Family
DX: L89.224 Pressure ulcer of left hip, stage 4 (principal); C25.9 Malignant neoplasm of pancreas, unspecified; E11.42 Type 2 diabetes mellitus with diabetic polyneuropathy; Z79.4 Long term (current) use of insulin; R60.0 Localized edema; Z95.5 Presence of coronary angioplasty implant and graft
CPT/HCPCS: 11043

== ENCOUNTER 2023-10-14 09:45 | Outpatient (RCR) | payer MEDICARE, OTHER, SELFPAY ==
[2023-09-25 00:09] VITALS: BP 109/50; PULSE 113; RESP 20; TEMP 36.3
[2023-09-30 09:48] VITALS: BP 114/50; PULSE 63; RESP 16; TEMP 36.3
--- NOTE | 2023-09-30 11:09 | PN.PCM_ITS ---
History of Present Illness Date of Service: 09/30/23 Chief Complaint: Left ischium ulcer History of Wound: Patient is 72 year male who presents for evaluation of his left ischia ulcer that he obtained while hospital for a month during the summer 2021 at [facility] in [place]. He was admitted on October 20, 2021 with a virus of unknown origin. He required dialysis for GURMEET due to the infection. He had his left ischial ulcer debrided at the bedside. It goes down to muscle with tunneling. He was readmitted twice, for a week each time, to [facility]. He has home health and is received PT at home. His has been packing it with saline moistened gauze daily. He had a right lateral leg ulcer that is healed He had severe +4 pitting edema to bilateral lower legs and feet, which is resolved. He has not been wearing compression. He is a poor historian, but states he has a history of cardiac stents years ago, Left knee replacement 2010, right knee replacement 2017, appe 1969. Wound culture 08/29/22 positive for Acinetobacter baumannii and Corynebacterium striatum. Treated with Augmentin. He has been doing really well. Back to his normal activity, feeling much better, no longer having issues with edema. He was recently diagnosed with pancreatic cancer in February,. He underwent surgery and chemotherapy. He recently was diagnosed with insulin dependent diabetes. Wound care - [facility]. Today he denies fever, chills, nausea, vomiting. He states his appetite is ok. Progress of Wound: Left buttocks ulcer is stable, the opening is smaller, making it more difficult to do wound care. There continues to be depth and the base is beefy pink. Objective Data Objective Data Vital Signs: Vital Signs Temp Pulse Resp BP O2 Del Method 97.3 F L 63 16 114/50 L Room Air 09/30/23 09:48 09/30/23 09:48 09/30/23 09:48 09/30/23 09:48 09/30/23 09:48 Oxygen Delivery Method Room Air Charges/Coding Procedures Integumentary 111xxx-113xx: [id number] Ashley musc/fascia 20 sq cm/< (ICD-10 - L89.324, G62.9) Debridement Note Debridement Note Wound debrided: #1 Left ischial area. Laterality: Left Wound Grade/Stage: Stage IV Type of Debridement: Excisional debridement Anesthesia Used: 5% Lidocaine Gel Depth: Down to and including healthy tissue, in the subcutaneous layer and to mu scle Percentage of wound debrided: 100 Instrument Used: 3mm curette Tissue Removed: Subcutaneous tissue and muscle, devitalized tissue and slough. Severity: Fat Layer Exposed (muscle is exposed. bone is palpable and not exposed.) Amount of bleeding with debridement: Mild Bleeding Controlled with: Pressure and Compression and gauze Patient tolerated procedure: Patient tolerated procedure well Debridement Free Text: Attempted to make the ulcer opening larger, to help with wound care. Post-Debridement Measurements and Additional Note: Post-Debridement Measurements/Treatment - Nurse 1 - General Ulcer Assessment Start: 09/30/23 09:46 Freq: Status: Active Protocol: JANET Activity Type Activity Date Activity User E-sign Co-sign Detail Recorded Client Recorded Date Recorded By Document 09/30/23 09:48 [facility] Desktop 09/30/23 09:54 [facility] 09/30/23 09:48 - Today's Visit Information Type of service Follow-up Visit (Physician/[employer] ) Arrival Mode Ambulatory Transfer Assistance None Patient Identification Verified (Name & Yes ) Patient Requires Transmission-Based No Precautions Vital Signs Temperature (97.8 F-99.1 F) 97.3 F L Temperature Source Temporal Pulse Rate (60-100) 63 Pulse Location Monitor Respiratory Rate (12-18) 16 Respiratory rate source Observation Oxygen Delivery Method Room Air Blood Pressure (90/60-120/80) 114/50 L Blood Pressure Mean (mm Hg) 71 Source Monitor Position Sitting Blood Pressure Location Left Arm History Since Last Visit- (Skip if this is Patient's initial visit) Have you changed medications since your No last visit? Any new allergies or adverse reactions No Had a fall/change in ADL's that may No increase risk of falls Signs or symptoms of abuse and/or No neglect since last visit Have you been in the hospital since your No last visit? Has dressing in place as prescribed Yes Has compression in place as prescribed N/A Has offloadiing in place as prescribed N/A Experienced any changes in pain level or No management Left Footwear Regular Shoe Right Footwear Regular Shoe Pain Scale: 0-10 Numeric Is Patient Pain Free? Yes - Nurse 1 - General Ulcer Measurement Start: 09/30/23 09:46 Freq: Status: Active Protocol: Activity Type Activity Date Activity User E-sign Co-sign Detail Recorded Client Recorded Date Recorded By Document 09/30/23 09:48 [facility] Desktop 09/30/23 09:54 [facility] 09/30/23 09:48 Wound Center Nurse 1 #1 L Buttock -Combined with other wound No -Current Size (cm) - Length 0.5 -Current Size (cm) - Width 0.1 -Current Size (cm) - Depth 0.6 -Total Square Cm 0.05 -Date of Last Picture (Recall this 09/30/23 field) -Photo Taken Yes -Tunneling No -Undermining/Tunneling No -Circular Undermining No -Exudate Amt Medium -Exudate Type Serosanguineous -Wound Margin Thickened -Granulation Amt Large (67-100%) -Granulation Quality Red -Slough/Fibrin Yes -Necrosis Amt Small (1-33%) -Necrotic Tissue Type Adherent Slough -Texture (Merline-wound Skin Appearance) Assessed, Scarring -Moisture ([place]line-wound Skin Appearance) Assessed, Maceration -Color ([place]-wound Skin Appearance) Assessed -Temperature ([place]-wound Skin No Abnormality Appearance) (Pt Warm) -Tenderness on Palpation ([place]line-wound No Skin Appearance) -Ulcer Cleansing Rinsed/ Irrigated with Saline -Foul Odor after Cleansing No -Anesthetic Used 5% Lidocaine Gel WC - Nurse 2 - General Ulcer CM Notes Start: 09/30/23 09:46 Freq: Status: Active Protocol: Activity Type Activity Date Activity User E-sign Co-sign Detail Recorded Client Recorded Date Recorded By Document 09/30/23 10:21 Desktop 09/30/23 10:24 09/30/23 10:21 Wound Center Nurse 2 -Time 10:21 -Correct Patient Yes -Correct Side, Site, Position Yes -Correct Procedure Yes -Procedure Performed Yes -Type of Procedure Debridement -Clinical Debridement Muscle / Fascia -Tissue Removed Muscle -Post Debridement (cm) - Length 0.7 -Post Debridement (cm) - Width 0.3 -Post Debridement (cm) - Depth 0.5 -Total Square (Post) (cm) 0.21 -Area of Debridement (cm) - Length 0.7 -Area of Debridement (cm) - Width 0.3 -Total Square (Area) (cm) 0.21 -Tunneling No -Undermining/Tunneling No -Circular Undermining No -Wound/Ulcer Outcome Not Healed -Ulcer Cleansing Rinsed/ Irrigated with Saline -Foul Odor after Cleansing No -Bioengineered Tissue No -Bleeding Controlled with Pressure -Treatment Response Procedure Tolerated Well -Debridement - Muscle / Fascia, 1st Yes 20sq cm Pain Scale: 0-10 Numeric Is Patient Pain Free? Yes WC - Nurse 3 - General Ulcer D/C NN Start: 09/30/23 09:46 Freq: Status: Active Protocol: Activity Type Activity Date Activity User E-sign Co-sign Detail Recorded Client Recorded Date Recorded By Document 09/30/23 10:30 KW Desktop 09/30/23 10:33 KW 09/30/23 10:30 Wound Care Center Nurse 3 #1 L Buttock -Primary Dressing Applied Mepilex Border, Promogran [place] Matter -Mepilex Border 1 -Promogran [place] Matter 1 Pain Scale: 0-10 Numeric Is Patient Pain Free? 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 A wound culture from 08/29/22 was positive for Acinetobacter baumannii and Corynebacterium striatum and he completed Augmentin. He was recently diagnosed with Pancreatic cancer. He had surgery and is starting chemotherapy as soon as they decide he is strong enough to handle chemotherapy. He also was recently diagnosed with diabetes and is insulin depen dent. Encouraged increase protein intake to help with wound healing. Follow up 2 weeks.
[2023-10-14 09:27] VITALS: BP 116/54; PULSE 67; RESP 18; TEMP 36.5
--- NOTE | 2023-10-14 09:52 | PN.PCM_ITS ---
History of Present Illness Date of Service: 10/14/23 Chief Complaint: Left ischium ulcer History of Wound: Patient is 72 year male who presents for evaluation of his left ischia ulcer that he obtained while hospital for a month during the summer 2021 at [facility] in [place]. He was admitted on October 20, 2021 with a virus of unknown origin. He required dialysis for GURMEET due to the infection. He had his left ischial ulcer debrided at the bedside. It goes down to muscle with tunneling. He was readmitted twice, for a week each time, to [facility]. He has home health and is received PT at home. His has been packing it with saline moistened gauze daily. He had a right lateral leg ulcer that is healed He had severe +4 pitting edema to bilateral lower legs and feet, which is resolved. He has not been wearing compression. He is a poor historian, but states he has a history of cardiac stents years ago, Left knee replacement 2010, right knee replacement 2017, appe 1969. Wound culture 08/29/22 positive for Acinetobacter baumannii and Corynebacterium striatum. Treated with Augmentin. He has been doing really well. Back to his normal activity, feeling much better, no longer having issues with edema. He was recently diagnosed with pancreatic cancer in February,. He underwent surgery and chemotherapy. He recently was diagnosed with insulin dependent diabetes. Wound care - [place]. Today he denies fever, chills, nausea, vomiting. He states his appetite is ok. Progress of Wound: Left buttocks ulcer is smaller, the base is pink. The dimpling appears to be decreasing. Objective Data Objective Data Vital Signs: Vital Signs Temp Pulse Resp BP O2 Del Method 97.7 F L 67 18 116/54 L Room Air 10/14/23 09:27 10/14/23 09:27 10/14/23 09:27 10/14/23 09:27 10/14/23 09:27 Oxygen Delivery Method Room Air Charges/Coding Procedures Integumentary 111xxx-113xx: 18025 Ashley subq tissue 20 sq cm/< Debridement Note Debridement Note Wound debrided: #1 Left ischial area. Laterality: Left Wound Grade/Stage: Stage IV Type of Debridement: Excisional debridement Anesthesia Used: 5% Lidocaine Gel Depth: Down to and including healthy tissue and in the subcutaneous layer Percentage of wound debrided: 100 Instrument Used: 3mm curette Tissue Removed: Subcutaneous tissue and devitalized tissue and slough. Severity: Fat Layer Exposed (muscle is exposed. bone is palpable and not exposed.) Amount of bleeding with debridement: Mild Bleeding Controlled with: Pressure and Compression and gauze Patient tolerated procedure: Patient tolerated procedure well Post-Debridement Measurements and Additional Note: Post-Debridement Measurements/Treatment - Nurse 1 - General Ulcer Assessment Start: 09/30/23 09:46 Freq: Status: Active Protocol: JANET Activity Type Activity Date Activity User E-sign Co-sign Detail Recorded Client Recorded Date Recorded By Document 09/30/23 09:48 BM Desktop 09/30/23 09:54 BMF Document 10/14/23 09:27 KW wound center 10/14/23 09:30 KW 09/30/23 10/14/23 09:48 09:27 - Today's Visit Information Type of service Follow-up Visit Follow-up Visit (Physician/WATER SOFTENER SERVICER (Physician/WATER SOFTENER SERVICER ) ) Arrival Mode Ambulatory Ambulatory Transfer Assistance None Patient Identification Verified (Name & Yes Yes ) Patient Requires Transmission-Based No Precautions Vital Signs Temperature (97.8 F-99.1 F) 97.3 F L 97.7 F L Temperature Source Temporal Temporal Pulse Rate (60-100) 63 67 Pulse Location Monitor Monitor Respiratory Rate (12-18) 16 18 Respiratory rate source Observation Observation Oxygen Delivery Method Room Air Room Air Blood Pressure (90/60-120/80) 114/50 L 116/54 L Blood Pressure Mean (mm Hg) 71 74 Source Monitor Monitor Position Sitting Semi-Fowlers Blood Pressure Location Left Arm Left Arm History Since Last Visit- (Skip if this is Patient's initial visit) Have you changed medications since your No No last visit? Any new allergies or adverse reactions No No Had a fall/change in ADL's that may No No increase risk of falls Signs or symptoms of abuse and/or No No neglect since last visit Have you been in the hospital since your No No last visit? Has dressing in place as prescribed Yes Yes Has compression in place as prescribed N/A N/A Has offloadiing in place as prescribed N/A N/A Experienced any changes in pain level or No No management Left Footwear Regular Shoe Regular Shoe Right Footwear Regular Shoe Regular Shoe Pain Scale: 0-10 Numeric Is Patient Pain Free? Yes Yes WC - Nurse 1 - General Ulcer Measurement Start: 09/30/23 09:46 Freq: Status: Active Protocol: Activity Type Activity Date Activity User E-sign Co-sign Detail Recorded Client Recorded Date Recorded By Document 09/30/23 09:48 BM Desktop 09/30/23 09:54 BM Document 10/14/23 09:27 KW wound center 10/14/23 09:30 KW 09/30/23 10/14/23 09:48 09:27 Wound Center Nurse 1 #1 L Buttock -Combined with other wound No -Current Size (cm) - Length 0.5 0.3 -Current Size (cm) - Width 0.1 0.1 -Current Size (cm) - Depth 0.6 0.3 -Total Square Cm 0.05 0.03 -Date of Last Picture (Recall this 09/30/23 field) -Photo Taken Yes -Tunneling No -Undermining/Tunneling No -Circular Undermining No -Exudate Amt Medium Small -Exudate Type Serosanguineous Serosanguineous -Wound Margin Thickened Distinct, Outline Attached -Granulation Amt Large (67-100%) Large (67-100%) -Granulation Quality Red Pale,[place] -Slough/Fibrin Yes -Necrosis Amt Small (1-33%) -Necrotic Tissue Type Adherent Slough -Texture ([place]-wound Skin Appearance) Assessed, Assessed Scarring -Moisture ([place]-wound Skin Appearance) Assessed, Assessed Maceration -Color ([place]-wound Skin Appearance) Assessed Assessed -Temperature ([place]-wound Skin No Abnormality No Abnormality Appearance) (Pt Warm) (Pt Warm) -Tenderness on Palpation ([place]-wound No No Skin Appearance) -Ulcer Cleansing Rinsed/ Rinsed/ Irrigated with Irrigated with Saline Saline -Foul Odor after Cleansing No No -Anesthetic Used 5% Lidocaine 5% Lidocaine Gel Gel WC - Nurse 2 - General Ulcer CM Notes Start: 09/30/23 09:46 Freq: Status: Active Protocol: Activity Type Activity Date Activity User E-sign Co-sign Detail Recorded Client Recorded Date Recorded By Document 09/30/23 10:21 GM Desktop 09/30/23 10:24 Document 10/14/23 09:46 DS [id number] 10/14/23 09:46 DS 09/30/23 10/14/23 10:21 09:46 Wound Center Nurse 2 #1 L Buttock -Time 10:21 09:46 -Correct Patient Yes Yes -Correct Side, Site, Position Yes Yes -Correct Procedure Yes Yes -Procedure Performed Yes Yes -Type of Procedure Debridement Debridement -Clinical Debridement Muscle / Fascia Subcutaneous -Tissue Removed Muscle Subcutaneous -Post Debridement (cm) - Length 0.7 0.5 -Post Debridement (cm) - Width 0.3 0.4 -Post Debridement (cm) - Depth 0.5 0.7 -Total Square (Post) (cm) 0.21 0.20 -Area of Debridement (cm) - Length 0.7 0.5 -Area of Debridement (cm) - Width 0.3 0.4 -Total Square (Area) (cm) 0.21 0.20 -Tunneling No No -Undermining/Tunneling No No -Circular Undermining No No -Wound/Ulcer Outcome Not Healed Not Healed -Ulcer Cleansing Rinsed/ Rinsed/ Irrigated with Irrigated with Saline Saline -Foul Odor after Cleansing No -Bioengineered Tissue No -Bleeding Controlled with Pressure Pressure -Treatment Response Procedure Procedure Tolerated Well Tolerated Well -Debridement - Subq, 1st 20sq cm Yes -Debridement - Muscle / Fascia, 1st Yes 20sq cm Pain Scale: 0-10 Numeric Is Patient Pain Free? Yes Yes - Nurse 3 - General Ulcer D/C NN Start: 09/30/23 09:46 Freq: Status: Active Protocol: Activity Type Activity Date Activity User E-sign Co-sign Detail Recorded Client Recorded Date Recorded By Document 09/30/23 10:30 KW Desktop 09/30/23 10:33 KW Document 10/14/23 09:49 [id number] 10/14/23 09:50 09/30/23 10/14/23 10:30 09:49 Wound Care Center Nurse 3 #1 L Buttock -Ulcer Cleansing Rinsed/ Irrigated with Saline -Foul Odor after Cleansing No -Primary Dressing Applied Mepilex Border, Mepilex Border, Promogran Promogran [place] Matter Sierra Matter -Mepilex Border 1 1 -Promogran [place] Matter 1 2 Pain Scale: 0-10 Numeric Is Patient Pain Free? 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 A wound culture from 08/29/22 was positive for Acinetobacter baumannii and Corynebacterium striatum and he completed Augmentin. He was recently diagnosed with Pancreatic cancer. He had surgery and is starting chemotherapy as soon as they decide he is strong enough to handle chemotherapy. He also was recently diagnosed with diabetes and is insulin dependent. Encouraged increase protein intake to help with wound healing. Follow up 3 weeks due to the holiday and I am out of town.
== END 2023-10-25 23:59 | disposition home or self-care (01) ==
LOC: WC 09:45
PROVIDERS: PCP Internal Medicine; Visit Provider Nurse Practitioner Family
DX: L89.224 Pressure ulcer of left hip, stage 4 (principal); E11.42 Type 2 diabetes mellitus with diabetic polyneuropathy; E11.9 Type 2 diabetes mellitus without complications; Z79.4 Long term (current) use of insulin; R60.0 Localized edema
CPT/HCPCS: 11042; 11043

== ENCOUNTER 2023-11-18 08:30 | Outpatient (RCR) | payer MEDICARE, OTHER, SELFPAY ==
[2023-10-26 00:25] VITALS: BP 109/50; PULSE 113; RESP 20; TEMP 36.3
[2023-11-04 09:53] VITALS: BP 139/76; PULSE 63; RESP 16; TEMP 36.3
--- NOTE | 2023-11-04 11:23 | PCM.WC.PN ---
History of Present Illness Date of Service: 11/04/23 Chief Complaint: Left ischium ulcer History of Wound: Patient is 72 year male who presents for evaluation of his left ischia ulcer that he obtained while hospital for a month during the summer 2021 at [facility] in [place]. He was admitted on October 20, 2021 with a virus of unknown origin. He required dialysis for GURMEET due to the infection. He had his left ischial ulcer debrided at the bedside. It goes down to muscle with tunneling. He was readmitted twice, for a week each time, to [facility]. He has home health and is received PT at home. His has been packing it with saline moistened gauze daily. He had a right lateral leg ulcer that is healed He had severe +4 pitting edema to bilateral lower legs and feet, which is resolved. He has not been wearing compression. He is a poor historian, but states he has a history of cardiac stents years ago, Left knee replacement 2010, right knee replacement 2017, appe 1969. Wound culture 08/29/22 positive for Acinetobacter baumannii and Corynebacterium striatum. Treated with Augmentin. He has been doing really well. Back to his normal activity, feeling much better, no longer having issues with edema. He was recently diagnosed with pancreatic cancer in February,. He underwent surgery and chemotherapy. He recently was diagnosed with insulin dependent diabetes. Wound care - [place]. Today he denies fever, chills, nausea, vomiting. He states his appetite is ok. Progress of Wound: Left buttocks ulcer is smaller in size. Base of ulcer is pink. Objective Data Objective Data Vital Signs: Vital Signs Temp Pulse Resp BP O2 Del Method 97.3 F L 63 16 139/76 H Room Air 11/04/23 09:53 11/04/23 09:53 11/04/23 09:53 11/04/23 09:53 11/04/23 09:53 Oxygen Delivery Method Room Air Charges/Coding Procedures Integumentary 111xxx-113xx: 63029 Ashley subq tissue 20 sq cm/< Debridement Note Debridement Note Wound debrided: #1 Left ischial area. Laterality: Left Wound Grade/Stage: Stage IV Type of Debridement: Excisional debridement Anesthesia Used: 5% Lidocaine Gel Depth: Down to and including healthy tissue and in the subcutaneous layer Percentage of wound debrided: 100 Instrument Used: 3mm curette Tissue Removed: Subcutaneous tissue and devitalized tissue and slough. Severity: Fat Layer Exposed (muscle is exposed. bone is palpable and not exposed.) Amount of bleeding with debridement: Mild Bleeding Controlled with: Pressure and Compression and gauze Patient tolerated procedure: Patient tolerated procedure well Debridement Free Text: Made ulcer opening larger to make it easier to pack. Post-Debridement Measurements and Additional Note: Post-Debridement Measurements/Treatment WC - Nurse 1 - General Ulcer Assessment Start: 11/04/23 09:53 Freq: Status: Active Protocol: JANET Activity Type Activity Date Activity User E-sign Co-sign Detail Recorded Client Recorded Date Recorded By Document 11/04/23 09:53 CP wound center 11/04/23 10:02 CP 11/04/23 09:53 WC - Today's Visit Information Type of service Follow-up Visit (Physician/BLISTER RUST ERADICATOR ) Arrival Mode Ambulatory Patient Identification Verified (Name & Yes ) Patient Requires Transmission-Based No Precautions Safety Precautions NA Finger Stick Blood Sugar(mg/dl) (if 125 indicated): Blood Sugar Stated by Patient Vital Signs Temperature (97.8 F-99.1 F) 97.3 F L Temperature Source Temporal Pulse Rate (60-100) 63 Pulse Location Monitor Respiratory Rate (12-18) 16 Respiratory rate source Observation Oxygen Delivery Method Room Air Blood Pressure (90/60-120/80) 139/76 H Blood Pressure Mean (mm Hg) 97 Source Monitor Position Prone Blood Pressure Location Left Arm History Since Last Visit- (Skip if this is Patient's initial visit) Have you changed medications since your No last visit? Any new allergies or adverse reactions No Had a fall/change in ADL's that may No increase risk of falls Signs or symptoms of abuse and/or No neglect since last visit Have you been in the hospital since your No last visit? Has dressing in place as prescribed Yes Has compression in place as prescribed N/A Has offloadiing in place as prescribed N/A Experienced any changes in pain level or No management Pain Scale: 0-10 Numeric Is Patient Pain Free? Yes VALENTÍN - Nurse 1 - General Ulcer Measurement Start: 11/04/23 09:53 Freq: Status: Active Protocol: Activity Type Activity Date Activity User E-sign Co-sign Detail Recorded Client Recorded Date Recorded By Document 11/04/23 09:53 wound center 11/04/23 10:02 CP 11/04/23 09:53 Wound Center Nurse 1 #1 L Buttock -Current Size (cm) - Length 0.3 -Current Size (cm) - Width 0.2 -Current Size (cm) - Depth 0.3 -Total Square Cm 0.06 -Photo Taken Yes -Tunneling No -Undermining/Tunneling No -Exudate Amt Small -Exudate Type Sanguineous -Wound Margin Flat & Intact -Granulation Amt Large (67-100%) -Granulation Quality [place] -Necrosis Amt None Present (0 %) -Structure Exposed N/A -Texture ([place]-wound Skin Appearance) No Abnormality -Moisture ([place]-wound Skin Appearance) No Abnormality -Color ([place]-wound Skin Appearance) No Abnormality -Temperature ([place]-wound Skin No Abnormality Appearance) (Pt Warm) -Tenderness on Palpation ([place]-wound No Skin Appearance) -Ulcer Cleansing Rinsed/ Irrigated with Saline -Foul Odor after Cleansing No -Anesthetic Used 5% Lidocaine Gel WC - Nurse 2 - General Ulcer CM Notes Start: 11/04/23 09:53 Freq: Status: Active Protocol: Activity Type Activity Date Activity User E-sign Co-sign Detail Recorded Client Recorded Date Recorded By Document 11/04/23 10:03 [facility] [id number] 11/04/23 10:06 [facility] 11/04/23 10:03 Wound Center Nurse 2 -Time 10:03 -Correct Patient Yes -Correct Side, Site, Position Yes -Correct Procedure Yes -Procedure Performed Yes -Type of Procedure Debridement -Clinical Debridement Subcutaneous -Tissue Removed Subcutaneous -Post Debridement (cm) - Length 0.4 -Post Debridement (cm) - Width 0.4 -Post Debridement (cm) - Depth 0.4 -Total Square (Post) (cm) 0.16 -Area of Debridement (cm) - Length 0.4 -Area of Debridement (cm) - Width 0.4 -Total Square (Area) (cm) 0.16 -Tunneling No -Undermining/Tunneling No -Circular Undermining No -Wound/Ulcer Outcome Not Healed -Ulcer Cleansing Rinsed/ Irrigated with Saline -Foul Odor after Cleansing No -Bioengineered Tissue No -Bleeding Controlled with Pressure -Treatment Response Procedure Tolerated Well -Debridement - Subq, 1st 20sq cm Yes Pain Scale: 0-10 Numeric Is Patient Pain Free? 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 A wound culture from 08/29/22 was positive for Acinetobacter baumannii and Corynebacterium striatum and he completed Augmentin. He was recently diagnosed with Pancreatic cancer. He had surgery states he his not going to need chemotherapy at this time. He also was recently diagnosed with diabetes and is insulin dependent. Encouraged increase protein intake to help with wound healing. Follow up 2 weeks due to the holiday and I am out of town.
[2023-11-18 08:11] VITALS: BP 144/65; PULSE 64; RESP 16; TEMP 36
--- NOTE | 2023-11-18 08:42 | PCM.WC.PN ---
History of Present Illness Date of Service: 11/18/23 Chief Complaint: Left ischium ulcer History of Wound: Patient is 72 year male who presents for evaluation of his left ischia ulcer that he obtained while hospital for a month during the summer 2021 at [facility] in [place]. He was admitted on October 20, 2021 with a virus of unknown origin. He required dialysis for GURMEET due to the infection. He had his left ischial ulcer debrided at the bedside. It goes down to muscle with tunneling. He was readmitted twice, for a week each time, to [facility]. He has home health and is received PT at home. His has been packing it with saline moistened gauze daily. He had a right lateral leg ulcer that is healed He had severe +4 pitting edema to bilateral lower legs and feet, which is resolved. He has not been wearing compression. He is a poor historian, but states he has a history of cardiac stents years ago, Left knee replacement 2010, right knee replacement 2017, appe 1969. Wound culture 08/29/22 positive for Acinetobacter baumannii and Corynebacterium striatum. Treated with Augmentin. He has been doing really well. Back to his normal activity, feeling much better, no longer having issues with edema. He was recently diagnosed with pancreatic cancer in February,. He underwent surgery and chemotherapy. He recently was diagnosed with insulin dependent diabetes. Wound care - [place]. Today he denies fever, chills, nausea, vomiting. He states his appetite is ok. Progress of Wound: Left buttocks ulcer is smaller in size. Base of ulcer is pink. Objective Data Objective Data Vital Signs: Vital Signs Temp Pulse Resp BP O2 Del Method 96.8 F L 64 16 144/65 H Room Air 11/18/23 08:11 11/18/23 08:11 11/18/23 08:11 11/18/23 08:11 11/18/23 08:11 Oxygen Delivery Method Room Air Charges/Coding Procedures Integumentary 111xxx-113xx: 84483 Ashley subq tissue 20 sq cm/< Debridement Note Debridement Note Wound debrided: #1 Left ischial area. Laterality: Left Wound Grade/Stage: Stage IV Type of Debridement: Excisional debridement Anesthesia Used: 5% Lidocaine Gel Depth: Down to and including healthy tissue and in the subcutaneous layer Percentage of wound debrided: 100 Instrument Used: 3mm curette Tissue Removed: Subcutaneous tissue and devitalized tissue and slough. Severity: Fat Layer Exposed (muscle is exposed. bone is palpable and not exposed.) Amount of bleeding with debridement: Mild Bleeding Controlled with: Pressure and Compression and gauze Patient tolerated procedure: Patient tolerated procedure well Debridement Free Text: Made ulcer opening larger to make it easier to pack. Post-Debridement Measurements and Additional Note: Post-Debridement Measurements/Treatment - Nurse 1 - General Ulcer Assessment Start: 11/04/23 09:53 Freq: Status: Active Protocol: JANET Activity Type Activity Date Activity User E-sign Co-sign Detail Recorded Client Recorded Date Recorded By Document 11/04/23 09:53 CP wound center 11/04/23 10:02 CP Document 11/18/23 08:11 [facility] 11/18/23 08:15 [facility] 11/04/23 11/18/23 09:53 08:11 - Today's Visit Information Type of service Follow-up Visit Follow-up Visit (Physician/REPAIR TABLE OPERATOR (Physician/REPAIR TABLE OPERATOR ) ) Arrival Mode Ambulatory Ambulatory Transfer Assistance None Patient Identification Verified (Name & Yes Yes ) Patient Requires Transmission-Based No No Precautions Safety Precautions NA Finger Stick Blood Sugar(mg/dl) (if 125 indicated): Blood Sugar Stated by Patient Vital Signs Temperature (97.8 F-99.1 F) 97.3 F L 96.8 F L Temperature Source Temporal Temporal Pulse Rate (60-100) 63 64 Pulse Location Monitor Monitor Respiratory Rate (12-18) 16 16 Respiratory rate source Observation Observation Oxygen Delivery Method Room Air Room Air Blood Pressure (90/60-120/80) 139/76 H 144/65 H Blood Pressure Mean (mm Hg) 97 91 Source Monitor Monitor Position Prone Sitting Blood Pressure Location Left Arm Left Arm History Since Last Visit- (Skip if this is Patient's initial visit) Have you changed medications since your No No last visit? Any new allergies or adverse reactions No No Had a fall/change in ADL's that may No No increase risk of falls Signs or symptoms of abuse and/or No No neglect since last visit Have you been in the hospital since your No No last visit? Has dressing in place as prescribed Yes Yes Has compression in place as prescribed N/A N/A Has offloadiing in place as prescribed N/A N/A Experienced any changes in pain level or No No management Left Footwear Regular Shoe Right Footwear Regular Shoe Pain Scale: 0-10 Numeric Is Patient Pain Free? Yes Yes WC - Nurse 1 - General Ulcer Measurement Start: 11/04/23 09:53 Freq: Status: Active Protocol: Activity Type Activity Date Activity User E-sign Co-sign Detail Recorded Client Recorded Date Recorded By Document 11/04/23 09:53 CP wound center 11/04/23 10:02 CP Document 11/18/23 08:11 [facility] 11/18/23 08:15 [facility] 11/04/23 11/18/23 09:53 08:11 Wound Center Nurse 1 #1 L Buttock -Combined with other wound No -Current Size (cm) - Length 0.3 0.3 -Current Size (cm) - Width 0.2 0.1 -Current Size (cm) - Depth 0.3 0.3 -Total Square Cm 0.06 0.03 -Date of Last Picture (Recall this 11/18/23 field) -Photo Taken Yes Yes -Tunneling No No -Undermining/Tunneling No No -Circular Undermining No -Exudate Amt Small Medium -Exudate Type Sanguineous Serosanguineous -Wound Margin Flat & Intact Thickened & Rolled Under -Granulation Amt Large (67-100%) Large (67-100%) -Granulation Quality [place] -Slough/Fibrin Yes -Necrosis Amt None Present (0 Small (1-33%) %) -Necrotic Tissue Type Adherent Slough -Structure Exposed N/A -Texture ([place]line-wound Skin Appearance) No Abnormality Assessed, Scarring -Moisture ([place]-wound Skin Appearance) No Abnormality Assessed, Maceration -Color ([place]-wound Skin Appearance) No Abnormality Assessed -Temperature ([place]-wound Skin No Abnormality No Abnormality Appearance) (Pt Warm) (Pt Warm) -Tenderness on Palpation ([place]-wound No No Skin Appearance) -Ulcer Cleansing Rinsed/ Rinsed/ Irrigated with Irrigated with Saline Saline -Foul Odor after Cleansing No No -Anesthetic Used 5% Lidocaine 5% Lidocaine Gel Gel VALENTÍN - Nurse 2 - General Ulcer CM Notes Start: 11/04/23 09:53 Freq: Status: Active Protocol: Activity Type Activity Date Activity User E-sign Co-sign Detail Recorded Client Recorded Date Recorded By Document 11/04/23 10:03 [facility] [id number] 11/04/23 10:06 [facility] Document 11/18/23 08:30 JF 0000 11/18/23 08:32 JF 11/04/23 11/18/23 10:03 08:30 Wound Center Nurse 2 #1 L Buttock -Time 10:03 08:30 -Correct Patient Yes Yes -Correct Side, Site, Position Yes Yes -Correct Procedure Yes Yes -Procedure Performed Yes Yes -Type of Procedure Debridement Debridement -Clinical Debridement Subcutaneous Subcutaneous -Tissue Removed Subcutaneous Subcutaneous -Post Debridement (cm) - Length 0.4 0.3 -Post Debridement (cm) - Width 0.4 0.3 -Post Debridement (cm) - Depth 0.4 0.6 -Total Square (Post) (cm) 0.16 0.09 -Area of Debridement (cm) - Length 0.4 0.3 -Area of Debridement (cm) - Width 0.4 0.3 -Total Square (Area) (cm) 0.16 0.09 -Tunneling No No -Undermining/Tunneling No No -Circular Undermining No No -Wound/Ulcer Outcome Not Healed Not Healed -Ulcer Cleansing Rinsed/ Rinsed/ Irrigated with Irrigated with Saline Saline -Foul Odor after Cleansing No No -Bioengineered Tissue No No -Bleeding Controlled with Pressure Pressure -Treatment Response Procedure Procedure Tolerated Well Tolerated Well -Offloading No -Debridement - Subq, 1st 20sq cm Yes Yes Pain Scale: 0-10 Numeric Is Patient Pain Free? Yes Yes - Nurse 3 - General Ulcer D/C NN Start: 11/04/23 09:53 Freq: Status: Active Protocol: Activity Type Activity Date Activity User E-sign Co-sign Detail Recorded Client Recorded Date Recorded By Document 11/18/23 08:42 KW k 11/18/23 08:42 KW 11/18/23 08:42 Wound Care Center Nurse 3 #1 L Buttock -Primary Dressing Applied Mepilex Border, Promogran Sierra Matter -Mepilex Border 1 -Promogran [place] Matter 1 Pain Scale: 0-10 Numeric Is Patient Pain Free? 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 A wound culture from 08/29/22 was positive for Acinetobacter baumannii and Corynebacterium striatum and he completed Augmentin. He was recently diagnosed with Pancreatic cancer. He had surgery states he his not going to need chemotherapy at this time. He also was recently diagnosed with diabetes and is insulin dependent. Encouraged increase protein intake to help with wound healing. Follow up 2 weeks.
--- NOTE | 2023-11-18 10:40 | WC ---
PHOTO 11/18/2023 LEFT BUTTOCKS
== END 2023-11-24 23:59 | disposition home or self-care (01) ==
LOC: WC 08:30
PROVIDERS: PCP Internal Medicine; Visit Provider Nurse Practitioner Family
DX: L89.224 Pressure ulcer of left hip, stage 4 (principal); E11.42 Type 2 diabetes mellitus with diabetic polyneuropathy; Z79.4 Long term (current) use of insulin; Z92.21 Personal history of antineoplastic chemotherapy; G62.9 Polyneuropathy, unspecified
CPT/HCPCS: 11042

== ENCOUNTER 2023-12-16 13:00 | Outpatient (RCR) | payer MEDICARE, OTHER, SELFPAY ==
[2023-11-25 00:31] VITALS: BP 109/50; PULSE 113; RESP 20; TEMP 36.3
[2023-12-02 13:09] VITALS: BP 122/62; PULSE 63; RESP 18; TEMP 36.8
--- NOTE | 2023-12-02 13:39 | PCM.WC.PN ---
History of Present Illness Date of Service: 12/02/23 Chief Complaint: Left ischium ulcer History of Wound: Patient is 72 year male who presents for evaluation of his left ischia ulcer that he obtained while hospital for a month during the summer 2021 at [facility] in [place]. He was admitted on October 20, 2021 with a virus of unknown origin. He required dialysis for GURMEET due to the infection. He had his left ischial ulcer debrided at the bedside. It goes down to muscle with tunneling. He was readmitted twice, for a week each time, to [facility]. He has home health and is received PT at home. His has been packing it with saline moistened gauze daily. He had a right lateral leg ulcer that is healed He had severe +4 pitting edema to bilateral lower legs and feet, which is resolved. He has not been wearing compression. He is a poor historian, but states he has a history of cardiac stents years ago, Left knee replacement 2010, right knee replacement 2017, appe 1969. Wound culture 08/29/22 positive for Acinetobacter baumannii and Corynebacterium striatum. Treated with Augmentin. He has been doing really well. Back to his normal activity, feeling much better, no longer having issues with edema. He was recently diagnosed with pancreatic cancer in February,. He underwent surgery and chemotherapy. He recently was diagnosed with insulin dependent diabetes. Wound care - [place]. Today he denies fever, chills, nausea, vomiting. He states his appetite is ok. Progress of Wound: Left buttocks ulcer is smaller in size. Base of ulcer is pink. It is becoming difficult to pack the ulcer. Objective Data Objective Data Vital Signs: Vital Signs Temp Pulse Resp BP O2 Del Method 98.2 F 63 18 122/62 H Room Air 12/02/23 13:09 12/02/23 13:09 12/02/23 13:09 12/02/23 13:09 12/02/23 13:09 Oxygen Delivery Method Room Air Charges/Coding Procedures Integumentary 111xxx-113xx: 52261 Ashley subq tissue 20 sq cm/< Debridement Note Debridement Note Wound debrided: #1 Left ischial area. Laterality: Left Wound Grade/Stage: Stage IV Type of Debridement: Excisional debridement Anesthesia Used: 5% Lidocaine Gel Depth: Down to and including healthy tissue and in the subcutaneous layer Percentage of wound debrided: 100 Instrument Used: 3mm curette Tissue Removed: Subcutaneous tissue and devitalized tissue and slough. Severity: Fat Layer Exposed (muscle is exposed. bone is palpable and not exposed.) Amount of bleeding with debridement: Mild Bleeding Controlled with: Pressure and Compression and gauze Patient tolerated procedure: Patient tolerated procedure well Post-Debridement Measurements and Additional Note: Post-Debridement Measurements/Treatment - Nurse 1 - General Ulcer Assessment Start: 12/02/23 13:08 Freq: Status: Active Protocol: JANET Activity Type Activity Date Activity User E-sign Co-sign Detail Recorded Client Recorded Date Recorded By Document 12/02/23 13:09 KW h 12/02/23 13:13 KW 12/02/23 13:09 - Today's Visit Information Type of service Follow-up Visit (Physician/COLLECTION CORRESPONDENT ) Arrival Mode Ambulatory Patient Identification Verified (Name & Yes ) Vital Signs Temperature (97.8 F-99.1 F) 98.2 F Temperature Source Temporal Pulse Rate (60-100) 63 Pulse Location Monitor Respiratory Rate (12-18) 18 Respiratory rate source Observation Oxygen Delivery Method Room Air Blood Pressure (90/60-120/80) 122/62 H Blood Pressure Mean (mm Hg) 82 Source Monitor Position Sitting Blood Pressure Location Left Arm History Since Last Visit- (Skip if this is Patient's initial visit) Have you changed medications since your No last visit? Any new allergies or adverse reactions No Had a fall/change in ADL's that may No increase risk of falls Signs or symptoms of abuse and/or No neglect since last visit Have you been in the hospital since your No last visit? Has dressing in place as prescribed Yes Has compression in place as prescribed N/A Has offloadiing in place as prescribed N/A Experienced any changes in pain level or No management Left Footwear Regular Shoe Right Footwear Regular Shoe Pain Scale: 0-10 Numeric Is Patient Pain Free? Yes - Nurse 1 - General Ulcer Measurement Start: 12/02/23 13:08 Freq: Status: Active Protocol: Activity Type Activity Date Activity User E-sign Co-sign Detail Recorded Client Recorded Date Recorded By Document 12/02/23 13:09 KW h 12/02/23 13:13 KW 12/02/23 13:09 Wound Center Nurse 1 #1 L Buttock -Current Size (cm) - Length 0.4 -Current Size (cm) - Width 0.2 -Current Size (cm) - Depth 0.4 -Total Square Cm 0.08 -Date of Last Picture (Recall this 12/02/23 field) -Epithelialization Large 67-100% -Exudate Amt Small -Exudate Type Serosanguineous -Wound Margin Distinct, Outline Attached -Granulation Amt Large (67-100%) -Granulation Quality [place] -Necrosis Amt Small (1-33%) -Necrotic Tissue Type Adherent Slough -Texture (Merline-wound Skin Appearance) Assessed -Moisture (Merline-wound Skin Appearance) Assessed -Color ([place]line-wound Skin Appearance) Assessed -Temperature ([place]line-wound Skin No Abnormality Appearance) (Pt Warm) -Tenderness on Palpation (Merline-wound No Skin Appearance) -Ulcer Cleansing Rinsed/ Irrigated with Saline -Foul Odor after Cleansing No -Anesthetic Used 5% Lidocaine Gel WC - Nurse 2 - General Ulcer CM Notes Start: 12/02/23 13:08 Freq: Status: Active Protocol: Activity Type Activity Date Activity User E-sign Co-sign Detail Recorded Client Recorded Date Recorded By Document 12/02/23 13:22 JF 12/02/23 13:24 JF 12/02/23 13:22 Wound Center Nurse 2 -Time 13:23 -Correct Patient Yes -Correct Side, Site, Position Yes -Correct Procedure Yes -Procedure Performed Yes -Type of Procedure Debridement -Clinical Debridement Subcutaneous -Tissue Removed Subcutaneous -Post Debridement (cm) - Length 0.5 -Post Debridement (cm) - Width 0.3 -Post Debridement (cm) - Depth 0.4 -Total Square (Post) (cm) 0.15 -Area of Debridement (cm) - Length 0.5 -Area of Debridement (cm) - Width 0.3 -Total Square (Area) (cm) 0.15 -Tunneling No -Undermining/Tunneling No -Circular Undermining No -Wound/Ulcer Outcome Not Healed -Ulcer Cleansing Rinsed/ Irrigated with Saline -Foul Odor after Cleansing No -Bioengineered Tissue No -Bleeding Controlled with Pressure -Treatment Response Procedure Tolerated Well -Offloading No -Debridement - Subq, 1st 20sq cm Yes Pain Scale: 0-10 Numeric Is Patient Pain Free? Yes WC - Nurse 3 - General Ulcer D/C NN Start: 12/02/23 13:08 Freq: Status: Active Protocol: Activity Type Activity Date Activity User E-sign Co-sign Detail Recorded Client Recorded Date Recorded By Document 12/02/23 13:24 12/02/23 13:25 12/02/23 13:24 Wound Care Center Nurse 3 #1 L Buttock -Ulcer Cleansing Rinsed/ Irrigated with Saline -Foul Odor after Cleansing No -Primary Dressing Applied C Hydrogel ($), Mepilex Border -Mepilex Border 1 Pain Scale: 0-10 Numeric Is Patient Pain Free? 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 Wash ulcer with soap and water at the time of the dressing changes. A wound culture from 08/29/22 was positive for Acinetobacter baumannii and Corynebacterium striatum and he completed Augmentin. He was recently diagnosed with Pancreatic cancer. He had surgery states he his not going to need chemotherapy at this time. He also was recently diagnosed with diabetes and is insulin dependent. Encouraged increase protein intake to help with wound healing. Follow up 2 weeks.
--- NOTE | 2023-12-05 09:27 | WC ---
PHOTO LT BUTTOCK 12/02/2023
[2023-12-16 13:11] VITALS: BP 131/62; PULSE 63; RESP 18; TEMP 36.1
--- NOTE | 2023-12-16 15:40 | PCM.WC.PN ---
History of Present Illness Date of Service: 12/16/23 Chief Complaint: Left ischium ulcer History of Wound: Patient is 73 year male who presents for evaluation of his left ischia ulcer that he obtained while hospital for a month during the summer 2021 at [facility] in [place]. He was admitted on October 20, 2021 with a virus of unknown origin. He required dialysis for GURMEET due to the infection. He had his left ischial ulcer debrided at the bedside. It goes down to muscle with tunneling. He was readmitted twice, for a week each time, to [facility]. He has home health and is received PT at home. His has been packing it with saline moistened gauze daily. He had a right lateral leg ulcer that is healed He had severe +4 pitting edema to bilateral lower legs and feet, which is resolved. He has not been wearing compression. He is a poor historian, but states he has a history of cardiac stents years ago, Left knee replacement 2010, right knee replacement 2017, appe 1969. Wound culture 08/29/22 positive for Acinetobacter baumannii and Corynebacterium striatum. Treated with Augmentin. He has been doing really well. Back to his normal activity, feeling much better, no longer having issues with edema. He was recently diagnosed with pancreatic cancer in February,. He underwent surgery, he never had chemotherapy. November 2023 he was diagnosed with two lesions on his lung. They will be biopsied at the end of November. He recently was diagnosed with insulin dependent diabetes. Wound care - [facility]. Today he denies fever, chills, nausea, vomiting. He states his appetite is ok. Progress of Wound: Left buttocks ulcer is smaller in size. Base of ulcer is pink. He states the wound care is easier with the collagen hydrogel. He had a recent CT scan that showed he has two lesions on his lungs. He is going next week for a biopsy so they can determine how to treat with chemotherapy. Objective Data Objective Data Vital Signs: Vital Signs Temp Pulse Resp BP O2 Del Method 97.0 F L 63 18 131/62 H Room Air 12/16/23 13:11 12/16/23 13:11 12/16/23 13:11 12/16/23 13:11 12/16/23 13:11 Oxygen Delivery Method Room Air Charges/Coding Procedures Integumentary 111xxx-113xx: 27454 Ashley subq tissue 20 sq cm/< Debridement Note Debridement Note Wound debrided: #1 Left ischial area. Laterality: Left Wound Grade/Stage: Stage IV Type of Debridement: Excisional debridement Anesthesia Used: 5% Lidocaine Gel Depth: Down to and including healthy tissue and in the subcutaneous layer Percentage of wound debrided: 100 Instrument Used: 3mm curette Tissue Removed: Subcutaneous tissue and devitalized tissue and slough. Severity: Fat Layer Exposed (muscle is exposed. bone is palpable and not exposed.) Amount of bleeding with debridement: Mild Bleeding Controlled with: Pressure and Compression and gauze Patient tolerated procedure: Patient tolerated procedure well Post-Debridement Measurements and Additional Note: Post-Debridement Measurements/Treatment WC - Nurse 1 - General Ulcer Assessment Start: 12/02/23 13:08 Freq: Status: Active Protocol: JANET Activity Type Activity Date Activity User E-sign Co-sign Detail Recorded Client Recorded Date Recorded By Document 12/02/23 13:09 KW h 12/02/23 13:13 KW Document 12/16/23 13:11 KW l 12/16/23 13:17 KW 12/02/23 12/16/23 13:09 13:11 - Today's Visit Information Type of service Follow-up Visit Follow-up Visit (Physician/ETHNOARCHAEOLOGY PROFESSOR (Physician/ETHNOARCHAEOLOGY PROFESSOR ) ) Arrival Mode Ambulatory Ambulatory Patient Identification Verified (Name & Yes Yes ) Vital Signs Temperature (97.8 F-99.1 F) 98.2 F 97.0 F L Temperature Source Temporal Temporal Pulse Rate (60-100) 63 63 Pulse Location Monitor Monitor Respiratory Rate (12-18) 18 18 Respiratory rate source Observation Observation Oxygen Delivery Method Room Air Room Air Blood Pressure (90/60-120/80) 122/62 H 131/62 H Blood Pressure Mean (mm Hg) 82 85 Source Monitor Monitor Position Sitting Semi-Fowlers Blood Pressure Location Left Arm Left Arm History Since Last Visit- (Skip if this is Patient's initial visit) Have you changed medications since your No No last visit? Any new allergies or adverse reactions No No Had a fall/change in ADL's that may No No increase risk of falls Signs or symptoms of abuse and/or No No neglect since last visit Have you been in the hospital since your No No last visit? Has dressing in place as prescribed Yes Yes Has compression in place as prescribed N/A N/A Has offloadiing in place as prescribed N/A N/A Experienced any changes in pain level or No management Left Footwear Regular Shoe Regular Shoe Right Footwear Regular Shoe Regular Shoe Pain Scale: 0-10 Numeric Is Patient Pain Free? Yes Yes WC - Nurse 1 - General Ulcer Measurement Start: 12/02/23 13:08 Freq: Status: Active Protocol: Activity Type Activity Date Activity User E-sign Co-sign Detail Recorded Client Recorded Date Recorded By Document 12/02/23 13:09 KW h 12/02/23 13:13 KW Document 12/16/23 13:11 KW l 12/16/23 13:17 KW 12/02/23 12/16/23 13:09 13:11 Wound Center Nurse 1 #1 L Buttock -Current Size (cm) - Length 0.4 0.2 -Current Size (cm) - Width 0.2 0.2 -Current Size (cm) - Depth 0.4 0.7 -Total Square Cm 0.08 0.04 -Date of Last Picture (Recall this 12/02/23 12/16/23 field) -Epithelialization Large 67-100% -Exudate Amt Small Small -Exudate Type Serosanguineous Serosanguineous -Wound Margin Distinct, Distinct, Outline Outline Attached Attached -Granulation Amt Large (67-100%) Large (67-100%) -Granulation Quality [place] -Necrosis Amt Small (1-33%) Small (1-33%) -Necrotic Tissue Type Adherent Slough Adherent Slough -Texture ([place]-wound Skin Appearance) Assessed Assessed -Moisture ([place]-wound Skin Appearance) Assessed Assessed -Color ([place]-wound Skin Appearance) Assessed Assessed -Temperature ([place]-wound Skin No Abnormality No Abnormality Appearance) (Pt Warm) (Pt Warm) -Tenderness on Palpation ([place]-wound No No Skin Appearance) -Ulcer Cleansing Rinsed/ Rinsed/ Irrigated with Irrigated with Saline Saline -Foul Odor after Cleansing No No -Anesthetic Used 5% Lidocaine 5% Lidocaine Gel Gel WC - Nurse 2 - General Ulcer CM Notes Start: 12/02/23 13:08 Freq: Status: Active Protocol: Activity Type Activity Date Activity User E-sign Co-sign Detail Recorded Client Recorded Date Recorded By Document 12/02/23 13:22 JF 00 12/02/23 13:24 Document 12/16/23 13:20 [facility] 10.10.25.7 12/16/23 13:26 [facility] 12/02/23 12/16/23 13:22 13:20 Wound Center Nurse 2 #1 L Buttock -Time 13:23 13:21 -Correct Patient Yes Yes -Correct Side, Site, Position Yes Yes -Correct Procedure Yes Yes -Procedure Performed Yes Yes -Type of Procedure Debridement Debridement -Clinical Debridement Subcutaneous Subcutaneous -Tissue Removed Subcutaneous Subcutaneous -Post Debridement (cm) - Length 0.5 0.3 -Post Debridement (cm) - Width 0.3 0.3 -Post Debridement (cm) - Depth 0.4 0.3 -Total Square (Post) (cm) 0.15 0.09 -Area of Debridement (cm) - Length 0.5 0.3 -Area of Debridement (cm) - Width 0.3 0.3 -Total Square (Area) (cm) 0.15 0.09 -Tunneling No No -Undermining/Tunneling No No -Circular Undermining No No -Wound/Ulcer Outcome Not Healed Not Healed -Ulcer Cleansing Rinsed/ Rinsed/ Irrigated with Irrigated with Saline Saline -Foul Odor after Cleansing No No -Bioengineered Tissue No No -Bleeding Controlled with Pressure Pressure -Treatment Response Procedure Procedure Tolerated Well Tolerated Well -Offloading No -Debridement - Subq, 1st 20sq cm Yes Yes Pain Scale: 0-10 Numeric Is Patient Pain Free? Yes Yes WC - Nurse 3 - General Ulcer D/C NN Start: 12/02/23 13:08 Freq: Status: Active Protocol: Activity Type Activity Date Activity User E-sign Co-sign Detail Recorded Client Recorded Date Recorded By Document 12/02/23 13:24 00 12/02/23 13:25 Document 12/16/23 13:32 [facility] 10.10.25.7 12/16/23 13:33 [facility] 12/02/23 12/16/23 13:24 13:32 Wound Care Center Nurse 3 #1 L Buttock -Ulcer Cleansing Rinsed/ Irrigated with Saline -Foul Odor after Cleansing No -Primary Dressing Applied C Hydrogel ($), Mepilex Border Mepilex Border -Other Dressing collagen hydrogel -Primary Dressing Covered/Secured with Dry Gauze -Mepilex Border 1 1 Pain Scale: 0-10 Numeric Is Patient Pain Free? 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 Wash ulcer with soap and water at the time of the dressing changes. A wound culture from 08/29/22 was positive for Acinetobacter baumannii and Corynebacterium striatum and he completed Augmentin. He was recently diagnosed with Pancreatic cancer. He had surgery and didn't initially need chemotherapy. Now that they have found the 2 spots on his lung, he is having biopsy of these and then they will decide what chemotherapy to treat him with. The biopsy is scheduled for the the last week of November. He also recently diagnosed with diabetes and is insulin dependent. Encouraged increase protein intake to help with wound healing. Follow up 2 weeks.
--- NOTE | 2023-12-25 09:37 | WC ---
PHOTO LEFT BUTTOCK 12/16/23
== END 2023-12-25 23:59 | disposition home or self-care (01) ==
LOC: WC 13:00
PROVIDERS: PCP Internal Medicine; Referring Provider Nurse Practitioner Family; Visit Provider Nurse Practitioner Family
DX: L89.224 Pressure ulcer of left hip, stage 4 (principal); E11.42 Type 2 diabetes mellitus with diabetic polyneuropathy
CPT/HCPCS: 11042

== ENCOUNTER 2024-01-15 12:59 | Outpatient (RCR) | payer MEDICARE, OTHER, SELFPAY ==
[2023-12-26 00:16] VITALS: BP 109/50; PULSE 113; RESP 20; TEMP 36.3
[2024-01-15 13:31] VITALS: BP 164/87; PULSE 78; RESP 18; TEMP 36.9
--- NOTE | 2024-01-15 16:50 | PCM.WC.PN ---
History of Present Illness Date of Service: 01/15/24 Chief Complaint: Left ischium ulcer History of Wound: Patient is 73 year male who presents for evaluation of his left ischia ulcer that he obtained while hospital for a month during the summer 2021 at [facility] in [place]. He was admitted on October 20, 2021 with a virus of unknown origin. He required dialysis for GURMEET due to the infection. He had his left ischial ulcer debrided at the bedside. It goes down to muscle with tunneling. He was readmitted twice, for a week each time, to [facility]. He has home health and is received PT at home. His has been packing it with saline moistened gauze daily. He had a right lateral leg ulcer that is healed He had severe +4 pitting edema to bilateral lower legs and feet, which is resolved. He has not been wearing compression. He is a poor historian, but states he has a history of cardiac stents years ago, Left knee replacement 2010, right knee replacement 2017, appe 1969. Wound culture 08/29/22 positive for Acinetobacter baumannii and Corynebacterium striatum. Treated with Augmentin. He has been doing really well. Back to his normal activity, feeling much better, no longer having issues with edema. He was recently diagnosed with pancreatic cancer in February,. He underwent surgery, he never had chemotherapy. November 2023 he was diagnosed with two lesions on his lung. They will be biopsied at the end of November. He recently was diagnosed with insulin dependent diabetes. Wound care - [facility]. Today he denies fever, chills, nausea, vomiting. He states his appetite is ok. Progress of Wound: Left buttocks ulcer opening is smaller but the depth is slightly deeper. Base of ulcer is pink, it is difficult to see due to the smaller size of the ulcer opening. He had a lung biopsy that was inconclusive at . He states that he was told that they believe that it is cancer. He is going through pulmonary testing in preparation of open lung biopsy. Objective Data Objective Data Vital Signs: Vital Signs Temp Pulse Resp BP 98.4 F 78 18 164/87 H 01/15/24 13:31 01/15/24 13:31 01/15/24 13:31 01/15/24 13:31 Charges/Coding Procedures Integumentary 111xxx-113xx: [id number] Ashley subq tissue 20 sq cm/< Debridement Note Debridement Note Wound debrided: #1 Left ischial area. Laterality: Left Wound Grade/Stage: Stage IV Type of Debridement: Excisional debridement Anesthesia Used: 5% Lidocaine Gel Depth: Down to and including healthy tissue and in the subcutaneous layer Percentage of wound debrided: 100 Instrument Used: - (1 cmcurette) Tissue Removed: Subcutaneous tissue and devitalized tissue and slough. Severity: Fat Layer Exposed (muscle is exposed. bone is palpable and not exposed.) Amount of bleeding with debridement: Mild Bleeding Controlled with: Pressure and Compression and gauze Patient tolerated procedure: Patient tolerated procedure well Post-Debridement Measurements and Additional Note: Post-Debridement Measurements/Treatment VALENTÍN - Nurse 1 - General Ulcer Assessment Start: 01/15/24 13:31 Freq: Status: Active Protocol: JANET Activity Type Activity Date Activity User E-sign Co-sign Detail Recorded Client Recorded Date Recorded By Document 01/15/24 13:31 JIMI [id number] 01/15/24 13:32 JIMI 01/15/24 13:31 WC - Today's Visit Information Type of service Follow-up Visit (Physician/SURVEY AND MAPPING TECHNICIAN ) Arrival Mode Ambulatory Transfer Assistance None Patient Identification Verified (Name & Yes ) Patient Requires Transmission-Based No Precautions Vital Signs Temperature (97.8 F-99.1 F) 98.4 F Temperature Source Temporal Pulse Rate (60-100) 78 Pulse Location Monitor Respiratory Rate (12-18) 18 Respiratory rate source Observation Blood Pressure (90/60-120/80) 164/87 H Blood Pressure Mean (mm Hg) 112 Source Monitor Position Semi-Fowlers Blood Pressure Location Left Arm History Since Last Visit- (Skip if this is Patient's initial visit) Have you changed medications since your No last visit? Any new allergies or adverse reactions No Had a fall/change in ADL's that may No increase risk of falls Signs or symptoms of abuse and/or No neglect since last visit Have you been in the hospital since your No last visit? Has dressing in place as prescribed Yes Has compression in place as prescribed No Has offloadiing in place as prescribed No Experienced any changes in pain level or No management Pain Scale: 0-10 Numeric Is Patient Pain Free? Yes VALENTÍN - Nurse 1 - General Ulcer Measurement Start: 01/15/24 13:31 Freq: Status: Active Protocol: Activity Type Activity Date Activity User E-sign Co-sign Detail Recorded Client Recorded Date Recorded By Document 01/15/24 13:31 RB [id number] 01/15/24 13:32 RB 01/15/24 13:31 Wound Center Nurse 1 #1 L Buttock -Combined with other wound No -Current Size (cm) - Length 0.2 -Current Size (cm) - Width 0.2 -Current Size (cm) - Depth 0.3 -Total Square Cm 0.04 -Photo Taken Yes -Tunneling No -Undermining/Tunneling No -Circular Undermining No -Exudate Amt Medium -Exudate Type Serosanguineous -Wound Margin Thickened & Rolled Under -Granulation Amt Medium (34-66%) -Granulation Quality [place] -Slough/Fibrin Yes -Necrosis Amt Medium (34-66%) -Necrotic Tissue Type Adherent Slough -Structure Exposed N/A -Texture ([place]-wound Skin Appearance) Assessed, Scarring -Moisture ([place]-wound Skin Appearance) Assessed -Color ([place]-wound Skin Appearance) Assessed -Temperature ([place]-wound Skin No Abnormality Appearance) (Pt Warm) -Tenderness on Palpation ([place]-wound No Skin Appearance) -Ulcer Cleansing Wound Cleanser -Foul Odor after Cleansing No -Anesthetic Used 5% Lidocaine Gel WC - Nurse 2 - General Ulcer CM Notes Start: 01/15/24 13:31 Freq: Status: Active Protocol: Activity Type Activity Date Activity User E-sign Co-sign Detail Recorded Client Recorded Date Recorded By Document 01/15/24 13:39 [id number] 01/15/24 13:41 01/15/24 13:39 Wound Center Nurse 2 -Time 13:39 -Correct Patient Yes -Correct Side, Site, Position Yes -Correct Procedure Yes -Procedure Performed Yes -Type of Procedure Debridement -Clinical Debridement Subcutaneous -Tissue Removed Subcutaneous -Post Debridement (cm) - Length 0.2 -Post Debridement (cm) - Width 0.2 -Post Debridement (cm) - Depth 1.0 -Total Square (Post) (cm) 0.04 -Area of Debridement (cm) - Length 0.2 -Area of Debridement (cm) - Width 0.2 -Total Square (Area) (cm) 0.04 -Tunneling No -Undermining/Tunneling No -Circular Undermining No -Wound/Ulcer Outcome Not Healed -Ulcer Cleansing Not Cleansed -Foul Odor after Cleansing No -Bleeding Controlled with Pressure -Treatment Response Procedure Tolerated Well -Debridement - Subq, 1st 20sq cm Yes Pain Scale: 0-10 Numeric Is Patient Pain Free? Yes - Nurse 3 - General Ulcer D/C NN Start: 01/15/24 13:31 Freq: Status: Active Protocol: Activity Type Activity Date Activity User E-sign Co-sign Detail Recorded Client Recorded Date Recorded By Document 01/15/24 13:51 DL [id number] 01/15/24 13:52 DL 01/15/24 13:51 Wound Care Center Nurse 3 #1 L Buttock -Ulcer Cleansing Rinsed/ Irrigated with Saline -Foul Odor after Cleansing No -Primary Dressing Applied Mepilex Border -Other Dressing hydrogel -Mepilex Border 1 Treatment Response Procedure Tolerated Well Pain Scale: 0-10 Numeric Is Patient Pain Free? 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 Wash ulcer with soap and water at the time of the dressing changes. A wound culture from 08/29/22 was positive for Acinetobacter baumannii and Corynebacterium striatum and he completed Augmentin. He was recently diagnosed with Pancreatic cancer. He had surgery and didn't initially need chemotherapy. Now that they have found the 2 spots on his lung, he is having biopsy of these and then they will decide what chemotherapy to treat him with. The biopsy is scheduled for the the last week of November. He also recently diagnosed with diabetes and is insulin dependent. Encouraged increase protein intake to help with wound healing. Follow up 2 weeks.
--- NOTE | 2024-01-16 14:11 | WC ---
PHOTO 01/15/24 LEFT BUTTOCK
== END 2024-01-25 23:59 | disposition home or self-care (01) ==
LOC: WC 12:59
PROVIDERS: PCP Internal Medicine; Referring Provider Nurse Practitioner Family; Visit Provider Nurse Practitioner Family
DX: L89.324 Pressure ulcer of left buttock, stage 4 (principal); E11.42 Type 2 diabetes mellitus with diabetic polyneuropathy; Z79.01 Long term (current) use of anticoagulants; Z79.899 Other long term (current) drug therapy; Z95.5 Presence of coronary angioplasty implant and graft; Z96.653 Presence of artificial knee joint, bilateral
CPT/HCPCS: 11042

== ENCOUNTER 2024-02-19 13:06 | Outpatient (RCR) | payer MEDICARE, OTHER, SELFPAY ==
[2024-01-26 00:41] VITALS: BP 109/50; PULSE 113; RESP 20; TEMP 36.3
[2024-02-19 13:17] VITALS: BP 128/72; PULSE 84; RESP 14; TEMP 37.1
== END 2024-02-24 23:59 | disposition home or self-care (01) ==
LOC: WC 13:06
PROVIDERS: PCP Internal Medicine; Referring Provider Nurse Practitioner Family; Visit Provider Nurse Practitioner Family
DX: L89.324 Pressure ulcer of left buttock, stage 4 (principal); C78.00 Secondary malignant neoplasm of unspecified lung; C25.9 Malignant neoplasm of pancreas, unspecified; E11.42 Type 2 diabetes mellitus with diabetic polyneuropathy; Z95.5 Presence of coronary angioplasty implant and graft; Z96.653 Presence of artificial knee joint, bilateral
CPT/HCPCS: 11042

== ENCOUNTER 2024-03-25 13:30 | Outpatient (RCR) | payer MEDICARE, OTHER, SELFPAY ==
[2024-02-25 00:19] VITALS: BP 109/50; PULSE 113; RESP 20; TEMP 36.3
[2024-03-11 13:20] VITALS: BP 137/67; PULSE 89; RESP 18; TEMP 36
[2024-03-25 13:11] VITALS: BP 149/80; PULSE 78; RESP 16; TEMP 36.6
== END 2024-03-26 23:59 | disposition home or self-care (01) ==
LOC: WC 13:30
PROVIDERS: PCP Internal Medicine; Referring Provider Nurse Practitioner Family; Visit Provider Nurse Practitioner Family
DX: L89.324 Pressure ulcer of left buttock, stage 4 (principal); C78.00 Secondary malignant neoplasm of unspecified lung; C25.9 Malignant neoplasm of pancreas, unspecified; E11.42 Type 2 diabetes mellitus with diabetic polyneuropathy; Z79.01 Long term (current) use of anticoagulants; Z79.899 Other long term (current) drug therapy; Z95.5 Presence of coronary angioplasty implant and graft; Z96.653 Presence of artificial knee joint, bilateral
CPT/HCPCS: 11042; 99212; G0463

== ENCOUNTER 2024-09-09 13:07 | Outpatient (RCR) | payer MEDICARE, OTHER, SELFPAY ==
[2024-03-27 00:37] VITALS: BP 109/50; PULSE 113; RESP 20; TEMP 36.3
--- NOTE | 2024-09-02 15:54 | WC ---
Addendum entered by Maurizio Finley 09/09/24 13:53: Care is transferred over to Dr. Gutierrez Original Note: Ronel Cannon NP transfers care of this patient over to Dr. Cueto as of 09/02/24
[2024-09-09 13:08] VITALS: BP 126/58; PULSE 86; RESP 16; TEMP 36.3; BMI 34.9
--- NOTE | 2024-09-09 13:27 | WC ---
PT RECEIVING CHEMO VIA [facility]. CAN'T REMEMBER NAME OF DRUG. WILL BRING TO NEXT VISIT.
--- NOTE | 2024-09-10 09:47 | WC ---
PHOTO 09/09/24 LEFT BUTTOCK
--- NOTE | 2024-09-10 14:07 | PCM.WC.HP ---
History of Present Illness Date of Service: 09/09/24 Chief Complaint: Left ischial pressure ulcer History of Wound: Patient is 73 year male who presented for evaluation of a left ischial pressure ulcer that occurred while hospitalized for a month during the Summer 2021 at [facility] in [place]. He was admitted on October 20, 2021 with a virus of unknown origin. He required dialysis for GURMEET due to the infection. He developed a left ischial ulcer, which was debrided at the bedside. The ulceration extended down to muscle and involved tunneling. He was subsequently readmitted twice, for a week each time, to [facility]. He has home health and is receiving PT at home. His was packing it with saline moistened gauze daily. He had a right lateral leg ulcer that is healed He had severe +4 pitting edema to bilateral lower legs and feet, which has resolved. He has not been wearing compression. He is a poor historian, but stated he has a history of cardiac stents years ago, left knee replacement 2010, right knee replacement 2017, and appendectomy in 1968. Wound culture 08/29/22 positive for Acinetobacter baumannii and Corynebacterium striatum. Treated with Augmentin. He is relatively active, without limitations. 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 He is . As a result of return to relatively normal activity, the swelling in his lower extremities has diminished. The patient was recently diagnosed with pancreatic cancer in February,. He underwent surgery, and has been undergoing chemotherapy. In November 2023 he was diagnosed with two lesions on his lung. . He was recently diagnosed with insulin dependent diabetes. He claims to have a good appetite. [facility] Medical History Pancreatic cancer metastasized to lung Diabetes mellitus, insulin dependent (IDDM), controlled Asthma Hypertension Peripheral neuropathy Home Medications ?Medication ?Instructions ?Recorded ?Last Taken ?Type albuterol sulfate 90 mcg/actuation 2 puff inhalation Q4H PRN PRN Sob 10/08/15 Unknown History aerosol inhaler (Ventolin HFA) &/Or Wheezing gabapentin 100 mg capsule 200 mg PO BIDCM 10/08/15 10/07/15 22:00 History apixaban 5 mg tablet (Eliquis) 5 mg PO BID ##1 10/18/15 Unknown Rx esomeprazole magnesium 40 mg 40 mg PO DAILY 09/09/24 Unknown History capsule,delayed release furosemide 40 mg tablet 40 mg PO DAILY PRN edema 09/09/24 Unknown History gabapentin 400 mg capsule 400 mg PO BID 09/09/24 Unknown History insulin glargine 100 unit/mL (3 20 unit subcut QHS 09/09/24 Unknown History mL) subcutaneous pen (Lantus Solostar U-100 Insulin) insulin lispro 100 unit/mL 0 - 15 unit subcut TID 09/09/24 Unknown History subcutaneous pen losartan 25 mg tablet 50 mg PO DAILY 09/09/24 Unknown History prochlorperazine maleate 10 mg 10 mg PO Q6H PRN PRN nausea 09/09/24 Unknown History tablet tramadol 50 mg tablet 50 mg PO Q6H PRN PRN severe pain 09/09/24 Unknown History Allergy/AdvReac Type Severity Reaction Status Date / Time vancomycin Allergy Severe RED MAN Verified 09/09/24 13:22 SYNDROME Family History Father CAD (coronary artery disease) Mother CAD (coronary artery disease) Surgical History History of heart artery stent History of appendectomy History of total right knee replacement (TKR) History of total left knee replacement Social History Smoking Status: Never smoker Vital Signs Vital Signs Vital Signs: Weight Weight: 230 lb Body Mass Index (BMI) 34.9 Physical Exam Const alert, oriented x3, no apparent distress and no limitations Constitutional Narrative: Patient's BMI is 35.0. General Appearance: cooperative, comfortable, well kempt and well developed Orientation / Consciousness: awake, oriented to person, oriented to place and oriented to time Exam Limitations: no limitations HEENT normocephalic, head/scalp atraumatic and external ears normal Head and Scalp: normal to inspection, normocephalic and atraumatic Face and Sinus: normal facial exam Nose: external nose normal External Ear: external ears normal Eyes EOMs intact bilaterally Resp normal respiratory effort, normal air movement, no retractions and no use of accessory muscles Effort and Inspection: able to speak in complete sentences Extremity Extremity Narrative: Bilateral lower extremity edema. Bilateral pedal pulses palpable. Skin Wound Narrative: A left ischial pressure ulceration is noted. The ulceration extends through all layers of the dermis and into the subcutaneous tissues. Because the external portion of the ulceration is relatively small, there is uncertainty as to whether this extends to muscle. Gentle probing does not suggest that it tracks to bone. Dimensions are documented elsewhere. There is no odor or drainage. There is no associated erythema or cellulitis. Ulcer margins are not well beveled. Neuro oriented x3, CN's II-XII intact bilaterally, moves all extremities, no focal motor deficits and no sensory deficits noted Sensorium / Orientation: awake, alert, oriented to person, oriented to place and oriented to time Psych mental status grossly normal Appearance: grossly normal Debridement Note Debridement Note Wound debrided: Left ischial pressure ulceration Laterality: Left Type of Debridement: Excisional debridement Anesthesia Used: 5% Lidocaine Gel Depth: Down to and including healthy tissue, in the subcutaneous layer and to muscle Percentage of wound debrided: 100 Instrument Used: 3mm curette Tissue Removed: Bioburden and devitalized tissue Severity: Fat Layer Exposed (The depths of the ulceration appear to extend beyond the fat layer and into muscle.) Amount of bleeding with debridement: Mild Bleeding Controlled with: Compression and gauze Patient tolerated procedure: Patient tolerated procedure well Post-Debridement Measurements and Additional Note: Post-Debridement Measurements/Treatment - Nurse 1 - General Ulcer Assessment Start: 09/09/24 13:08 Freq: Status: Active Protocol: .LOWEXT Activity Type Activity Date Activity User E-sign Co-sign Detail Recorded Client Recorded Date Recorded By Document 09/09/24 13:08 [facility] [id number] 09/09/24 13:21 [facility] 09/09/24 13:08 - Today's Visit Information Type of service Initial Visit Arrival Mode Ambulatory,Cane Transfer Assistance None Patient Identification Verified (Name & Yes ) Patient Requires Transmission-Based No Precautions Height and Weight Height 5 ft 8 in Weight 230 lb Weight in Pounds 230.0 lbs Weight Measurement Method Stated by Patient Body Mass Index (BMI) 34.9 BMI Classification Obese Vital Signs Temperature (97.8 F-99.1 F) 97.3 F L Temperature Source Temporal Pulse Rate (60-100) 86 Pulse Location Monitor Respiratory Rate (12-18) 16 Respiratory rate source Observation Oxygen Delivery Method Room Air Blood Pressure (90/60-120/80) 126/58 H Blood Pressure Mean 80 Source Monitor Position Sitting Blood Pressure Location Left Arm History Since Last Visit- (Skip if this is Patient's initial visit) Left Footwear Regular Shoe Right Footwear Regular Shoe Pain Scale: 0-10 Numeric Is Patient Pain Free? Yes Communication Assessment Preferred language Indian Able to Read Yes Able to Write Yes Communication Tools None Right Hearing Abillity Normal Left Hearing Abillity Normal Teaching Assessment Preferences Verbal,Written, Audio/Visual, Demonstration Barriers to Learning None Readiness To Learn Excellent Willingness to Engage in Self Management High Activies Readiness to Engage in Self Management High Activities Anxiety Level Calm Cooperation Cooperative Perception Coherent Interest in Health Problem Asks Questions Education Importance Acknowledges Need Does Patient Smoke tobacco or other No substances Smoking Status Never smoker Is Patient Diabetic Yes 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/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 Cultural/Christian Needs that may affect No Treatment Plan Teaching: Wound Center *Welcome to the Wound Center -Person Taught Patient -Teaching Method Discussion -Response to teaching Verbalize Understanding WC - Nurse 1 - General Ulcer Measurement Start: 09/09/24 13:08 Freq: Status: Active Protocol: Activity Type Activity Date Activity User E-sign Co-sign Detail Recorded Client Recorded Date Recorded By Document 09/09/24 13:08 [facility] [id number] 09/09/24 13:21 [facility] 09/09/24 13:08 Wound Center Nurse 1 #3- L BUTTOCK -Combined with other wound No -Current Size (cm) - Length 0.9 -Current Size (cm) - Width 0.1 -Current Size (cm) - Depth 1 -Total Square Cm 0.09 -Date of Last Picture (Recall this 09/09/24 field) -Photo Taken Yes -Tunneling No -Undermining/Tunneling No -Circular Undermining No -Exudate Amt Medium -Exudate Type Serosanguineous -Wound Margin Distinct, Outline Attached -Granulation Amt Large (67-100%) -Granulation Quality Red -Texture (Merline-wound Skin Appearance) Assessed, Scarring -Moisture ([place]line-wound Skin Appearance) Assessed -Color ([place]-wound Skin Appearance) Assessed -Temperature ([place]-wound Skin No Abnormality Appearance) (Pt Warm) -Tenderness on Palpation ([place]line-wound No Skin Appearance) -Ulcer Cleansing Rinsed/ Irrigated with Saline -Foul Odor after Cleansing No -Anesthetic Used 5% Lidocaine Gel WC - Nurse 2 - General Ulcer CM Notes Start: 09/09/24 13:08 Freq: Status: Active Protocol: Activity Type Activity Date Activity User E-sign Co-sign Detail Recorded Client Recorded Date Recorded By Document 09/09/24 13:41 DS [id number] 09/09/24 13:46 DS 09/09/24 13:41 Wound Center Nurse 2 -Time 13:42 -Correct Patient Yes -Correct Side, Site, Position Yes -Correct Procedure Yes -Procedure Performed Yes -Type of Procedure Debridement -Clinical Debridement Subcutaneous -Tissue Removed Subcutaneous -Post Debridement (cm) - Length 0.8 -Post Debridement (cm) - Width 0.3 -Post Debridement (cm) - Depth 1.4 -Total Square (Post) (cm) 0.24 -Area of Debridement (cm) - Length 0.8 -Area of Debridement (cm) - Width 0.3 -Total Square (Area) (cm) 0.24 -Tunneling No -Undermining/Tunneling No -Circular Undermining No -Wound/Ulcer Outcome Not Healed -Ulcer Cleansing Rinsed/ Irrigated with Saline -Foul Odor after Cleansing No -Bioengineered Tissue No -Bleeding Controlled with Pressure -Treatment Response Procedure Tolerated Well -Debridement - Subq, 1st 20sq cm Yes Pain Scale: 0-10 Numeric Is Patient Pain Free? Yes - Nurse 3 - General Ulcer D/C NN Start: 09/09/24 13:08 Freq: Status: Active Protocol: Activity Type Activity Date Activity User E-sign Co-sign Detail Recorded Client Recorded Date Recorded By Document 09/09/24 13:58 [facility] [id number] 09/09/24 13:59 [facility] 09/09/24 13:58 Wound Care Center Nurse 3 #3- L BUTTOCK -Ulcer Cleansing Rinsed/ Irrigated with Saline -Foul Odor after Cleansing No -Primary Dressing Applied Nugauze, Iodoform 1/2in, Silicone Border Foam 4x4 -Nugauze, Iodoform 1/2in 1 -Silicone Border Foam 4x4 1 Treatment Response Procedure Tolerated Well Pain Scale: 0-10 Numeric Is Patient Pain Free? 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, stage 4: CODE(S): L89.324 - Pressure ulcer of left buttock, stage 4 (2) Diabetes mellitus, insulin dependent (IDDM), controlled: (3) Peripheral neuropathy: CODE(S): G62.9 - Polyneuropathy, unspecified (4) Insulin dependent diabetes mellitus: (5) Asthma: CODE(S): J45.909 - Unspecified asthma, uncomplicated (6) Hypertension: CODE(S): I10 - Essential (primary) hypertension (7) History of heart artery stent: CODE(S): Z95.5 - Presence of coronary angioplasty implant and graft (8) History of total right knee replacement (TKR): CODE(S): Z96.651 - Presence of right artificial knee joint (9) History of total left knee replacement: CODE(S): Z96.652 - Presence of left artificial knee joint (10) History of appendectomy: CODE(S): Z90.49 - Acquired absence of other specified parts of digestive tract (11) Hypertension: CODE(S): I10 - Essential (primary) hypertension (12) Asthma: CODE(S): J45.909 - Unspecified asthma, uncomplicated (13) Pancreatic cancer metastasized to lung: CODE(S): C25.9 - Malignant neoplasm of pancreas, unspecified; C78.00 - Secondary malignant neoplasm of unspecified lung PLAN: Plan This is a 73-year-old male with a left ischial pressure ulceration, formerly managed at the [facility] by another provider, from whom the patient's care is being overtaken. The patient's left ischial pressure ulceration has been present for 2 or 3 years. Given its configuration and morphology, healing by secondary intention may not be probable. Under normal circumstances, consideration would be given to surgical unroofing and excision of the ulcer, which would enhance healing by secondary intention, and allow for skin grafting, the use of an allograft, negative pressure wound therapy, etc. However, the patient was diagnosed with metastatic pancreatic cancer approximately 6 months ago, the management of which is his primary concern. He is receiving chemotherapy, and we have discussed that the chemotherapy may adversely affect wound healing. Because of his pancreatic cancer diagnosis and associated treatments, a more aggressive approach to the management of his ischial pressure ulceration does not appear to be warranted or desired. We are to continue packing with 1 half-inch moistened iodoform gauze with an [place] SAP over-dressing. Wound packing is to be performed on a daily basis. He is otherwise to wash the ulceration with soap and water at the time of his dressing changes. A wound culture from 08/29/22 was positive for Acinetobacter baumannii and Corynebacterium striatum and he completed Augmentin. The patient also was diagnosed with diabetes that requires insulin to manage earlier this year. He has been urged to optimize his diabetic control. He has also been encouraged to optimize his nutritional and protein intake to enhance wound healing. Consistent with the patient's previous protocol, he will be followed at 2-week intervals. The patient had a CT scan recently at another institution, and is to follow-up with his oncologist next week. Total time: 45 minutes
== END 2024-09-23 23:59 | disposition home or self-care (01) ==
LOC: WC 13:07
PROVIDERS: PCP Internal Medicine; Referring Provider Nurse Practitioner Family; Visit Provider Surgery
DX: L89.224 Pressure ulcer of left hip, stage 4 (principal); C78.00 Secondary malignant neoplasm of unspecified lung; C25.9 Malignant neoplasm of pancreas, unspecified; E11.42 Type 2 diabetes mellitus with diabetic polyneuropathy; Z79.4 Long term (current) use of insulin; Z95.5 Presence of coronary angioplasty implant and graft; J45.909 Unspecified asthma, uncomplicated; Z79.01 Long term (current) use of anticoagulants; I10 Essential (primary) hypertension; Z92.21 Personal history of antineoplastic chemotherapy; R60.0 Localized edema
CPT/HCPCS: 11042; 99213; G0463